=== PATIENT | male | born 1960 | race Caucasian/White ===

== ENCOUNTER 2017-11-24 15:41 | Emergency (ER) | payer OTHER ==
[~2017-11-24] VITALS: Ht 180.3 cm; Wt 87.5 kg
[~2017-11-24 15:41] MED LIST: AMT50 PO; CLBPO15 EXT; EMOL-63 TOP; FERR1TAB23 PO; FURO-85 PO; LEVO300T2 PO; NIAC1TAB52 PO; TRAZ100T29 PO; VITAMIN B12 PO; [UNRECOGNIZED DRUG - CODE] PO
[2017-11-24 15:47] VITALS: TEMP 36.8; Ht 180.3 cm; Wt 87.5 kg
--- NOTE | 2017-11-24 16:26 | EMERGENCY ROOM VISIT NOTE ---
History Report prepared by Maninder: Elvin Christian Under the Supervision of: Dr. Danielito Cabrear D.O. First contact with patient: 15:56 Chief Complaint: REFERRED BY DOCTOR Stated Complaint: CONSTIPATION, DR. ALMODOVAR REFERRED Nursing Triage Summary: Patient ambulatory to triage with an upright and steady gait, states "I am all backed up. I saw my PCP on Tuesday. He prescribed me Miralax and Dulcolax. It didn't work a whole lot. Yesterday, I tried another suppository again. Nothing happened. It hurts to eat. I feel like I am running a fever. Dr. Almodovar's office sent me here." History of Present Illness The patient is a 57 year old male who presents to the Emergency Room with complaints of constant constipation for the past 3 days. Patient states he was referred to the ER by his PCP. He states he saw his PCP 3 days ago who prescribed him Miralax and Dulcolax. He states these have not relieved his symptoms. Patient adds he tried another "suppository" yesterday which did not help. Patient states he feels bloated with abdominal pain. He states he feels like he has to go to the bathroom but "cannot produce anything". Past surgical history includes an abdominal hernial surgery. Patient states he has a history of colonoscopies which were normal. Source of History: patient Onset: 3 days ago Position: abdomen Timing: constant Modifying Factors (Relieving): other (None) Associated Symptoms: + abdominal pain Review of Systems See HPI for pertinent positives & negatives. A total of 10 systems reviewed and were otherwise negative. Past Medical & Surgical Medical Problems: (1) Kidney stone (2) Lymphoma (3) PNA (pneumonia) Surgical Problems: (1) H/O shoulder surgery Family History Patient reports no known family medical history. Social History Smoking Status: Current Every Day Smoker Marital Status: single Occupation Status: employed Current/Historical Medications Scheduled Amitriptyline Hcl (Elavil), 25 MG PO HS Atorvastatin (Lipitor), 20 MG PO QAM Bexarotene (Targretin), 225 MG PO QAM Ferrous Sulfate (Iron), 325 MG PO TID Levothyroxine Sodium (Synthroid), 300 MCG PO QAM Niacin (Antihyperlipidemic) (Niacin Er), 1,000 MG PO TID Polyethylene Glycol 3350 (Miralax), 17 GM PO DAILY Trazodone Hcl (Trazodone), 200-300 MG PO HS [Vitamin B12], 2,500 MCG PO HS Scheduled PRN Clobetasol Propionate (Clobetasol Propionate), 1 APPLN EXT DAILY PRN for AFFECTED AREAS Emollient (Eucerin), 1 APPLN TOP DAILY PRN Ibuprofen Tab (Motrin), 600 MG PO DIRECTED PRN for Pain Allergies Coded Allergies: Erythromycin (Verified Allergy, Unknown, "INTERACTS WITH TARGRETIN", ) Physical Exam Vital Signs Date Time Temp Pulse Resp B/P (MAP) Pulse Ox O2 Delivery O2 Flow Rate FiO2 11/24/17 18:45 76 18 165/100 97 11/24/17 17:31 88 20 165/95 95 Room Air 11/24/17 16:32 85 20 165/91 95 Room Air 11/24/17 15:47 36.8 103 20 162/82 94 Room Air Physical Exam GENERAL: Patient is awake, alert, and in no acute distress. Patient is resting comfortably and showing no signs of anxiety EYES: The conjunctivae are clear. The pupils are round and reactive. EARS, NOSE, MOUTH AND THROAT: The nose is without any evidence of any deformity. Mucous membranes are moist. Tongue is midline NECK: The neck is nontender and supple. RESPIRATORY: Normal respiratory effort is noted. There is no evidence of wheezing rhonchi or rales to auscultation. CARDIOVASCULAR: Regular rate and rhythm noted. There no murmurs rubs or gallops normal S1 normal S2 GASTROINTESTINAL: Mildly distended but soft. Bowel sounds are present in all quadrants. Abdomen is nontender. No guarding or rigidity. MUSCULOSKELETAL/EXTREMITIES: There is no evidence of gross deformity. Full range of motion is noted in the hips and shoulders. SKIN: There is no obvious evidence of any rash. There are no petechiae, pallor or cyanosis noted. NEUROLOGIC: Patient is awake alert and oriented x3. Medical Decision & Procedures ER Provider Diagnostic Interpretation: Radiology results as stated below per my review and radiologist interpretation: PA CHEST WITH ABDOMINAL SERIES CLINICAL HISTORY: Constipation. Abdominal bloating. FINDINGS: A PA chest radiograph is compared to study dated 11/26/2014. Correlation is made with chest CT dated 04/09/2014. The cardiomediastinal silhouette is unremarkable. Emphysema and chronic interstitial thickening are similar to previous. No airspace consolidation or pleural effusion is identified. No pneumothorax is seen. The bony thorax is grossly intact. Supine and erect abdominal radiographs are compared to study dated 04/09/2014. There is a nonobstructed abdominal bowel gas pattern. There is moderate colonic fecal retention. No evidence of intraperitoneal free air is seen. A large calcified gallstone is seen in the right upper quadrant. The lumbosacral spine and bony pelvis appear intact. IMPRESSION: 1. Emphysema with no acute cardiopulmonary abnormality. 2. Nonobstructed abdominal bowel gas pattern noting moderate colonic fecal retention. 3. Cholelithiasis. Electronically signed by: Zaki Gibson M.D. 11/24/2017 4:54 PM Medications Administered Medications (Trade) Dose Ordered Sig/Holly Route Start Time Stop Time Status Last Admin Dose Admin Miscellaneous (Soap Suds Enema) 1 ea ONE STAT PA 11/24/17 17:01 11/24/17 17:02 DC 11/24/17 17:01 1 EA ED Course 1359: The patient was evaluated in room B2. A complete history and physical examination were performed. 1701: Soap Suds Enema 1 ea PA 1732: Upon reevaluation, the patient is resting comfortably. I discussed the results and treatment plan with him. He verbalized agreement of the treatment plan. He was discharged home. Medical Decision Triage Nursing notes reviewed. The patient's history was concerning for constipation. Differential diagnosis: Etiologies such as functional constipation, impaction, obstruction, volvulus, metabolic abnormality, infection, neurologic, as well as others were entertained. The patient is a 57-year-old male who presented to the emergency department for an evaluation of constipation. The patient's history and physical exam are consistent with constipation. He did not have a physical exam consistent with an acute surgical abdomen. He was treated with soapsuds enema. He was encouraged to continue all medications as prescribed and follow-up with his primary care physician as soon as possible for further evaluation. He was also encouraged to return to the emergency department immediately if symptoms change worsen or the need arises. I also encouraged him to discuss the possibility that he may require a colonoscopy in the near future with gastroenterology referral. Medication Reconcilliation Current Medication List: was personally reviewed by me Blood Pressure Screening Patient's blood pressure: Elevated blood pressure Blood pressure disposition: Elevated BP felt to be situational Impression Primary Impression: Constipation Scribe Attestation The scribe's documentation has been prepared under my direction and personally reviewed by me in its entirety. I confirm that the note above accurately reflects all work, treatment, procedures, and medical decision making performed by me. Departure Information Dispostion Home / Self-Care Prescriptions Polyethylene Glycol 3350 (MIRALAX) 1 Pow Pow 17 GM PO DAILY, #527 GM Prov: Danielito Cabrera, DO 11/24/17 Referrals Jett Almodovar M.D.([facility]RA) (PCP) Forms HOME CARE DOCUMENTATION FORM, IMPORTANT VISIT INFORMATION, WORK / SCHOOL INSTRUCTIONS Patient Instructions Constipation, My [facility] Additional Instructions Continue all medications as prescribed. Call your family doctor to schedule a follow-up appointment. Drink plenty clear liquids. Discussed the possibility with your family doctor that you may require a colonoscopy and a referral to a supervisor of guidance and testing if symptoms do not improve. Problem Qualifiers Primary Impression: Constipation Constipation type: unspecified constipation type Qualified Codes: K59.00 - Constipation, unspecified
[2017-11-24] MEDS ORDERED: IBUP-1427 PO (16:27)
[2017-11-24] MEDS ORDERED: ATOR-22 PO (16:27)
--- NOTE | 2017-11-24 16:55 | DIAGNOSTIC IMAGING REPORT ---
PA CHEST WITH ABDOMINAL SERIES CLINICAL HISTORY: Constipation. Abdominal bloating. FINDINGS: A PA chest radiograph is compared to study dated 11/26/2014. Correlation is made with chest CT dated 04/09/2014. The cardiomediastinal silhouette is unremarkable. Emphysema and chronic interstitial thickening are similar to previous. No airspace consolidation or pleural effusion is identified. No pneumothorax is seen. The bony thorax is grossly intact. Supine and erect abdominal radiographs are compared to study dated 04/09/2014. There is a nonobstructed abdominal bowel gas pattern. There is moderate colonic fecal retention. No evidence of intraperitoneal free air is seen. A large calcified gallstone is seen in the right upper quadrant. The lumbosacral spine and bony pelvis appear intact. IMPRESSION: 1. Emphysema with no acute cardiopulmonary abnormality. 2. Nonobstructed abdominal bowel gas pattern noting moderate colonic fecal retention. 3. Cholelithiasis. Electronically signed by: Zaki Gibson M.D. 11/24/2017 4:54 PM Dictated Date/Time: 11/24/2017 4:52 PM
[2017-11-24] MEDS ORDERED: SOAP SUDS ENEMA PR STA (17:01)
[2017-11-24] MEDS ORDERED: POLY335019 PO (18:34)
[2017-11-24 18:45] VITALS: BP 165/100; PULSE 76; O2SAT 97
== END 2017-11-24 18:48 | disposition home or self-care (01) ==
LOC: C.EDB 15:42
DX: K59.00 Constipation, unspecified (principal); F17.200 Nicotine dependence, unspecified, uncomplicated; Z85.72 Personal history of non-Hodgkin lymphomas; Z88.1 Allergy status to other antibiotic agents

== ENCOUNTER 2020-07-06 16:38 | Inpatient (IN) ==
[2020-07-06 17:31] LABS: Basophils # (auto) 0.02 K/uL (0-0.2); Basophils % (auto) 0.2 %; Eosinophils # (auto) 0.18 K/uL (0-0.5); Eosinophils % (auto) 1.9 %; Hematocrit (blood only) 39.4 % (42-52); Hemoglobin 13.1 g/dL (14.0-18.0); Immature Granulocytes # (auto) 0.01 K/uL (0.00-0.02); Immature Granulocytes % (auto) 0.1 %; Lymphocytes # (auto) 2.48 K/uL (1.2-3.4); Lymphocytes % (auto) 25.6 %; Mean Corpuscular Hemoglobin 31.2 pg (25-34); Mean Corpuscular Hgb Conc 33.2 g/dL (32-36); Mean Corpuscular Volume 93.8 fL (80-100); Mean Platelet Volume 9.7 fL (7.4-10.4); Monocytes # (auto) 0.51 K/uL (0.11-0.59); Monocytes % (auto) 5.3 %; Neutrophils # (auto) 6.49 K/uL (1.4-6.5); Neutrophils % (auto) 66.9 %; Platelet Count 242 K/uL (130-400); RDW Coefficient of Variation 13.5 % (11.5-14.5); RDW Standard Deviation 46.5 fL (36.4-46.3); White Blood Count 9.69 K/uL (4.8-10.8)
--- NOTE | 2020-07-06 17:38 | XRay Report ---
XR chest 1V portable CLINICAL HISTORY: weakness COMPARISON STUDY: 11/24/2017 FINDINGS: The cardiac and mediastinal contours are normal. There is no evidence of focal pulmonary co nsolidation. There is no evidence of failure. No pleural effusions are visualized.[ IMPRESSION: No active disease in the chest. ACT 112: Negative or not required by law. Electronically signed by: Gopal Luz M.D. 07/06/2020 5:37 PM
--- NOTE | 2020-07-06 17:40 | XRay Report ---
XR KUB/Abdomen 1 view CLINICAL HISTORY: Pt c/o opal kidney stones BILATERAL FLANK PAIN COMPARISON STUDY: No previous studies for comparison. FINDINGS: Surgical clips are visualized in the right upper quadrant consistent with a prior cholecyst ectomy. There is a surgical staple line within the right lower quadrant. There is no pathologic bowel dilatation. Punctate opacities project over the right renal shadow suspicious for calculi. There are a few nonspecific pelvic basin calcifications, likely resenting phleboliths. IMPRESSION: 1. Nonobstructive bowel gas pattern 2. Suspected right-sided nephrolithiasis ACT 112: Negative or not required by law. Electronically signed by: Gopal Luz M.D. 07/06/2020 5:38 PM
[2020-07-06 17:48] LABS: Alanine Aminotransferase 28 U/L (12-78); Albumin Level 3.3 gm/dl (3.4-5.0); Aspartate Aminotransferase 27 U/L (15-37); BUN Creatinine Ratio 26.2 (10-20); Blood Urea Nitrogen 23 mg/dl (7-18); Calcium 8.7 mg/dl (8.5-10.1); Carbon Dioxide 25 mmol/L (21-32); Chloride 105 mmol/L (98-107); Creatinine Clr Calc Pharmacy 102.7 ml/min; Est GFR (African American) 107.7; Est GFR (Non-African American) 92.9; Glucose 214 mg/dl (70-99); Lipase 120 U/L (73-393); Potassium 3.5 mmol/L (3.5-5.1); Sodium 138 mmol/L (136-145)
[2020-07-06 17:57] LABS: Appearance Urine Clear (Clear); Bacteria Urine Automated Negative (Negative); Bilirubin Urine Negative (Negative); Blood Urine 1+ (Negative); Cast Urine Automated 0 /lpf (0-5); Color Urine Yellow; Epithelial Cell Urine Auto 0-5 /lpf (0-5); Glucose Urine UA Trace (Negative); Ketones Urine Trace (Negative); Leukocyte Esterase Urine Negative (Negative); Nitrite Urine Negative (Negative); Protein Urine Negative (Negative); RBC Urine Automated 0-4 /hpf (0-4); Specific Gravity Urine 1.017 (1.000-1.030); Urobilinogen Urine Negative (Negative); pH Urine 5.5 (4.5-7.5)
[2020-07-06 17:59] LABS: Alkaline Phosphatase 107 U/L (45-117); Bilirubin,Total 0.3 mg/dl (0.2-1); Globulin 3.3 gm/dl (2.5-4.0); Thyroid Stimulating Hormone < 0.005 uIu/ml (0.300-4.500); Total Protein 6.6 gm/dl (6.4-8.2); Troponin I < 0.015 ng/ml (0-0.045)
[2020-07-06 18:12] LABS: T4 Free Thyroxine 0.89 ng/dl (0.8-1.6)
--- NOTE | 2020-07-06 18:39 | Ultrasound Report ---
EXAMINATION: RENAL ULTRASOUND CLINICAL HISTORY: Bilateral flank pain COMPARISON STUDY: CT scan dated 04/09/2014 FINDINGS: The right kidney measures 10.7 cm. The left kidney measures 11 cm. There is no evidence of hydronephrosis. There is a 14 mm mid pole left renal cyst No bladder abnormalities are visualized. Bilateral ureteral jets were visualized. The prostate was m ildly enlarged measuring 35 x 34 x 32 mm. IMPRESSION : 1. 14 mm mid pole left renal cyst 2. No evidence of hydronephrosis ACT 112: Negative or not required by law. Electronically signed by: Gopal Luz M.D. 07/06/2020 6:38 PM
[2020-07-06] MEDS ORDERED: SODIUM CHLORIDE 0.9% 1000ML 1,000 ML IV ONE ×2 (19:51→20:48)
[2020-07-06] MEDS ORDERED: ALBUTEROL HFA 8 GM INHALER INH ONE (19:51)
[2020-07-06] MEDS ORDERED: ACETAMINOPHEN 1,000 MG/100 ML VIAL IV STA (20:16)
[2020-07-06] MEDS ORDERED: ONDANSETRON INJ 2 MG/ML 2 ML VIAL IV STA (20:17)
[2020-07-06] MEDS ORDERED: HYDROmorphone INJ 0.5 MG/0.5 ML SYR IV PRN (20:17)
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
[2020-07-06 20:51] LABS: Creatine Kinase MB 3.8 ng/ml (0.5-3.6)
[2020-07-06] MEDS ORDERED: cefTRIAXone SODIUM 2,000 MG/70 ML BAG IV STA (22:12)
[2020-07-07] MEDS ORDERED: MoRPHine SULFATE 2 MG/ML CARP IV PRN (00:17)
[2020-07-07] MEDS ORDERED: ONDANSETRON INJ 2 MG/ML 2 ML VIAL IV PRN (00:17)
[2020-07-07] MEDS ORDERED: ACETAMINOPHEN 325 MG TAB PO PRN (00:17)
[2020-07-07] MEDS ORDERED: POLYETHYLENE (MIRALAX) 17 GM PACK PO PRN (00:17)
[2020-07-07] MEDS ORDERED: traZODone HCL 100 MG TAB PO PRN (00:17)
[2020-07-07] MEDS ORDERED: bisacodyL 5 MG TABEC PO PRN (00:40)
[2020-07-07] MEDS: SODIUM CHLORIDE 0.9% 1000ML 1,000 ML IV SCH ×2 (01:10→13:05)
--- NOTE | 2020-07-07 01:13 | History and Physical Report ---
DATE OF ADMISSION: 07/06/2020 CHIEF COMPLAINT: Dizziness and flank pain. HISTORY OF PRESENT ILLNESS: This 60-year-old male with past medical history significant for hypothyroidism, hypertriglyceridemia, hyperlipidemia, prediabetes, COPD, hypertension, constipation, history of mycosis fungoides presents with lightheadedness and bilateral flank pain. The patient describes feeling lightheaded. He could not stay at work and slept at home for 12 hours, that is the reason he came to the ER. In the ER, hemodynamically stable, BP l slightly at the lower side but with fluids, it improved. No leukocytosis, afebrile. His COVID was negative and his urinalysis looks okay, but his CAT scan of the abdomen and pelvis shows possible bilateral pyelonephritis, so we are called for admission, presently started with Rocephin. Currently resting comfortably and hemodynamically stable. He also has a wound in his right luis region since about 2 months with a fall and follows with the wound care clinic. He didnot want his wound dressing removed in the ER currently. Denies any chest pain or shortness of breath. No cough, no headache, no blurred vision, no earache, no runny nose, no sore throat, no nausea, no abdominal pain, no diarrhea or constipation. No burning micturition, no hematuria. ALLERGIES: TO ERYTHROMYCIN. PAST MEDICAL HISTORY: As mentioned above. PAST SURGICAL HISTORY: Colonoscopy, cystoscopy, lithotripsy, status post lymph node biopsy, status post bone marrow biopsy, history of leg vein cauterization, recurrent hernia repair, laparoscopic cholecystectomy, inguinal hernia repair, bilateral shoulder arthroscopy. MEDICATIONS: The patient is on amitriptyline 25 mg p.o. at bedtime, amlodipine 5 mg p.o. daily, atorvastatin 20 mg p.o. daily, Benefiber 1.5 p.o. t.i.d., betamethasone topical, bexarotene 300mg p.o. daily, bisacodyl 5 mg p.o. daily p.r.n., vitamin B12 500 mcg sublingual at bedtime, ferrous sulfate 325 mg p.o. t.i.d., hydrochlorothiazide 25 mg p.o. daily, ibuprofen p.r.n., levothyroxine 300 mcg p.o. every other day, losartan 100 mg p.o. daily, niacin 10 mg p.o. daily, omeprazole 20 mg p.o. b.i.d., MiraLAX 17 grams p.o. a.m., trazodone 200 mg p.o. at bedtime p.r.n. FAMILY HISTORY: Significant for father has heart disorder. Sister has diabetes, paternal grandmother had diabetes. SOCIAL HISTORY: Single, former smoker. Alcohol on weekends. Marijuana in the past as per records. REVIEW OF SYMPTOMS: As per HPI. Rest of the review of systems negative. PHYSICAL EXAMINATION: GENERAL: The patient is of moderate build, not in acute distress. VITAL SIGNS: Temperature 36.4, pulse 74, respiratory rate 18, blood pressure 146/77, oxygen 97% room air. HEENT: Pupils equal and reactive to light. NECK: No JVD. No neck masses. Oral mucosa moist. CARDIOVASCULAR: S1, S2, regular rate and rhythm, no murmur, no gallop. RESPIRATORY SYSTEM: Normal AP diameter. No accessory muscle use. No wheezing, no crackles. ABDOMEN: Soft, bowel sounds present. Mild bilateral CVA tenderness present, no guarding, no rigidity. No distention. CENTRAL NERVOUS SYSTEM: Cranial nerves II-XII grossly intact. Nonfocal. EXTREMITIES: Right lower extremity, luis is in dressing. No edema seen. LABORATORY DATA: WBC 9.6, hemoglobin 13.1, hematocrit 39.4, platelets 242. Sodium 133, potassium 3.5, chloride 105, bicarbonate 25, BUN 23, creatinine 0.8, serum glucose 214, calcium 8.7, total bilirubin 0.3, AST 27, ALT 28, alkaline phosphatase 107, total creatinine kinase 186. Troponin I less than 0.015. Lipase 120. TSH less than 0.005, free T4 0.89. Urinalysis, +1 bacteria, +1 blood. SARS-CoV-2 RNA negative. KUB x-ray, nonobstructive bowel gas pattern, suspected right-sided nephrolithiasis. Renal ultrasound, 40 mm mid pole left renal cyst, no evidence of hydronephrosis. Chest x-ray, no active disease in the chest. CT of the head, no acute intracranial hemorrhage, hydrocephalus, edema, mass effect or acute cortical infarct. Paranasal sinuses and mastoid air cells are clear. No fracture. CT of the abdomen and pelvis, no ureteral stone, obstructive uropathy, nonobstructing 4 mm stone in the right renal lower pole, nonspecific perinephric fat stranding bilaterally which can be incidental, but also can be seen in the setting of infection and medical renal disease. Unremarkable appearance of the bladder, cholecystectomy. Remainder of solid organs are grossly unremarkable. No acute abnormality along the GI tract. Normal appendix. EKG: Normal sinus rhythm, rate of 86 with incomplete right bundle branch block. ASSESSMENT AND PLAN: A 60-year-old male presents with lightheadedness and bilateral flank pain. 1. Lightheadedness with bilateral flank pain, questionable pyelonephritis on the CAT scan, though UA was okay and no leukocytosis and no fevers. Started on empirical Rocephin. We will continue to follow the final report of the CAT scan. We will also follow urine cultures and blood cultures and continue with fluids and monitor in the medical floor. 2. Prediabetes. Follow HbA1c. We will follow the blood sugars. 3. History of hypothyroidism. Continue Synthroid. 4. History of hypertension. Continue hydrochlorothiazide with holding parameters and amlodipine with holding parameters. 5. Hyperlipidemia, on statin. 6. Lower extremity wound, following with wound care clinic. The patient says it was because of the fall about 2 months ago. He says wound is not healing that great, but cultures were done from the wound clinic on Tuesday and were negative. We will consult wound care while patient is inpatient. The patient does not like his wound to be examined in the ER. wound cultures. 7. Deep venous thrombosis prophylaxis. We will place him on Lovenox. DISPOSITION: Admit to medical floor. Expect discharge home and follow with family doctor. Level 1 full code. MTDD
[2020-07-07] MEDS: LACTASE 3000 UNIT TAB PO SCH ×3 (05:40→14:27)
[2020-07-07 05:58] LABS: Basophils # (auto) 0.01 K/uL (0-0.2); Basophils % (auto) 0.2 %; Eosinophils # (auto) 0.23 K/uL (0-0.5); Eosinophils % (auto) 4.3 %; Hematocrit (blood only) 35.4 % (42-52); Hemoglobin 11.7 g/dL (14.0-18.0); Immature Granulocytes # (auto) 0.01 K/uL (0.00-0.02); Immature Granulocytes % (auto) 0.2 %; Lymphocytes # (auto) 2.47 K/uL (1.2-3.4); Lymphocytes % (auto) 46.4 %; Mean Corpuscular Hemoglobin 31.1 pg (25-34); Mean Corpuscular Hgb Conc 33.1 g/dL (32-36); Mean Corpuscular Volume 94.1 fL (80-100); Mean Platelet Volume 9.6 fL (7.4-10.4); Monocytes # (auto) 0.48 K/uL (0.11-0.59); Neutrophils # (auto) 2.12 K/uL (1.4-6.5); Neutrophils % (auto) 39.9 %; Platelet Count 213 K/uL (130-400); RDW Coefficient of Variation 13.6 % (11.5-14.5); Red Blood Count 3.76 M/uL (4.7-6.1); White Blood Count 5.32 K/uL (4.8-10.8)
[2020-07-07] MEDS ORDERED: LEVOTHYROXINE SODIUM 150 MCG TABLET PO SCH (06:30)
[2020-07-07 06:31] LABS: BUN Creatinine Ratio 30.9 (10-20); Calcium 7.9 mg/dl (8.5-10.1); Creatinine Clr Calc Pharmacy 130.2 ml/min; Est GFR (African American) 118.6; Est GFR (Non-African American) 102.4; Magnesium 1.1 mg/dl (1.8-2.4); Potassium 3.7 mmol/L (3.5-5.1)
[2020-07-07 07:25] LABS: Estimated Average Glucose 126 mg/dl
--- NOTE | 2020-07-07 08:03 | CT Scan Report ---
CT head/brain wo con CLINICAL HISTORY: Dizziness COMPARISON STUDY: 04/09/2014 TECHNIQUE: Axial CT of the brain is performed from the vertex to the skull base. IV contrast was not administered for this examination. A dose lowering technique was utilized adhering to the principles of ALARA. CT DOSE: FINDINGS: No intra or extra-axial mass lesions are visualized. There is no CT evidence of acute cortical infarc tion. There is no evidence of midline shift. There is no acute hemorrhage. No calvarial fractures ar e visualized. There is no evidence of pathologic ventricular dilatation. There is no evidence of acute sinusitis IMPRESSION: No acute intracranial findings ACT 112: Negative or not required by law. Electronically signed by: Gopal Luz M.D. 07/07/2020 8:02 AM
[2020-07-07] MEDS: NIACIN EXTENDED REL 500 MG TABCR PO SCH ×2 (08:31→08:46)
[2020-07-07] MEDS: PSYLLIUM 58.6% POWDER PACKET PO SCH ×2 (08:35→13:05)
[2020-07-07] MEDS: FERROUS SULFATE 325 MG TAB PO SCH ×2 (08:35→13:05)
--- NOTE | 2020-07-07 08:51 | CT Scan Report ---
ABDOMEN AND PELVIS CT WITHOUT CONTRAST CT DOSE: 1925.10 mGy.cm HISTORY: Pt c/o b/l back pain TECHNIQUE: Multiaxial CT images of the abdomen and pelvis were performed without contrast. A dose lo wering technique was utilized adhering to the principles of ALARA. COMPARISON STUDY: Abdomen and pelvis CT 04/09/2014. FINDINGS: Anterior wedging at the L1 vertebral body is likely chronic. No acute fractures identified within the abdomen or pelvis. Mild dependent changes seen at the lung bases. No pneumoperitoneum. No pneumatosis. Cholecystectomy. The unenhanced spleen, adrenal glands, and pancreas are unremarkable. T here is a 4 mm stone within the lower pole the right kidney. There is a punctate left renal stone. Th ere is mild bilateral perinephric edema. No hydronephrosis. No ureteral calculi. The bladder is unrem arkable. Stable 5 mm cyst within the left hepatic lobe. Increase in size in the 1.5 cm hypodense lesi on within the left kidney. This is incompletely characterized on this noncontrast study but statistic ally represents a cyst. No retroperitoneal lymphadenopathy. Prior right inguinal hernia repair. No pe lvic free fluid. Suboptimal evaluation for bowel pathology due to the lack of intravenous and oral co ntrast. However, there is no definite bowel wall thickening or obstruction. A few colonic diverticula . No evidence for diverticulitis. Tiny fat-containing umbilical hernia. Normal appendix. IMPRESSION: 1. Bilateral nephrolithiasis. No ureteral stones. No hydronephrosis. 2. Nonspecific bilateral perinephric fat stranding. This could be chronic or related to an underlying infection. Recommend correlation with urinalysis. 3. No bowel wall thickening or obstruction. 4. Normal appendix. 5. Additional findings as described above. ACT 112: Negative or not required by law. Electronically signed by: Ronnie Goodwin M.D. 07/07/2020 8:49 AM
[2020-07-07] MEDS ORDERED: amLODIPine BESYLATE 5 MG TAB PO SCH (09:00)
[2020-07-07] MEDS ORDERED: ENOXAPARIN INJ 40 MG/0.4 ML SYR SQ SCH (09:00)
[2020-07-07] MEDS ORDERED: POLYETHYLENE (MIRALAX) 17 GM PACK PO SCH (09:00)
[2020-07-07] MEDS ORDERED: COLLAGENASE OINT 30 GM TUBE TOP SCH (09:00)
[2020-07-07] MEDS ORDERED: hydroCHLOROthiazide 25 MG TAB PO SCH (09:00)
[2020-07-07] MEDS ORDERED: LOSARTAN POTASSIUM 50 MG TAB PO SCH (09:00)
[2020-07-07] MEDS ORDERED: ATORVASTATIN 20 MG TAB PO SCH (09:00)
[2020-07-07] MEDS ORDERED: PANTOprazole 40 MG TAB PO SCH (09:00)
--- NOTE | 2020-07-07 16:05 | Electrocardiogram Report ---
Test Reason : Blood Pressure : / mmHG Vent. Rate : 086 BPM Atrial Rate : 086 BPM P-R Int : 152 ms QRS Dur : 104 ms QT Int : 364 ms P-R-T Axes : 061 029 037 degrees QTc Int : 435 ms Normal sinus rhythm Incomplete right bundle branch block Borderline ECG When compared with ECG of 26-NOV-2014 13:50, Vent. rate has increased BY 29 BPM Confirmed by Chuck Lim ([id number]) on 07/07/2020 4:05:05 PM Referred By: REFERRED SELF Confirmed By:Raymond Lim
[2020-07-07] MEDS ORDERED: MAGNESIUM SULFATE / D5W 1 GM/100 ML BAG IV SCH (19:00)
--- NOTE | 2020-07-07 19:05 | Discharge Summary ---
Date of Service July 07, 2020 Admission HPI Per Admitting Provider DICTATED BY: Raz Templeton MD DATE OF ADMISSION: 07/06/2020 CHIEF COMPLAINT: Dizziness and flank pain. HISTORY OF PRESENT ILLNESS: This 60-year-old male with past medical history significant for hypothyroidism, hypertriglyceridemia, hyperlipidemia, prediabetes, COPD, hypertension, constipation, history of mycosis fungoides presents with lightheadedness and bilateral flank pain. The patient describes feeling lightheaded. He could not stay at work and slept at home for 12 hours, that is the reason he came to the ER. In the ER, hemodynamically stable, BP l slightly at the lower side but with fluids, it improved. No leukocytosis, afebrile. His COVID was negative and his urinalysis looks okay, but his CAT scan of the abdomen and pelvis shows possible bilateral pyelonephritis, so we are called for admission, presently started with Rocephin. Currently resting comfortably and hemodynamically stable. He also has a wound in his right luis region since about 2 months with a fall and follows with the wound care clinic. He didnot want his wound dressing removed in the ER currently. Denies any chest pain or shortness of breath. No cough, no headache, no blurred vision, no earache, no runny nose, no sore throat, no nausea, no abdominal pain, no diarrhea or constipation. No burning micturition, no hematuria. Principal Diagnosis Kidney stone UTI Pyelonephritis ( infection around kidneys ) Discharge Exam Physical exam: General: No acute distress, alert awake oriented x3 HEENT: PERRLA, EOMI, Heart: Regular S1-S2, no carotid bruit, no JVD, no lower extremity edema Lungs: Clear to auscultate, no wheeze or rales Abdomen: Soft nontender, no organomegaly Extremity: No cyanosis, no deformity, normal strength 5 out of 5 with upper and lower Neuro: No focal neurological deficit normal speech, normal visual field, Motor strength : normal both upper and lower extremity, sensation intact Psych: Alert awake oriented x3, normal affect Discharge Data Allergies Allergy/AdvReac Type Severity Reaction Status Date / Time erythromycin base Allergy Unknown "INTERACTS Verified 07/08/20 11:09 WITH TARGRETIN" Consultations 07/06/20 22:25 ED Decision to Admit Stat Ordered Studies 07/06/20 17:13 US renal/blad retro comp Stat 07/06/20 20:15 CT head/brain wo con Urgent 07/06/20 20:16 CT abd pelvis wo con Urgent Hospital Course (1) Pyelonephritis: admitted with flank pain CT abdomen shows bilateral renal fat stranding suggestive of pyelonephritis renal stone with no stone in ureter , no hydronephrosis pt treated empirically with IV Rocephin flank pain has improved markedly no fever or chills no nausea , tolerating diet no symptoms /medically stable feels fine to be discharged home today abx changed to PO Ciprofloxacin for 7 days tx Dizzy spell : possible due to dehydration /pyelonephritis given IV fluid all symptoms resolved , no complain of lightheadedness or dizzy spell vitals stable , normal renal function (2) Kidney stone: hx of prior renal stone -used to follow with [facility] Urology Dr Tamiko Santana ( no longer in practice ) CT abdomen /shows : bilateral nephrolithiasis with out ureteric stone or hydronephrosis bilateral renal fat stranding suggestive of either chronic vs acute infection Abx as above will need urology follow up , information given to [place] up [place] [facility] [place] Low mg : ordered for replacement pt denies of any episode of diarrhea or nausea /vomiting will be followed with family physician for post hospital visit Total Time Total Time Spent Total Time Spent (In Minutes): 35 mins Total Time Includes: Examination of the Patient, Discharge Planning and Medication Reconciliation Discharge Plan Discharge Items Patient Disposition: Home - Self-Care Reason For Visit: DIZZINESS, FLANK PAIN Discharge Diagnosis: Kidney stone UTI Pyelonephritis ( infection around kidneys ) Activity: Resume your previous activity Non-emergency contact: Primary Care Provider Call non-emergency contact if: you have any medication questions Follow-up/Referrals: Rah Stafford DO [Physician] - (follow up with Urology for Kidney stone in 3-4 weeks ) Jett Gonzalez MD [Primary Care Provider] - Diet: Regular Addtl Attending Provider Instructions: Please take all medications as instructed on discharge list below. It is recommended that you follow-up with your primary care physician within 1-2 weeks of hospital discharge to ensure you are still doing well. you hospital follow up will be scheduled and office will call you with appointment follow up with Urology on 3-4 weeks for kidney stone Please call if you have any questions or problems. You can reach a [facility] hospitalist on duty at [facility] 24 hours a day by calling [phone] [facility] [employer] Provider Instructions: take antibiotic Ciprofloxacin 500 mg 1 tablet twice daily for 7 days please take over the counter probiotics while taking antibiotic to prevent diarrhea /loose stool Pending Studies at Discharge: No Stand-Alone Forms: My [facility], Work/School Release (Inpt), Smoking Cessation Medications and DC Order Prescriptions: New ciprofloxacin HCl [Cipro] 500 mg tablet 500 mg PO BID 7 Days Qty: 14 RF: 0 Continued Santyl 250 unit/gram ointment 1 applic topical DAILY Qty: 90 RF: 0 atorvastatin 20 mg Tablet 20 mg PO DAILY RF: 0 cyanocobalamin (vitamin B-12) [Vitamin B-12] 2,500 mcg Tablet, Sublingual 5,000 mcg SUBLINGUAL HS RF: 0 polyethylene glycol 3350 17 gram Powder In Packet 17 g PO QAM RF: 0 amlodipine 5 mg Tablet 5 mg PO DAILY RF: 0 bexarotene 75 mg Capsule 300 mg PO DAILY RF: 0 amitriptyline 25 mg Tablet 25 mg PO HS RF: 0 trazodone 100 mg Tablet 200 - 300 mg PO HS PRN (Reason: Sleep) RF: 0 omeprazole 20 mg Capsule,Delayed Release(Dr/Ec) 20 mg PO BID RF: 0 hydrochlorothiazide 25 mg Tablet 25 mg PO DAILY RF: 0 losartan 100 mg Tablet 100 mg PO DAILY RF: 0 Benefiber Sugar Free (dextrin) 3 gram/4 gram Powder 1.5 g PO TID RF: 0 ibuprofen 600 mg Tablet 600 mg PO UD PRN (Reason: Pain) RF: 0 ferrous sulfate 325 mg (65 mg iron) Tablet 325 mg PO TID RF: 0 betamethasone dipropionate 0.05 % Ointment 1 applic TOPICAL WK RF: 0 niacin 1,000 mg Tablet Extended Release 3,000 mg PO DAILY RF: 0 Valchlor 0.016 % Gel 1 applic TOPICAL 3XWK RF: 0 levothyroxine 300 mcg Tablet 300 mcg PO Q2D RF: 0 bisacodyl 5 mg Tablet 5 mg PO UD PRN (Reason: Constipation) RF: 0 Fast Acting Dairy Digestive Dietary Supplement Lactase Enzyme 2 tab PO UD RF: 0 Discharge Orders: Discharge Order (Routine); Ordered 07/07/20 Ordered By: Jovanna Freire/Other Patient Handouts: Prediabetes, 5 Steps for Eating Healthier, A1C Admission Data Admit Date/Time: 07/06/20 23:09 Attending Provider: Jovanna Crooks Admit Provider: Raz Templeton Primary Care Provider: Jett Gonzalez Other Providers: Raz Templeton ; Tiarra Wade I. Other Interventions: Discharge Summary Assessment (RN) Last Done: 07/07/20 19:07
[2020-07-07] MEDS ORDERED: MAGNESIUM CHLORIDE 64MG DELAYED REL TAB PO ONE (19:30)
[2020-07-07] MEDS ORDERED: cefTRIAXone SODIUM 2,000 MG in DEXTROSE 5% 50 ML IV ONE (19:30)
[2020-07-07] MEDS ORDERED: cefTRIAXone SODIUM 2,000 MG in DEXTROSE 5% 50 ML IV SCH (20:00)
[2020-07-07] MEDS ORDERED: AMITRIPTYLINE HCL 25 MG TAB PO SCH (21:00)
[2020-07-07] MEDS ORDERED: CYANOCOBALAMIN (VITAMIN B-12) 2,500 MCG TAB.SUBL SL SCH (21:00)
[2020-07-13] MEDS ORDERED: BETAMETHASONE DIP AUG 0.05% OINT 15 GM TUBE EXT SCH (09:00)
== END 2020-07-07 20:22 | disposition home or self-care (01) | DRG 690 ==
LOC: ED 16:38 → SUATTDRO 23:09 → 3W 23:09

== ENCOUNTER 2024-03-07 12:55 | Inpatient (IN) ==
[2024-03-07 13:50] LABS: Basophils # (auto) 0.07 K/uL (0.00-0.20); Basophils % (auto) 0.5 %; Eosinophils # (auto) 0.14 K/uL (0.00-0.50); Eosinophils % (auto) 0.9 %; Hemoglobin 13.5 g/dl (14.0-18.0); Immature Granulocytes # (auto) 0.06 K/uL (0.01-0.20); Immature Granulocytes % (auto) 0.4 %; Lymphocytes # (auto) 1.54 K/uL (1.20-3.40); Lymphocytes % (auto) 10.2 %; Mean Corpuscular Hemoglobin 33.3 pg (25.0-34.0); Mean Corpuscular Hgb Conc 33.8 g/dL (32.0-36.0); Mean Corpuscular Volume 98.5 fL (80.0-100.0); Mean Platelet Volume 9.6 fL (9.4-12.4); Monocytes # (auto) 0.55 K/uL (0.11-0.59); Monocytes % (auto) 3.6 %; Neutrophils # (auto) 12.72 K/uL (1.40-6.50); Neutrophils % (auto) 84.4 %; Platelet Count 292 K/uL (130-400); RDW Coefficient of Variation 12.7 % (11.5-14.5); RDW Standard Deviation 45.9 fL (36.4-46.3); Red Blood Count 4.06 M/uL (4.70-6.10); White Blood Count 15.08 K/ul (4.8-10.8)
[2024-03-07 14:07] LABS: Albumin Globulin Ratio 1.1 (0.9-2); Albumin Level 4.1 gm/dl (3.4-5.0); Bilirubin,Total 0.3 mg/dl (0.2-1.0); Calcium 9.9 mg/dl (8.6-10.3); Creatinine Clr Calc Pharmacy 84.9 ml/min; Globulin 3.6 gm/dl (2.5-4.0); Potassium 3.7 mmol/L (3.5-5.1); Total Protein 7.7 gm/dl (6.0-8.3)
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
[2024-03-07] MEDS: PIPERACILLIN/TAZOBACTAM 4.5 GM/100 ML BAG IV ONE (15:03)
[2024-03-07] MEDS: SODIUM CHLORIDE 0.9% 1,000 ML IV ONE (15:03)
--- NOTE | 2024-03-07 15:08 | Surgery Consultation ---
Date of Consultation March 07, 2024 Assessment & Plan (1) Aliya-rectal abscess: Patient with c/o rectal pain that he noticed last when sitting down, felt a bulge in his rectal area, and noticed last Tuesday it started draining bloody fluids. On exam left side rectal area erythema, induration, draining purulent bloody fluid, was able to collect some drainage for culture. Recommend CT abd/pelvis Patient was started on Zosyn in the ER and is being admitted to medicine for further IV antibiotics , WBC 15. Will discuss case with on-call surgeon Dr. Li. Supervising Physician Co-Signing Physician Notes Patient seen and examined, labs and imaging reviewed, agree with above. Presented with several day history of painful lump near his anus, seen by PCP and started on antibiotics yesterday. Started having drainage today. Was supposed to be seen by [facility] general surgery, but was redirected towards the ER. Afebrile stable vitals, draining perianal abscess with no significant cellulitis. WBC 15. CT scan showed 2.7 x 0.8 cm perianal abscess with minimal surrounding cellulitis. At this point no indication for drainage as it is draining on its own. Would recommend antibiotics, sitz bath's, and local wound care. He was informed of the 1 out of 4 patients will develop a perianal fistula after an episode like this, in which case he would need to follow-up with a colorectal surgeon. Patient has been admitted to the medicine service. Surgery will follow, call with questions or concerns History of Present Illness Reason for Consultation: rectal abscess Requesting Physician: Dr. Robin History of Present Illness Patient is a pleasant 64 yo male with PMH of T -cell lymphoma , stage 4 Hodgkin, venous insufficiency, pre diabetic that presented to the [facility] with c/o rectal pain that he noticed last when sitting down. He reports it started draining on Tuesday. Patient saw his PCP yesterday and he had an appointment scheduled today with [facility] surgery however was called by the nurse and directed to come the ER. He denies fever, chills, N/V , has been having regular BMs last was yesterday. Has been up to date on his colonoscopy which he gets with [facility] GI, he denies hx of crohns disease or ulcerative colitis. Allergies Allergy/AdvReac Type Severity Reaction Status Date / Time erythromycin base AdvReac Unknown "interacts Verified 08/22/23 14:42 with Targretin [bexarotene]" cyanoacrylate adhesive AdvReac Severe Rash Uncoded 08/22/23 14:42 Home Medications Medication Instructions Recorded Confirmed Type amitriptyline 25 mg tablet 25 mg PO HS 10/02/19 08/22/23 History amlodipine 5 mg tablet 5 mg PO DAILY 10/02/19 08/22/23 History atorvastatin 20 mg tablet 20 mg PO HS 10/02/19 08/22/23 History betamethasone dipropionate 0.05 % 1 applic topical UD PRN Skin 10/02/19 08/22/23 History topical ointment Irritation bexarotene 75 mg capsule 300 mg PO DAILY 10/02/19 08/22/23 History cyanocobalamin (vitamin B-12) 5,000 mcg sublingual HS 10/02/19 08/22/23 History 2,500 mcg sublingual tablet (Vitamin B-12) ferrous sulfate 325 mg (65 mg 325 mg PO DAILY 10/02/19 08/22/23 History iron) tablet hydrochlorothiazide 25 mg tablet 25 mg PO DAILY 10/02/19 08/22/23 History ibuprofen 600 mg tablet 600 mg PO UD PRN Pain 10/02/19 08/22/23 History losartan 100 mg tablet 100 mg PO DAILY 10/02/19 08/22/23 History mechlorethamine 0.016 % topical 1 applic topical 3XWK 10/02/19 08/22/23 History gel (Valchlor) omeprazole 20 mg capsule,delayed 20 mg PO BID 10/02/19 08/22/23 History release polyethylene glycol 3350 17 gram 17 g PO QAM PRN Constipation 10/02/19 08/22/23 History oral powder packet trazodone 100 mg tablet 200 - 300 mg PO HS PRN Sleep 10/02/19 08/22/23 History wheat dextrin 3 gram/4 gram oral 1.5 g PO TID 10/02/19 08/22/23 History powder (Benefiber Sugar Free (dextrin)) tizanidine 4 mg tablet 4 mg PO Q8H PRN Pain 09/30/20 08/22/23 History azithromycin 250 mg tablet See Rx Instructions PO .COMPLEX 02/24/23 08/22/23 History pentoxifylline 400 mg 400 mg PO TID 05/12/23 08/22/23 History tablet,extended release hydrocodone 5 mg-acetaminophen 325 1 tab PO HS PRN Severe Pain (Scale 07/28/23 08/22/23 History mg tablet Score 7-10) docusate sodium 100 mg capsule 100 mg PO BID 03/07/24 03/07/24 History famotidine 20 mg tablet 20 mg PO HS 03/07/24 03/07/24 History gabapentin 600 mg tablet 600 mg PO QID 03/07/24 03/07/24 History hydroxyzine HCl 25 mg tablet 25 mg PO Q6H PRN Itching 03/07/24 03/07/24 History levothyroxine 175 mcg tablet 175 mcg PO DAILY 03/07/24 03/07/24 History metformin 750 mg tablet,extended 750 mg PO DAILY 03/07/24 03/07/24 History release 24 hr sulfamethoxazole 800 1 tab PO BID 03/07/24 03/07/24 History mg-trimethoprim 160 mg tablet valacyclovir 1 gram tablet 1 mg PO TID 03/07/24 03/07/24 History Patient History Medical History Hypothyroidism History of diverticulitis Cancer CTCL (current treatment) Kidney stone 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" History of skin cancer Hiatal hernia Acid reflux Pre-diabetes COPD (chronic obstructive pulmonary disease) "Mild" High cholesterol Possible, r/t medication side effects per pt HTN (hypertension) Surgical History H/O vascular surgery Right great saphenous vein ablation History of tooth extraction History of esophagogastroduodenoscopy (EGD) History of cholecystectomy History of anesthesia reaction "Did't give me enough and started to wake up" x2 procedures () History of mandibular surgery HX jaw fracture/wiring (no current ROM limitations per pt) History of hernia surgery History of bone marrow biopsy History of endoscopy History of cataract surgery R/L History of colonoscopy History of shoulder surgery Rx2, Lx1 History of lithotripsy Family History Mother Family history of diabetes mellitus Sister No problems noted. Sister Family history of diabetes mellitus Other No family history of adverse response to anesthesia Social History Smoking Status: Current every day smoker Tobacco Type: Cigarettes Cigarettes Per Day: 4/5; Second Hand Exposure: Yes; Do You Dip or Chew Tobacco: No; Hx Alcohol Use: Yes Alcohol type: beer and wine Alcohol Intake Frequency: 2-3 x/Week Hx Substance Use: No Preferred Language: Serbian Communication Ability: Effective Communication Ability Comment: OCCASSIONAL STUTTERING OF SPEECH/COMMUNICATION EFFECTIVE Taxation Economist Required: No Beliefs That Will Affect Care: None Current Living Situation: Alone Feels Safe at Home: Yes Diet: ideal protein Diet Comment: Educated to increase protein, vitamin c, d and zinc to assist with healing. Assistive Devices: Glasses Review of Systems Constitutional: no fever and no chills Respiratory: no dyspnea Cardiovascular: no chest pain Gastrointestinal: no abdominal pain, no nausea and no vomiting Genitourinary: no dysuria Physical Exam Constitutional: cooperative and comfortable; no acute distress Respiratory: normal respiratory effort; no respiratory distress Cardiovascular: Rate/Rhythm: + tachycardic (111) Gastrointestinal (Abdomen): Rectal Exam: no hemorrhoids erythema, induration, draining purulent bloody fluid Results & Data Vital Signs (Past 12 Hours) Vital Signs Temp Pulse Resp BP Pulse Ox O2 Del Method 03/07/24 13:02 97.9 F 111 H 18 124/91 96 Room Air Results CBC w Diff Results: RBC 4.06 M/uL (4.70-6.10) L 03/07/24 WBC 15.08 K/ul (4.8-10.8) H 03/07/24 Hgb 13.5 g/dl (14.0-18.0) L 03/07/24 Hct 40.0 % (42.0-52.0) L 03/07/24 MCV 98.5 fL (80.0-100.0) 03/07/24 MCH 33.3 pg (25.0-34.0) 03/07/24 MCHC 33.8 g/dL (32.0-36.0) 03/07/24 RDW Standard Deviation 45.9 fL (36.4-46.3) 03/07/24 RDW Coefficient of Variation 12.7 % (11.5-14.5) 03/07/24 Plt Count 292 K/uL (130-400) 03/07/24 MPV 9.6 fL (9.4-12.4) 03/07/24 Neutrophils (%) (Auto) 84.4 % 03/07/24 Lymphocytes (%) (Auto) 10.2 % 03/07/24 Monocytes # (Auto) 0.55 K/uL (0.11-0.59) 03/07/24 Eosinophils # (Auto) 0.14 K/uL (0.00-0.50) 03/07/24 Immature Granulocyte % (Auto) 0.4 % 03/07/24 Neutrophils # (Auto) 12.72 K/uL (1.40-6.50) H 03/07/24 Lymphocytes # (Auto) 1.54 K/uL (1.20-3.40) 03/07/24 Monocytes # (Auto) 0.55 K/uL (0.11-0.59) 03/07/24 Eosinophils # (Auto) 0.14 K/uL (0.00-0.50) 03/07/24 Basophils # (Auto) 0.07 K/uL (0.00-0.20) 03/07/24 Immature Granulocyte # (Auto) 0.06 K/uL (0.01-0.20) 4 PG Care Time/CCT Total # of Minutes Spent Total Time Spent with Patient: Total time spent is greater than 50% in coordination of care (as documented) at patient's floor/unit and/or counseling patient: Coding Level of Care Code 38430 INT INP/OBS CARE 1/40MIN Diagnoses Aliya-rectal abscess K61.1
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
[2024-03-07] MEDS: OPTIRAY 320 100ml IV ONE (15:49)
--- NOTE | 2024-03-07 16:28 | CT Scan Report ---
CT pelvis w/IV con only CLINICAL HISTORY: Perianal pain. Evaluate for abscess. COMPARISON STUDY: CT of the abdomen and pelvis August 22, 2020. TECHNIQUE: Axial images of the pelvis were obtained following intravenous injection of 94 cc Optiray 320 IV. Automated exposure control was utilized for the study. A dose lowering technique was utilize d adhering to the principles of ALARA. FINDINGS: There is a fluid and gas containing subcutaneous perianal fluid collection along the inferi or medial aspect of the left buttock. This measures 2.7 x 0.8 cm. Adjacent stranding represents cellu litis. No additional fluid collections are identified. Caliber and wall thickness of visualized small and large bowel are normal. There is no pelvic lymphadenopathy. Moderate aortoiliac atherosclerotic plaque is incidentally noted. IMPRESSION: 2.7 x 0.8 cm left perianal fluid collection along the inferior medial aspect of the left buttock consistent with a small perianal abscess. Mild adjacent cellulitis. ACT 112: Negative or not required by law. Electronically signed by: Durga Garza M.D. 03/07/2024 4:26 PM
[2024-03-07] MEDS ORDERED: MoRPHine SULFATE 4 MG/ML 1 ML CARP\\VIAL IV PRN (18:29)
[2024-03-07] MEDS ORDERED: GLUCOSE 10 TAB/TUBE PO PRN (18:29)
[2024-03-07] MEDS ORDERED: DEXTROSE 50% 50 ML SYRINGE IV PRN (18:29)
[2024-03-07] MEDS ORDERED: traZODone HCL 100 MG TAB PO PRN (18:29)
[2024-03-07] MEDS ORDERED: CARBOHYDRATES FOR HYPOGLYCEMIA PO PRN (18:29)
[2024-03-07] MEDS ORDERED: ONDANSETRON INJ 2 MG/ML 2 ML VIAL IV PRN (18:29)
[2024-03-07] MEDS ORDERED: ACETAMINOPHEN 325 MG TAB PO PRN (18:29)
[2024-03-07] MEDS ORDERED: GLUCOSE 40% GEL 15 GM TUBE PO PRN (18:29)
[2024-03-07] MEDS ORDERED: POLYETHYLENE (MIRALAX) 17 GM PACK PO PRN (18:29)
[2024-03-07] MEDS ORDERED: GLUCAGON FOR INJ 1 MG VIAL SQ PRN (18:29)
[2024-03-07 20:45] LABS: Magnesium 1.7 mg/dl (1.7-2.4)
[2024-03-07] MEDS: POTASSIUM CHLORIDE CRTAB 20 MEQ TABCR PO STA (20:59)
[2024-03-07] MEDS: valACYclovir HCL 500 MG TABLET PO SCH (20:59)
[2024-03-07] MEDS: FAMOTIDINE 20 MG TAB PO SCH (20:59)
[2024-03-07] MEDS: PENTOXIFYLLINE 400MG EXT REL TAB PO SCH (20:59)
[2024-03-07] MEDS: GABAPENTIN 600 MG TAB PO SCH (21:00)
[2024-03-07] MEDS: PIPERACILLIN/TAZOBACTAM 4.5 GM/100 ML BAG IV SCH (21:01)
[2024-03-07 21:02] LABS: Thyroid Stimulating Hormone 0.046 uIu/ml (0.300-4.500)
[2024-03-07] MEDS: CYANOCOBALAMIN (B-12) 500 MCG TABLET PO SCH (21:09)
[2024-03-07] MEDS: ATORVASTATIN 20 MG TAB PO SCH (21:10)
[2024-03-07] MEDS: PANTOprazole 40 MG TAB PO SCH (21:11)
[2024-03-07] MEDS: DOCUSATE SODIUM 100 MG CAP PO SCH (21:13)
[2024-03-07 21:38] LABS: T4 Free Thyroxine 0.9 ng/dl (0.61-1.60)
[2024-03-07] MEDS: INSULIN ASPART PER UNIT CHARGE SC SCH (21:59)
[2024-03-08] MEDS: AMITRIPTYLINE HCL 25 MG TAB PO SCH (00:49)
[2024-03-08] MEDS: oxyCODONE HCL IR 5 MG TAB (IMMEDIATE RELEASE) PO PRN (03:39)
[2024-03-08] MEDS: LEVOTHYROXINE SODIUM 175 MCG TABLET PO SCH (04:58)
[2024-03-08 07:04] LABS: Basophils # (auto) 0.06 K/uL (0.00-0.20); Basophils % (auto) 0.7 %; Eosinophils # (auto) 0.26 K/uL (0.00-0.50); Eosinophils % (auto) 3.2 %; Hematocrit (blood only) 35.6 % (42.0-52.0); Hemoglobin 11.9 g/dl (14.0-18.0); Immature Granulocytes # (auto) 0.03 K/uL (0.01-0.20); Immature Granulocytes % (auto) 0.4 %; Lymphocytes % (auto) 28.5 %; Mean Corpuscular Hemoglobin 32.7 pg (25.0-34.0); Mean Corpuscular Hgb Conc 33.4 g/dL (32.0-36.0); Mean Corpuscular Volume 97.8 fL (80.0-100.0); Mean Platelet Volume 9.8 fL (9.4-12.4); Monocytes % (auto) 9.9 %; Neutrophils # (auto) 4.63 K/uL (1.40-6.50); Neutrophils % (auto) 57.3 %; Platelet Count 270 K/uL (130-400); RDW Coefficient of Variation 12.7 % (11.5-14.5); RDW Standard Deviation 45.1 fL (36.4-46.3); Red Blood Count 3.64 M/uL (4.70-6.10); White Blood Count 8.08 K/ul (4.8-10.8)
[2024-03-08 07:15] LABS: Estimated Average Glucose 126 mg/dl
[2024-03-08 07:20] LABS: Creatinine Clr Calc Pharmacy 90.9 ml/min; Potassium 4.3 mmol/L (3.5-5.1)
[2024-03-08] MEDS: FERROUS SULFATE 325 MG TAB PO SCH (08:42)
[2024-03-08] MEDS ORDERED: LOSARTAN POTASSIUM 50 MG TAB PO SCH (09:00)
[2024-03-08] MEDS ORDERED: hydroCHLOROthiazide 25 MG TAB PO SCH (09:00)
[2024-03-08] MEDS ORDERED: amLODIPine BESYLATE 5 MG TAB PO SCH (09:00)
[2024-03-08 11:38] VITALS: RESP 18; TEMP 98.1; O2SAT 93
[2024-03-08] MEDS: LIDOCAINE 1%/EPINEPHRINE 1:100,000 50 ML VIAL INFIL STA (11:59)
--- NOTE | 2024-03-08 12:08 | Surgery Progress Note ---
Date of Service March 08, 2024 Assessment & Plan (1) Abscess, perianal: Plan: still having rectal tenderness, open area from yesterday no longer draining consent obtained left side rectum cleansed with sterile betadine , 1% lidocaine with epi injected in to subcutaneous tissue , 11 blade scalpel used to cut tissue, bloody purulent drainage expressed, area packed with plain gauze packing and ABD dressing was applied. pt to leave packing in place until tomorrow (if falls out prior may leave out) pt to do warm sitz baths TID wbc wnl from yesterday (15) pt stable for d/c from our standpoint with course of oral antibiotics f/u in our office next week Admission and Anticipated Discharge Date Admission Date: March 07, 2024 Supervising Physician Co-Signing Physician Notes Patient seen and examined, lab reviewed, agree with above. Admitted yesterday with draining perianal abscess and leukocytosis. He is feeling better today, though still little sore and has not noticed any drainage. He is currently afebrile with stable vitals. There is no expressible drainage from his perianal abscess but there is still swelling and redness in the area. I&D performed at the bedside, see procedure note for details. Can remove packing tomorrow, recommend warm water soaks or showers on a regular basis. Outpatient antibiotics. Follow-up in 2 weeks. Okay to DC from our standpoint. Subjective pt reports still having rectal tenderness Review of Systems Constitutional: no fever and no chills Respiratory: no dyspnea Cardiovascular: no chest pain Gastrointestinal: no abdominal pain, no nausea and no vomiting Genitourinary: no dysuria Physical Exam Constitutional: cooperative and comfortable; no acute distress Respiratory: normal respiratory effort; no respiratory distress Gastrointestinal (Abdomen): Rectal Exam: no hemorrhoids Results & Data Vital Signs (Past 12 Hours) Vital Signs Temp Pulse Pulse Resp BP Pulse Ox O2 Del Method 03/08/24 11:38 98.1 F 84 18 146/79 H 93 Room Air 03/08/24 08:00 98.2 F 88 20 135/77 94 Room Air 03/08/24 07:14 77 03/08/24 04:09 97.9 F 90 20 126/71 94 Room Air Results CBC w Diff Results: RBC 3.64 M/uL (4.70-6.10) L 03/08/24 WBC 8.08 K/ul (4.8-10.8) 03/08/24 Hgb 11.9 g/dl (14.0-18.0) L 03/08/24 Hct 35.6 % (42.0-52.0) L 03/08/24 MCV 97.8 fL (80.0-100.0) 03/08/24 MCH 32.7 pg (25.0-34.0) 03/08/24 MCHC 33.4 g/dL (32.0-36.0) 03/08/24 RDW Standard Deviation 45.1 fL (36.4-46.3) 03/08/24 RDW Coefficient of Variation 12.7 % (11.5-14.5) 03/08/24 Plt Count 270 K/uL (130-400) 03/08/24 MPV 9.8 fL (9.4-12.4) 03/08/24 Neutrophils (%) (Auto) 57.3 % 03/08/24 Lymphocytes (%) (Auto) 28.5 % 03/08/24 Monocytes # (Auto) 0.80 K/uL (0.11-0.59) H 03/08/24 Eosinophils # (Auto) 0.26 K/uL (0.00-0.50) 03/08/24 Immature Granulocyte % (Auto) 0.4 % 03/08/24 Neutrophils # (Auto) 4.63 K/uL (1.40-6.50) 03/08/24 Lymphocytes # (Auto) 2.30 K/uL (1.20-3.40) 03/08/24 Monocytes # (Auto) 0.80 K/uL (0.11-0.59) H 03/08/24 Eosinophils # (Auto) 0.26 K/uL (0.00-0.50) 03/08/24 Basophils # (Auto) 0.06 K/uL (0.00-0.20) 03/08/24 Immature Granulocyte # (Auto) 0.03 K/uL (0.01-0.20) 4 PG Care Time/CCT Total # of Minutes Spent Total Time Spent with Patient: Total time spent is greater than 50% in coordination of care (as documented) at patient's floor/unit and/or counseling patient: Coding Level of Care Code 96528 SUB INP/OBS CARE 05/12MIN Diagnoses Abscess, perianal K61.0
--- NOTE | 2024-03-08 12:14 | Procedure Note ---
Procedure Note Date of Service March 08, 2024 Verbal consent was obtained. The patient's left buttock and anus was prepped and draped in the standard sterile fashion. Local anesthetic was injected. A 1 cm incision was made using an 11 blade. The cavity was entered with a hemostat with return of purulent fluid. The wound was irrigated and packed with packing strip. Gauze was placed. Patient tolerated the procedure well. Coding Additional Codes Date of Service ([facility].SURGERY)
--- NOTE | 2024-03-08 12:48 | Discharge Summary ---
Discharge Summary Date of Service March 08, 2024 Principal Dx & Hospital Course #1 = Principal Diagnosis (1) Aliya-rectal abscess: (2) HTN (hypertension): (3) Dyslipidemia: (4) Hypothyroidism: (5) Pre-diabetes: (6) Ulcer of lower extremity: (7) History of cutaneous T-cell lymphoma: Plan Patient presented to the emergency room with complaints of draining pus and blood from a perirectal area. Imaging in the ED was consistent with a perirectal abscess. Patient was admitted to the hospital. Initially no immediate surgical intervention was required at the time of admission. Continued on IV antibiotics. The following morning patient had significant improvement. Bedside I&D was performed by surgery. His WBC is completely normalized. His other laboratory studies were stable. His pain was significantly improved. He can be transition to oral antibiotics, discharged home to do sitz bath's and follow-up with surgery as an outpatient. Notes For Next Care Provider Consider repeating thyroid studies to determine if still an appropriate dose of Synthroid Medication Changes From Visit Augmentin for perirectal abscess Admission HPI Per Admitting Provider Patient is 64-year-old male with PMH HTN, HLD, hypothyroidism,COPD, prediabetes, T-cell lymphoma, stasis ulcer lower extremities, and others listed below presented to ER with c/o perirectal lump x 1 week. Reports area is tender and has been draining pus and blood. He denies any known fever/chills. Reports was seen by PCP office yesterday 03/06/24 for perianal abscess that has been painful and having discharge and bleeding and was started on Bactrim and was to get in to general surgery however today was directed to ER. He denies other abdominal pain. States has herpes labialis currently on valacyclovir that is to finish in two days. Patient reports requested outpatient PSA testing and had completed and anxious to know the results. He reports is moving his bowels. He reports chronic ulcers to BLE and follows with wound clinic and has compression dressings on. Denies N/V, WILSON, dizziness, syncope, neck pain, CP, SOB, palpitations, cough, rhinorrhea, weakness, increased extremity edema, rashes, urinary symptoms. Admission Exam Per Admitting Provider See H&P Discharge Exam Constitutional: Alert, nontoxic, sitting up eating lunch HEENT: Mucous membranes moist. Lungs: Clear to auscultation, decreased, no wheezes rales or rhonchi CV: S1-S2, regular Abdomen: Soft, nontender, nondistended Extremities: No significant edema Neuro: No focal deficits Psych: Cooperative, normal mood Updated Medication List Medication Instructions Recorded Confirmed Type amitriptyline 25 mg tablet 25 mg PO HS 10/02/19 03/07/24 History amlodipine 5 mg tablet 5 mg PO DAILY 10/02/19 03/07/24 History atorvastatin 20 mg tablet 20 mg PO HS 10/02/19 03/07/24 History betamethasone dipropionate 0.05 % 1 applic topical UD PRN Skin 10/02/19 03/07/24 History topical ointment Irritation bexarotene 75 mg capsule 300 mg PO DAILY 10/02/19 03/07/24 History cyanocobalamin (vitamin B-12) 5,000 mcg sublingual HS 10/02/19 03/07/24 History 2,500 mcg sublingual tablet (Vitamin B-12) ferrous sulfate 325 mg (65 mg 325 mg PO DAILY 10/02/19 03/07/24 History iron) tablet hydrochlorothiazide 25 mg tablet 25 mg PO DAILY 10/02/19 03/07/24 History ibuprofen 600 mg tablet 600 mg PO UD PRN Pain 10/02/19 03/07/24 History losartan 100 mg tablet 100 mg PO DAILY 10/02/19 03/07/24 History mechlorethamine 0.016 % topical 1 applic topical 3XWK 10/02/19 03/07/24 History gel (Valchlor) omeprazole 20 mg capsule,delayed 20 mg PO BID 10/02/19 03/07/24 History release polyethylene glycol 3350 17 gram 17 g PO QAM PRN Constipation 10/02/19 03/07/24 History oral powder packet trazodone 100 mg tablet 100 - 300 mg PO HS PRN Sleep 10/02/19 03/07/24 History wheat dextrin 3 gram/4 gram oral 1.5 g PO TID 10/02/19 03/07/24 History powder (Benefiber Sugar Free (dextrin)) tizanidine 4 mg tablet 4 mg PO Q8H PRN Muscle Spasm 09/30/20 03/07/24 History azithromycin 250 mg tablet See Rx Instructions PO .COMPLEX 02/24/23 03/07/24 History pentoxifylline 400 mg 400 mg PO TID 05/12/23 03/07/24 History tablet,extended release hydrocodone 5 mg-acetaminophen 325 1 tab PO HS PRN Severe Pain (Scale 07/28/23 03/07/24 History mg tablet Score 7-10) docusate sodium 100 mg capsule 100 mg PO BID 03/07/24 03/07/24 History famotidine 20 mg tablet 20 mg PO HS 03/07/24 03/07/24 History gabapentin 600 mg tablet 600 mg PO QID 03/07/24 03/07/24 History hydroxyzine HCl 25 mg tablet 25 mg PO Q6H PRN Itching 03/07/24 03/07/24 History levothyroxine 175 mcg tablet 175 mcg PO DAILY 03/07/24 03/07/24 History metformin 750 mg tablet,extended 750 mg PO DAILY 03/07/24 03/07/24 History release 24 hr sulfamethoxazole 800 1 tab PO BID 03/07/24 03/07/24 History mg-trimethoprim 160 mg tablet valacyclovir 1 gram tablet 1 mg PO TID 03/07/24 03/07/24 History amoxicillin 875 mg-potassium 1 tab PO BID #14 tabs 03/08/24 Rx clavulanate 125 mg tablet Hospital Stay Data Consultations 03/07/24 14:50 Consult General Surgery Stat ED Decision to Admit Stat 03/07/24 18:29 Consult General Surgery Routine Diagnostic Imagining Performed 03/07/24 14:51 CT pelvis w/IV con only Stat Reviewed imaging, laboratory and diagnostic studies. Pertinent findings as below. Blood cultures pending WBCs 8.0, improved Hemoglobin 11.9 Electrolytes stable Creatinine 0.94 TSH 0.046, T4 0.90 Pending Results Patient Have Any Pending Studies at Discharge: Yes Discharge Instructions Given to Patient (Per Discharging Provider) You have a packing that you may remove tomorrow if it has not fallen out already you may take warm tub soaks/sitz baths 3-4x/daily for comfort and cleansing of the area avoid constipation, drink plenty of water and keep well hydrated, eat fiber you may purchase a stool softener over the counter if needed such as colace or miralax You may purchase Tylenol and/or Ibuprofen over the counter if needed for additional pain control over the next few days. Take per manufacturers instructions You may keep a gauze dressing or pad in your underwear to soak up any drainage that will occur after surgery Total Time Total Time Spent Total Time Spent (In Minutes): 26
[2024-03-08 14:19] VITALS: BP 148/88; PULSE 80
--- OUTSIDE RECORDS SUMMARY | 2024-03-08 14:30 | External Medical Summary | Summary of Care ---
Author Name Unknown Organization [facility] Address [address] [place] [address] Phone [phone] Care Team Providers Care Cyber Forensic Specialist Name Role Phone LionAnupbelle Mcclendonsyed Primary Care Provider Reason for Visit * Reason Comments Outpatient Testing Encounter Details Date Type Department Care Team (Late st Contact Info) Description 03/06/2024 12:10 PM EST Laboratory Laboratory, [facility] [address] [facility] [id number] [facility] [address] [place] [address] BPH with obstruction/lower urinary tract symptoms Allergies Active Allergy Reactions Criticality Noted Date Comments Erythromycin 07/21/2012 Contraindicated with Targretin (cancer med) documented as of this encounter (statuses as of 03/06/2024) Medications MEDICAL COMPRESSION STOCKINGS MISCIndications:Ve nous stasis ulcer of leg without varicose veins (HCC) knee high compression socks 15-20 mmhg 3 Package 3 09/05/19 13 Active VITAMIN B 12 250 MCG PO LOZG Take 2 Tablets by mouth daily. Active Wheat Dextrin-Calcium (BENEFIBER PLUS CALCIUM) POWD Take 1 Scoop by mouth once. Active Polyethylene Glycol 3350 17 GM/SCOOP Oral Powder (MiraLax)Indicatio ns:Chronic idiopathic constipation Take 17 g by mouth as needed for Constipation. Dissolve one heaping tablespoon in 8 ounces of water or juice. 850 g 3 06/10/19 23 Active Omeprazole 20 MG Oral Capsule Delayed Release (PriLOSEC) Take 1 Capsule by mouth in the morning and 1 Capsule in the evening. 180 Capsule 4 01/09/2024 4:17 PM EDT 01/26/20 23 Active traZODone HCl 100 MG Oral Tablet (Desyrel)Indicatio ns:Insomnia, unspecified type TAKE 1 TO 3 TABLETS BY MOUTH AT BEDTIME. 270 Tablet 2 02/08/2024 3:48 PM EDT 02/09/20 23 025 Active Amitriptyline HCl 25 MG Oral Tablet (Elavil)Indication s:Insomnia, unspecified type Take 1 Tablet by mouth at bedtime. 90 Tablet 3 12/08/2023 2:49 PM EDT 03/07/20 23 Active Pentoxifylline ER 400 MG Oral Tablet Extended Release (TRENtal)Juhitio ns:Stasis ulcer of lower extremity, left (HCC),Venous ulcer (HCC) Take 1 Tablet by mouth in the morning and 1 Tablet at noon and 1 Tablet before bedtime. 270 Tablet 3 02/28/2024 4:00 PM EST 04/21/19 24 Active Bexarotene 75 MG Oral Capsule TAKE 4 CAPSULES (300MG) BY MOUTH ONCE DAILY 120 Capsule 5 09/14/2023 4:59 PM EDT 04/26/19 24 Active Valchlor 0.016 % External Gel (Mechlorethamine HCl) APPLY A THIN FILM TO THE AFFECTED AREAS OF THE SKIN 3 TIMES PER WEEK 60 g 3 04/26/19 24 Active hydroCHLOROthiazid e 25 MG Oral Tablet (Hydrodiuril)Indic ations:HTN, goal below 140/90 TAKE ONE TABLET BY MOUTH DAILY 90 Tablet 3 11/21/2023 5:37 PM EDT 05/24/19 24 025 Active Docusate Sodium 100 MG Oral Capsule (Colace)Indication s:Chronic idiopathic constipation Take 1 Capsule by mouth in the morning and 1 Capsule before bedtime. 60 Capsule 11 09/02/2023 3:45 PM EDT 07/05/19 24 Active Levothyroxine Sodium 175 MCG Oral Tablet (Levoxyl)Indicatio ns:Acquired hypothyroidism TAKE ONE TABLET BY MOUTH DAILY ON AN EMPTY STOMACH 90 Tablet 3 01/09/2024 4:17 PM EDT 07/05/19 24 025 Active Silver sulfADIAZINE 1 % External Cream (Silvadene)Indicat ions:Skin erosion APPLY TO WOUNDS ON LEGS NIGHTLY NEEDED 50 g 1 08/05/2023 3:43 PM EDT 08/05/19 24 025 Active Azithromycin 1 GM Oral Packet Take 1 Packet by mouth in the morning. Emergency dose . Active Bexarotene 75 MG Oral Capsule TAKE 4 CAPSULES (300MG) BY MOUTH ONCE DAILY 120 Capsule 5 02/08/2024 3:48 PM EDT 09/27/19 24 Active Additional Information Patient not taking.Reported on 03/06/2024 Atorvastatin Calcium 40 MG Oral Tablet (Lipitor) TAKE ONETABLET BY MOUTH AT BEDTIME 90 Tablet 3 01/24/2024 4:14 PM EDT 11/02/19 24 025 Active Gabapentin 600 MG Oral Tablet (Neurontin)Indicat ions:Chronic right-sided low back pain with right-sided sciatica Take 1 Tablet by mouth in the morning and 1 Tablet at noon and 1 Tablet in the evening and 1 Tablet before bedtime. 360 Tablet 3 02/17/2024 5:24 PM EDT 11/22/19 24 Active amLODIPine Besylate 5 MG Oral Tablet (Norvasc)Indicatio ns:HTN, goal below 140/90 TAKE ONE TABLET BY MOUTH DAILY 90 Tablet 1 11/29/2023 5:55 PM EDT 11/29/19 24 025 Active Betamethasone Dipropionate 0.05 % External OintmentIndication s:Dermatitis APPLY TOPICALLY TO AFFECTED AREA 4 DAYS PER WEEK ON OPPOSITE DAYS OF THE GEL 30 g 5 02/14/2024 3:39 PM EDT 12/20/19 24 025 Active Losartan Potassium 100 MG Oral Tablet (Cozaar)Indication s:HTN, goal below 140/90 TAKE ONE TABLET BY MOUTH DAILY 90 Tablet 3 12/21/2023 4:28 PM EDT 12/21/19 24 Active Ferrous Sulfate 324 MG Oral Tablet Delayed Release Take by mouth. Active Ibuprofen 600 MG Oral Tablet (Motrin) TAKE ONE TABLET BY MOUTH EVERY 6 HOURS NEEDED FOR PAIN 90 Tablet 3 03/01/2024 3:39 PM EST 01/01/20 24 025 Active hydrOXYzine HCl 25 MG Oral TabletIndications: Venous stasis ulcer of right ankle with fat layer exposed with varicose veins (HCC) Take 1 Tablet by mouth every 6 hours as needed for Itching. 60 Tablet 2 01/27/2024 4:49 PM EDT 01/27/20 24 Active Famotidine 20 MG Oral Tablet (Pepcid) Take 1 Tablet by mouth at bedtime. 90 Tablet 1 01/31/2024 5:50 PM EDT 01/31/20 24 Active Triamcinolone Acetonide 0.1 % External Ointment (Aristocort)Indica tions:Venous stasis ulcer of right ankle with fat layer exposed with varicose veins (HCC),Dermatitis Apply to legs daily 454 g 2 02/02/2024 4:09 PM EDT 02/01/20 24 Active metFORMIN HCl ER 750 MG Oral Tablet Extended Release 24 Hour (Glucophage XR)Indications:Pre diabetes TAKE ONE TABLET BY MOUTH IN THE MORNING 90 Tablet 1 02/17/2024 5:24 PM EDT 02/16/20 24 025 Active tiZANidine HCl 4 MG Oral Tablet (Zanaflex)Indicati ons:Chronic right-sided low back pain with right-sided sciatica TAKE ONE TABLET BY MOUTH EVERY 8 HOURS NEEDED FOR MUSCLE SPASMS. 30 Tablet 02/20/2024 4:21 PM EST 02/20/20 24 Active HYDROcodone-Acetam inophen 5-325 MG Oral TabletIndications: Stasis ulcer of lower extremity, left (HCC) Take 1 Tablet by mouth at bedtime as needed for Severe Pain. 21 Tablet 02/20/2024 4:21 PM EST 02/20/20 24 Active Mupirocin 2 % External Ointment (Bactroban)Indicat ions:Sore in nose Apply topically to affected area 3 times a day for 14 days 22 g 1 03/02/2024 5:43 PM EST 03/02/20 24 024 Active valACYclovir HCl 1 GM Oral Tablet (Valtrex)Indicatio ns:Sore in nose Take 1 Tablet by mouth in the morning and 1 Tablet at noon and 1 Tablet before bedtime for 7 days for shingles 21 Tablet 03/02/2024 5:43 PM EST 03/02/20 24 024 Active Sulfamethoxazole-T rimethoprim 800-160 MG Oral Tablet (Bactrim DS)Indications:Per ineal abscess Take 1 Tablet by mouth in the morning and 1 Tablet before bedtime for 10 days, Until gone.. 20 Tablet 03/06/2024 12:06 PM EST 03/06/20 024 Active documented as of this encounter (statuses as of 03/06/2024) Active Problems Problem Noted Date Diagnosed Date Bleeding from varicose vein 01/10/2024 Calculus of kidney 01/10/2024 Cervical strain, acute 01/10/2024 Chronic lumbar pain 01/10/2024 Constipation 01/10/2024 Diarrhea 01/10/2024 Dysuria 01/10/2024 Facial cellulitis 01/10/2024 Headache 01/10/2024 Acid reflux 01/10/2024 History of cholecystectomy 01/10/2024 Hodgkin's disease 01/10/2024 Malignant neoplasm 01/10/2024 SOB (shortness of breath) 01/10/2024 Venous ulcer 01/10/2024 Varicose veins of lower extr emities with ulcer and inflammation 12/28/2023 Cigar smoker 12/28/2023 Venous insufficiency 09/05/2023 Subconjunctival hemorrhage of left eye Tobacco use 10/26/2022 Medical home patient encounter 06/03/2022 Stasis ulcer of lower extremity, left 04/22/2022 Drug-induced polyneuropathy 02/22/2022 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[place] ronary artery without angina pectoris 03/02/2021 COPD, group A, by GOLD 2017 classification 07/28 Overview: Per COPD GOLD Classification HTN, goal below 140/90 04/30/2019 Hx of melanoma of skin 11/08/2018 Overview (11/08/2018): R posterior thigh, 0.5mm, 10/2018 Chronic idiopathic constipation 11/21/2017 Prediabetes 05/31/2017 Overview: Per Prediabetes protocol #1 Pulmonary nodule 03/25/2016 Hx of nonmelanoma skin cancer 02/24/2015 Overview (01/22/2021): BCC R chest 09/2020, BCC R ala 03/2020, BCC R chest 02/2019, SCC L upper back 10/2018, 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 Encounter for long-term (current) use of medicat ions 05/07/2014 Fever 02/20/2013 Cholelithiases 08/04/2012 Overview (08/04/2012): Found on 07/2012 CT scan 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 Hypertriglyceridemia 07/21/2012 Overview (08/23/2012): Due to targretin Per 08/15/2012 specialist note, triglyceride/lipid meds are to be handled by derm. Hyperlipidemia 07/21/2012 Overview (08/23/2012): Due to targretin Per 08/15/2012 specialist note, triglyceride/lipid meds are to be handled by derm. documented as of this encounter (statuses as of 03/06/2024) Resolved Problems Problem Noted Date Diagnosed Date Resolved Date Abdominal discomfort 11/21/2017 018 COPD, severity to be determined 07/23/2016 07/31/2020 Overview: Per COPD GOLD Classification Periapical abscess 05/15/2014 8 Venous stasis ulcer of leg w ithout varicose veins 07/21/2012 07/14/2017 Anemia 07/21/2012 10/07/2017 documented as of this encounter (statuses as of 03/06/2024) Immunizations Name Administration Dates Next Due Hepatitis B, 20+ yrs 02/11/2015,08/09/2014,07/01 Pneumococcal Conjugate Vacc, 13 Valent (Prevnar) 03/20/2019 Pneumococcal Polysaccharide PPV23 (Pneumovax) 03/08/2017,04/18/2001 Seasonal Influenza Vac., MDV , IM, 0.5 mL (Fluzone) 01/07/2014,01/23/2013 Seasonal Influenza Virus Vac cine, Unspecified Formulation 03/25/2020,03/20/2019,03/08/2017,10/2015,02/11/2015,01/07/2014,01/24/20 13 Seasonal Influenza, PF, 6 M & above, IM , (FluLaval or Fluzone) 04/22/2022,03/02/2021,03/25/2020,06/2018,03/08/2017 Seasonal Influenza, Quadriva lent, No Preserve, IM 02/23/2016,02/11/2015 TDAP (age 10 and older)(Boostrix) 10/04/2012 Zoster Vaccine Recombinant (Shingrix) ,07/05/2019(Deferred: Contraindication),05/09/2019 07/09/2019 documented as of this encounter Social History Tobacco Use Types Packs/Day Years Used Date Smoking Tobacco: Every Day Cigarettes 1.5 25 Started: 06/19/1987; Last attempted to quit: 06/18/2012 Cigars Smokeless Tobacco: Former Comments:6 cigars has a 1.5 ppd for 25 years cigarette smoking history and currently smokes cigars. Declined pamphlet 12/28/23 Alcohol Use Standard Drinks/Week Comments Yes 0 (1 standard drink = 0.6 oz pure alcohol) weekends, 6 pack lasts a month or more PHQ-2 Answer Date Recorded PHQ Adult Total Score 0 01/11/2024 Hunger Vital Sign Answer Date Recorded Within the past 12 months, y ou worried that your food would run out before you got the money to buy more. Never true 01/11/20 24 Within the past 12 months, t he food you bought just didn't last and you didn't have money to get more. Never true 01/11/2024 Childcare Answer Date Recorded Do you feel overwhelmed with taking care of a child, family member or friend? No 01/11/2024 Does your family need help f inding childcare? (Household - for ages 0-17 years) Not on file 01/11/2024 Clothing Answer Date Recorded Have you been unable to get clothing when it was really needed? No 01/11/2024 Is your family able to get c lothes or diapers when needed? (Household - for ages 0-17 years) Not on file 01/11/2024 Personal Safety Answer Date Recorded Do you feel unsafe or have concerns for your saf ety? No 01/11/2024 Do you have concerns for you r family's safety? (Household - for ages 0-17 years) Not on file 01/11/2024 Utilities Answer Date Recorded Do you have trouble paying y our heating, water, or electric bill? No 01/11/2024 Is your family able to pay t he heat, water, or electric bill? (Household - for ages 0-17 years) Not on file 01/11/2024 Does your family have access to good internet? (Household - for ages 0-17 years) Not on file 01/11/2024 Employment Status Answer Date Recorded Are you unemployed or without regular income? No 01/11/2024 Does the household have a [facility] source [facility] income? (Household - for ages 0-17 years) Not on file 01/11/2024 Social Connections Answer Date Recorded How often do you feel lonely or isolated from th ose around you? Never 01/11/2024 Financial Resource Strain Answer Date R ecorded Do you have any trouble payi ng for your medications, or do you think you might in the future? No 01/11/2024 Does your family have troubl e paying for medicine? (Household - for ages 0-17 years) Not on file 01/11/2024 Transportation Needs Answer Date Record ed READ ONLY Do you have troubl e getting a ride to medical visits or work? Never True 01/11/2024 Does your family have a hard time getting a ride to doctors visits? (Household - for ages 0-17 years) Not on file 01/11/2024 Has lack of transportation k ept you from medical appointments, meetings, work, or from getting things needed for daily living? Check all that apply. No 01/11/2024 Do you (or your family) have trouble finding or paying for a ride (transportation)? (Household - for ages 0-17 years) Not on file 01/11/2024 Housing Stability Answer Date Recorded Do you currently live in a s helter or have no steady place to sleep at night? No 01/11/2024 READ ONLY Do you think you a re at risk of becoming homeless? No 01/11/2024 Does your family worry about paying for your home or becoming homeless? (Household - for ages 0-17 years) Not on file 0 01/11/2024 Are you homeless or worried that you might be in the future? No 01/11/2024 Are you (or your family) rebeca eless or worried that you might be in the future? (Household - for ages 0-17 years) Not on file Food Insecurity Answer Date Recorded Do you need food for this week? No 01/11/2024 Are you able to get enough f ood for your family? (Household - for ages 0-17 years) Not on file 01/11/2024 Does your family need food t his week? (Household - for ages 0-17 years) Not on file 01/11/2024 Do you always have enough fo od for your family? (Household - for ages 0-17 years) Not on file 01/11/2024 Sex and Gender Information Value Date Recorded Sex Assigned at Male 05/09/2019 10:43 AM EST Legal Sex Male 4:29 PM EST Gender Identity Male 05/09/2019 10:43 AM EST Sexual Orientation Straight 05/09/2019 10 :43 AM EST documented as of this encounter Plan of Treatment Upcoming Encounters Date Type Department Care Team (Latest Contact Info) Description 03/07/2024 9:00 AM EST Office Visit General Surgery, [facility] [address] [address] Rah Nunes MD [address] [address] 03/08/2024 7:15 AM EST Hospital Encounter [facility], OPERATING ROOM [facility], [place] [facility] [address] [phone] Flex Valentin MD [address] [place] [address] 03/08/2024 7:15 AM EST - 03/08/2024 9:03 AM EST Surgery OR [facility], OPERATING ROOM [facility], [facility] [address] [place] [address] Flex Valentin MD [address] [place] [address] ENDOVENOUS RADIOFREQUENCY ABLATION THERAPY FIRST VEIN 03/12/2024 11:30 AM EST Imaging Radiology [address] [address] 03/12/2024 2:40 PM EST Telemedicine Vascular Surg [facility], [place] [address] [place] [address] Jorge Hernández CRNP [address] [place] [address] 03/13/2024 2:30 PM EST Nurse Only Wound Care, [place] [address] [place] [address] Care, Nurse Wound [address] [place] [address] 03/20/2024 2:30 PM EST Nurse Only Wound Care, [place] [address] [place] [address] Care, Nurse Wound [address] [place] [address] 03/27/2024 2:40 PM EST Office Visit Wound Care, [place] [address] [place] [address] Mario Sauceda MD [address] [place] [address] 05/16/2024 2:00 PM EST Office Visit Gastroenterology, [facility] [address] [place] [address] Marlene Balderas CRNP [address] [place] [address] 09/13/2024 5:20 PM EDT Office Visit [facility] [address] [place] [address] Raza Lion DO [address] [place] [address] Pending Results Name Type Priority Associated Diagnoses Date /Time PSA WITH FREE PSA IF INDICATED Lab Routine BPH with obstruction/lower urinary tract symptoms 03/06/2024 11:52 AM EST Scheduled Procedures Name Priority Associated Diagnoses Date/Ti me ENDOVENOUS RADIOFREQUENCY ABLATION THERAPY FIRST VEIN 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) Venous insufficiency Cigar smoker 03/08/2024 7:15 AM EST COLONOSCOPY FLEXIBLE PROXIMAL DIAGNOSTIC Recall History of colon polyps Health Maintenance Due Date Last Done Comments DISCUSS TOBACCO CESSATION (REFER TO SMARTSET #3297) 1960 COVID-19 Vaccine (#1) 1963 Cologuard 2003 Fecal Occult Blood Test 2003 Sigmoidoscopy 2003 DTap/Tdap Vaccines (2 - Td or Tdap) 10/04/2022 10/04/2012 Pneumococcal Vaccine: 65+ Years (4 of 4 - PPSV23 or PCV20) 2023 03/20/2019, 03/08/2017, 04/18/2001 Influenza Vaccine (FLU shot) (#1) 2023 04/22/2022, 03/02/2021, 03/25/2020, Additional history exists HbA1c 12/26/2023 12/25/2022, 08/17, 05/08/2021, Additional history exists Adult Wellness Visit 02/11/2024 GFR 01/01/2025 01/02/2024, 0 11/2023, 08/27/2023, Additional history exists TSH 01/01/2025 01/02/2024, 0 11/2023, 08/27/2023, Additional history exists Depression Screening 01/10/2025 01/11/2024 O2 ASSESSMENT COMPLETED IN PAST YEAR FOR COPD 03/06/2025 03/06/2024 Albumin/Creatinine Ratio 12/25/2025 12/25/2022, 04/19 Colonoscopy 08/18/2026 08/18/2021, 0506/2021, 12/07/2017, Additional history exists Colorectal Cancer Screening 08/18/2026 Hepatitis B Vaccine Completed 02/11/2015, 08/09/2014, 07/01/2014 AAA Screening Completed 07/05/2019, 01/17, 08/26/2015 Zoster Vaccines Completed 10/31/2019, 05/09/2019 RETIRED - COLONOSCOPY-EVERY 5 YRS AGES 18-100 Discontinued 08/18/2021, 08/18/2021, 12/07/2017, Additional history exists Alpha-1 Antitrypsin Completed 09/10/2021 HPV (Gardasil) Vaccine Aged Out No lo nger eligible based on patient's age to complete this topic MENINGOCOCCAL (MENACTRA/MENVEO) Aged Out No longer eligible based on patient's age to complete this topic documented as of this encounter Medical Devices Not on filedocumented as of this encounter Visit Diagnoses Diagnosis BPH with obstruction/lower urinary tract symptoms Hypertrophy of prostate with urinary obstruction and other lower urinary tract symptoms (LUTS) 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) Varicose veins of lower extremities with ulcer and inflammation Venous insufficiency Unspecified venous (peripheral) insufficiency Cigar smoker Tobacco use disorder documented in this encounter Care Teams Cyber Forensic Specialist Relationship Specialty Start Date End Date Raza Lion DO [address] [address] PCP - General Family Medicine 09/04/20 documented as of this encounter
--- OUTSIDE RECORDS SUMMARY | 2024-03-08 14:30 | External Medical Summary ---
Author Name Unknown Address Unknown Organization K01:[facility] - [address] [place] [address] Laboratory Report Ordering Provider Test Date Status PAUL SHEPARD 03/06/2024 11:52:55 Final Observation Date Value Abnormality Reference (Units ) Status PSA 03/06/2024 11:52:55 15.51 Above high normal <4 .10 (ng/mL) Final Performing Location [facility] [address] [facility] [address]
--- OUTSIDE RECORDS SUMMARY | 2024-03-08 14:30 | External Medical Summary | Summary of Care ---
Author Name Unknown Organization [facility] Address [address] [place] [address] Phone [phone] Care Team Providers Care Manager Resort Name Role Phone Raza Lion DO Primary Care Provider Reason for Referral * Evaluate & Treat - Unlimited Visits (Within 24 hrs (call dept; emergent)) - Authorized Specialty Diagnoses / Procedures Referred By Jacoby huizar Referred To Contact General Surgery Diagnoses Perineal abscess Raza Lion DO [address] [address] Phone: tel: fax: Referral ID Status Reason Start Date Expiration Date Visits Requested Visits Authorized [id number] Authorized Specialty Services Required 4 [phone] Question Answer Referral Priority Within 24 hrs (call dept; emergent) Where should this appointment be scheduled? [facility] What condition is the patient being seen for? General Surgery Conditions What condition is the patient being seen for? All other conditions Comments Perineal abscess needs to be opened and drained - bleeding Encounter Details Date Type Department Care Team (Latest Contact Info) Description 03/06/2024 11:20 AM EST Office Visit [facility] [address] [address] Raza Lion DO [address] [address] Perineal abscess*; BPH with obstruction/lower urinary tract symptoms; Stasis ulcer of lower extremity, left (HCC); COPD, group A, by GOLD 2017 classification (HCC) Allergies Active Allergy Reactions Criticality Noted Date [...] ER 400 MG Oral Tablet Extended Release (TRENtal)Indicatio ns:Stasis ulcer of lower extremity, left (HCC),Venous [...] g 1 03/02/2024 5:43 PM EST 03/02/20 Active valACYclovir HCl 1 GM Oral Tablet [...] 20 Tablet 03/06/2024 12:06 PM EST 03/06/20 24 Active documented as of this encounter (statuses [...] insufficiency 09/05/2023 Subconjunctival hemorrhage of left eye 3 Tobacco use 10/26/2022 Medical home patient encounter 06/03/2022 Stasis ulcer of lower extremity, left 04/22/2022 Drug-induced polyneuropathy 02/22/2022 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[place] co ronary artery without angina pectoris 03/02/2021 [...] Seasonal Influenza Virus Vac cine, Unspecified Formulation 03/25/2020,03/20/2019,03/08/2017,1110/2015,02/11/2015,01/07/2014,01/24/20 13 Seasonal Influenza, PF, 6 M & above, IM , (FluLaval or Fluzone) 04/22/2022,03/02/2021,03/25/2020,1206/2018,03/08/2017 Seasonal Influenza, Quadriva lent, No Preserve, IM 02/23/2016,02/11/2015 TDAP (age 10 and older)(Boostrix) 10/04/2012 Zoster Vaccine Recombinant (Shingrix) ,07/05/2019(Deferred: Contraindication),05/09/2019 07/09/2019 documented as of this encounter Social History Tobacco Use Types Packs/Day Years Used Date Smoking Tobacco: Every Day Cigarettes 1.5 25 Started: 06/19/1987; Last attempted to quit: 06/18/2012 Cigars Smokeless Tobacco: Former Tobacco Cessation:Ready to Q uit: Not Asked; Counseling Given: Not Answered Comments:6 cigars has a 1.5 ppd for [...] money to buy more. Never true 01/11/20 Within the past 12 months, t he [...] No 01/11/2024 Does the household have a re gular source of income? (Household - for ages [...] AM EST documented as of this encounter Last Filed Vital Signs Vital Sign Reading Time Taken Comments Blood Pressure 122/70 03/06/2024 11:21 AM EST Pulse 72 03/06/2024 11:21 AM EST Temperature 36.4 C (97.6 F) 03/06/2024 11:[address] Respiratory Rate 24 03/06/2024 11:21 AM EST Oxygen Saturation 98% 03/06/2024 11:21 AM EST Inhaled Oxygen Concentration - - Weight 92.6 kg (204 lb 1 oz) 03/06/2024 11:21 AM EST Height - - Body Mass Index 28.46 03/02/2024 4:01 PM EST documented in this encounter Progress Notes * Raza Lion, - 03/06/2024 12:27 PM EST Images from the original note were not included. Assessment and Plan Assessment & Plan Perianal Abscess Active bleeding and discomfort. No fever but reported feeling unwell last week. No recent changes in bowel movements. On examination, abscess with mixture of pus and blood noted. -Immediate surgical consult for incision and drainage. -Start Bactrim DS for infection. -Order PSA as requested by patient. COPD Stable currently Stasis ulcer of LE BL Ongoing monitoring with vascular Herpes Labialis Currently on Valacyclovir. -Continue Valacyclovir as prescribed. Follow-up After surgical intervention, monitor for signs of infection and healing. History of Present Illness Chang Parham is a 64 year old male that presents for No chief complaint on file. History of Present Illness The patient presents with rectal bleeding, which he noticed this morning. He reports using an ABD pad to manage the bleeding. The patient is unsure if the bleeding is from a previous site or from therectum, as he does not typically inspect his bowel movements. The bleeding is located behind the scrotum. He reports a fever last week, which was a degree higher than his usual temperature. The patient also mentions having ulcers, which make standing uncomfortable. He has been recently started on valacyclovir for shingles and cold sores. Physical Exam Vitals: 03/06/24 1121 Temp: 97.6 F (36.4 C) Pulse: 72 Resp: 24 SpO2: 98% BP: 122/70 Physical Exam Constitutional: Appearance: He is ill-appearing. Cardiovascular: Rate and Rhythm: Normal rate. Pulmonary: Effort: Pulmonary effort is normal. Breath sounds: Wheezing present. Abdominal: General: Abdomen is flat. Palpations: Abdomen is soft. Genitourinary: Comments: Large perineal abscess with open drainage/blood/pus Very tender to palpation, mild surrounding erythema, no dusky or hummel areas Neurological: General: No focal deficit present. Mental Status: He is alert and oriented to person, place, and time. Wrap-Up Time: Total time today was 32 minutes excluding any time spent in the performance of separately billed services. Text in this note was generated using an ambient documentation service. I discussed the use of a device to record and summarize our discussion today. All persons present during the encounter consented to its use. documented in this encounter Plan of Treatment Upcoming Encounters Date Type Department Care Team (Latest Contact Info) Description 03/07/2024 9:00 AM EST Office Visit General Surgery, [facility] [address] [address] Rah Nunes MD [address] [address] 03/08/2024 7:15 AM EST Hospital Encounter [place] [facility], OPERATING ROOM [facility] [address] [facility] [place] [phone] Flex Valentin MD [address] [facility] [place] [id number] 03/08/2024 7:15 AM EST - 03/08/2024 9:03 AM EST Surgery OR [facility], OPERATING ROOM [facility] [address] [place] [address] Flex Valentin MD [address] [place] [address] ENDOVENOUS RADIOFREQUENCY ABLATION THERAPY FIRST VEIN 03/12/2024 11:30 AM EST Imaging Radiology [facility] 132 [place] [address] 03/12/2024 2:40 PM EST Telemedicine Vascular Surg [facility] [place] [address] [place] [address] Jorge Hernández CRNP [address] [place] [address] 03/13/2024 2:30 PM EST Nurse Only Wound Care, [place] [address] [place] [address] Care, Nurse Wound [address] [place] [address] 03/20/2024 2:30 PM EST Nurse Only Wound Care, [place] [address] [place] [address] Care, Nurse Wound [address] [place] [address] 03/27/2024 2:40 PM EST Office Visit Wound Care, [place] [address] [place] [address] Mario Sauceda MD [address] [place] [address] 05/16/2024 2:00 PM EST Office Visit Gastroenterology, [facility] 132 [facility] [place] [address] Marlene Balderas CRNP 132 [facility] [place] [address] 09/13/2024 5:20 PM EDT Office Visit Family Practice [facility] [address] [place] [address] Raza Lion, [address] [address] Pending Results Name Type Priority Associated Diagnoses Date /Time PSA WITH FREE PSA IF INDICATED Lab Routine BPH with obstruction/lower urinary tract symptoms 03/06/2024 11:52 AM EST Scheduled Orders Name Type Priority Associated Diagnoses Orde r Schedule PSA WITH FREE PSA IF INDICATED Lab Routine BPH with obstruction/lower urinary tract symptoms Expected: 03/06/2024 (Approximate), Expires: 03/06/2025 Scheduled Procedures Name Priority Associated Diagnoses Date/Ti me ENDOVENOUS RADIOFREQUENCY ABLATION THERAPY FIRST VEIN 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) Venous insufficiency Cigar smoker 03/08/2024 7:15 AM EST COLONOSCOPY FLEXIBLE PROXIMAL DIAGNOSTIC Recall History of colon polyps Scheduled Referrals Name Type Priority Associated Diagnoses Orde r Schedule SURGERY REFERRAL OP Referral Within 24 hr s (call dept; emergent) Perineal abscess Ordered: 03/06/2024 Health Maintenance Due Date Last Done Comments DISCUSS TOBACCO CESSATION (REFER TO SMARTSET #3291) 1958 COVID-19 Vaccine (#1) 1963 Cologuard 2003 [...] Adult Wellness Visit 02/11/2024 GFR 01/01/2025 01/02/2024, 06/0 11/2023, 08/27/2023, Additional history exists TSH 01/01/2025 01/02/2024, 11/2023, 08/27/2023, Additional history exists Depression Screening 01/10/2025 01/11/2024 O2 ASSESSMENT COMPLETED IN PAST YEAR FOR COPD 03/02/2025 03/02/2024 Albumin/Creatinine Ratio 12/25/2025 12/25/2022, 04/19 Colonoscopy 08/18/2026 08/18/2021, 06/2021, 12/07/2017, Additional history exists Colorectal Cancer Screening [...] as of this encounter Visit Diagnoses Diagnosis Perineal abscess- Primary Cellulitis and abscess of trunk BPH with obstruction/lower urinary tract symptoms Hypertrophy of prostate with urinary obstruction and other lower urinary tract symptoms (LUTS) Stasis ulcer of lower extremity, left (HCC) COPD, group A, by GOLD 2017 classification (HCC) 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) Varicose veins of lower extremities with ulcer and inflammation Venous insufficiency Unspecified venous (peripheral) insufficiency Cigar smoker Tobacco use disorder documented in this encounter Care Teams Manager Resort Relationship Specialty Start Date End Date Raza Lion DO [address] [address] PCP - General Family Medicine 09/04/20 documented as of this encounter
--- OUTSIDE RECORDS SUMMARY | 2024-03-08 14:30 | External Medical Summary | Summary of Care ---
Author Name Unknown Organization [facility] Address [address] [facility] [place] [address] Phone [phone] Care Team Providers Care Medical Lab Technologist Name Role Phone LionAnupbelle Mcclendonsyed Primary Care Provider Reason for Visit * Reason Comments Outpatient Testing Encounter Details Date Type Department Care Team (Late st Contact Info) Description 03/06/2024 12:10 PM EST Laboratory Laboratory, 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 (Household - for ages [...] 9:00 AM EST Office Visit General Surgery, [facility] [address] [address] Rah Nunes MD [address] [address] 03/08/2024 7:15 AM EST Hospital Encounter [facility], OPERATING ROOM [facility] [place] [address] [phone] Flex Valentin MD [address] [place] [address] 03/08/2024 7:15 AM EST - 03/08/2024 9:03 AM EST Surgery OR [facility], OPERATING ROOM [facility], [facility] [address] [place] [address] Flex Valentin MD [address] [place] [address] ENDOVENOUS RADIOFREQUENCY ABLATION THERAPY FIRST VEIN 03/12/2024 11:30 AM EST Imaging Radiology [address] [address] 03/12/2024 2:40 PM EST Telemedicine Vascular Surg [facility], [place] [address] [place] [address] Jorge Hernández CRNP [address] [place] [address] 03/13/2024 2:30 PM EST Nurse Only Wound Care, [place] [address] [place] [address] Care, Nurse Wound [address] [place] [address] 03/20/2024 2:30 PM EST Nurse Only Wound Care, [place] [address] [place] [address] Care, Nurse Wound [address] [place] [address] 03/27/2024 2:40 PM EST Office Visit Wound Care, [place] [address] [place] [address] Mario Sauceda MD [address] [place] [address] 05/16/2024 2:00 PM EST Office Visit Gastroenterology, [facility] 132 [place] [address] Marlene Balderas CRNP [address] [place] [address] 09/13/2024 5:20 PM EDT Office Visit [facility] [address] [address] Raza Lion DO [address] [place] [place] [address] Pending Results Name Type Priority Associated Diagnoses [...] Comments DISCUSS TOBACCO CESSATION (REFER TO SMARTSET #329) 1960 COVID-19 Vaccine (#1) 1963 Cologuard 2003 [...] disorder documented in this encounter Care Teams Medical Lab Technologist Relationship Specialty Start Date End Date Raza Lion DO [address] [address] PCP - General Family Medicine 09/04/20 documented as of this encounter
--- OUTSIDE RECORDS SUMMARY | 2024-03-08 14:30 | External Medical Summary ---
Author Name Unknown Address Unknown Organization K01:[facility] [place] [address] [place] [address] Laboratory Report Ordering Provider Test Date Status DREAMILLER 03/06/2024 11:52:55 Final Observation Date Value Abnormality Reference (Units ) Status Free PSA 03/06/2024 11:52:55 3.02 (ng/mL) Final Free PSA % 03/06/2024 11:52:55 19 Below low normal >2 5 (%) Final Performing Location [facility] - [address] [place] [address]
--- OUTSIDE RECORDS SUMMARY | 2024-03-08 14:31 | External Medical Summary | Summary of Care ---
Author Name Unknown Organization [facility] Address [address] [place] [address] Phone [phone] Care Team Providers Care Production Consultant Name Role Phone Raza Lion Primary Care Provider Reason for Visit * Reason Onset Date Comments Follow Up 02/27/2024 Encounter Details Date Type Department Care Team (Late st Contact Info) Description 02/27/2024 Telephone Vascular Surg [facility] [address] [place] [address] Yenifer Vitale PA-C [address] [place] [address] Follow Up Allergies Active Allergy Reactions Criticality Noted Date Comments Erythromycin 07/21/2012 Contraindicated with Targretin (cancer med) documented as of this encounter (statuses as of 02/27/2024) Medications MEDICAL COMPRESSION STOCKINGS MISCIndications:Ve nous stasis [...] 1 Tablet before bedtime. 270 Tablet 3 10/03/2023 5:02 PM EDT 04/21/19 24 Active Bexarotene 75 MG Oral [...] 02/08/2024 3:48 PM EDT 09/27/19 24 Active Atorvastatin Calcium 40 MG Oral Tablet (Lipitor) [...] 5:55 PM EDT 11/29/19 24 025 Active tiZANidine HCl 4 MG Oral Tablet (Zanaflex)Indicati ons:Chronic right-sided low back pain with right-sided sciatica Take 1 Tablet by mouth every 8 hours as needed for Muscle spasms. 30 Tablet 5 11/29/19 24 Active Betamethasone Dipropionate 0.05 % External OintmentIndication [...] HOURS NEEDED FOR PAIN 90 Tablet 3 01/31/2024 5:50 PM EDT 01/01/20 24 025 Active hydrOXYzine HCl 25 [...] 02/20/2024 4:21 PM EST 02/20/20 24 Active documented as of this encounter (statuses as of 02/27/2024) Active Problems Problem Noted Date Diagnosed Date [...] T-cell lymphoma 09/01/2021 Atherosclerosis of [place] co ronary artery without angina pectoris 03/02/2021 [...] as of this encounter (statuses as of 02/27/2024) Resolved Problems Problem Noted Date Diagnosed Date Resolved Date Abdominal discomfort 11/21/2017 018 COPD, severity to be determined 07/23/2016 07/31/2020 Overview: Per COPD GOLD Classification Periapical abscess 05/15/2014 8 Venous stasis ulcer of leg w ithout varicose veins 07/21/2012 07/14/2017 Anemia 07/21/2012 10/07/2017 documented as of this encounter (statuses as of 02/27/2024) Immunizations Name Administration Dates Next Due Hepatitis [...] AM EST documented as of this encounter Miscellaneous Notes * Telephone Encounter - Yenifer Vitale PA-C - 02/27/2024 11:45 AM EST He can do GW and phone call. Thanks * Telephone Encounter - Joanne Colin OSA - 02/27/2024 11:22 AM EST Patient is from [place]. Can he have venous duplex at [facility] and a phone call? Or does he have to come to [facility]? * Telephone Encounter - Yenifer Vitale PA-C - 02/27/2024 10:34 AM EST Please schedule 3 day post-op with Irvan or Jorge and venous duplex documented in this encounter Plan of Treatment Upcoming Encounters Date Type Department Care Team (Latest Contact Info) Description 03/06/2024 2:30 PM EST Nurse Only Wound Care, [place] [address] [place] [address] Care, Nurse Wound [address] [place] [address] 03/08/2024 7:15 AM EST Hospital Encounter OR [facility] OPER[place]OM [facility] [address] [facility] [place] [phone] Flex Valentin MD [address] [facility] [place] [address] 03/08/2024 7:15 AM EST - 03/08/2024 9:23 AM EST Surgery OR [facility], [place]OM [facility] [place] [address] [facility] [place] [phone] Flex Valentin MD [address] [facility] [place] [address] ENDOVENOUS RADIOFREQUENCY ABLATION THERAPY FIRST VEIN 03/13/2024 2:30 PM EST Nurse Only Wound Care, [place] [address] [place] [address] Care, Nurse Wound [address] [facility] [place] [address] 03/20/2024 2:30 PM EST Nurse Only Wound Care, [place] [address] [facility] [place] [address] Care, Nurse Wound [address] [facility] [place] [address] 03/27/2024 2:40 PM EST Office Visit Wound Care, [place] [address] [facility] [place] [address] Mario Sauceda MD [address] [facility] [place] [address] 05/16/2024 2:00 PM EST Office Visit Gastroenterology, [facility] [address] [address] Marlene Balderas CRNP [address] [address] 09/13/2024 5:20 PM EDT Office Visit Family [facility] [address] [place] [address] Raza Lion DO [address] [place] [address] Scheduled Procedures Name Priority Associated Diagnoses Date/Ti me ENDOVENOUS RADIOFREQUENCY ABLATION THERAPY FIRST VEIN 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) Venous insufficiency Cigar smoker 03/08/2024 7:15 AM EST COLONOSCOPY FLEXIBLE PROXIMAL DIAGNOSTIC Recall History of colon polyps Health Maintenance Due Date Last Done Comments DISCUSS TOBACCO CESSATION (REFER TO SMARTSET #7705) 1960 COVID-19 Vaccine (#1) 1963 Cologuard 2003 [...] Adult Wellness Visit 02/11/2024 GFR 01/01/2025 01/02/2024, 060 11/2023, 08/27/2023, Additional history exists TSH 01/01/2025 01/02/2024, 060 11/2023, 08/27/2023, Additional history exists O2 ASSESSMENT COMPLETED IN PAST YEAR FOR COPD 01/09/2025 01/10/2024 Depression Screening 01/10/2025 01/11/2024 Albumin/Creatinine Ratio 12/25/2025 12/25/2022, 04/19 Colonoscopy 08/18/2026 [...] Not on filedocumented as of this encounter Care Teams Production Consultant Relationship Specialty Start Date End Date Raza Lion DO [address] [address] PCP - General Family Medicine 09/04/20 documented as of this encounter
--- OUTSIDE RECORDS SUMMARY | 2024-03-08 14:31 | External Medical Summary | Summary of Care ---
Author Name Unknown Organization [facility] Address [address] [facility] [place] [place] [address] Phone [phone] Care Team Providers Care Surgical Lead Name Role Phone Raza Lion Primary Care Provider Reason for Visit * Reason Comments Other Sore inside the righ t side of nostril Encounter Details Date Type Department Care Team (Late st Contact Info) Description 03/02/2024 3:30 PM EST Convenient Care Visit [facility] [address] [place] [address] Zulema Myers PA-C [address] [facility] [place] [address] Sore in nose* Allergies Active Allergy Reactions Criticality Noted Date Comments Erythromycin 07/21/2012 Contraindicated with Targretin (cancer med) documented as of this encounter (statuses as of 03/02/2024) Medications MEDICAL COMPRESSION STOCKINGS MISCIndications:V enous stasis ulcer of leg without varicose veins (HCC) knee high compression socks 15-20 mmhg 3 Package 3 013 Active VITAMIN B 12 250 MCG PO LOZG Take 2 Tablets by mouth daily. Active Wheat Dextrin-Calcium (BENEFIBER PLUS CALCIUM) POWD Take 1 Scoop by mouth once. Active Polyethylene Glycol 3350 17 GM/SCOOP Oral Powder (MiraLax)Indicati ons:Chronic idiopathic constipation Take 17 g by mouth as needed for Constipation. Dissolve one heaping tablespoon in 8 ounces of water or juice. 850 g 3 023 Active Omeprazole 20 MG Oral Capsule Delayed Release (PriLOSEC) Take 1 Capsule by mouth in the morning and 1 Capsule in the evening. 180 Capsule 4 4 4:17 PM EDT 023 Active traZODone HCl 100 MG Oral Tablet (Desyrel)Indicati ons:Insomnia, unspecified type TAKE 1 TO 3 TABLETS BY MOUTH AT BEDTIME. 270 Tablet 2 4 3:48 PM EDT 023 2024 Active Amitriptyline HCl 25 MG Oral Tablet (Elavil)Indicatio ns:Insomnia, unspecified type Take 1 Tablet by mouth at bedtime. 90 Tablet 3 4 2:49 PM EDT 023 Active Pentoxifylline ER 400 MG Oral Tablet Extended Release (TRENtal)Indicati ons:Stasis ulcer of lower extremity, left (HCC),Venous ulcer (HCC) Take 1 Tablet by mouth in the morning and 1 Tablet at noon and 1 Tablet before bedtime. 270 Tablet 3 4 4:00 PM EST 024 Active Bexarotene 75 MG Oral Capsule TAKE 4 CAPSULES (300MG) BY MOUTH ONCE DAILY 120 Capsule 5 4 4:59 PM EDT 024 Active Valchlor 0.016 % External Gel (Mechlorethamine HCl) APPLY A THIN FILM TO THE AFFECTED AREAS OF THE SKIN 3 TIMES PER WEEK 60 g 3 024 Active hydroCHLOROthiazi de 25 MG Oral Tablet (Hydrodiuril)Roxanna cations:HTN, goal below 140/90 TAKE ONE TABLET BY MOUTH DAILY 90 Tablet 3 4 5:37 PM EDT 024 2024 Active Docusate Sodium 100 MG Oral Capsule (Colace)Indicatio ns:Chronic idiopathic constipation Take 1 Capsule by mouth in the morning and 1 Capsule before bedtime. 60 Capsule 11 4 3:45 PM EDT 024 Active Levothyroxine Sodium 175 MCG Oral Tablet (Levoxyl)Indicati ons:Acquired hypothyroidism TAKE ONE TABLET BY MOUTH DAILY ON AN EMPTY STOMACH 90 Tablet 3 4 4:17 PM EDT 024 2024 Active Silver sulfADIAZINE 1 % External Cream (Silvadene)Indica tions:Skin erosion APPLY TO WOUNDS ON LEGS NIGHTLY NEEDED 50 g 1 4 3:43 PM EDT 024 2024 Active Azithromycin 1 GM Oral Packet Take 1 Packet by mouth in the morning. Emergency dose . Active Bexarotene 75 MG Oral Capsule TAKE 4 CAPSULES (300MG) BY MOUTH ONCE DAILY 120 Capsule 5 4 3:48 PM EDT Active Additional Information Patient not taking.Reported on 03/02/2024 Atorvastatin Calcium 40 MG Oral Tablet (Lipitor) TAKE ONETABLET BY MOUTH AT BEDTIME 90 Tablet 3 4 4:14 PM EDT 024 2024 Active Gabapentin 600 MG Oral Tablet (Neurontin)Indica tions:Chronic right-sided low back pain with right-sided sciatica Take 1 Tablet by mouth in the morning and 1 Tablet at noon and 1 Tablet in the evening and 1 Tablet before bedtime. 360 Tablet 3 4 5:24 PM EDT Active amLODIPine Besylate 5 MG Oral Tablet (Norvasc)Indicati ons:HTN, goal below 140/90 TAKE ONE TABLET BY MOUTH DAILY 90 Tablet 1 4 5:55 PM EDT 024 2024 Active Betamethasone Dipropionate 0.05 % External OintmentIndicatio ns:Dermatitis APPLY TOPICALLY TO AFFECTED AREA 4 DAYS PER WEEK ON OPPOSITE DAYS OF THE GEL 30 g 5 4 3:39 PM EDT 024 2024 Active Losartan Potassium 100 MG Oral Tablet (Cozaar)Indicatio ns:HTN, goal below 140/90 TAKE ONE TABLET BY MOUTH DAILY 90 Tablet 3 4 4:28 PM EDT Active Ferrous Sulfate 324 MG Oral Tablet Delayed Release Take by mouth. Activ e Ibuprofen 600 MG Oral Tablet (Motrin) TAKE ONE TABLET BY MOUTH EVERY 6 HOURS NEEDED FOR PAIN 90 Tablet 3 4 3:39 PM EST 024 2024 Active hydrOXYzine HCl 25 MG Oral TabletIndications :Venous stasis ulcer of right ankle with fat layer exposed with varicose veins (HCC) Take 1 Tablet by mouth every 6 hours as needed for Itching. 60 Tablet 2 4 4:49 PM EDT Active Famotidine 20 MG Oral Tablet (Pepcid) Take 1 Tablet by mouth at bedtime. 90 Tablet 1 4 5:50 PM EDT 024 Active Triamcinolone Acetonide 0.1 % External Ointment (Aristocort)Indic ations:Venous stasis ulcer of right ankle with fat layer exposed with varicose veins (HCC),Dermatitis Apply to legs daily 454 g 2 4 4:09 PM EDT Active metFORMIN HCl ER 750 MG Oral Tablet Extended Release 24 Hour (Glucophage XR)Indications:Pr ediabetes TAKE ONE TABLET BY MOUTH IN THE MORNING 90 Tablet 1 4 5:24 PM EDT 024 2024 Active tiZANidine HCl 4 MG Oral Tablet (Zanaflex)Indicat ions:Chronic right-sided low back pain with right-sided sciatica TAKE ONE TABLET BY MOUTH EVERY 8 HOURS NEEDED FOR MUSCLE SPASMS. 30 Tablet 4 4:21 PM EST Active HYDROcodone-Aceta minophen 5-325 MG Oral TabletIndications :Stasis ulcer of lower extremity, left (HCC) Take 1 Tablet by mouth at bedtime as needed for Severe Pain. 21 Tablet 4 4:21 PM EST Active Mupirocin 2 % External Ointment (Bactroban)Indica tions:Sore in nose Apply topically to affected area 3 times a day for 14 days 22 g 1 4 5:43 PM EST 024 2023 Active valACYclovir HCl 1 GM Oral Tablet (Valtrex)Indicati ons:Sore in nose Take 1 Tablet by mouth in the morning and 1 Tablet at noon and 1 Tablet before bedtime for 7 days for shingles 21 Tablet 4 5:43 PM EST 024 2023 Active tiZANidine HCl 4 MG Oral Tablet (Zanaflex)Indicat ions:Chronic right-sided low back pain with right-sided sciatica Take 1 Tablet by mouth every 8 hours as needed for Muscle spasms. 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[place] co ronary artery without angina pectoris 03/02/2021 [...] as of this encounter (statuses as of 03/02/2024) Resolved Problems Problem Noted Date Diagnosed Date Resolved Date Abdominal discomfort 11/21/2017 018 COPD, severity to be determined 07/23/2016 07/31/2020 Overview: Per COPD GOLD Classification Periapical abscess 05/15/2014 8 Venous stasis ulcer of leg w ithout varicose veins 07/21/2012 07/14/2017 Anemia 07/21/2012 10/07/2017 documented as of this encounter (statuses as of 03/02/2024) Immunizations Name Administration Dates Next Due Hepatitis [...] Sign Reading Time Taken Comments Blood Pressure 126/80 03/02/2024 4:01 PM EST Pulse 71 03/02/2024 4:01 PM EST Temperature 35.9 C (96.6 F) 03/02/2024 4:01 PM ES T Respiratory Rate 20 03/02/2024 4:01 PM EST Oxygen Saturation 100% 03/02/2024 4:01 PM EST Inhaled Oxygen Concentration - - Weight 92.3 kg (203 lb 6.4 oz) 03/02/2024 4:01 P M EST Height 180.3 cm (5' 11") 03/02/2024 4:01 PM EST Body Mass Index 28.37 03/02/2024 4:01 PM EST documented in this encounter Patient Instructions * Patient Instructions* Zulema Myers PA-C - 03/02/2024 5:03 PM EST Gently roll the q-tip over the lesion, oral meds documented in this encounter Progress Notes * Zulema Myers PA-C - 03/02/2024 4:32 PM EST Subjective: Nursing Notes: Rosa Davis, MED ASSIST 03/02/24 1609 Signed Chang Parham is a 64 year old male who presents to walk-in clinic today complaining of Chief Complaint Patient presents with Other Sore inside the right side of nostril Brief history:pt is here with a sore in the right side of his nostril - states that its very irritating. Onset/duration 2 weeks. Tried N/A Effectiveness N/A Patient is accompanied by no one for today's visit. Sx are sore inside right nostril no sick contacts at home. Sig med hx/risk factors: multiple chronic illnesses, prediabetes Review of Systems Constitutional: Negative for activity change, appetite change, fatigue and fever. HENT: Negative for congestion, ear pain, nosebleeds, postnasal drip, rhinorrhea, sinus pressure, sinus pain, sore throat and voice change. Sore in right nostril. Points to lateral aspect Eyes: Negative for discharge and redness. Respiratory: Negative for cough, chest tightness, shortness of breath and wheezing. Cardiovascular: Negative for chest pain. Gastrointestinal: Negative for abdominal pain, diarrhea, nausea and vomiting. Musculoskeletal: Negative for arthralgias, neck pain and neck stiffness. Allergic/Immunologic: Negative for environmental allergies. Neurological: Negative for dizziness. Hematological: Negative for adenopathy. 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) Drug-induced polyneuropathy (HCC) Stasis ulcer of lower extremity, left (HCC) Medical home patient encounter Subconjunctival hemorrhage of left eye Tobacco use Venous insufficiency 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 Wheat Dextrin-Calcium (BENEFIBER PLUS CALCIUM) POWD Take 1 Scoop by mouth once. Polyethylene Glycol 3350 17 GM/SCOOP Oral Powder (MiraLax) Take 17 g by mouth as needed for Constipation. Dissolve one heaping tablespoon in 8 ounces of water or juice. 850 g 3 Omeprazole 20 MG Oral Capsule Delayed Release (PriLOSEC) Take 1 Capsule by mouth in the morning and1 Capsule in the evening. 180 Capsule 4 traZODone HCl 100 MG Oral Tablet (Desyrel) TAKE 1 TO 3 TABLETS BY MOUTH AT BEDTIME. 270 Tablet 2 Amitriptyline HCl 25 MG Oral Tablet (Elavil) Take 1 Tablet by mouth at bedtime. 90 Tablet 3 Pentoxifylline ER 400 MG Oral Tablet Extended Release (TRENtal) Take 1 Tablet by mouth in the morning and 1 Tablet at noon and 1 Tablet before bedtime. 270 Tablet 3 Bexarotene 75 MG Oral Capsule TAKE 4 CAPSULES (300MG) BY MOUTH ONCE DAILY 120 Capsule 5 Valchlor 0.016 % External Gel (Mechlorethamine HCl) APPLY A THIN FILM TO THE AFFECTED AREAS OF THE SKIN 3 TIMES PER WEEK 60 g 3 hydroCHLOROthiazide 25 MG Oral Tablet (Hydrodiuril) TAKE ONE TABLET BY MOUTH DAILY 90 Tablet 3 Docusate Sodium 100 MG Oral Capsule (Colace) Take 1 Capsule by mouth in the morning and 1 Capsule before bedtime. 60 Capsule 11 Levothyroxine Sodium 175 MCG Oral Tablet (Levoxyl) TAKE ONE TABLET BY MOUTH DAILY ON AN EMPTY STOMACH 90 Tablet 3 Silver sulfADIAZINE 1 % External Cream (Silvadene) APPLY TO WOUNDS ON LEGS NIGHTLY NEEDED 50 g 1 Azithromycin 1 GM Oral Packet Take 1 Packet by mouth in the morning. Emergency dose . Atorvastatin Calcium 40 MG Oral Tablet (Lipitor) TAKE ONETABLET BY MOUTH AT BEDTIME 90 Tablet 3 Gabapentin 600 MG Oral Tablet (Neurontin) Take 1 Tablet by mouth in the morning and 1 Tablet at noon and 1 Tablet in the evening and 1 Tablet before bedtime. 360 Tablet 3 amLODIPine Besylate 5 MG Oral Tablet (Norvasc) TAKE ONE TABLET BY MOUTH DAILY 90 Tablet 1 Betamethasone Dipropionate 0.05 % External Ointment APPLY TOPICALLY TO AFFECTED AREA 4 DAYS PER WEEK ON OPPOSITE DAYS OF THE GEL 30 g 5 Losartan Potassium 100 MG Oral Tablet (Cozaar) TAKE ONE TABLET BY MOUTH DAILY 90 Tablet 3 Ferrous Sulfate 324 MG Oral Tablet Delayed Release Take by mouth. Ibuprofen 600 MG Oral Tablet (Motrin) TAKE ONE TABLET BY MOUTH EVERY 6 HOURS NEEDED FOR PAIN 90 Tablet 3 hydrOXYzine HCl 25 MG Oral Tablet Take 1 Tablet by mouth every 6 hours as needed for Itching. 60 Tablet 2 Famotidine 20 MG Oral Tablet (Pepcid) Take 1 Tablet by mouth at bedtime. 90 Tablet 1 Triamcinolone Acetonide 0.1 % External Ointment (Aristocort) Apply to legs daily 454 g 2 metFORMIN HCl ER 750 MG Oral Tablet Extended Release 24 Hour (Glucophage XR) TAKE ONE TABLET BY MOUTH IN THE MORNING 90 Tablet 1 tiZANidine HCl 4 MG Oral Tablet (Zanaflex) TAKE ONE TABLET BY MOUTH EVERY 8 HOURS NEEDED FOR MUSCLE SPASMS. 30 Tablet 0 HYDROcodone-Acetaminophen 5-325 MG Oral Tablet Take 1 Tablet by mouth at bedtime as needed for Severe Pain. 21 Tablet 0 Mupirocin 2 % External Ointment (Bactroban) Apply topically to affected area 3 times a day for 14 days 22 g 1 valACYclovir HCl 1 GM Oral Tablet (Valtrex) Take 1 Tablet by mouth in the morning and 1 Tablet at noon and 1 Tablet before bedtime for 7 days for shingles 21 Tablet 0 Bexarotene 75 MG Oral Capsule TAKE 4 CAPSULES (300MG) BY MOUTH ONCE DAILY (Patient not taking: Reported on 03/02/2024) 120 Capsule 5 No current facility-administered medications for this visit. 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 Past Surgical History: Procedure Laterality Date COLONOSCOPY, DIAGNOSTIC (RECTUM) 01/29/2013 normal bx, repeat 10 yrs/COLONOSCOPY FLEXIBLE PROXIMAL DIAGNOSTIC performed by Edy Fry MD at ENDOSCOPY [facility] COLONOSCOPY, DIAGNOSTIC (RECTUM) N/A 12/07/2017 benign adenomatous polyp, diverticulosis, fair prep/COLONOSCOPY FLEXIBLE PROXIMAL DIAGNOSTIC performed by Edy Fry MD at ENDOSCOPY [facility] COLONOSCOPY, DIAGNOSTIC (RECTUM) 08/18/2021 benign adenomatous polyp, diverticulosis, repeat 5 yrs / COLONOSCOPY FLEXIBLE PROXIMAL DIAGNOSTIC performed by Edy Fry MD at ENDOSCOPY [facility] CYSTOSCOPY 07/25/2012 stent placed CYSTOSCOPY 08/29/2012 stent removed EGD, FLEXIBLE, DIAGNOSTIC 09/12/2019 reflux esophagitis, hiatal hernia / ESOPHAGOGASTRODUODENOSCOPY (EGD), FLEXIBLE, TRANSORAL, DIAGNOSTIC performed by Edy Fry MD at ENDOSCOPY [facility] FRAGMENT KIDNEY STONE BY SHOCK WAVE 11/03/2012 ESWL (Extracorporeal Shock Wave Lithotripsy) FRAGMENT KIDNEY STONE BY SHOCK WAVE 01/02/2016 INFORMATION h/o leg vein cauterization INFORMATION s/p lymph node biopsy INFORMATION s/p bone marrow bx LAP;REPAIR RECURRENT HERNIA Right 10/10/2019 w/mesh LAPAROSCOPY; CHOLECYSTECTOMY 10/10/2019 REPAIR INITIAL INGUINAL HERNIA REDUCIBLE AGE 5 OR MORE Inguinal Hernia Repair,5+Y/O,Reducibl SHOULDER ARTHROSCOPY SURGERY Right 02/25/2015 SHOULDER ARTHROSCOPY/REMOVE OBJECT Left 12/12/2014 Shoulder Surgery, Arthroscopic Review of patient's allergies indicates: Allergen Reactions Erythromycin Contraindicated with Targretin (cancer med) Objective: BP 126/80 | Pulse 71 | Temp 35.9 C (96.6 F) (Tympanic) | Resp 20 | Ht 1.803 m (5' 11") | Wt 92.3 kg (203 lb 6.4 oz) | SpO2 100% | BMI 28.37 kg/m | BSA 2.15 m Physical Exam Constitutional: Appearance: Normal appearance. He is normal weight. HENT: Head: Normocephalic. Right Ear: Tympanic membrane, ear canal and external ear normal. Left Ear: Tympanic membrane, ear canal and external ear normal. Nose: No congestion or rhinorrhea. Comments: Papular lesion, fluid filled lateral right nares Mouth/Throat: Pharynx: No oropharyngeal exudate or posterior oropharyngeal erythema. Eyes: Extraocular Movements: Extraocular movements intact. Conjunctiva/sclera: Conjunctivae normal. Cardiovascular: Rate and Rhythm: Normal rate and regular rhythm. Heart sounds: Normal heart sounds. Pulmonary: Effort: Pulmonary effort is normal. Breath sounds: Normal breath sounds. No wheezing or rhonchi. Musculoskeletal: Cervical back: Normal range of motion. No rigidity. No muscular tenderness. Lymphadenopathy: Cervical: Cervical adenopathy present. Skin: Findings: No rash. Neurological: Mental Status: He is alert and oriented to person, place, and time. Psychiatric: Mood and Affect: Mood normal. Thought Content: Thought content normal. Judgment: Judgment normal. ASSESSMENT/PLAN: Sore in nose (Primary) - Mupirocin 2 % External Ointment (Bactroban); Apply topically to affected area 3 times a day for 14 days - valACYclovir HCl 1 GM Oral Tablet (Valtrex); Take 1 Tablet by mouth in the morning and 1 Tablet at noon and 1 Tablet before bedtime for 7 days for shingles Patient Instructions Gently roll the q-tip over the lesion, oral meds Discussed how to apply ointment Discussed not clear if viral or bacterial Return instruction reviewed with pt in detail. Reasons to report to the ED were also reviewed. Voiced understanding Advised to follow up if no improvement in 3-5days. Zulema Myers PA-C documented in this encounter Nursing Notes * Rosa Davis, MED ASSIST - 03/02/2024 4:08 PM EST Chang Parham is a 64 year old male who presents to walk-in clinic today complaining of Chief Complaint Patient presents with Other Sore inside the right side of nostril Brief history:pt is here with a sore in the right side of his nostril - states that its very irritating. Onset/duration 2 weeks. Tried N/A Effectiveness N/A Patient is accompanied by no one for today's visit. documented in this encounter Plan of Treatment Upcoming Encounters Date Type Department Care Team (Latest Contact Info) Description 03/06/2024 2:30 PM EST Nurse Only Wound Care, [place] [address], [place] [id number] Care, Nurse Wound [address] [place] [address] 03/08/2024 7:15 AM EST Hospital Encounter OR [facility], OPERATING ROOM [facility], [facility] [address] [place] [address] Flex Valentin MD [address], [place] [id number] 03/08/2024 7:15 AM EST - 03/08/2024 9:23 AM EST Surgery OR [facility], OPERATING ROOM [facility], [facility] [address] [place] [address] Flex Valentin MD [address] [place] [address] ENDOVENOUS RADIOFREQUENCY ABLATION THERAPY FIRST VEIN 03/12/2024 11:30 AM EST Imaging Radiology [address] [address] 03/12/2024 2:40 PM EST Telemedicine [facility], [place] [address], [place] [id number] Jorge Hernández CRNP [address] [place], [place] [phone] 03/13/2024 2:30 PM EST Nurse Only Wound Care, [place] [address], [place] [phone] Care, Nurse Wound [address] [place] [address] 03/20/2024 2:30 PM EST Nurse Only Wound Care, Christine [address] [place] [address] Care, Nurse Wound [address] [place] [address] 03/27/2024 2:40 PM EST Office Visit Wound Care, [place] [address] [place] [address] Mario Sauceda MD [address] [place] [address] 05/16/2024 2:00 PM EST Office Visit Gastroenterology, [facility] [address] [facility] [place] [address] Marlene Balderas CRNP [address] [place] [address] 09/13/2024 5:20 PM EDT Office Visit Family Practice [facility] [address] [facility] [place] [address] Raza Lion DO [address] [place] [address] Scheduled Procedures Name Priority Associated Diagnoses Date/Ti me ENDOVENOUS RADIOFREQUENCY ABLATION THERAPY FIRST VEIN 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) Venous insufficiency Cigar smoker 03/08/2024 7:15 AM EST COLONOSCOPY FLEXIBLE PROXIMAL DIAGNOSTIC Recall History of colon polyps Health Maintenance Due Date Last Done Comments DISCUSS TOBACCO CESSATION (REFER TO SMARTSET #9819) 1960 COVID-19 Vaccine (#1) 1963 Cologuard 2003 [...] 08/27/2023, Additional history exists TSH 01/01/2025 01/02/2024, 06/0 11/2023, 08/27/2023, Additional history exists Depression Screening 01/10/2025 01/11/2024 O2 ASSESSMENT COMPLETED IN PAST YEAR FOR COPD 03/02/2025 03/02/2024 Albumin/Creatinine Ratio 12/25/2025 12/25/2022, 04/19 Colonoscopy 08/18/2026 08/18/2021, 050 06/2021, 12/07/2017, Additional history exists Colorectal Cancer [...] as of this encounter Visit Diagnoses Diagnosis Sore in nose- Primary Other diseases of nasal cavity and sinuses 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
--- OUTSIDE RECORDS SUMMARY | 2024-03-08 14:31 | External Medical Summary | Summary of Care ---
Author Name Unknown Organization [facility] Address [address] [facility] [place] [address] Phone [phone] Care Team Providers Care Project Control Officer Name Role Phone LionAnupr Jake Primary Care Provider Encounter Details Date Type Department Care Team (Late st Contact Info) Description 02/23/2024 Population Health External Data Unspecified Department Allergies Active Allergy Reactions Criticality Noted Date Comments Erythromycin 07/21/2012 Contraindicated with Targretin (cancer med) documented as of this encounter (statuses as of 03/01/2024) Medications MEDICAL COMPRESSION STOCKINGS MISCIndications:Ve nous stasis [...] as of this encounter (statuses as of 03/01/2024) Active Problems Problem Noted Date Diagnosed Date [...] 02/22/2022 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[place] co ronary artery without angina pectoris 03/02/2021 [...] as of this encounter (statuses as of 03/01/2024) Resolved Problems Problem Noted Date Diagnosed Date Resolved Date Abdominal discomfort 11/21/2017 018 COPD, severity to be determined 07/23/2016 07/31/2020 Overview: Per COPD GOLD Classification Periapical abscess 05/15/2014 8 Venous stasis ulcer of leg w ithout varicose veins 07/21/2012 07/14/2017 Anemia 07/21/2012 10/07/2017 documented as of this encounter (statuses as of 03/01/2024) Immunizations Name Administration Dates Next Due Hepatitis [...] 2:30 PM EST Nurse Only Wound Care, [place] [address], [place] [id number] Care, Nurse Wound [address] [place] [address] 03/08/2024 7:15 AM EST Hospital Encounter OR [facility], OPERATING ROOM [facility], [facility] [address] [place] [phone] Flex Valentin MD [address] [place] [address] 03/08/2024 7:15 AM EST - 03/08/2024 9:23 AM EST Surgery OR [facility], OPERATING ROOM [facility], [facility] [address] [place] [phone] Flex Valentin MD [address] [place] [address] ENDOVENOUS RADIOFREQUENCY ABLATION THERAPY FIRST VEIN 03/12/2024 11:30 AM EST Imaging Radiology [facility] [address] [facility] [address] 03/12/2024 2:40 PM EST [facility]med[facility] [address], [place] [phone] Jorge Hernández CRNP [address] [place], [place] [phone] 03/13/2024 2:30 PM EST [facility] [address] [place] [address] Care, Nurse Wound [address] [place] [address] 03/20/2024 2:30 PM EST Nurse Only Wound Care, [place] [address] [place] [address] Care, Nurse Wound [address] [place] [address] 03/27/2024 2:40 PM EST Office Visit Wound Care, [place] [address] [place] [address] Mario Sauceda MD [address] [place] [address] 05/16/2024 2:00 PM EST Office Visit Gastroenterology, [facility] [address] [facility] [place] [address] Marlene Balderas CRNP [address] [place] [address] 09/13/2024 5:20 PM EDT Office Visit Family Practice [facility] [address] [place] [address] Raza Lion DO [address] [place] [address] Scheduled Procedures Name Priority Associated Diagnoses Date/Ti me ENDOVENOUS RADIOFREQUENCY ABLATION THERAPY FIRST VEIN 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) Venous insufficiency Cigar smoker 03/08/2024 7:15 AM EST COLONOSCOPY FLEXIBLE PROXIMAL DIAGNOSTIC Recall History of colon polyps Health Maintenance Due Date Last Done Comments DISCUSS TOBACCO CESSATION (REFER TO SMARTSET #1904) 1958 COVID-19 Vaccine (#1) 1963 Cologuard 2003 [...] 01/02/2024, 06/0 11/2023, 08/27/2023, Additional history exists O2 ASSESSMENT COMPLETED IN PAST YEAR FOR COPD 01/09/2025 01/10/2024 Depression Screening 01/10/2025 01/11/2024 Albumin/Creatinine Ratio 12/25/2025 12/25/2022, 04/19 Colonoscopy 08/18/2026 08/18/2021, 05/0 06/2021, 12/07/2017, Additional history exists Colorectal Cancer [...] filedocumented as of this encounter Care Teams Project Control Officer Relationship Specialty Start Date End Date Raza Lion DO [address] [address] PCP - General Family Medicine 09/04/20 documented as of this encounter
--- OUTSIDE RECORDS SUMMARY | 2024-03-08 14:31 | External Medical Summary | Summary of Care ---
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 * Telephone Encounter - Yenifer Vitale PA-C - 02/27/2024 11:45 AM EST He can do GW and phone call. Thanks * Telephone Encounter - Joanne Colin OSA - 02/27/2024 11:22 AM EST Patient is from [place]. Can he have venous duplex at [facility] and a phone call? Or does he have to come [place] [facility]? * Telephone Encounter - Yenifer Vitale PA-C - 02/27/2024 10:34 AM EST Please schedule 3 day post-op with Irvan or Jorge and venous duplex documented in this encounter Plan of Treatment Upcoming Encounters Date Type Department Care Team (Latest Contact Info) Description 03/06/2024 2:30 PM EST Nurse Only Wound Care, [place] [address] [place] [address] Care, Nurse Wound [address] [place] [address] 03/08/2024 7:15 AM EST Hospital Encounter [place] [facility] [facility], [facility] [address] [place] [phone] Flex Valentin MD [address] [place] [address] 03/08/2024 7:15 AM EST - 03/08/2024 9:23 AM EST Surgery [place] [facility] [facility], [facility] [address] [place] [phone] Flex Valentin MD [address] [place] [address] ENDOVENOUS RADIOFREQUENCY ABLATION THERAPY FIRST VEIN 03/12/2024 11:30 AM EST Imaging Radiology [address] [address] 03/12/2024 2:40 PM EST Telemedicine Vascular Surg [facility], [place] [address] [place] [address] Jorge Hernández CRNP [address] [place] [address] 03/13/2024 2:30 PM EST Nurse Only Wound Care, [place] [address] [place], [place] [phone] Care, Nurse Wound [address] [place] [address] 03/20/2024 2:30 PM EST Nurse Only Wound Care, [place] [address] [place], [place] [phone] Care, Nurse Wound [address] [place] [address] 03/27/2024 2:40 PM EST Office Visit Wound Care, [place] [address] [place] [address] Mario Sauceda MD [address] [place] [address] 05/16/2024 2:00 PM EST Office Visit Gastroenterology, [facility] [address] [place] [address] Marlene Balderas CRNP [address] [place] [address] 09/13/2024 5:20 PM EDT Office Visit Family Practice [facility] [address] [place] [address] Raza Lion DO [address] [place] [address] Scheduled Procedures Name Priority Associated Diagnoses Date/Ti me ENDOVENOUS RADIOFREQUENCY ABLATION THERAPY FIRST VEIN 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) Venous insufficiency Cigar smoker 03/08/2024 7:15 AM EST COLONOSCOPY FLEXIBLE PROXIMAL DIAGNOSTIC Recall History of colon polyps Health Maintenance Due Date Last Done Comments DISCUSS TOBACCO CESSATION (REFER TO SMARTSET #2245) 1958 COVID-19 Vaccine (#1) 1963 Cologuard 2003 [...] filedocumented as of this encounter Care Teams Copra Processor Relationship Specialty Start Date End Date Raza Lion DO [address] [address] PCP - General Family Medicine 09/04/20 documented as of this encounter
--- OUTSIDE RECORDS SUMMARY | 2024-03-08 14:31 | External Medical Summary | Summary of Care ---
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 Can he have venous duplex at [facility] and a phone call? Or does he have to come to [facility]? * Telephone Encounter - Yenifer Vitale PA-C - 02/27/2024 10:34 AM EST Please schedule 3 day post-op with Irvan or Jorge and venous duplex documented in this encounter Plan of Treatment Upcoming Encounters Date Type Department Care Team (Latest Contact Info) Description 03/06/2024 2:30 PM EST Nurse Only Wound Care, [place] [address] [place] [address] Care, Nurse Wound [address] [place] [address] 03/08/2024 7:15 AM EST Hospital Encounter OR [facility], OPERATING ROOM [facility], [facility] [place] [address] [place] [facility] [phone] Flex Valentin MD [address] [place] [facility] [place] [address] 03/08/2024 7:15 AM EST - 03/08/2024 9:23 AM EST Surgery OR [facility], OPERATING ROOM [facility], [place] [address] [place] [facility] [place] [phone] Flex Valentin MD [address] [place] [facility] [place] [address] ENDOVENOUS RADIOFREQUENCY ABLATION THERAPY FIRST VEIN 03/13/2024 2:30 PM EST Nurse Only Wound Care, [place] [address] [place] [address] Care, Nurse Wound [address] [place] [facility] [place] [address] 03/20/2024 2:30 PM EST Nurse Only Wound Care, [place] [address] [place] [facility] [place] [address] Care, Nurse Wound [address] [place] [facility] [place] [address] 03/27/2024 2:40 PM EST Office Visit Wound Care, [place] [address] [place] [facility] [address] Mario Sauceda MD [address] [place] [facility] [place] [address] 05/16/2024 2:00 PM EST Office Visit Gastroenterology, [facility] [address] [address] Marlene Balderas CRNP [address] [address] 09/13/2024 5:20 PM EDT Office Visit Family [facility] [address] [place] [address] Raza Lion DO [address] [place] [address] Scheduled Procedures Name Priority Associated Diagnoses Date/Ti me ENDOVENOUS RADIOFREQUENCY ABLATION THERAPY FIRST VEIN 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) Venous insufficiency Cigar smoker 03/08/2024 7:15 AM EST COLONOSCOPY FLEXIBLE PROXIMAL DIAGNOSTIC Recall History of colon polyps Health Maintenance Due Date Last Done Comments DISCUSS TOBACCO CESSATION (REFER TO SMARTSET #0667) 1958 COVID-19 Vaccine (#1) 1963 Cologuard 2003 [...] filedocumented as of this encounter Care Teams Horticultural Worker Relationship Specialty Start Date End Date Raza Lion DO [address] [address] PCP - General Family Medicine 09/04/20 documented as of this encounter
--- OUTSIDE RECORDS SUMMARY | 2024-03-08 14:32 | External Medical Summary | Summary of Care ---
Author Name Unknown Organization [facility] Address [address] [place] [address] Phone [phone] Care Team Providers Care Vfx Artist Name Role Phone Raza Lion Primary Care Provider Reason for Visit * Reason Onset Date Comments Appointment 02/22/2024 Encounter Details Date Type Department Care Team (Late st Contact Info) Description 02/22/2024 Telephone Wound Care, [place] [address] [place] [address] Mario Sauceda MD [address] [place], [place] [phone] Appointment Allergies Active Allergy Reactions Criticality Noted Date Comments Erythromycin 07/21/2012 Contraindicated with Targretin (cancer med) documented as of this encounter (statuses as of 02/22/2024) Medications Medication Sig Dispensed Refills Start Date End Date Status MEDICAL COMPRESSION STOCKINGS MISCIndications:Veno us stasis ulcer of leg without varicose veins (HCC) knee high compression socks 15-20 mmhg 3 Package 3 09/04/2012 Active VITAMIN B 12 250 MCG PO LOZG Take 2 Tablets by mouth daily. Active Wheat Dextrin-Calcium (BENEFIBER PLUS CALCIUM) POWD Take 1 Scoop by mouth once. Active Polyethylene Glycol 3350 17 GM/SCOOP Oral Powder (MiraLax)Indications :Chronic idiopathic constipation Take 17 g by mouth as needed for Constipation. Dissolve one heaping tablespoon in 8 ounces of water or juice. 850 g 3 06/10/2022 Active Omeprazole 20 MG Oral Capsule Delayed Release (PriLOSEC) Take 1 Capsule by mouth in the morning and 1 Capsule in the evening. 180 Capsule 4 01/25/2023 Active traZODone HCl 100 MG Oral Tablet (Desyrel)Indications :Insomnia, unspecified type TAKE 1 TO 3 TABLETS BY MOUTH AT BEDTIME. 270 Tablet 2 02/08/2023 5 Active Amitriptyline HCl 25 MG Oral Tablet (Elavil)Indications: Insomnia, unspecified type Take 1 Tablet by mouth at bedtime. 90 Tablet 3 03/07/2023 Active Pentoxifylline ER 400 MG Oral Tablet Extended Release (TRENtal)Indications :Stasis ulcer of lower extremity, left (HCC),Venous ulcer (HCC) Take 1 Tablet by mouth in the morning and 1 Tablet at noon and 1 Tablet before bedtime. 270 Tablet 3 04/21/2023 Active Bexarotene 75 MG Oral Capsule TAKE 4 CAPSULES (300MG) BY MOUTH ONCE DAILY 120 Capsule 5 04/26/2023 Active Valchlor 0.016 % External Gel (Mechlorethamine HCl) APPLY A THIN FILM TO THE AFFECTED AREAS OF THE SKIN 3 TIMES PER WEEK 60 g 3 04/26/2023 Active hydroCHLOROthiazide 25 MG Oral Tablet (Hydrodiuril)Indicat ions:HTN, goal below 140/90 TAKE ONE TABLET BY MOUTH DAILY 90 Tablet 3 05/24/2023 5 Active Docusate Sodium 100 MG Oral Capsule (Colace)Indications: Chronic idiopathic constipation Take 1 Capsule by mouth in the morning and 1 Capsule before bedtime. 60 Capsule 11 07/05/2023 Active Levothyroxine Sodium 175 MCG Oral Tablet (Levoxyl)Indications :Acquired hypothyroidism TAKE ONE TABLET BY MOUTH DAILY ON AN EMPTY STOMACH 90 Tablet 3 07/05/2023 5 Active Silver sulfADIAZINE 1 % External Cream (Silvadene)Indicatio ns:Skin erosion APPLY TO WOUNDS ON LEGS NIGHTLY NEEDED 50 g 1 08/05/2023 Active Azithromycin 1 GM Oral Packet Take 1 Packet by mouth in the morning. Emergency dose . Active Bexarotene 75 MG Oral Capsule TAKE 4 CAPSULES (300MG) BY MOUTH ONCE DAILY 120 Capsule 5 09/27/2023 Active Atorvastatin Calcium 40 MG Oral Tablet (Lipitor) TAKE ONETABLET BY MOUTH AT BEDTIME 90 Tablet 3 11/02/2023 5 Active Gabapentin 600 MG Oral Tablet (Neurontin)Indicatio ns:Chronic right-sided low back pain with right-sided sciatica Take 1 Tablet by mouth in the morning and 1 Tablet at noon and 1 Tablet in the evening and 1 Tablet before bedtime. 360 Tablet 3 11/22/2023 Active amLODIPine Besylate 5 MG Oral Tablet (Norvasc)Indications :HTN, goal below 140/90 TAKE ONE TABLET BY MOUTH DAILY 90 Tablet 1 11/29/2023 5 Active tiZANidine HCl 4 MG Oral Tablet (Zanaflex)Indication s:Chronic right-sided low back pain with right-sided sciatica Take 1 Tablet by mouth every 8 hours as needed for Muscle spasms. 30 Tablet 5 11/29/2023 Active Betamethasone Dipropionate 0.05 % External OintmentIndications: Dermatitis APPLY TOPICALLY TO AFFECTED AREA 4 DAYS PER WEEK ON OPPOSITE DAYS OF THE GEL 30 g 5 12/20/2023 5 Active Losartan Potassium 100 MG Oral Tablet (Cozaar)Indications: HTN, goal below 140/90 TAKE ONE TABLET BY MOUTH DAILY 90 Tablet 3 12/21/2023 Active Ferrous Sulfate 324 MG Oral Tablet Delayed Release Take by mouth. Activ e Ibuprofen 600 MG Oral Tablet (Motrin) TAKE ONE TABLET BY MOUTH EVERY 6 HOURS NEEDED FOR PAIN 90 Tablet 3 01/01/2024 5 Active hydrOXYzine HCl 25 MG Oral TabletIndications:Ve nous stasis ulcer of right ankle with fat layer exposed with varicose veins (HCC) Take 1 Tablet by mouth every 6 hours as needed for Itching. 60 Tablet 2 01/27/2024 Active Famotidine 20 MG Oral Tablet (Pepcid) Take 1 Tablet by mouth at bedtime. 90 Tablet 1 01/31/2024 Active Triamcinolone Acetonide 0.1 % External Ointment (Aristocort)Indicati ons:Venous stasis ulcer of right ankle with fat layer exposed with varicose veins (HCC),Dermatitis Apply to legs daily 454 g 2 02/01/2024 Active metFORMIN HCl ER 750 MG Oral Tablet Extended Release 24 Hour (Glucophage XR)Indications:Predi abetes TAKE ONE TABLET BY MOUTH IN THE MORNING 90 Tablet 1 02/16/2024 Active tiZANidine HCl 4 MG Oral Tablet (Zanaflex)Indication s:Chronic right-sided low back pain with right-sided sciatica TAKE ONE TABLET BY MOUTH EVERY 8 HOURS NEEDED FOR MUSCLE SPASMS. 30 Tablet 02/20/2024 Active HYDROcodone-Acetamin ophen 5-325 MG Oral TabletIndications:St asis ulcer of lower extremity, left (HCC) Take 1 Tablet by mouth at bedtime as needed for Severe Pain. 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[place] co ronary artery without angina pectoris 03/02/2021 COPD, group A, by GOLD 2017 classification 07/28 Overview: Per COPD GOLD Classification HTN, goal below 140/90 04/30/2019 Hx of melanoma of skin 11/08/2018 Overview: R posterior thigh, 0.5mm, 10/2018 Chronic idiopathic constipation 11/21/2017 Prediabetes 05/31/2017 Overview: Per Prediabetes protocol #1 Pulmonary nodule 03/25/2016 Hx of nonmelanoma skin cancer 02/24/2015 Overview: BCC R chest 09/2020, BCC R ala 03/2020, BCC R chest 02/2019, SCC L upper back 10/2018, 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 Encounter for long-term (current) use of medicat ions 05/07/2014 Fever 02/20/2013 Cholelithiases 08/04/2012 Overview: Found on 07/2012 CT scan 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 Hypertriglyceridemia 07/21/2012 Overview: Due to targretin Per 08/15/2012 specialist note, triglyceride/lipid meds are to be handled by derm. Hyperlipidemia 07/21/2012 Overview: Due to targretin Per 08/15/2012 specialist note, triglyceride/lipid meds are to be handled by derm. documented as of this encounter (statuses as of 02/22/2024) Resolved Problems Problem Noted Date Diagnosed Date Resolved Date Abdominal discomfort 11/21/2017 018 COPD, severity to be determined 07/23/2016 07/31/2020 Overview: Per COPD GOLD Classification Periapical abscess 05/15/2014 8 Venous stasis ulcer of leg w ithout varicose veins 07/21/2012 07/14/2017 Anemia 07/21/2012 10/07/2017 documented as of this encounter (statuses as of 02/22/2024) Immunizations Name Administration Dates Next Due Hepatitis [...] No 01/11/2024 Does the household have a [facility] source of income? (Household - for ages [...] Assigned at Male 05/09/2019 10:43 AM EST Gender Identity Male 05/09/2019 10:43 AM EST Sexual Orientation Straight 05/09/2019 10 :43 AM EST Job Start Date Occupation Industry Not on file Not on file Not on file documented as of this encounter Miscellaneous Notes * Telephone Encounter - Maria Luisa Hatfield OSA - 02/22/2024 11:16 AM EST I called patient to reschedule appt with Dr. Sauceda that he missed on 02-21-24. I could not reach him but I left him a message that Dr. Sauceda can see him on 02-23-24 at 2:40 or 02-24-24 at 10:30. I left him our contact info and asked him to call us so one of our schedulers can get him rescheduled. documented in this encounter Plan of Treatment Upcoming Encounters Date Type Department Care Team (Latest Contact Info) Description 02/23/2024 2:40 PM EST Office Visit Wound Care, [place] [address] [place] [facility] [place] [address] Mario Sauceda MD [address] [place] [facility] [address] 02/28/2024 2:30 PM EST Nurse Only Wound Care, [place] [address] [place] [address] Care, Nurse Wound [address] [place] [facility] [place] [address] 03/06/2024 2:30 PM EST Nurse Only Wound Care, [place] [address] [place] [address] Care, Nurse Wound [address] [place] [facility] [place] [address] 03/08/2024 7:15 AM EST Hospital En[place] [facility] [facility] [address] [place] [facility] [phone] Flex Valentin MD [address] [place] [address] 03/08/2024 7:15 AM EST - 03/08/2024 9:23 AM EST Surgery [place] [facility] [facility]PER[place] [facility] [address] [place] [address] Flex Valentin MD [address] [place] [address] ENDOVENOUS RADIOFREQUENCY ABLATION THERAPY FIRST VEIN 03/13/2024 2:30 PM EST Nurse Only Wound Care, [place] [address] [place] [facility] [place] [address] Care, Nurse Wound [address] [place] [facility] [address] 03/20/2024 2:30 PM EST Nurse Only Wound Care, [place] [address] [place] [address] Care, Nurse Wound [address] [place] [address] 03/27/2024 2:40 PM EST Office Visit Wound Care, [place] [address] [place] [address] Mario Sauceda MD [address] [place] [address] 05/16/2024 2:00 PM EST Office Visit Gastroenterology, [facility] [address] [place] [address] Marlene Balderas CRNP [address] [place] [address] 09/13/2024 5:20 PM EDT Office Visit Family Practice [facility] [address] [place] [address] Raza Lion DO [address] [place] [address] Scheduled Procedures Name Priority Associated Diagnoses Date/Ti me ENDOVENOUS RADIOFREQUENCY ABLATION THERAPY FIRST VEIN 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) Venous insufficiency Cigar smoker 03/08/2024 7:15 AM EST COLONOSCOPY FLEXIBLE PROXIMAL DIAGNOSTIC Recall History of colon polyps Health Maintenance Due Date Last Done Comments DISCUSS TOBACCO CESSATION (REFER TO SMARTSET #9454) 1960 COVID-19 Vaccine (#1) 1963 Cologuard 2003 [...] filedocumented as of this encounter Care Teams Vfx Artist Relationship Specialty Start Date End Date Raza Lion DO [address] [address] PCP - General Family Medicine 09/04/20 documented as of this encounter
--- OUTSIDE RECORDS SUMMARY | 2024-03-08 14:32 | External Medical Summary | Summary of Care ---
Author Name Unknown Organization [facility] Address [address] [place] [address] Phone [phone] Care Team Providers Care Director Home Name Role Phone Raza Lion Primary Care Provider Reason for Visit * Reason Onset Date Comments Appointment 02/22/2024 Spoke to pt and rescheduled his wound nurse appointment from 02/21/24 to 02/23/24. Encounter Details Date Type Department Care Team (Late st Contact Info) Description 02/22/2024 Telephone Wound Care, [place] [address], [place] [phone] Mario Sauceda MD [address], [place] [phone] Appointment (Spoke to pt and rescheduled h... 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 (Household - for ages [...] encounter Miscellaneous Notes * Telephone Encounter - Roxanne Sandoval MED ASSIST - 02/22/2024 11:27 AM EST Spoke to pt and rescheduled his wound nurse appointment from 02/21/24 to 02/23/24. documented in this encounter Plan of Treatment Upcoming Encounters Date Type Department Care Team (Latest Contact Info) Description 02/23/2024 2:40 PM EST Office Visit Wound Care, [address] [place] [address] Mario Sauceda MD [address] [facility] [address] 02/28/2024 2:30 PM EST Nurse Only Wound Care, [place] [address] [place] [address] Care, Nurse Wound [address] [place] [address] 03/06/2024 2:30 PM EST Nurse Only Wound Care, [place] [address] [place] [address] Care, Nurse Wound [address] [facility] [place] [address] 03/08/2024 7:15 AM EST Hospital Encounter [place] [facility] [facility] [address] [place] [place] [phone] Flex Valentin MD [address] [place] [place] [address] 03/08/2024 7:15 AM EST - 03/08/2024 9:23 AM EST Surgery [place] [facility] [facility] [address] [facility] [place] [address] Flex Valentin MD [address] [place] [address] ENDOVENOUS RADIOFREQUENCY ABLATION THERAPY FIRST VEIN 03/13/2024 2:30 PM EST Nurse Only Wound Care, [place] [address] [facility] [address] Care, Nurse Wound [address] [facility] [place] [address] 03/20/2024 2:30 PM EST Nurse Only Wound Care, [place] [address] [facility] [place] [address] Care, Nurse Wound [address] [facility] [place] [address] 03/27/2024 2:40 PM EST Office Visit Wound Care, [place] [address] [place] [address] Mario Sauceda MD [address] [place] [address] 05/16/2024 2:00 PM EST Office Visit Gastroenterology, [facility] [address] [place] [address] Marlene Balderas CRNP [address] [place] [address] 09/13/2024 5:20 PM EDT Office Visit Family Practice [facility] [address] [place] [address] Raza Lion DO [address] [place] [address] Scheduled Procedures Name Priority Associated Diagnoses Date/Ti me ENDOVENOUS RADIOFREQUENCY ABLATION THERAPY FIRST VEIN 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) Venous insufficiency Cigar smoker 03/08/2024 7:15 AM EST COLONOSCOPY FLEXIBLE PROXIMAL DIAGNOSTIC Recall History of colon polyps Health Maintenance Due Date Last Done Comments DISCUSS TOBACCO CESSATION (REFER TO SMARTSET #7036) 1960 COVID-19 Vaccine (#1) 1963 Cologuard 2003 [...] Adult Wellness Visit 02/11/2024 GFR 01/01/2025 01/02/2024, /0 11/2023, 08/27/2023, Additional history exists TSH 01/01/2025 [...] filedocumented as of this encounter Care Teams Director Home Relationship Specialty Start Date End Date Raza Lion DO [address] [address] PCP - General Family Medicine 09/04/20 documented as of this encounter
--- OUTSIDE RECORDS SUMMARY | 2024-03-08 14:32 | External Medical Summary | Summary of Care ---
Author Name Unknown Organization [facility] Address [address] [place] [address] Phone [phone] Care Team Providers Care Multiple Resaw Operator Name Role Phone Raza Lion Primary Care Provider Reason for Visit * Reason Comments Wound Care Encounter Details Date Type Department Care Team (Latest Contact Info) Description 02/23/2024 2:40 PM EST Office Visit Wound Care, [place] [address] [place] [address] Mario Sauceda MD [address], [place] [id number] Venous stasis ulcer of right ankle with fat layer exposed with varicose veins (HCC)*; Venous stasis ulcer of left ankle with fat layer exposed with varicose veins (HCC); Venous insufficiency Allergies Active Allergy Reactions Criticality Noted Date Comments Erythromycin 07/21/2012 Contraindicated with Targretin (cancer med) documented as of this encounter (statuses as of 02/23/2024) Medications Medication Sig Dispensed Refills Start Date [...] IN THE MORNING 90 Tablet 1 02/16/2024 5 Active tiZANidine HCl 4 MG Oral [...] as of this encounter (statuses as of 02/23/2024) Active Problems Problem Noted Date Diagnosed Date [...] 02/22/2022 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[place] co ronary artery without angina pectoris 03/02/2021 [...] as of this encounter (statuses as of 02/23/2024) Resolved Problems Problem Noted Date Diagnosed Date Resolved Date Abdominal discomfort 11/21/2017 018 COPD, severity to be determined 07/23/2016 07/31/2020 Overview: Per COPD GOLD Classification Periapical abscess 05/15/2014 8 Venous stasis ulcer of leg w ithout varicose veins 07/21/2012 07/14/2017 Anemia 07/21/2012 10/07/2017 documented as of this encounter (statuses as of 02/23/2024) Immunizations Name Administration Dates Next Due Hepatitis [...] No 01/11/2024 Does the household have a [facility]byterian hospitall[facility] source of income? (Household - for [...] on file documented as of this encounter Progress Notes * Mario Sauceda MD - 02/23/2024 2:43 PM EST Images from the original note were not included. WOUND OUTPATIENT FOLLOW-UP NOTE HPI: Patient presents today for f/u of B ankle VLUs. The wound has been present since early 2021. Patient thinks wound started spontaneously. Patient has followed at [facility] wound clinic for 2 yearsand came here for second opinion. He is also seen for f/u of L upper luis wounds that began wit folliculitis. He reports anew ulcer to his L dorsal foot that began after he peeled off a piece of dry skin in late 01/2024. Vein ablation with Dr. Valentin on 01/27/24 was cancelled; re-scheduled for 03/08/24. Current dressing: See Wound Assessment Dressing change frequency: weekly RLE Compression: Medium tubular compression bandage LLE Compression: Medium tubular compression bandage RLE Wt Bearing Offloading: none LLE Wt Bearing Offloading: none RLE Non-Wt Bearing Offloading: none LLE Non-Wt Bearing Offloading: none Offloading Surface for Bed: none Offloading Surface for Chair / Wheelchair: none ROS: Pain: moderate Drainage: mild serous Swelling: no Erythema: no Fever/Chills: no Malaise: no ROS was negative other than stated above. VASCULAR LAB RESULTS DATE OF EXAM: 09/28/23 PRESENTING CONDITIONS: Evaluate for deep, superficial, and canteen manager reflux. IMPRESSION: There is no evidence of deep vein thrombosis in the bilateral lower extremities. There is no evidence of small saphenous vein reflux in the left lower extremity. Right deep venous reflux is identified in the common femoral vein. Left deep venous reflux is identified in the common femoral vein. Great saphenous vein reflux is identified in the bilateral lower extremities. Small saphenous vein reflux is identified in the right lower extremity. Anterior accessory saphenous vein reflux is identified in the right lower extremity. A perforating vein is seen 7.0 cm above the right lower extremity. ankle with a diameter of 3.1 mm and a reflux time of greater than 350 milliseconds. A perforating vein is seen 13 cm above the left lower extremity. ankle with a diameter of 4.7 mm and a reflux time of greater than 350 milliseconds Hemoglobin AIC Results: Lab Results Component Value Date/Time HEMOGLOBIN A1C - [facility] 5.9 (H) 12/25/2022 12:24 PM HEMOGLOBIN A1C - [facility] 5.6 09/10/2021 01:44 PM HEMOGLOBIN A1C - [facility] 6.2 (H) 05/08/2021 02:53 PM HEMOGLOBIN A1C - [facility] 6.0 (H) 03/28/2019 12:39 PM HEMOGLOBIN A1C - [facility] 5.9 03/23/2014 11:21 AM Lab Results Component Value Date/Time INR - [facility] 1.77 (H) 10/30/2012 03:29 PM INR - [facility] 1.77 (H) 08/16/2012 01:28 PM No results found for: "FINGER" EGFR-OUTSIDE LAB Date Value Ref Range Status 2015 104.8 ML/MIN Estimated Glomerular Filtration Rate Date Value Ref Range Status 09/24/2023 >90 >=60 mL/min Final Comment: eGFR is calculated based on the CKD-EPI 2020 equation 04/04/2020 >60.0 >60 Final Comment: If patient is , multiply estimated GFR by 1.159. 07/16/2013 >60.0 >60 mL/min Final Tobacco History: Social History Tobacco Use Smoking Status Every Day Current packs/day: 0.00 Average packs/day: 1.5 packs/day for 25.0 years (37.5 ttl pk-yrs) Types: Cigars, Cigarettes Start date: 06/19/1987 Last attempt to quit: 06/18/2012 Years since quittin.6 Smokeless Tobacco Former Tobacco Comments 6 cigars has a 1.5 ppd for 25 years cigarette smoking history and currently smokes cigars. Declined pamphlet12/28/23 WOUND ASSESSMENT: Alteration in Skin Integrity Right;Medial Ankle (Active) Clinical Image 02/23/24 1400 Primary Dressing Present (removed today) Adaptic 02/23/24 1400 Secondary Dressing Present (removed today) Aquacel Ag 02/23/24 1400 Tertiary Dressing Present (removed today) Kerlix 02/23/24 1400 Quaternary Dressing Present (removed today) None 02/23/24 1400 Wound Length (cm) 5 cm 02/23/24 1400 Wound Width (cm) 0.5 cm 02/23/24 1400 Wound Depth (cm) 0.1 cm 02/23/24 1400 Undermining (cm) 0 02/23/24 1400 Sinus Tract (cm) 0 02/23/24 1400 Tunneling (cm) 0 02/23/24 1400 Yellow Fibrinous Slough (%) 51-75% 02/23/24 1400 Granulation Tissue (%) 1-25% 02/23/24 1400 Granulation Tissue Color red 02/23/24 1400 Necrotic Tissue (%) none 02/23/24 1400 Necrotic Tissue Color Not Applicable 02/23/24 1400 Deep Supporting Structure Exposed None 02/23/24 1400 Drainage serous, mild 02/23/24 1400 Odor (after cleansing wound) No 02/23/24 1400 Aliya-Wound (Surrounding Skin) Intact;Nonerythematous;Nontender 02/23/24 1400 Evidence of Infection No 02/23/24 1400 Wound Surface Area (cm^2) 2.5 cm^2 02/23/24 1400 Wound Volume (cm^3) 0.25 cm^3 02/23/24 1400 Alteration in Skin Integrity Left;Medial Ankle (Active) Clinical Image 02/23/24 1400 Primary Dressing Present (removed today) Adaptic 02/23/24 1400 Secondary Dressing Present (removed today) Aquacel Ag 02/23/24 1400 Tertiary Dressing Present (removed today) Kerlix 02/23/24 1400 Quaternary Dressing Present (removed today) None 02/23/24 1400 Wound Length (cm) 4.2 cm 02/23/24 1400 Wound Width (cm) 1.1 cm 02/23/24 1400 Wound Depth (cm) 0.1 cm 02/23/24 1400 Undermining (cm) 0 02/23/24 1400 Sinus Tract (cm) 0 02/23/24 1400 Tunneling (cm) 0 02/23/24 1400 Yellow Fibrinous Slough (%) 51-75% 02/23/24 1400 Granulation Tissue (%) 1-25% 02/23/24 1400 Granulation Tissue Color red 02/23/24 1400 Necrotic Tissue (%) none 02/23/24 1400 Necrotic Tissue Color Not Applicable 02/23/24 1400 Deep Supporting Structure Exposed None 02/23/24 1400 Drainage serous, mild 02/23/24 1400 Odor (after cleansing wound) No 02/23/24 1400 Aliya-Wound (Surrounding Skin) Intact;Nonerythematous;Nontender 02/23/24 1400 Evidence of Infection No 02/23/24 1400 Wound Surface Area (cm^2) 4.62 cm^2 02/23/24 1400 Wound Volume (cm^3) 0.462 cm^3 02/23/24 1400 Alteration in Skin Integrity Anterior;Left Foot (Active) Clinical Image 02/23/24 1400 Primary Dressing Present (removed today) Adaptic 02/23/24 1400 Secondary Dressing Present (removed today) Aquacel Ag 02/23/24 1400 Tertiary Dressing Present (removed today) Kerlix 02/23/24 1400 Quaternary Dressing Present (removed today) None 02/23/24 1400 Wound Length (cm) 1.8 cm 02/23/24 1400 Wound Width (cm) 1.1 cm 02/23/24 1400 Wound Depth (cm) 0.1 cm 02/23/24 1400 Undermining (cm) 0 02/23/24 1400 Sinus Tract (cm) 0 02/23/24 1400 Tunneling (cm) 0 02/23/24 1400 Yellow Fibrinous Slough (%) none 02/23/24 1400 Granulation Tissue (%) 100% 02/23/24 1400 Granulation Tissue Color red 02/23/24 1400 Necrotic Tissue (%) none 02/23/24 1400 Necrotic Tissue Color Not Applicable 02/23/24 1400 Deep Supporting Structure Exposed None 02/23/24 1400 Drainage serous, mild 02/23/24 1400 Odor (after cleansing wound) No 02/23/24 1400 Aliya-Wound (Surrounding Skin) Intact;Nonerythematous;Nontender 02/23/24 1400 Evidence of Infection No 02/23/24 1400 Wound Surface Area (cm^2) 1.98 cm^2 02/23/24 1400 Wound Volume (cm^3) 0.198 cm^3 02/23/24 1400 Alteration in Skin Integrity Anterior;Left;Lower;Proximal Leg (Active) Clinical Image 02/23/24 1400 Primary Dressing Present (removed today) Adaptic 02/23/24 1400 Secondary Dressing Present (removed today) Aquacel Ag 02/23/24 1400 Tertiary Dressing Present (removed today) Kerlix 02/23/24 1400 Quaternary Dressing Present (removed today) None 02/23/24 1400 Wound Length (cm) 10.8 cm 02/23/24 1400 Wound Width (cm) 0.5 cm 02/23/24 1400 Wound Depth (cm) 0.1 cm 02/23/24 1400 Undermining (cm) 0 02/23/24 1400 Sinus Tract (cm) 0 02/23/24 1400 Tunneling (cm) 0 02/23/24 1400 Yellow Fibrinous Slough (%) 26-50% 02/23/24 1400 Granulation Tissue (%) none 02/23/24 1400 Granulation Tissue Color not applicable 02/23/24 1400 Necrotic Tissue (%) 26-50% 02/23/24 1400 Necrotic Tissue Color Sullivan/brown 02/23/24 1400 Deep Supporting Structure Exposed None 02/23/24 1400 Drainage serous, mild 02/23/24 1400 Odor (after cleansing wound) No 02/23/24 1400 Aliya-Wound (Surrounding Skin) Intact;Nonerythematous;Nontender 02/23/24 1400 Evidence of Infection No 02/23/24 1400 Wound Surface Area (cm^2) 5.4 cm^2 02/23/24 1400 Wound Volume (cm^3) 0.54 cm^3 02/23/24 1400 ASSESSMENT/PLAN: 1. B medial ankle VLUs - stable overall, dermatitis resolved. 2. Venous insufficiency (superficial and deep; vascular planning to try ablation). 3. Cutaneous T cell lymphoma/mycosis fungoides Hx. 4. COPD. 5. Smoking. 6. L luis and L dorsal foot ulcerations. He prefers daily dressings to weekly compression wraps. TMC to BLE daily. Adaptic/Aquacel Ag/ABDs to B ankles - changed daily. Adaptic/ABDs to L luis and L foot ulcers ankles - changed daily. Wash wounds at time of dressing changes with soap/potable water. Double medium Tubigrips and elevate LE for edema control. Continue pentoxifylline. I spent a total of 30-39 minutes (exact time 33 mins) on the date of service in preparation, delivery, and documentation of the care provided to Chang Parham excluding any time spent in the performance of separately billed services. Follow-up: 4 weeks Mario Sauceda MD 02/23/2024 3:08 PM documented in this encounter Nursing Notes * Robert Lopez MED ASSIST - 02/23/2024 3:19 PM EST Adaptic , Opticell and a DSD placed over wounds. Double Medium Tubigrip size D applied for edema control to BLE as per order. documented in this encounter Plan of Treatment Upcoming Encounters Date Type Department Care Team (Latest Contact Info) Description 02/28/2024 2:30 PM EST Nurse Only Wound Care, [place] [address] [place] [address] Care, Nurse Wound [address] [place] [address] 03/06/2024 2:30 PM EST Nurse Only Wound Care, [place] [address] [place] [address] Care, Nurse Wound [address] [place] [address] 03/08/2024 7:15 AM EST Hospital Encounter OR [facility] [facility] [facility] [address] [place] [phone] Flex Valentin MD [address] [place] [address] 03/08/2024 7:15 AM EST - 03/08/2024 9:23 AM EST Surgery OR [facility] [facility] ROOM [facility] [address] [place] [phone] Flex Valentin MD [address] [place] [address] ENDOVENOUS RADIOFREQUENCY ABLATION THERAPY FIRST VEIN 03/13/2024 2:30 PM EST Nurse Only Wound Care, [place] [address] [place] [address] Care, Nurse Wound [address] [place] [address] 03/20/2024 2:30 PM EST Nurse Only Wound Care, [place] [address] [place] [address] Care, Nurse Wound [address] [place] [address] 03/27/2024 2:40 PM EST Office Visit Wound Care, [place] [address] [place] [address] Mario Sauceda MD [address] [place] [address] 05/16/2024 2:00 PM EST Office Visit Gastroenterology, [facility] [address] [place] [address] Marlene Balderas CRNP [address] [place] [address] 09/13/2024 5:20 PM EDT Office Visit Family Practice [facility] [address] [place] [address] Raza Lion DO [address] [place] [address] Scheduled Procedures Name Priority Associated Diagnoses Date/Ti [...] as of this encounter Visit Diagnoses Diagnosis Venous stasis ulcer of right ankle with fat layer exposed with varicose veins (HCC)- Primary Venous stasis ulcer of left ankle with fat layer exposed with varicose veins (HCC) Venous insufficiency Unspecified venous (peripheral) insufficiency 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
--- OUTSIDE RECORDS SUMMARY | 2024-03-08 14:32 | External Medical Summary | Summary of Care ---
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 (Household - for [...] wound started spontaneously. Patient has followed at [facility] wound clinic for 2 yearsand came [...] PRESENTING CONDITIONS: Evaluate for deep, superficial, and travel nurse reflux. IMPRESSION: There is no evidence of [...] 2:30 PM EST Nurse Only Wound Care, [facility] [address] [place] [address] Care, Nurse Wound [address] [place] [address] 03/08/2024 7:15 AM EST Hospital Encounter OR [facility] [place], OPERATING ROOM [facility], [facility] [address] [facility] [place] [phone] Flex Valentin MD [address] [place] [facility] [address] 03/08/2024 7:15 AM EST - 03/08/2024 9:23 AM EST Surgery OR [facility], OPERATING ROOM [facility] [address] [place] [facility] [phone] Flex Valentin MD [address] [place] [facility] [address] ENDOVENOUS RADIOFREQUENCY ABLATION THERAPY FIRST VEIN 03/13/2024 2:30 PM EST Nurse Only Wound Care, [facility] [address] [place] [facility] [address] Care, Nurse Wound [address] [place] [facility] [address] 03/20/2024 2:30 PM EST Nurse Only Wound Care, [facility] [address] [place] [facility] [address] Care, Nurse Wound [address] [place] [facility] [address] 03/27/2024 2:40 PM EST Office Visit Wound Care, [facility] [address] [place] [facility] [address] Mario Sauceda MD [address] [place] [facility] [facility] [address] 05/16/2024 2:00 PM EST Office Visit Gastroenterology, [facility] [address] [address] Marlene Balderas CRNP [address] [place] [address] 09/13/2024 5:20 PM EDT Office Visit Family [facility] [address] [place] [address] Raza Lion DO [address] [place] [address] Scheduled Procedures Name Priority Associated Diagnoses Date/Ti me ENDOVENOUS RADIOFREQUENCY ABLATION THERAPY FIRST VEIN 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
--- OUTSIDE RECORDS SUMMARY | 2024-03-08 14:32 | External Medical Summary | Summary of Care ---
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 Can he have venous duplex at [facility] and a phone call? Or does he have to come to [facility]? * Telephone Encounter - Yenifer Vitale PA-C - 02/27/2024 10:34 AM EST Please schedule 3 day post-op with Homero or Jorge and venous duplex documented in this encounter Plan of Treatment Upcoming Encounters Date Type Department Care Team (Latest Contact Info) Description 03/06/2024 2:30 PM EST Nurse Only Wound Care, [place] [address] [address] Care, Nurse Wound [address] [address] 03/08/2024 7:15 AM EST Hospital Encounter OR [facility], OPERATING ROOM [facility], [facility] LOWERY [address] [phone] Flex Valentin MD [address] [place] [address] 03/08/2024 7:15 AM EST - 03/08/2024 9:23 AM EST Surgery OR [facility], OPERATING ROOM [facility], RAJUVE VALENCIA [address] [place] [phone] Flex Valentin MD [address] [place] [address] ENDOVENOUS RADIOFREQUENCY ABLATION THERAPY FIRST VEIN 03/13/2024 2:30 PM EST Nurse Only Wound Care, [place] [address] [place] [address] Care, Nurse Wound [address] [place] [address] 03/20/2024 2:30 PM EST Nurse Only Wound Care, [place] [address] [place] [address] Care, Nurse Wound [address] [place] [address] 03/27/2024 2:40 PM EST Office Visit Wound Care, [place] [address] [place] [address] Mario Sauceda MD [address] [place] [address] 05/16/2024 2:00 PM EST Office Visit Gastroenterology, [facility] [address] [place] [address] Marlene Balderas CRNP [address] [place] [address] 09/13/2024 5:20 PM EDT Office Visit Family Practice [facility] [address] [place] [address] Raza Lion, [address] [place] [address] Scheduled Procedures Name Priority Associated Diagnoses Date/Ti me ENDOVENOUS RADIOFREQUENCY ABLATION THERAPY FIRST VEIN 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
--- OUTSIDE RECORDS SUMMARY | 2024-03-08 14:32 | External Medical Summary | Summary of Care ---
Author Name Unknown Organization [facility] Address [address] [place] [address] Phone [phone] Care Team Providers Care Search Marketing Specialist Name Role Phone Elder Lionvobelle Mcclendonsyed Primary Care Provider Reason for Referral * Evaluate & Treat - Unlimited Visits (Within 30 days (routine)) - Authorized Specialty Diagnoses / Procedures Referred By Jacoby huizar Referred To Contact Dermatology Diagnoses BCC (basal cell carcinoma), face Dieudonne Braxton MD [address] [place] [address] Referral ID Status Reason Start Date Expiration Date Visits Requested Visits Authorized [id number] Authorized Specialty Services Required 02/20/2024 1 1 Question Answer Referral Priority Within 30 days (routine) Are you referring the patient for Mohs Surgery and have a current positive skin cancer biopsy result? Yes Where should this appointment be scheduled? [facility] Type of Procedure MOHS Surgery Comments Skin, Left lateral brow, shave: Basal cell carcinoma, nodular and infiltrative types Encounter Details Date Type Department Care Team (Late st Contact Info) Description 02/20/2024 Telephone Dermatology [place] [place] [address] [place] [address] Dieudonne Braxton MD [address] [place] [address] Allergies Active Allergy Reactions Criticality Noted Date Comments Erythromycin 07/21/2012 Contraindicated with Targretin (cancer med) documented as of this encounter (statuses as of 02/21/2024) Medications Medication Sig Dispensed Refills Start Date [...] MOUTH AT BEDTIME. 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 03/02/2021 [...] as of this encounter (statuses as of 02/21/2024) Resolved Problems Problem Noted Date Diagnosed Date Resolved Date Abdominal discomfort 11/21/2017 018 COPD, severity to be determined 07/23/2016 07/31/2020 Overview: Per COPD GOLD Classification Periapical abscess 05/15/2014 8 Venous stasis ulcer of leg w ithout varicose veins 07/21/2012 07/14/2017 Anemia 07/21/2012 10/07/2017 documented as of this encounter (statuses as of 02/21/2024) Immunizations Name Administration Dates Next Due Hepatitis [...] encounter Miscellaneous Notes * Telephone Encounter - Latoya Mata OSA - 02/21/2024 8:46 AM EST LMOM for patient to call back and schedule for MOHS documented in this encounter Plan of Treatment Upcoming Encounters Date Type Department Care Team (Latest Contact Info) Description 02/21/2024 2:40 PM EST Office Visit Wound Care, [place] [address] [facility] [address] Mario Sauceda MD [address] [place] [address] 02/28/2024 2:30 PM EST Nurse Only Wound Care, [place] [address] [place] [facility] [place] [address] Care, Nurse Wound [address] [place] [facility] [place] [address] 03/06/2024 2:30 PM EST Nurse Only Wound Care, [place] [address] [place] [facility] [place] [address] Care, Nurse Wound [address] [place] [facility] [place] [address] 03/08/2024 7:15 AM EST Hospital Encounter [place] [facility], OPER[facility] ROOM [facility], [facility] [address] [facility] [place] [phone] Flex Valentin MD [address] [facility], [place] [id number] 03/08/2024 7:15 AM EST - 03/08/2024 9:23 AM EST Surgery OR [facility], OPERATING ROOM [facility], [facility] [address] [facility] [place] [phone] Flex Valentin MD [address] [place], [place] [id number] ENDOVENOUS RADIOFREQUENCY ABLATION THERAPY FIRST VEIN 03/13/2024 2:30 PM EST Nurse Only Wound Care, [place] [address] [place] [address] Care, Nurse Wound [address] [place] [address] 03/20/2024 2:30 PM EST Nurse Only Wound Care, [place] [address] [place] [address] Care, Nurse Wound [address] [place] [address] 03/27/2024 2:40 PM EST Office Visit Wound Care, [place] [address] [place] [address] Mario Sauceda MD [address] [place] [address] 05/16/2024 2:00 PM EST Office Visit Gastroenterology, [facility] [address] [facility], [place] [address] Marlene Balderas CRNP [address] [place] [address] 09/13/2024 5:20 PM EDT Office Visit Family Practice [facility] [address] [facility], [place] [address] Raza Lion DO [address] [place] [address] Scheduled Procedures Name Priority Associated Diagnoses Date/Ti me ENDOVENOUS RADIOFREQUENCY ABLATION THERAPY FIRST VEIN 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) Venous insufficiency Cigar smoker 03/08/2024 7:15 AM EST COLONOSCOPY FLEXIBLE PROXIMAL DIAGNOSTIC Recall History of colon polyps Scheduled Referrals Name Type Priority Associated Diagnoses Orde r Schedule MOHS SURGERY REFERRAL OP Referral Within 30 days (routine) BCC (basal cell carcinoma), face Ordered: 02/20/2024 Health Maintenance Due Date Last Done Comments DISCUSS TOBACCO CESSATION (REFER TO SMARTSET #1367) 1960 COVID-19 Vaccine (#1) 1963 Cologuard 2003 [...] as of this encounter Visit Diagnoses Diagnosis BCC (basal cell carcinoma), face- Primary Basal cell carcinoma of skin of other and unspecified parts of face 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) Varicose veins of lower extremities with ulcer and inflammation Venous insufficiency Unspecified venous (peripheral) insufficiency Cigar smoker Tobacco use disorder documented in this encounter Care Teams Search Marketing Specialist Relationship Specialty Start Date End Date Raza Lion DO [address] [address] PCP - General Family Medicine 09/04/20 documented as of this encounter
--- OUTSIDE RECORDS SUMMARY | 2024-03-08 14:32 | External Medical Summary | Summary of Care ---
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 03/02/2021 [...] EST Please schedule 3 day post-op with Irdoyle or Jorge and venous duplex documented in this encounter Plan of Treatment Upcoming Encounters Date Type Department Care Team (Latest Contact Info) Description 03/06/2024 2:30 PM EST Nurse Only Wound Care, [place] [address], [place] [phone] Care, Nurse Wound [address] [place] [address] 03/08/2024 7:15 AM EST Hospital Encounter OR [facility], OPERATING ROOM [facility], [facility] [address] [place] [facility] [place] [address] Flex Valentin MD [address] [place] [address] 03/08/2024 7:15 AM EST - 03/08/2024 9:23 AM EST Surgery OR [facility], OPERATING ROOM [facility], [facility] [address] [place] [phone] Flex Valentin MD [address] [place] [address] ENDOVENOUS RADIOFREQUENCY ABLATION THERAPY FIRST VEIN 03/13/2024 2:30 PM EST Nurse Only Wound Care, [place] [address] [place] [address] Care, Nurse Wound [address] [place] [address] 03/20/2024 2:30 PM EST Nurse Only Wound Care, [place] [address] [place] [address] Care, Nurse Wound [address] [place] [address] 03/27/2024 2:40 PM EST Office Visit Wound Care, [place] [address] [place] [address] Mario Sauceda MD [address] [place] [address] 05/16/2024 2:00 PM EST Office Visit Gastroenterology, [facility] [address] [facility] [place] [address] Marlene Balderas CRNP [address] [place] [address] 09/13/2024 5:20 PM EDT Office Visit Family Practice [facility] [address] [facility] [place] [address] Raza Lion DO [address] [facility] [address] Scheduled Procedures Name Priority Associated Diagnoses Date/Ti [...] filedocumented as of this encounter Care Teams Limousine And Hearse Upholsterer Relationship Specialty Start Date End Date Raza Lion DO [address] [address] PCP - General Family Medicine 09/04/20 documented as of this encounter
--- OUTSIDE RECORDS SUMMARY | 2024-03-08 14:32 | External Medical Summary | Summary of Care ---
Author Name Unknown Organization [facility] Address [address] [place] [address] Phone [phone] Care Team Providers Care Veneer Marker Name Role Phone Ayad Raza Shersyed Primary Care Provider Reason for Referral * Evaluate & Treat - Unlimited Visits (Within 30 days (routine)) - Authorized Specialty Diagnoses / Procedures Referred By Jacoby huizar Referred To Contact Dermatology Diagnoses BCC (basal cell carcinoma), face Dieudonne Braxton MD [address] [facility] [place] [address] Referral ID Status Reason Start Date Expiration Date Visits Requested Visits Authorized [id number] Authorized Specialty Services Required 02/20/2024 1 1 Question Answer Referral Priority Within 30 days (routine) Are you referring the patient for Mohs Surgery and have a current positive skin cancer biopsy result? Yes Where should this appointment be scheduled? 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[place] co ronary artery without angina pectoris 03/02/2021 [...] Telephone Encounter - Latoya Mata OSA - 02/23/2024 10:50 AM EST LMOM for Ellie, emergency contact, as the number on file did not go through for me to leave a message today * Telephone Encounter - Latoya Mata OSA - 02/21/2024 8:46 AM EST LMOM for patient to call back and schedule for MOHS documented in this encounter Plan of Treatment Upcoming Encounters Date Type Department Care Team (Latest Contact Info) Description 02/23/2024 2:40 PM EST Office Visit Wound Care, [place] [address] [place] [address] Mario Sauceda MD [address] [place] [address] 02/28/2024 2:30 PM EST Nurse Only Wound Care, [place] [address] [place] [address] Care, Nurse Wound [address] [place] [address] 03/06/2024 2:30 PM EST Nurse Only Wound Care, [place] [address] [place] [address] Care, Nurse Wound [address] [place] [address] 03/08/2024 7:15 AM EST Hospital Encounter OR [facility], OPERATING ROOM [facility], [facility] [place] [address] [place] [phone] Flex Valentin MD [address] [place] [address] 03/08/2024 7:15 AM EST - 03/08/2024 9:23 AM EST Surgery OR [facility], OPERATING ROOM [facility], RA [facility]ILION [address] [facility] [place] [phone] Flex Valentin MD [address] [place] [address] ENDOVENOUS RADIOFREQUENCY ABLATION THERAPY FIRST VEIN 03/13/2024 2:30 PM EST Nurse Only Wound Care, [place] [address] [place] [address] Care, Nurse Wound [address] [place] [address] 03/20/2024 2:30 PM EST Nurse Only Wound Care, [place] [address] [place] [address] Care, Nurse Wound [address] [place] [address] 03/27/2024 2:40 PM EST Office Visit Wound Care, [place] [address] [place] [address] Mario Sauceda MD [address] [place] [address] 05/16/2024 2:00 PM EST Office Visit Gastroenterology, [facility] [address] [place] [address] Marlene Balderas CRNP [address] [place] [address] 09/13/2024 5:20 PM EDT Office Visit Family Practice [facility] [address] [place] [address] Raza Lion DO [address] [place] [address] Scheduled Procedures Name Priority Associated Diagnoses Date/Ti [...] Comments DISCUSS TOBACCO CESSATION (REFER TO SMARTSET #3299) 1960 COVID-19 Vaccine (#1) 1963 Cologuard 2003 [...] disorder documented in this encounter Care Teams Veneer Marker Relationship Specialty Start Date End Date Raza Lion DO [address] [place] [address] PCP - General Family Medicine 09/04/20 documented as of this encounter
--- OUTSIDE RECORDS SUMMARY | 2024-03-08 14:33 | External Medical Summary | Summary of Care ---
Author Name Unknown Organization [facility] Address [address] [place] [address] Phone [phone] Care Team Providers Care Director Emergency Services Name Role Phone Raza Lion Primary Care Provider Reason for Visit * Reason Onset Date Comments Medication Refill 02/20/2024 Encounter Details Date Type Department Care Team (Late st Contact Info) Description 02/20/2024 Refill Family Practice [facility] [address] [place] [address] Yanique Chiang, RN [address] [place] [address] Stasis ulcer of lower extremity, left (HCC) Allergies Active Allergy Reactions Criticality Noted Date Comments Erythromycin 07/21/2012 Contraindicated with Targretin (cancer med) documented as of this encounter (statuses as of 02/20/2024) Medications Medication Sig Dispensed Refills Start Date End Date Status MEDICAL COMPRESSION STOCKINGS MISCIndications:Benito ous stasis ulcer of leg without varicose veins (HCC) knee high compression socks 15-20 mmhg 3 Package 3 09/04/2012 Active VITAMIN B 12 250 MCG PO LOZG Take 2 Tablets by mouth daily. Active Wheat Dextrin-Calcium (BENEFIBER PLUS CALCIUM) POWD Take 1 Scoop by mouth once. Active Polyethylene Glycol 3350 17 GM/SCOOP Oral Powder (MiraLax)Indication s:Chronic idiopathic constipation Take 17 g by mouth as needed for Constipation. Dissolve one heaping tablespoon in 8 ounces of water or juice. 850 g 3 06/10/2022 Active Omeprazole 20 MG Oral Capsule Delayed Release (PriLOSEC) Take 1 Capsule by mouth in the morning and 1 Capsule in the evening. 180 Capsule 4 01/25/2023 Active traZODone HCl 100 MG Oral Tablet (Desyrel)Indication s:Insomnia, unspecified type TAKE 1 TO 3 TABLETS BY MOUTH AT BEDTIME. 270 Tablet 2 02/08/2023 05/08/19 25 Active Amitriptyline HCl 25 MG Oral Tablet (Elavil)Indications :Insomnia, unspecified type Take 1 Tablet by mouth at bedtime. 90 Tablet 3 03/07/2023 Active Pentoxifylline ER 400 MG Oral Tablet Extended Release (TRENtal)Indication s:Stasis ulcer of lower extremity, left (HCC),Venous ulcer [...] 04/26/2023 Active hydroCHLOROthiazide 25 MG Oral Tablet (Hydrodiuril)Indica tions:HTN, goal below 140/90 TAKE ONE TABLET BY MOUTH DAILY 90 Tablet 3 05/24/2023 05/23/19 25 Active Docusate Sodium 100 MG Oral Capsule (Colace)Indications :Chronic idiopathic constipation Take 1 Capsule by mouth in the morning and 1 Capsule before bedtime. 60 Capsule 11 07/05/2023 Active Levothyroxine Sodium 175 MCG Oral Tablet (Levoxyl)Indication s:Acquired hypothyroidism TAKE ONE TABLET BY MOUTH DAILY ON AN EMPTY STOMACH 90 Tablet 3 07/05/2023 07/05/19 25 Active Silver sulfADIAZINE 1 % External Cream (Silvadene)Indicati ons:Skin erosion APPLY TO WOUNDS ON LEGS NIGHTLY NEEDED 50 g 1 08/05/2023 08/05/19 25 Active Azithromycin 1 GM Oral Packet Take 1 Packet by mouth in the morning. Emergency dose . Active Bexarotene 75 MG Oral Capsule TAKE 4 CAPSULES (300MG) BY MOUTH ONCE DAILY 120 Capsule 5 09/27/2023 Active Atorvastatin Calcium 40 MG Oral Tablet (Lipitor) TAKE ONETABLET BY MOUTH AT BEDTIME 90 Tablet 3 11/02/2023 11/02/19 25 Active Gabapentin 600 MG Oral Tablet (Neurontin)Indicati ons:Chronic right-sided low back pain with right-sided sciatica Take 1 Tablet by mouth in the morning and 1 Tablet at noon and 1 Tablet in the evening and 1 Tablet before bedtime. 360 Tablet 3 11/22/2023 Active amLODIPine Besylate 5 MG Oral Tablet (Norvasc)Indication s:HTN, goal below 140/90 TAKE ONE TABLET BY MOUTH DAILY 90 Tablet 1 11/29/2023 11/29/19 25 Active tiZANidine HCl 4 MG Oral Tablet (Zanaflex)Indicatio ns:Chronic right-sided low back pain with right-sided sciatica Take 1 Tablet by mouth every 8 hours as needed for Muscle spasms. 30 Tablet 5 11/29/2023 Active Betamethasone Dipropionate 0.05 % External OintmentIndications :Dermatitis APPLY TOPICALLY TO AFFECTED AREA 4 DAYS PER WEEK ON OPPOSITE DAYS OF THE GEL 30 g 5 12/20/2023 12/20/19 25 Active Losartan Potassium 100 MG Oral Tablet (Cozaar)Indications :HTN, goal below 140/90 TAKE ONE TABLET BY MOUTH DAILY 90 Tablet 3 12/21/2023 Active Ferrous Sulfate 324 MG Oral Tablet Delayed Release Take by mouth. Activ e Ibuprofen 600 MG Oral Tablet (Motrin) TAKE ONE TABLET BY MOUTH EVERY 6 HOURS NEEDED FOR PAIN 90 Tablet 3 01/01/2024 01/01/20 25 Active hydrOXYzine HCl 25 MG Oral TabletIndications:V enous stasis ulcer of right ankle with fat layer exposed with varicose veins (HCC) Take 1 Tablet by mouth every 6 hours as needed for Itching. 60 Tablet 2 01/27/2024 Active Famotidine 20 MG Oral Tablet (Pepcid) Take 1 Tablet by mouth at bedtime. 90 Tablet 1 01/31/2024 Active Triamcinolone Acetonide 0.1 % External Ointment (Aristocort)Indicat ions:Venous stasis ulcer of right ankle with fat layer exposed with varicose veins (HCC),Dermatitis Apply to legs daily 454 g 2 02/01/2024 Active metFORMIN HCl ER 750 MG Oral Tablet Extended Release 24 Hour (Glucophage XR)Indications:Pred iabetes TAKE ONE TABLET BY MOUTH IN THE MORNING 90 Tablet 1 02/16/2024 02/16/20 25 Active HYDROcodone-Acetami nophen 5-325 MG Oral TabletIndications:S tasis ulcer of lower extremity, left (HCC) Take 1 Tablet by mouth at bedtime as needed for Severe Pain. 21 Tablet 02/20/2024 Active HYDROcodone-Acetami nophen 5-325 MG Oral TabletIndications:S tasis ulcer of lower extremity, left (HCC) Take 1 Tablet by mouth at bedtime as needed for Severe Pain. 21 Tablet 01/05/2024 02/20/20 24 Discontinu ed(Refill) tiZANidine HCl 4 MG Oral Tablet (Zanaflex)Indicatio ns:Chronic right-sided low back pain with right-sided sciatica TAKE ONE TABLET BY MOUTH EVERY 8 HOURS NEEDED FOR MUSCLE SPASMS. 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[place] co ronary artery without angina pectoris 03/02/2021 [...] as of this encounter (statuses as of 02/20/2024) Resolved Problems Problem Noted Date Diagnosed Date Resolved Date Abdominal discomfort 11/21/2017 09/10/ 018 COPD, severity to be determined 07/23/2016 07/31/2020 Overview: Per COPD GOLD Classification Periapical abscess 05/15/2014 8 Venous stasis ulcer of leg w ithout varicose veins 07/21/2012 07/14/2017 Anemia 07/21/2012 10/07/2017 documented as of this encounter (statuses as of 02/20/2024) Immunizations Name Administration Dates Next Due Hepatitis [...] encounter Miscellaneous Notes * Telephone Encounter - Yanique Chiang RN - 02/20/2024 9:23 AM EST Pt is requesting pain his pain [facility]. Has pain with daily wound dressing changes. documented in this encounter Plan of Treatment Upcoming Encounters Date Type Department Care Team (Latest Contact Info) Description 02/21/2024 2:40 PM EST Office Visit Wound Care, [place] [address] [facility] [place] [address] Mario Sauceda MD [address] [place] [address] 02/28/2024 2:30 PM EST Nurse Only Wound Care, [place] [address] [facility] [place] [id number] Care, Nurse Wound [address] [place] [address] 03/06/2024 2:30 PM EST Nurse Only Wound Care, [place] [address] [facility], [place] [id number] Care, Nurse Wound [address] [facility] [place] [id number] 03/08/2024 7:15 AM EST Hospital Encounter [place] [facility] OPER[facility] [address] [place] [phone] Flex Valentin MD [address] [facility], [place] [id number] 03/08/2024 7:15 AM EST - 03/08/2024 9:23 AM EST Surgery OR [facility], OPER[facility] ROOM [facility] [address] [place] [phone] Flex Valentin MD [address] [facility], [place] [id number] ENDOVENOUS RADIOFREQUENCY ABLATION THERAPY FIRST VEIN 03/13/2024 2:30 PM EST Nurse Only Wound Care, [place] [address] [facility] [facility] [place] [id number] Care, Nurse Wound [address] [place] [address] 03/20/2024 2:30 PM EST Nurse Only Wound Care, [place] [address] [place] [address] Care, Nurse Wound [address] [place] [address] 03/27/2024 2:40 PM EST Office Visit Wound Care, [place] [address] [place] [address] Mario Sauceda MD [address] [place] [address] 05/16/2024 2:00 PM EST Office Visit Gastroenterology, [facility] [address] [place] [facility] [place] [address] Marlene Balderas CRNP [address] [facility] [place] [address] 09/13/2024 5:20 PM EDT Office Visit Family Practice [facility] [place] [address] Raza Lion DO [address] [place] [address] Scheduled Procedures Name Priority Associated Diagnoses Date/Ti me ENDOVENOUS RADIOFREQUENCY ABLATION THERAPY FIRST VEIN 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) Venous insufficiency Cigar smoker 03/08/2024 7:15 AM EST COLONOSCOPY FLEXIBLE PROXIMAL DIAGNOSTIC Recall History of colon polyps Health Maintenance Due Date Last Done Comments DISCUSS TOBACCO CESSATION (REFER TO SMARTSET #0599) 1958 COVID-19 Vaccine (#1) 1963 Cologuard 2003 [...] as of this encounter Visit Diagnoses Diagnosis Stasis ulcer of lower extremity, left (HCC) 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) Varicose veins of lower extremities with ulcer and inflammation Venous insufficiency Unspecified venous (peripheral) insufficiency Cigar smoker Tobacco use disorder documented in this encounter Care Teams Director Emergency Services Relationship Specialty Start Date End Date Raza Lion DO [address] [place] [address] PCP - General Family Medicine 09/04/20 documented as of this encounter
--- OUTSIDE RECORDS SUMMARY | 2024-03-08 14:33 | External Medical Summary | Summary of Care ---
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 * Telephone Encounter - Yanique Chiang RN - 02/20/2024 9:23 AM EST Pt is requesting pain his pain medication be sent to [facility]. Has pain with daily wound dressing changes. documented in this encounter Plan of Treatment Upcoming Encounters Date Type Department Care Team (Latest Contact Info) Description 02/21/2024 2:40 PM EST Office Visit Wound Care, [place] [address] [place] [address] Mario Sauceda MD [address] [place] [address] 02/28/2024 2:30 PM EST Nurse Only Wound Care, [place] [address] [place] [address] Care, Nurse Wound [address] [place] [address] 03/06/2024 2:30 PM EST Nurse Only Wound Care, [place] [address] [place] [address] Care, Nurse Wound [facility]note 3[facility] [place] [address] 03/08/2024 7:15 AM EST Hospital Encounter OR [facility], OPERATING ROOM [facility] [address] [place] [facility] [place] [phone] Flex Valentin MD [address] [place] [address] 03/08/2024 7:15 AM EST - 03/08/2024 9:23 AM EST Surgery OR [facility], OPERATING RO[facility] [address] [place] [phone] Flex Valentin MD [address] [place] [address] ENDOVENOUS RADIOFREQUENCY ABLATION THERAPY FIRST VEIN 03/13/2024 2:30 PM EST Nurse Only Wound Care, [place] [address] [place] [address] Care, Nurse Wound [address] [place] [address] 03/20/2024 2:30 PM EST Nurse Only Wound Care, [place] [address] [place] [address] Care, Nurse Wound [address] [place] [address] 03/27/2024 2:40 PM EST Office Visit Wound Care, [place] [address] [place] [address] Mario Sauceda MD [address] [place] [address] 05/16/2024 2:00 PM EST Office Visit Gastroenterology, [facility] [address] [address] Marlene Balderas CRNP [address] [address] 09/13/2024 5:20 PM EDT Office Visit Family Practice [facility] [address] [place] [address] Drea Lion, [address] [place] [address] Scheduled Procedures Name Priority Associated Diagnoses Date/Ti me ENDOVENOUS RADIOFREQUENCY ABLATION THERAPY FIRST VEIN 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) Venous insufficiency Cigar smoker 03/08/2024 7:15 AM EST COLONOSCOPY FLEXIBLE PROXIMAL DIAGNOSTIC Recall History of colon polyps Health Maintenance Due Date Last Done Comments DISCUSS TOBACCO CESSATION (REFER TO SMARTSET #3292) 1960 COVID-19 Vaccine (#1) 1963 Cologuard 2003 [...] disorder documented in this encounter Care Teams Barrel Header Relationship Specialty Start Date End Date Drea Lion DO [address] [place] [address] PCP - General Family Medicine 09/04/20 documented as of this encounter
--- OUTSIDE RECORDS SUMMARY | 2024-03-08 14:33 | External Medical Summary | Summary of Care ---
Author Name Unknown Organization [facility] Address [address] [place] [address] Phone [phone] Care Team Providers Care Orthopedic Physician Assistant Name Role Phone Raza Lion Primary Care Provider Reason for Visit * Reason Onset Date Comments Surgery 01/26/2024 Encounter Details Date Type Department Care Team (Late st Contact Info) Description 01/26/2024 Telephone Vascular Surg [facility] [address], [place] [phone] Flex Valentin MD [address], [place] [phone] Surgery Allergies Active Allergy Reactions Criticality Noted Date Comments Erythromycin 07/21/2012 Contraindicated with Targretin (cancer med) documented as of this encounter (statuses as of 02/16/2024) Medications Medication Sig Dispensed Refills Start Date End Date Status MEDICAL COMPRESSION STOCKINGS MISCIndications:Benito ous stasis ulcer of leg without varicose veins (HCC) knee high compression socks 15-20 mmhg 3 Package 3 3 Active VITAMIN B 12 250 MCG PO LOZG Take 2 Tablets by mouth daily. Active Wheat Dextrin-Calcium (BENEFIBER PLUS CALCIUM) POWD Take 1 Scoop by mouth once. Active Polyethylene Glycol 3350 17 GM/SCOOP Oral Powder (MiraLax)Indication s:Chronic idiopathic constipation Take 17 g by mouth as needed for Constipation. Dissolve one heaping tablespoon in 8 ounces of water or juice. 850 g 3 3 Active Omeprazole 20 MG Oral Capsule Delayed Release (PriLOSEC) Take 1 Capsule by mouth in the morning and 1 Capsule in the evening. 180 Capsule 4 3 Active traZODone HCl 100 MG Oral Tablet (Desyrel)Indication s:Insomnia, unspecified type TAKE 1 TO 3 TABLETS BY MOUTH AT BEDTIME. 270 Tablet 2 3 05/08/19 25 Active Amitriptyline HCl 25 MG Oral Tablet (Elavil)Indications :Insomnia, unspecified type Take 1 Tablet by mouth at bedtime. 90 Tablet 3 3 Active Pentoxifylline ER 400 MG Oral Tablet Extended Release (TRENtal)Indication s:Stasis ulcer of lower extremity, left (HCC),Venous ulcer (HCC) Take 1 Tablet by mouth in the morning and 1 Tablet at noon and 1 Tablet before bedtime. 270 Tablet 3 4 Active Bexarotene 75 MG Oral Capsule TAKE 4 CAPSULES (300MG) BY MOUTH ONCE DAILY 120 Capsule 5 4 Active Valchlor 0.016 % External Gel (Mechlorethamine HCl) APPLY A THIN FILM TO THE AFFECTED AREAS OF THE SKIN 3 TIMES PER WEEK 60 g 3 4 Active hydroCHLOROthiazide 25 MG Oral Tablet (Hydrodiuril)Indica tions:HTN, goal below 140/90 TAKE ONE TABLET BY MOUTH DAILY 90 Tablet 3 4 05/23/19 25 Active Docusate Sodium 100 MG Oral Capsule (Colace)Indications :Chronic idiopathic constipation Take 1 Capsule by mouth in the morning and 1 Capsule before bedtime. 60 Capsule 11 4 Active Levothyroxine Sodium 175 MCG Oral Tablet (Levoxyl)Indication s:Acquired hypothyroidism TAKE ONE TABLET BY MOUTH DAILY ON AN EMPTY STOMACH 90 Tablet 3 4 07/05/19 25 Active Silver sulfADIAZINE 1 % External Cream (Silvadene)Indicati ons:Skin erosion APPLY TO WOUNDS ON LEGS NIGHTLY NEEDED 50 g 1 4 08/05/19 25 Active Azithromycin 1 GM Oral Packet Take 1 Packet by mouth in the morning. Emergency dose . Active Bexarotene 75 MG Oral Capsule TAKE 4 CAPSULES (300MG) BY MOUTH ONCE DAILY 120 Capsule 5 4 Active Atorvastatin Calcium 40 MG Oral Tablet (Lipitor) TAKE ONETABLET BY MOUTH AT BEDTIME 90 Tablet 3 4 11/02/19 25 Active Gabapentin 600 MG Oral Tablet (Neurontin)Indicati ons:Chronic right-sided low back pain with right-sided sciatica Take 1 Tablet by mouth in the morning and 1 Tablet at noon and 1 Tablet in the evening and 1 Tablet before bedtime. 360 Tablet 3 4 Active amLODIPine Besylate 5 MG Oral Tablet (Norvasc)Indication s:HTN, goal below 140/90 TAKE ONE TABLET BY MOUTH DAILY 90 Tablet 1 4 11/29/19 25 Active tiZANidine HCl 4 MG Oral Tablet (Zanaflex)Indicatio ns:Chronic right-sided low back pain with right-sided sciatica Take 1 Tablet by mouth every 8 hours as needed for Muscle spasms. 30 Tablet 5 4 Active Betamethasone Dipropionate 0.05 % External OintmentIndications :Dermatitis APPLY TOPICALLY TO AFFECTED AREA 4 DAYS PER WEEK ON OPPOSITE DAYS OF THE GEL 30 g 5 4 12/20/19 25 Active Losartan Potassium 100 MG Oral Tablet (Cozaar)Indications :HTN, goal below 140/90 TAKE ONE TABLET BY MOUTH DAILY 90 Tablet 3 4 Active Ferrous Sulfate 324 MG Oral Tablet Delayed Release Take by mouth. Activ e Ibuprofen 600 MG Oral Tablet (Motrin) TAKE ONE TABLET BY MOUTH EVERY 6 HOURS NEEDED FOR PAIN 90 Tablet 3 4 01/01/20 25 Active HYDROcodone-Acetami nophen 5-325 MG Oral TabletIndications:S tasis ulcer of lower extremity, left (HCC) Take 1 Tablet by mouth at bedtime as needed for Severe Pain. 21 Tablet 4 Active tiZANidine HCl 4 MG Oral Tablet (Zanaflex)Indicatio ns:Chronic right-sided low back pain with right-sided sciatica TAKE ONE TABLET BY MOUTH EVERY 8 HOURS NEEDED FOR MUSCLE SPASMS. 30 Tablet 4 Active Famotidine 20 MG Oral Tablet (Pepcid) Take 1 Tablet by mouth at bedtime. 90 Tablet 1 4 01/29/20 24 Discontinue d(Refill) metFORMIN HCl ER 750 MG Oral Tablet Extended Release 24 Hour (Glucophage XR)Indications:Pred iabetes TAKE ONE TABLET BY MOUTH IN THE MORNING 90 Tablet 1 4 02/15/20 24 Discontinue d(Refill) hydrOXYzine HCl 25 MG Oral TabletIndications:V enous stasis ulcer of right ankle with fat layer exposed with varicose veins (HCC) Take 1 Tablet by mouth every 6 hours as needed for Itching. 60 Tablet 4 01/27/20 24 Discontinue d(Refill) Cephalexin 500 MG Oral CapsuleIndications: Venous stasis ulcer of right ankle with fat layer exposed with varicose veins (HCC),Venous stasis ulcer of left ankle with fat layer exposed with varicose veins (HCC),Venous insufficiency,Cutan eous T-cell lymphoma, unspecified body region (HCC) Take 1 Capsule by mouth in the morning and 1 Capsule at noon and 1 Capsule before bedtime. Do all this for 10 days. 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[place] co ronary artery without angina pectoris 03/02/2021 [...] as of this encounter (statuses as of 02/16/2024) Resolved Problems Problem Noted Date Diagnosed Date Resolved Date Abdominal discomfort 11/21/2017 018 COPD, severity to be determined 07/23/2016 07/31/2020 Overview: Per COPD GOLD Classification Periapical abscess 05/15/2014 8 [facility] st[facility] varicose veins 07/21/2012 07/14/2017 Anemia 07/21/2012 10/07/2017 documented as of this encounter (statuses as of 02/16/2024) Immunizations Name Administration Dates Next Due Hepatitis [...] encounter Miscellaneous Notes * Telephone Encounter - Arely Fairbanks CRNP - 02/16/2024 4:31 PM EDT Post-op ultrasounds and clinic appt should be 1-3 days post procedure. Unfortunately, [place] will beon vacation so looks like Friday 03/09 on [place] schedule or 03/12 on [place] schedule. thanks * Telephone Encounter - Clyde Hdz OSA - 02/16/2024 4:22 PM EDT Patient's vein surgery with Dr. Valentin rescheduled for 03/08 Please advice when post op appointment/studies should be * Telephone Encounter - Trish Wheeler OSA - 01/26/2024 1:49 PM EDT Pt returned call - he is aware that surgery has been canceled and it will be rescheduled when device is available. He states that Tuesday's work better for procedure since he has to see wound care. Best time reach him is after 11:00 AM. * Telephone Encounter - Clyde Hdz OSA - 01/26/2024 9:19 AM EDT Called and left a message for Nino regarding surgery for tomorrow (01/26) to let him know we will need to cancel his surgery because Dr. Valentin informed me that the lazer device needed for patient's vein surgery is not going to be inin time as it Is on backorder. We will reschedule surgery once we have the device needed. documented in this encounter Plan of Treatment Upcoming Encounters Date Type Department Care Team (Late st Contact Info) Description 02/21/2024 2:40 PM EST Office Visit Wound Care, [place] [address] [place] [address] Mario Sauceda MD [address] [place] [address] 02/28/2024 2:30 PM EST Nurse Only Wound Care, [place] [address] [facility] [place] [address] Care, Nurse Wound [address] [place] [facility] [place] [address] 03/06/2024 2:30 PM EST Nurse Only Wound Care, [place] [address] [place] [facility] [place] [address] Care, Nurse Wound [address] [facility] [place] [address] 03/08/2024 Hospital Encounter OR C, OPERATING ROOM [facility] [address] [facility] [place] [phone] Flex Valentin MD [address] [place] [address] 03/13/2024 2:30 PM EST Nurse Only Wound Care, [place] [address] [facility] [place] [address] Care, Nurse Wound [address] [place] [facility] [place] [address] 03/20/2024 2:30 PM EST Nurse Only Wound Care, [place] [address] [facility] [place] [address] Care, Nurse Wound [address] [facility] [place] [address] 03/27/2024 2:40 PM EST Office Visit Wound Care, [place] [address] [facility] [place] [address] Mario Sauceda MD [address] [place] [address] 05/16/2024 2:00 PM EST Office Visit Gastroenterology, [facility] [address] [place] [address] Marlene Balderas CRNP [address] [place] [place] [address] 09/13/2024 5:20 PM EDT Office Visit Family Practice [facility] [address] [place] [address] aRza Lion, [address] [place] [address] Scheduled Procedures Name Priority Associated Diagnoses Date/Ti me ENDOVENOUS RADIOFREQUENCY AB LATION THERAPY FIRST VEIN 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) Venous insufficiency Cigar smoker COLONOSCOPY FLEXIBLE PROXIMA L DIAGNOSTIC Recall History of colon polyps Health Maintenance Due Date Last Done Comments DISCUSS TOBACCO CESSATION (REFER TO SMARTSET #3658) 1960 COVID-19 Vaccine (#1) 1963 Cologuard 2003 [...] filedocumented as of this encounter Care Teams Orthopedic Physician Assistant Relationship Specialty Start Date End Date Raza Lion DO [address] [address] PCP - General Family Medicine 09/04/20 documented as of this encounter
--- OUTSIDE RECORDS SUMMARY | 2024-03-08 14:33 | External Medical Summary | Summary of Care ---
Author Name Unknown Organization [facility] Address [address] [place] [address] Phone [phone] Care Team Providers Care High School Music Director Name Role Phone Raza Lion Primary Care Provider Reason for Visit * Reason Onset Date Comments Surgery 01/26/2024 Encounter Details Date Type Department Care Team (Late st Contact Info) Description 01/26/2024 Telephone [facility] [address], [place] [id number] Flex Valentin MD [address], [place] [id number] Surgery Allergies Active Allergy Reactions Criticality Noted [...] 02/22/2022 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[place] co ronary artery without angina pectoris 03/02/2021 [...] 8 Venous stasis ulcer of leg w [facility] varicose veins 07/21/2012 07/14/2017 Anemia 07/21/2012 [...] encounter Miscellaneous Notes * Telephone Encounter - Clyde Hdz OSA [...] 2:40 PM EST Office Visit Wound Care, [place] [address] [place] [address] Mario Sauceda MD [address] [place] [address] 02/28/2024 2:30 PM EST Nurse Only Wound Care, [place] [address] [place] [address] Care, Nurse Wound [address] [place] [address] 03/06/2024 2:30 PM EST Nurse Only Wound Care, [place] [address] [place] [address] Care, Nurse Wound [address] [place] [address] 03/08/2024 Hospital Encounter OR [facility], OPERATING [facility]OM [facility] [address] [place] [phone] Flex Valentin MD [address] [place] [address] 03/13/2024 2:30 PM EST Nurse Only Wound Care, [place] [address] [place] [address] Care, Nurse Wound [address] [place] [address] 03/20/2024 2:30 PM EST Nurse Only Wound Care, [place] [address] [place] [address] Care, Nurse Wound [address] [place] [address] 03/27/2024 2:40 PM EST Office Visit Wound Care, [place] [address] [place] [address] Mario Sauceda MD [address] [place] [address] 05/16/2024 2:00 PM EST Office Visit Gastroenterology, [facility] [address] [facility] [place] [address] Marlene Balderas CRNP [facility] [place] [address] 09/13/2024 5:20 PM EDT Office Visit Family Practice [facility] [place] [address] Raza Lion DO [facility] [place] [address] Scheduled Procedures Name Priority Associated Diagnoses Date/Ti me ENDOVENOUS RADIOFREQUENCY AB LATION THERAPY FIRST VEIN 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) Venous insufficiency Cigar smoker COLONOSCOPY FLEXIBLE PROXIMA L DIAGNOSTIC Recall History of colon polyps Health Maintenance Due Date Last Done Comments DISCUSS TOBACCO CESSATION (REFER TO SMARTSET #8984) 1958 COVID-19 Vaccine (#1) 1963 Cologuard 2003 [...] filedocumented as of this encounter Care Teams High School Music Director Relationship Specialty Start Date End Date Raza Lion DO [address] [address] PCP - General Family Medicine 09/04/20 documented as of this encounter
--- OUTSIDE RECORDS SUMMARY | 2024-03-08 14:33 | External Medical Summary | Summary of Care ---
Author Name Unknown Organization [facility] Address [address] [facility] [address] Phone [phone] Care Team Providers Care Roll Dough Divider Name Role Phone Drea Lion DO Primary Care Provider Reason for Visit * Reason Comments Medication Refill Encounter Details Date Type Department Care Team (Late st Contact Info) Description 02/15/2024 Refill Family Practice [facility] [address] [place] [address] Drea Lion DO [address] [place] [address] Encounter for long-term (current) use of medications*; Prediabetes Allergies Active Allergy Reactions Criticality Noted Date [...] 90 Tablet 3 01/01/2024 01/01/20 25 Active HYDROcodone-Acetami nophen 5-325 MG Oral TabletIndications:S tasis ulcer of lower extremity, left (HCC) Take 1 Tablet by mouth at bedtime as needed for Severe Pain. 21 Tablet 01/05/2024 Active tiZANidine HCl 4 MG Oral Tablet (Zanaflex)Indicatio ns:Chronic right-sided low back pain with right-sided sciatica TAKE ONE TABLET BY MOUTH EVERY 8 HOURS NEEDED FOR MUSCLE SPASMS. 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[place] co ronary artery without angina pectoris 03/02/2021 [...] encounter Miscellaneous Notes * Telephone Encounter - Kelsi Castellanos [facility] - 02/16/2024 5:38 AM EDTSigned Prescriptions: Disp Refills metFORMIN HCl ER 750 MG Oral Tablet Extend*90 Tab*1 Sig: TAKE ONE TABLET BY MOUTH IN THE MORNINGAuthorizing Provider: DREA LION User: KELSI CASTELLANOS documented in this encounter Plan of Treatment Upcoming Encounters Date Type Department Care Team (Late st Contact Info) Description 02/21/2024 2:40 PM EST Office Visit Wound Care, [place] [address] [place] [facility] [place] [address] Mario Sauceda MD [address] [place] [facility] [place] [address] 02/28/2024 2:30 PM EST Nurse Only Wound Care, [place] [address] [place] [facility] [address] Care, Nurse Wound [address] [place] [facility] [place] [address] 03/06/2024 2:30 PM EST Nurse Only Wound Care, [place] [address] [place] [facility] [address] Care, Nurse Wound [address] [place] [facility] [place] [address] 03/13/2024 2:30 PM EST Nurse Only Wound Care, [place] [address] [place] [facility] [address] Care, Nurse Wound [address] [place] [facility] [address] 03/20/2024 2:30 PM EST Nurse Only Wound Care, [place] [address] [place] [facility] [place] [address] Care, Nurse Wound [address] [place] [facility] [place] [address] 03/27/2024 2:40 PM EST Office Visit Wound Care, [place] [address] [place] [facility] [address] Mario Sauceda MD [address] [place] [address] 05/16/2024 2:00 PM EST Office Visit Gastroenterology, [facility] [address] [facility] [place] [address] Marlene Balderas CRNP [address] [place] [address] 09/13/2024 5:20 PM EDT Office Visit Family Practice [facility] [address] [place] [address] Drea Lion DO 132 [facility] [place] [address] Scheduled Orders Name Type Priority Associated Diagnoses Orde r Schedule VITAMIN B12 Lab Routine Encounter for long-term (current) use of medications Expected: 04/21/2024 (Approximate), Expires: 02/15/2025 HEMOGLOBIN A1C Lab Routine Prediabetes Expected: 04/21/2024 (Approximate), Expires: 02/15/2025 Scheduled Procedures Name Priority Associated Diagnoses Date/Ti me COLONOSCOPY FLEXIBLE PROXIMAL DIAGNOSTIC Recall History of colon polyps Health Maintenance Due Date Last Done Comments DISCUSS TOBACCO CESSATION (REFER TO SMARTSET #0015) 1960 COVID-19 Vaccine (#1) 1963 Cologuard 2003 Fecal Occult Blood Test 2003 Sigmoidoscopy 2003 DTap/Tdap Vaccines (2 - Td or Tdap) 10/04/2022 10/04/2012 Pneumococcal Vaccine: 65+ Years (4 of 4 - PPSV23 or PCV20) 2023 03/20/2019, 03/08/2017, 04/18/2001 Influenza Vaccine (FLU shot) (#1) 2023 04/22/2022, 03/02/2021, 03/25/2020, Additional history exists HbA1c 12/26/2023 12/25/2022, 0509/2021, 05/08/2021, Additional history exists Adult Wellness Visit 02/11/2024 GFR 01/01/2025 01/02/2024, 0 11/2023, 08/27/2023, Additional history exists TSH 01/01/2025 01/02/2024, 0 11/2023, 08/27/2023, Additional history exists O2 ASSESSMENT [...] as of this encounter Visit Diagnoses Diagnosis Encounter for long-term (current) use of medications- Primary Encounter for long-term (current) use of other medications Prediabetes Other abnormal glucose documented in this encounter Care Teams Roll Dough Divider Relationship Specialty Start Date End Date Drea Lion DO [address] [address] PCP - General Family Medicine 09/04/20 documented as of this encounter
--- OUTSIDE RECORDS SUMMARY | 2024-03-08 14:33 | External Medical Summary | Summary of Care ---
Author Name Unknown Organization [facility] Address [address] [place] [address] Phone [phone] Care Team Providers Care Medical Education Coordinator Name Role Phone Elder Lionvobelle Mcclendonsyed Primary Care Provider Reason for Referral * Evaluate & Treat - Unlimited Visits (Within 30 days (routine)) - Authorized Specialty Diagnoses / Procedures Referred By Jacoby huizar Referred To Contact Dermatology Diagnoses BCC (basal cell carcinoma), face Dieudonne Braxton MD [address] [place] [address] Referral ID Status Reason Start Date Expiration Date Visits Requested Visits Authorized [id number] Authorized Specialty Services Required 02/20/2024 1 1 [...] State Abhi Spencer [address] [place] [address] Dieudonne Braxton MD [address] [place] [address] Allergies Active Allergy Reactions Criticality Noted Date [...] 02/22/2022 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 03/02/2021 [...] on file documented as of this encounter Plan of Treatment Upcoming Encounters Date Type Department Care Team (Latest Contact Info) Description 02/21/2024 2:40 PM EST Office Visit Wound Care, [place] [address] [place] [facility] [place] [address] Mario Sauceda MD [address] [place] [facility] [address] 02/28/2024 2:30 PM EST Nurse Only Wound Care, [place] [address] [place] [facility] [address] Care, Nurse Wound [address] [place] [facility] [place] [address] 03/06/2024 2:30 PM EST Nurse Only Wound Care, [place] [address] [place] [address] Care, Nurse Wound [address] [place] [facility] [place] [address] 03/08/2024 7:15 AM EST Hospital Encounter OR [facility], OPERATING ROOM [facility] [address] [place] [facility] [phone] Flex Valentin MD [address] [place] [address] 03/08/2024 7:15 AM EST - 03/08/2024 9:23 AM EST Surgery OR [facility], OPERATING ROOM [facility], [facility] [address] [place] [facility] [phone] Flex Valentin MD [address] [place] [address] ENDOVENOUS RADIOFREQUENCY ABLATION THERAPY FIRST VEIN 03/13/2024 2:30 PM EST Nurse Only Wound Care, [place] [address] [place] [facility] [place] [address] Care, Nurse Wound [address] [place] [facility] [place] [address] 03/20/2024 2:30 PM EST Nurse Only Wound Care, [place] [address] [place] [address] Care, Nurse Wound [address] [place] [address] 03/27/2024 2:40 PM EST Office Visit Wound Care, [place] [address] [place] [address] Mario Sauceda MD [address] [place] [address] 05/16/2024 2:00 PM EST Office Visit Gastroenterology, [facility] [address] [facility] [address] Marlene Balderas CRNP [address] [place] [address] 09/13/2024 5:20 PM EDT Office Visit Family Practice [facility] [address] [facility] [place] [address] Raza Lion DO [address] [place] [place] [address] Scheduled Procedures Name Priority Associated Diagnoses Date/Ti [...] Comments DISCUSS TOBACCO CESSATION (REFER TO SMARTSET #9080) 1958 COVID-19 Vaccine (#1) 1963 Cologuard 2003 [...] documented in this encounter Care Teams Medical Education Coordinator Relationship Specialty Start Date End Date Raaz Lion DO [address] [place] [address] PCP - General Family Medicine 09/04/20 documented as of this encounter
--- OUTSIDE RECORDS SUMMARY | 2024-03-08 14:33 | External Medical Summary | Summary of Care ---
Author Name Unknown Organization [facility] Address [address] [facility] [address] Phone [phone] Care Team Providers Care Acid Remover Name Role Phone Drea Lion DO Primary Care Provider Reason for Visit * Reason Comments Medication Refill Encounter Details Date Type Department Care Team (Late st Contact Info) Description 02/20/2024 Refill Family [facility] [address] [place] [address] Drea Lion DO [address] [place] [address] Chronic right-sided low back pain with right-sided sciatica Allergies Active Allergy Reactions Criticality Noted Date [...] 90 Tablet 1 02/16/2024 02/16/20 25 Active tiZANidine HCl 4 MG Oral Tablet (Zanaflex)Indicatio ns:Chronic right-sided low back pain with right-sided sciatica TAKE ONE TABLET BY MOUTH EVERY 8 HOURS NEEDED FOR MUSCLE SPASMS. 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 (Household - for ages [...] encounter Miscellaneous Notes * Telephone Encounter - Drea Lion DO - 02/20/2024 2:56 PM EST Signed Prescriptions: Disp Refills tiZANidine HCl 4 MG Oral Tablet (Zanaflex) 30 Tab*0 Sig: TAKE ONE TABLET BY MOUTH EVERY 8 HOURS NEEDED FOR MUSCLE SPASMS. Authorizing Provider: DREA LION * Telephone Encounter - Monica Aquino LPN - 02/20/2024 2:08 PM ESTPending Prescriptions: Disp Refills tiZANidine HCl 4 MG Oral Tablet (Zanaflex) 30 Tab*0 Sig: TAKE ONE TABLET BY MOUTH EVERY 8 HOURS NEEDED FOR MUSCLE SPASMS. * Telephone Encounter - Monica Aquino LPN - 02/20/2024 2:07 PM EST Did you pend patient's preferred pharmacy and medication before forwarding?yes Pharmacy: [facility] Pending Prescriptions: Disp Refills tiZANidine HCl 4 MG Oral Tablet (Zanaflex)30 Tab*0 Sig: TAKE ONE TABLET BY MOUTH EVERY 8 HOURS NEEDED FOR MUSCLE SPASMS. Last Visit: 12/10/2023 (in office), 07/16/2019 (telemedicine) Next Visit: 09/13/2024 If no future appointments scheduled, and last appointment is greater than a year ago, please schedule patient for a follow-up appointment Last date the medication was ordered: 01/23/2024 Is this request for a controlled substance?No Urine Drug Screen: Results for orders placed or performed in visit on 01/02/24 PAIN MANAGEMENT DRUG PANEL, URINE W/ INTERPRETATION Result Value Compliance Interpretation Based on the medication information provided: The negative hydrocodone screening result is consistent with hydrocodone last taken on 12/08/2023. Confirmatory testing is available upon request. Amphetamines Screen, U Negative Benzodiazepines Screen, U Negative Cannabinoids Screen, U Negative Cocaine Metabolite Screen, U Negative Fentanyl Screen, U Negative Hydrocodone Screen, U Negative Methadone Metabolite Screen, U Negative Morphine/Codeine Screen, U Negative Oxycodone Screen, U Negative Valid Interpretation Normal Creatinine, U 78 Narrative Cutoff Concentrations: Drug Level Amphetamines 500 ng/mL Benzodiazepines 100 ng/mL Cannabinoids 50 ng/mL Cocaine Metabolite 150 ng/mL Fentanyl 1 ng/mL Hydrocodone / Hydromorphone 300 ng/mL Methadone Metabolite 100 ng/mL Morphine / Codeine 300 ng/mL Oxycodone / Oxymorphone 100 ng/mL Screening results are presumptive and can only be used for medical purposes. Confirmatory testing is available upon request. *Note: Due to a large number of results and/or encounters for the requested time period, some results have not been displayed. A complete set of results can be found in Results Review. Patient Phone Numbers Labs: Lab Results Component Value Date/Time CREAT 0.7 01/02/2024 04:46 PM CREAT 0.8 04/04/2020 12:29 PM POTASSIUM 4.7 01/02/2024 04:46 PM POTASSIUM 4.8 04/04/2020 12:29 PM TSH 0.08 (L) 01/02/2024 04:46 PM TSH 0.03 (L) 04/04/2020 12:29 PM LDL 140 (H) 01/02/2024 04:46 PM LDL 128 04/04/2020 12:29 PM ALT 17 01/02/2024 04:46 PM ALT 15 04/04/2020 12:29 PM HGBA1C 5.9 (H) 12/25/2022 12:24 PM HGBA1C 6.0 (H) 03/28/2019 12:39 PM * Telephone Encounter - Renay Cunningham - 02/20/2024 4:57 AM ESTPending Prescriptions: Disp Refills tiZANidine HCl 4 MG Oral Tablet (Zanaflex) 30 Tab*0 Sig: TAKE ONE TABLET BY MOUTH EVERY 8 HOURS NEEDED FOR MUSCLE SPASMS. documented in this encounter Plan of Treatment Upcoming Encounters Date Type Department Care Team (Latest Contact Info) Description 02/21/2024 2:40 PM EST Office Visit Wound Care, [place] [address] [place] [facility] [address] Mario Sauceda MD [address] [place] [facility] [place] [address] 02/28/2024 2:30 PM EST Nurse Only Wound Care, [place] [address] [place] [facility] [address] Care, Nurse Wound [address] [place] [facility] [place] [address] 03/06/2024 2:30 PM EST Nurse Only Wound Care, [place] [address] [place] [facility] [address] Care, Nurse Wound [address] [facility] [place] [address] 03/08/2024 7:15 AM EST Hospital Encounter OR [facility], OPERATING ROOM [facility] [address] [place] [facility] [phone] Flex Valentin MD [address] [place] [facility] [address] 03/08/2024 7:15 AM EST - 03/08/2024 9:23 AM EST Surgery OR [facility], OPERATING ROOM [facility] [address] [place] [facility] [phone] Flex Valentin MD [address] [facility], [place] [phone] ENDOVENOUS RADIOFREQUENCY ABLATION THERAPY FIRST VEIN 03/13/2024 2:30 PM EST Nurse Only Wound Care, [place] [address] [place] [facility] [address] Care, Nurse Wound [address] [facility] [place] [address] 03/20/2024 2:30 PM EST Nurse Only Wound Care, [place] [address] [place] [address] Care, Nurse Wound [address] [place] [address] 03/27/2024 2:40 PM EST Office Visit Wound Care, [place] [address] [place] [address] Mario Sauceda MD [address] [place] [address] 05/16/2024 2:00 PM EST Office Visit Gastroenterology, [facility] [address] [place] [facility] [address] Marlene Balderas CRNP [address] [place] [address] 09/13/2024 5:20 PM EDT Office Visit Family Practice [facility] [address] [place] [address] Drea Lion DO [address] [place] [address] Scheduled Procedures Name Priority Associated Diagnoses Date/Ti me ENDOVENOUS RADIOFREQUENCY ABLATION THERAPY FIRST VEIN 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) Venous insufficiency Cigar smoker 03/08/2024 7:15 AM EST COLONOSCOPY FLEXIBLE PROXIMAL DIAGNOSTIC Recall History of colon polyps Health Maintenance Due Date Last Done Comments DISCUSS TOBACCO CESSATION (REFER TO SMARTSET #8630) 1960 COVID-19 Vaccine (#1) 1963 Cologuard 2003 [...] as of this encounter Visit Diagnoses Diagnosis Chronic right-sided low back pain with right-sided sciatica 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) Varicose veins of lower extremities with ulcer and inflammation Venous insufficiency Unspecified venous (peripheral) insufficiency Cigar smoker Tobacco use disorder documented in this encounter Care Teams Acid Remover Relationship Specialty Start Date End Date Drea Lion DO [address] [place] [address] PCP - General Family Medicine 09/04/20 documented as of this encounter
--- OUTSIDE RECORDS SUMMARY | 2024-03-08 14:34 | External Medical Summary | Summary of Care ---
Author Name Unknown Organization [facility] Address [address] [place] [address] Phone [phone] Care Team Providers Care Speeder Operator Name Role Phone Raza Lion Primary Care Provider Reason for Visit * Reason Comments Wound Care Encounter Details Date Type Department Care Team (Late st Contact Info) Description 01/31/2024 2:30 PM EDT Nurse Only Wound Care, [place] [address] [place] [address] Mario Sauceda MD [address], [place] [id number] Wound Care Allergies Active Allergy Reactions Criticality Noted Date Comments Erythromycin 07/21/2012 Contraindicated with Targretin (cancer med) documented as of this encounter (statuses as of 02/07/2024) Medications Medication Sig Dispensed Refills Start Date [...] MOUTH AT BEDTIME. 270 Tablet 2 3 05/06/19 25 Active Amitriptyline HCl 25 MG Oral [...] 50 g 1 4 08/05/19 25 Active metFORMIN HCl ER 750 MG Oral Tablet Extended Release 24 Hour (Glucophage XR)Indications:Pred iabetes TAKE ONE TABLET BY MOUTH IN THE MORNING 90 Tablet 1 4 08/20/19 25 Active Azithromycin 1 GM Oral Packet [...] FOR MUSCLE SPASMS. 30 Tablet 4 Active hydrOXYzine HCl 25 MG Oral TabletIndications:V enous stasis ulcer of right ankle with fat layer exposed with varicose veins (HCC) Take 1 Tablet by mouth every 6 hours as needed for Itching. 60 Tablet 2 4 Active Famotidine 20 MG Oral Tablet (Pepcid) Take 1 Tablet by mouth at bedtime. 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[place] ronary artery without angina pectoris 03/02/2021 [...] as of this encounter (statuses as of 02/07/2024) Resolved Problems Problem Noted Date Diagnosed Date Resolved Date Abdominal discomfort 11/21/2017 018 COPD, severity to be determined 07/23/2016 07/31/2020 Overview: Per COPD GOLD Classification Periapical abscess 05/15/2014 8 Venous stasis ulcer of leg w ithout varicose veins 07/21/2012 07/14/2017 Anemia 07/21/2012 10/07/2017 documented as of this encounter (statuses as of 02/07/2024) Immunizations Name Administration Dates Next Due Hepatitis [...] Progress Notes * Mario Sauceda MD - 01/31/2024 3:07 PM EDT Images from the original note were not included. WOUND OUTPATIENT FOLLOW-UP NOTE HPI: Pt seen off the nurse schedule today for complaint of persist pruritus and erythema to BLE beneath the compression wraps. He would like a break from them today. Patient presents today for f/u of B ankle VLUs. The wound has been present since early 2021. Patient thinks wound started spontaneously. Patient has followed at [facility] wound clinic for 2 yearsand came here for second opinion. He is also seen for f/u of L upper luis wounds that began wit folliculitis. Vein ablation with Dr. Valentin on 01/27/24 was cancelled. Current dressing: See Wound Assessment Dressing change frequency: weekly RLE Compression: Coban 2 LLE Compression: Coban 2 RLE Wt Bearing Offloading: none LLE Wt Bearing Offloading: none RLE Non-Wt Bearing Offloading: none LLE Non-Wt Bearing Offloading: none Offloading Surface for Bed: none Offloading Surface for Chair / Wheelchair: none ROS: Pain: no Drainage: mild serous Swelling: mild Erythema: mild aliya-wound Fever/Chills: no Malaise: no ROS was negative other than stated above. VASCULAR LAB RESULTS DATE OF EXAM: 09/28/23 PRESENTING CONDITIONS: Evaluate for deep, superficial, and revenue manager reflux. IMPRESSION: There is no evidence [...] 1.77 (H) 10/30/2012 03:29 PM INR - DOREENER 1.77 (H) 08/16/2012 01:28 PM No results [...] Skin Integrity Right;Medial Ankle (Active) Clinical Image 01/31/24 1400 Primary Dressing Present (removed today) Allevyn Ag 01/31/24 1400 Secondary Dressing Present (removed today) FOAM 01/31/24 1400 Tertiary Dressing Present (removed today) None 01/31/24 1400 Quaternary Dressing Present (removed today) None 01/31/24 1400 Wound Length (cm) 4 cm 01/31/24 1400 Wound Width (cm) 0.5 cm 01/31/24 1400 Wound Depth (cm) 0.1 cm 01/31/24 1400 Undermining (cm) 0 01/31/24 1400 Sinus Tract (cm) 0 01/31/24 1400 Tunneling (cm) 0 01/31/24 1400 Ulcer Thickness Full 01/31/24 1400 Yellow Fibrinous Slough (%) 26-50% 01/31/24 1400 Granulation Tissue (%) 26-50% 01/31/24 1400 Granulation Tissue Color red 01/31/24 1400 Necrotic Tissue (%) none 01/31/24 1400 Necrotic Tissue Color Not Applicable 01/31/24 1400 Deep Supporting Structure Exposed None 01/31/24 1400 Drainage serous, moderate 01/31/24 1400 Odor (after cleansing wound) No 01/31/24 1400 Aliya-Wound (Surrounding Skin) Intact;Nonerythematous;Nontender;Dermatitic 01/31/24 1400 Evidence of Infection No 01/31/24 1400 Wound Surface Area (cm^2) 2 cm^2 01/31/24 1400 Wound Volume (cm^3) 0.2 cm^3 01/31/24 1400 Alteration in Skin Integrity Left;Medial Ankle (Active) Clinical Image 01/31/24 1400 Primary Dressing Present (removed today) Allevyn Ag 01/31/24 1400 Secondary Dressing Present (removed today) FOAM 01/31/24 1400 Tertiary Dressing Present (removed today) None 01/31/24 1400 Quaternary Dressing Present (removed today) None 01/31/24 1400 Wound Length (cm) 4 cm 01/31/24 1400 Wound Width (cm) 1 cm 01/31/24 1400 Wound Depth (cm) 0.1 cm 01/31/24 1400 Undermining (cm) 0 01/31/24 1400 Sinus Tract (cm) 0 01/31/24 1400 Tunneling (cm) 0 01/31/24 1400 Ulcer Thickness Full 01/31/24 1400 Yellow Fibrinous Slough (%) 26-50% 01/31/24 1400 Granulation Tissue (%) 26-50% 01/31/24 1400 Granulation Tissue Color red 01/31/24 1400 Necrotic Tissue (%) none 01/31/24 1400 Necrotic Tissue Color Not Applicable 01/31/24 1400 Deep Supporting Structure Exposed None 01/31/24 1400 Drainage serous, moderate 01/31/24 1400 Odor (after cleansing wound) No 01/31/24 1400 Aliya-Wound (Surrounding Skin) Dermatitic;Nontender;Erythematous 01/31/24 1400 Evidence of Infection No 01/31/24 1400 Wound Surface Area (cm^2) 4 cm^2 01/31/24 1400 Wound Volume (cm^3) 0.4 cm^3 01/31/24 1400 Alteration in Skin Integrity Anterior;Left Foot (Active) Clinical Image 01/31/24 1400 Primary Dressing Present (removed today) None 01/31/24 1400 Secondary Dressing Present (removed today) None 01/31/24 1400 Tertiary Dressing Present (removed today) None 01/31/24 1400 Quaternary Dressing Present (removed today) None 01/31/24 1400 Wound Length (cm) 0 cm 01/31/24 1400 Wound Width (cm) 0 cm 01/31/24 1400 Wound Depth (cm) 0 cm 01/31/24 1400 Drainage none 01/31/24 1400 Odor (after cleansing wound) No 01/31/24 1400 Aliya-Wound (Surrounding Skin) Intact;Nonerythematous;Nontender 01/31/24 1400 Evidence of Infection No 01/31/24 1400 Wound Surface Area (cm^2) 0 cm^2 01/31/24 1400 Wound Volume (cm^3) 0 cm^3 01/31/24 1400 Alteration in Skin Integrity Anterior;Left;Lower;Proximal Leg (Active) Clinical Image 01/31/24 1400 Primary Dressing Present (removed today) Allevyn Ag 01/31/24 1400 Secondary Dressing Present (removed today) FOAM 01/31/24 1400 Tertiary Dressing Present (removed today) None 01/31/24 1400 Quaternary Dressing Present (removed today) None 01/31/24 1400 Wound Length (cm) 7.5 cm 01/31/24 1400 Wound Width (cm) 1.5 cm 01/31/24 1400 Wound Depth (cm) 0.1 cm 01/31/24 1400 Undermining (cm) 0 01/31/24 1400 Sinus Tract (cm) 0 01/31/24 1400 Tunneling (cm) 0 01/31/24 1400 Ulcer Thickness Full 01/31/24 1400 Yellow Fibrinous Slough (%) none 01/31/24 1400 Granulation Tissue (%) 100% 01/31/24 1400 Granulation Tissue Color red 01/31/24 1400 Necrotic Tissue (%) none 01/31/24 1400 Necrotic Tissue Color Not Applicable 01/31/24 1400 Deep Supporting Structure Exposed None 01/31/24 1400 Drainage serous, moderate 01/31/24 1400 Odor (after cleansing wound) No 01/31/24 1400 Aliya-Wound (Surrounding Skin) Keratotic;Dermatitic;Nontender 01/31/24 1400 Evidence of Infection No 01/31/24 1400 Wound Surface Area (cm^2) 11.25 cm^2 01/31/24 1400 Wound Volume (cm^3) 1.125 cm^3 01/31/24 1400 ASSESSMENT/PLAN: 1. B medial ankle VLUs - stable overall, but now complicated by extensive BLE dermatitis. 2. Venous insufficiency (superficial and deep; vascular planning to try ablation). 3. Cutaneous T cell lymphoma/mycosis fungoides Hx. 4. COPD. 5. Smoking. No sharp debridement required. Daily dressings to help promote autolytic debridement. TMC to BLE daily (Rx today). Adaptic (or Vaseline)/ABDs to B ankles - changed daily. Wash wound at time of dressing changes with soap/potable water. Double medium Tubigrips and elevate LE for edema control. Continue pentoxifylline. I spent a total of 40-54 minutes (exact time 42 mins) on the date of service in preparation, delivery, and documentation of the care provided to Chang Parham excluding any time spent in the performance of separately billed services. Follow-up: 3 weeks Mario Sauceda MD 01/31/2024 3:12 PM documented in this encounter Nursing Notes * China Boland LPN - 01/31/2024 3:31 PM EDT Patient requested to be assessed by Dr. Sauceda due to concerns of worsening leg ulcers and irritation from compression wraps. Adaptic and DSD placed over wounds on bilateral ankles. TMC ointment applied to BLE. Double Medium compression Tubigrip applied for edema control to BLE, size D, as per order. documented in this encounter Plan of Treatment Upcoming Encounters Date Type Department Care Team (Late st Contact Info) Description 02/21/2024 2:40 PM EST Office Visit Wound Care, [place] [address] [place] [address] Mario Sauceda MD [address] [place] [address] 02/28/2024 2:30 PM EST Nurse Only Wound Care, [place] [address] [place] [address] Care, Nurse Wound [address] [place] [address] 03/06/2024 2:30 PM EST Nurse Only Wound Care, [place] [address] [place] [address] Care, Nurse Wound [address] [place] [address] 03/13/2024 2:30 PM EST Nurse Only Wound Care, [place] [address] [place] [address] Care, Nurse Wound [address] [place] [address] 03/20/2024 2:30 PM EST Nurse Only Wound Care, [place] [address] [place] [address] Care, Nurse Wound [address] [place] [address] 03/27/2024 2:40 PM EST Office Visit Wound Care, [place] [address] [place] [address] Mario Sauceda MD [address] [place] [address] 05/16/2024 2:00 PM EST Office Visit Gastroenterology, [facility] [address] [facility] [place] [address] Marlene Balderas CR[facility] [place] [address] 09/13/2024 5:20 PM EDT Office Visit [facility] Practice [facility] [place] [address] Raza Lion DO [facility] [place] [address] Scheduled Procedures Name Priority Associated Diagnoses Date/Ti me COLONOSCOPY FLEXIBLE PROXIMAL DIAGNOSTIC Recall History of colon polyps Health Maintenance Due Date Last Done Comments DISCUSS TOBACCO CESSATION (REFER TO SMARTSET #8900) 1958 COVID-19 Vaccine (#1) 1963 Cologuard 2003 Fecal Occult Blood Test 2003 Sigmoidoscopy 2003 DTap/Tdap Vaccines (2 - Td or Tdap) 10/04/2022 10/04/2012 Pneumococcal Vaccine: 65+ Years (4 of 4 - PPSV23 or PCV20) 2023 03/20/2019, 03/08/2017, 04/18/2001 Influenza Vaccine (FLU shot) (#1) 2023 04/22/2022, 03/02/2021, 03/25/2020, Additional history exists HbA1c 12/26/2023 12/25/2022, 08/17, 05/08/2021, Additional history exists GFR 01/01/2025 01/02/2024, 06/0 11/2023, 08/27/2023, Additional [...] fat layer exposed with varicose veins (HCC) Dermatitis Contact dermatitis and other eczema, due to unspecified cause Venous insufficiency Unspecified venous (peripheral) insufficiency Cutaneous T-cell lymphoma, unspecified body region (HCC) documented in this encounter Care Teams Speeder Operator Relationship Specialty Start Date End Date Raza Lion DO [address] [place] [address] PCP - General Family Medicine 09/04/20 documented as of this encounter
--- OUTSIDE RECORDS SUMMARY | 2024-03-08 14:34 | External Medical Summary | Summary of Care ---
Author Name Unknown Organization [facility] Address [address] [place] [facility] [place] [address] Phone [phone] Care Team Providers Care Avionics Systems Integration Specialist Name Role Phone Anup Lionr Jake Primary Care Provider Reason for Visit * Reason Comments Medication Refill Encounter Details Date Type Department Care Team (Late st Contact Info) Description 01/29/2024 Refill Gastroenterology, [facility] [address] [place] [address] Marlene Meneses CRNP [address] [facility] [place] [address] Allergies Active Allergy Reactions Criticality Noted Date Comments Erythromycin 07/21/2012 Contraindicated with Targretin (cancer med) documented as of this encounter (statuses as of 01/31/2024) Medications Medication Sig Dispensed Refills Start Date [...] MOUTH AT BEDTIME. 270 Tablet 2 02/08/2023 02/08/20 24 Active Amitriptyline HCl 25 MG Oral Tablet [...] 50 g 1 08/05/2023 08/05/19 25 Active metFORMIN HCl ER 750 MG Oral Tablet Extended Release 24 Hour (Glucophage XR)Indications:Pred iabetes TAKE ONE TABLET BY MOUTH IN THE MORNING 90 Tablet 1 08/20/2023 08/20/19 25 Active Azithromycin 1 GM Oral [...] at bedtime. 90 Tablet 1 01/31/2024 Active Famotidine 20 MG Oral Tablet (Pepcid) Take 1 Tablet by mouth at bedtime. 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 03/02/2021 [...] as of this encounter (statuses as of 01/31/2024) Resolved Problems Problem Noted Date Diagnosed Date Resolved Date Abdominal discomfort 11/21/2017 018 COPD, severity to be determined 07/23/2016 07/31/2020 Overview: Per COPD GOLD Classification Periapical abscess 05/15/2014 8 Venous stasis ulcer of leg w ithout varicose veins 07/21/2012 07/14/2017 Anemia 07/21/2012 10/07/2017 documented as of this encounter (statuses as of 01/31/2024) Immunizations Name Administration Dates Next Due Hepatitis [...] No 01/11/2024 Does the household have a [facility] source of income? (Household - for ages [...] encounter Miscellaneous Notes * Telephone Encounter - Marlene Meneses CRNP - 01/31/2024 1:28 PM EDT Signed Prescriptions: Disp Refills Famotidine 20 MG Oral Tablet (Pepcid) 90 Tab*1 Sig: Take 1 Tablet by mouth at bedtime. Authorizing Provider: MARLENE MENESES * Telephone Encounter - Coy Muhammad RP - 01/31/2024 1:26 PM EDTPending Prescriptions: Disp Refills Famotidine 20 MG Oral Tablet (Pepcid) 90 Tab*1 Sig: Take 1 Tablet by mouth at bedtime. * Telephone Encounter - Coy Muhammad RPh - 01/31/2024 1:24 PM EDT The last provider to see this patient no longer works for [employer]. Forwarded to [place] for authorization until patient can establish with new provider. documented in this encounter Plan of Treatment Upcoming Encounters Date Type Department Care Team (Late st Contact Info) Description 01/31/2024 2:30 PM EDT Nurse Only Wound Care, [address] [address] Care, Nurse Wound [address] [place] [id number] 02/06/2024 3:00 PM EDT Office Visit Dermatology [facility] Haritha [place] [address] [facility] [place] [address] Dieudonne Braxton MD [address] [facility] [place] [place] [address] 02/07/2024 2:30 PM EDT Nurse Only Wound Care, [place] [address] [place] [address] Care, Nurse Wound [address] [place] [address] 02/14/2024 2:30 PM EDT Nurse Only Wound Care, [place] [address] [facility] [place] [address] Care, Nurse Wound [address] [facility] [place] [address] 02/21/2024 2:40 PM EST Office Visit Wound Care, [place] [address] [facility] [place] [address] Mario Sauceda MD [address] [facility] [place] [address] 02/28/2024 2:30 PM EST Nurse Only Wound Care, [place] [address] [facility] [address] Care, Nurse Wound [address] [facility] [address] 03/06/2024 2:30 PM EST Nurse Only Wound Care, [place] [address] [facility] [address] Care, Nurse Wound [address] [facility] [place] [address] 03/13/2024 2:30 PM EST Nurse Only Wound Care, [place] [address] [facility] [address] Care, Nurse Wound [address] [facility] [place] [address] 03/20/2024 2:30 PM EST Nurse Only Wound Care, [place] [address] [facility] [address] Care, Nurse Wound [address] [facility] [place] [address] 03/27/2024 2:40 PM EST Office Visit Wound Care, [place] [address] [facility] [address] Mario Sauceda MD [address] [facility] [place] [address] 05/16/2024 2:00 PM EST Office Visit Gastroenterology, [facility] [address] [place] [address] Marlene Meneses CRNP [address] [place] [address] 09/13/2024 5:20 PM EDT Office Visit Family Practice [facility] [address] [place] [address] Raza Lion DO [address] [place] [address] Scheduled Procedures Name Priority Associated Diagnoses Date/Ti me COLONOSCOPY FLEXIBLE PROXIMAL DIAGNOSTIC Recall History of colon polyps Health Maintenance Due Date Last Done Comments DISCUSS TOBACCO CESSATION (REFER TO SMARTSET #8781) 1960 COVID-19 Vaccine (#1) 1963 Cologuard 2003 Fecal Occult Blood Test 2003 Sigmoidoscopy 2003 DTap/Tdap Vaccines (2 - Td or Tdap) 10/04/2022 10/04/2012 Pneumococcal Vaccine: 65+ Years (4 of 4 - PPSV23 or PCV20) 2023 03/20/2019, 03/08/2017, 04/18/2001 Influenza Vaccine (FLU shot) (#1) 2023 04/22/2022, 03/02/2021, 03/25/2020, Additional history exists HbA1c 12/26/2023 12/25/2022, 08/17, 05/08/2021, Additional history exists GFR 01/01/2025 01/02/2024, 0 11/2023, 08/27/2023, Additional [...] filedocumented as of this encounter Care Teams Avionics Systems Integration Specialist Relationship Specialty Start Date End Date Raza Lion DO [address] [place] [address] PCP - General Family Medicine 09/04/20 documented as of this encounter
--- OUTSIDE RECORDS SUMMARY | 2024-03-08 14:34 | External Medical Summary | Summary of Care ---
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[place] co ronary artery without angina pectoris 03/02/2021 [...] Notes * Telephone Encounter - Kelsi Castellanos [facility] - 02/16/2024 5:38 AM EDTSigned Prescriptions: Disp Refills metFORMIN HCl ER 750 MG Oral Tablet Extend*90 Tab*1 Sig: TAKE ONE TABLET BY MOUTH IN THE MORNINGAuthorizing Provider: DREA LION User: KELSI CASTELLANOS documented in this encounter Plan of Treatment Upcoming Encounters Date Type Department Care Team (Late st Contact Info) Description 02/21/2024 2:40 PM EST Office Visit Wound Care, [place] [address] [place] [facility] [address] Mario Sauceda MD [address] [place] [facility] [address] 02/28/2024 2:30 PM EST Nurse Only Wound Care, [place] [address] [place] [facility] [address] Care, Nurse Wound [address] [place] [facility] [address] 03/06/2024 2:30 PM EST Nurse Only Wound Care, [place] [address] [place] [facility] [address] Care, Nurse Wound [address] [place] [facility] [address] 03/13/2024 2:30 PM EST Nurse Only Wound Care, [place] [address] [place] [facility] [address] Care, Nurse Wound [address] [place] [facility] [address] 03/20/2024 2:30 PM EST Nurse Only Wound Care, [place] [address] [place] [facility] [address] Care, Nurse Wound [address] [place] [facility] [address] 03/27/2024 2:40 PM EST Office Visit Wound Care, [place] [address] [place] [facility] [address] Mario Sauceda MD [address] [place] [address] 05/16/2024 2:00 PM EST Office Visit Gastroenterology, [facility] [address] [facility] [place] [address] Marlene Balderas CRNP [address] [place] [address] 09/13/2024 5:20 PM EDT Office Visit Family Practice [facility] [address] [place] [address] Drea Lion DO [address] [facility] [place] [address] Scheduled Orders Name Type Priority Associated Diagnoses [...] Comments DISCUSS TOBACCO CESSATION (REFER TO SMARTSET #4698) 1958 COVID-19 Vaccine (#1) 1963 Cologuard 2003 [...] glucose documented in this encounter Care Teams Sheet Metal Engineer Relationship Specialty Start Date End Date Drea Lion DO [address] [place] [address] PCP - General Family Medicine 09/04/20 documented as of this encounter
--- OUTSIDE RECORDS SUMMARY | 2024-03-08 14:34 | External Medical Summary | Summary of Care ---
Author Name Unknown Organization [facility] Address [address] [place] [address] Phone [phone] Care Team Providers Care Mechanic Field Service Name Role Phone Raza Lion Primary Care Provider Reason for Visit * Reason Comments Wound Care Encounter Details Date Type Department Care Team (Late st Contact Info) Description 01/31/2024 2:30 PM EDT Nurse Only Wound Care, [place] [address] [place] [address] Mario Sauceda MD [address], [place] [id number] Wound Care Allergies Active Allergy Reactions Criticality [...] MOUTH AT BEDTIME. 270 Tablet 2 02/08/2023 4 Active Amitriptyline HCl 25 MG Oral Tablet [...] NEEDED 50 g 1 08/05/2023 5 Active metFORMIN HCl ER 750 MG Oral Tablet Extended Release 24 Hour (Glucophage XR)Indications:Predi abetes TAKE ONE TABLET BY MOUTH IN THE MORNING 90 Tablet 1 08/20/2023 5 Active Azithromycin 1 GM Oral Packet [...] PAIN 90 Tablet 3 01/01/2024 5 Active HYDROcodone-Acetamin ophen 5-325 MG Oral TabletIndications:St [...] 01/23/2024 Active hydrOXYzine HCl 25 MG Oral TabletIndications:Ve nous stasis ulcer of right ankle with fat layer exposed with varicose veins (HCC) Take 1 Tablet by mouth every 6 hours as needed for Itching. 60 Tablet 2 01/27/2024 Active Famotidine 20 MG Oral Tablet (Pepcid) Take 1 Tablet by mouth at bedtime. 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 Patient has followed at [facility] wound clinic for 2 yearsand came here [...] PRESENTING CONDITIONS: Evaluate for deep, superficial, and automotive parts manager reflux. IMPRESSION: There is no evidence [...] 01/31/24 1400 Tunneling (cm) 0 01/31/24 1400 Yellow Fibrinous Slough (%) 26-50% 01/31/24 1400 Granulation Tissue (%) 26-50% 01/31/24 1400 Granulation Tissue Color red 01/31/24 1400 Necrotic Tissue (%) none 01/31/24 1400 Necrotic Tissue Color Not Applicable 01/31/24 1400 Deep Supporting Structure Exposed None 01/31/24 1400 Drainage serous, mild 01/31/24 1400 Odor (after cleansing wound) No [...] 01/31/24 1400 Tunneling (cm) 0 01/31/24 1400 Yellow Fibrinous Slough (%) 26-50% 01/31/24 1400 Granulation Tissue (%) 26-50% 01/31/24 1400 Granulation Tissue Color red 01/31/24 1400 Necrotic Tissue (%) none 01/31/24 1400 Necrotic Tissue Color Not Applicable 01/31/24 1400 Deep Supporting Structure Exposed None 01/31/24 1400 Drainage serous, mild 01/31/24 1400 Odor (after cleansing wound) No [...] 01/31/24 1400 Tunneling (cm) 0 01/31/24 1400 Yellow Fibrinous Slough (%) none 01/31/24 1400 Granulation Tissue (%) 100% 01/31/24 1400 Granulation Tissue Color red 01/31/24 1400 Necrotic Tissue (%) none 01/31/24 1400 Necrotic Tissue Color Not Applicable 01/31/24 1400 Deep Supporting Structure Exposed None 01/31/24 1400 Drainage serous, mild 01/31/24 1400 Odor (after cleansing wound) No [...] lymphoma/mycosis fungoides Hx. 4. COPD. 5. Smoking. [facility] to BLE daily (Rx today). Adaptic [...] Care Team (Late st Contact Info) Description 02/06/2024 3:00 PM EDT Office Visit Dermatology [facility] [address] [facility] [place] [address] Dieudonne Braxton MD [address] [facility] [place] [address] 02/21/2024 2:40 PM EST Office Visit Wound Care, [address] [address] Mario Sauceda MD [facility] [place] [address] 02/28/2024 2:30 PM EST Nurse Only Wound Care, [address] [address] Care, Nurse Wound [address] [facility] [place] [address] 03/06/2024 2:30 PM EST Nurse Only Wound Care, [place] [address] [place] [address] Care, Nurse Wound [address] [place] [address] 03/13/2024 2:30 PM EST Nurse Only Wound Care, [place] [address] [place] [address] Care, Nurse Wound [address] [facility] [place] [address] 03/20/2024 2:30 PM EST Nurse Only Wound Care, [place] [address] [place] [address] Care, Nurse Wound [address] [place] [address] 03/27/2024 2:40 PM EST Office Visit Wound Care, [place] [address] [place] [address] Mario Sauceda MD [address] [place] [address] 05/16/2024 2:00 PM EST Office Visit Gastroenterology, [facility] [address] [facility] [place] [address] Marlene Balderas CRNP [address] [facility] [address] 09/13/2024 5:20 PM EDT Office Visit Family Practice [facility] [place] [address] Raza Lion DO [address] [facility] [place] [address] Scheduled Procedures Name Priority Associated Diagnoses Date/Ti me COLONOSCOPY FLEXIBLE PROXIMAL DIAGNOSTIC Recall History of colon polyps Health Maintenance Due Date Last Done Comments DISCUSS TOBACCO CESSATION (REFER TO SMARTSET #1504) 1960 COVID-19 Vaccine (#1) 1963 Cologuard 2003 [...] (HCC) documented in this encounter Care Teams Mechanic Field Service Relationship Specialty Start Date End Date Raza Lion DO [address] [facility] [place] [address] PCP - General Family Medicine 09/04/20 documented as of this encounter
--- OUTSIDE RECORDS SUMMARY | 2024-03-08 14:34 | External Medical Summary | Summary of Care ---
Author Name Unknown Organization [facility] Address [address] [place] [facility] [place] [address] Phone [phone] Care Team Providers Care Cotton Ginner Name Role Phone LionAnupbelle Mcclendonsyed Primary Care Provider Encounter Details Date Type Department Care Team (Late st Contact Info) Description 01/31/2024 Population Health External Data Unspecified Department Allergies Active Allergy Reactions Criticality Noted Date Comments Erythromycin 07/21/2012 Contraindicated with Targretin (cancer med) documented as of this encounter (statuses as of 02/01/2024) Medications Medication Sig Dispensed Refills Start Date [...] legs daily 454 g 2 02/01/2024 Active documented as of this encounter (statuses as of 02/01/2024) Active Problems Problem Noted Date Diagnosed Date [...] 02/22/2022 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[place] co ronary artery without angina pectoris 03/02/2021 [...] as of this encounter (statuses as of 02/01/2024) Resolved Problems Problem Noted Date Diagnosed Date Resolved Date Abdominal discomfort 11/21/2017 018 COPD, severity to be determined 07/23/2016 07/31/2020 Overview: Per COPD GOLD Classification Periapical abscess 05/15/2014 8 Venous stasis ulcer of leg w ithout varicose veins 07/21/2012 07/14/2017 Anemia 07/21/2012 10/07/2017 documented as of this encounter (statuses as of 02/01/2024) Immunizations Name Administration Dates Next Due Hepatitis [...] 02/06/2024 3:00 PM EDT Office Visit Dermatology [facility] [address] [place] [address] Deiudonne Braxton MD [address] [place] [address] 02/21/2024 2:40 PM EST Office Visit Wound Care, [place] [address] [place] [address] Mario Sauceda MD [address] [place] [address] 02/28/2024 2:30 PM EST Nurse Only Wound Care, [place] [address] [place] [address] Care, Nurse Wound [facility] [place] [address] 03/06/2024 2:30 PM EST Nurse Only Wound Care, [place] [address] [place] [address] Care, Nurse Wound [address] [place] [address] 03/13/2024 2:30 PM EST Nurse Only Wound Care, [place] [address] [place] [address] Care, Nurse Wound [address] [place] [address] 03/20/2024 2:30 PM EST Nurse Only Wound Care, [place] [address] [place] [address] Care, Nurse Wound [address] [place] [address] 03/27/2024 2:40 PM EST Office Visit Wound Care, [place] [address] [place] [address] Mario Sauceda MD [address] [place] [address] 05/16/2024 2:00 PM EST Office Visit Gastroenterology, [facility] [place] [address] Marlene Balderas CRNP [facility] [place] [address] 09/13/2024 5:20 PM EDT Office Visit Family Practice [facility] [address] [facility] [place] [address] Raza Lion DO [address] [facility] [place] [address] Scheduled Procedures Name Priority Associated Diagnoses Date/Ti [...] filedocumented as of this encounter Care Teams Cotton Ginner Relationship Specialty Start Date End Date Raza Lion DO [address] [place] [address] PCP - General Family Medicine 09/04/20 documented as of this encounter
--- OUTSIDE RECORDS SUMMARY | 2024-03-08 14:34 | External Medical Summary | Summary of Care ---
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 (Household - [...] encounter Miscellaneous Notes * Telephone Encounter - Susie García OSA - 02/07/2024 12:36 PM EDT [facility] calling stating the order received is conflicting. In order for insurance to cover notes need to states drainage moderate to heavy. Debrided and how? Stage 3 or higher? And full thickness? documented in this encounter Plan of Treatment Upcoming Encounters Date Type Department Care Team (Late st Contact Info) Description 02/21/2024 2:40 PM EST Office Visit Wound Care, [address] [address] Mario Sauceda MD [address] [place] [address] 02/28/2024 2:30 PM EST Nurse Only Wound Care, [place] [address] [place] [address] Care, Nurse Wound [address] [place] [facility] [address] 03/06/2024 2:30 PM EST Nurse Only Wound Care, [place] [address] [place] [address] Care, Nurse Wound [address] [place] [facility] [address] 03/13/2024 2:30 PM EST Nurse Only Wound Care, [place] [address] [place] [address] Care, Nurse Wound [address] [place] [address] 03/20/2024 2:30 PM EST Nurse Only Wound Care, [place] [address] [place] [address] Care, Nurse Wound [address] [place] [address] 03/27/2024 2:40 PM EST Office Visit Wound Care, [place] [address] [place] [address] Mario Sauceda MD [address] [place] [address] 05/16/2024 2:00 PM EST Office Visit Gastroenterology, [facility] [address] [place] [address] Marlene Balderas CRNP [address] [place] [address] 09/13/2024 5:20 PM EDT Office Visit Family Practice [facility] [address] [place] [address] Raza Lion DO [address] [place] [address] Scheduled Procedures Name Priority Associated Diagnoses Date/Ti me COLONOSCOPY FLEXIBLE PROXIMAL DIAGNOSTIC Recall History of colon polyps Health Maintenance Due Date Last Done Comments DISCUSS TOBACCO CESSATION (REFER TO SMARTSET #2624) 1960 COVID-19 Vaccine (#1) 1963 Cologuard 2003 Fecal Occult Blood Test 2003 Sigmoidoscopy 2003 DTap/Tdap Vaccines (2 - Td or Tdap) 10/04/2022 10/04/2012 Pneumococcal Vaccine: 65+ Years (4 of 4 - PPSV23 or PCV20) 2023 03/20/2019, 03/08/2017, 04/18/2001 Influenza Vaccine (FLU shot) (#1) 2023 04/22/2022, 03/02/2021, 03/25/2020, Additional history exists HbA1c 12/26/2023 12/25/2022, 08/17, 05/08/2021, Additional history exists GFR 01/01/2025 01/02/2024, 060 11/2023, 08/27/2023, Additional [...] filedocumented as of this encounter Care Teams Software Analyst Relationship Specialty Start Date End Date Raza Lion DO [address] [place] [address] PCP - General Family Medicine 09/04/20 documented as of this encounter
--- OUTSIDE RECORDS SUMMARY | 2024-03-08 14:34 | External Medical Summary | Summary of Care ---
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 (Household - for ages [...] encounter Miscellaneous Notes * Telephone Encounter - Mario Sauceda MD - 02/07/2024 3:10 PM EDT I addended my note from 01/31/24. Please print/fax as needed. Mario Sauceda MD 02/07/2024 3:10 PM 3:10 PM * Telephone Encounter - Susie García OSA - 02/07/2024 12:36 PM EDT [facility] calling stating the order received is conflicting. In order for insurance to cover notes need to states drainage moderate to heavy. Debrided and how? Stage 3 or higher? And full thickness? documented in this encounter Plan of Treatment Upcoming Encounters Date Type Department Care Team (Late st Contact Info) Description 02/21/2024 2:40 PM EST Office Visit Wound Care, [place] [address] [place] [facility] [place] [address] Mario Sauceda MD [address] [place] [address] 02/28/2024 2:30 PM EST Nurse Only Wound Care, [place] [address] [place] [facility] [place] [address] Care, Nurse Wound [address] [place] [facility] [place] [place] [address] 03/06/2024 2:30 PM EST Nurse Only Wound Care, [place] [address] [place] [address] Care, Nurse Wound [address] [place] [facility] [address] 03/13/2024 2:30 PM EST Nurse Only Wound Care, [place] [address] [place] [address] Care, Nurse Wound [address] [place] [facility] [address] 03/20/2024 2:30 PM EST Nurse Only Wound Care, [place] [address] [place] [facility] [place] [address] Care, Nurse Wound [address] [place] [facility] [place] [address] 03/27/2024 2:40 PM EST Office Visit Wound Care, [place] [address] [place] [facility] [address] Mario Sauceda MD [address] [place] [address] 05/16/2024 2:00 PM EST Office Visit Gastroenterology, [facility] [address] [place] [address] Marleen Balderas CRNP [address] [place] [address] 09/13/2024 5:20 PM EDT Office Visit Family Practice [facility] [address] [place] [address] Raza Lion DO [address] [place] [address] Scheduled Procedures Name Priority Associated Diagnoses Date/Ti me COLONOSCOPY FLEXIBLE PROXIMAL DIAGNOSTIC Recall History of colon polyps Health Maintenance Due Date Last Done Comments DISCUSS TOBACCO CESSATION (REFER TO SMARTSET #5417) 1960 COVID-19 Vaccine (#1) 1963 Cologuard 2003 [...] filedocumented as of this encounter Care Teams Credit Investigator Relationship Specialty Start Date End Date Raza Lion DO [address] [place] [address] PCP - General Family Medicine 09/04/20 documented as of this encounter
--- OUTSIDE RECORDS SUMMARY | 2024-03-08 14:34 | External Medical Summary | Summary of Care ---
Author Name Unknown Organization [facility] Address [address] [place] [place] [place] [address] Phone [phone] Care Team Providers Care Criminal Attorney Name Role Phone Raza Lion Primary Care Provider Reason for Visit * Reason Comments Follow Up Skin check- hx of me lanoma, no acute concerns at this time Encounter Details Date Type Department Care Team (Late st Contact Info) Description 02/06/2024 3:00 PM EDT Office Visit Dermatology [facility] [address] [place] [address] Dieudonne Braxton MD [address] [place] [address] Hx of malignant melanoma*; Skin neoplasm; Actinic skin damage; Hx of basal cell carcinoma; Hx of squamous cell carcinoma; Scar; Mycosis fungoides, unspecified body region (HCC) Allergies Active Allergy Reactions Criticality Noted [...] IN THE MORNING 90 Tablet 1 08/20/2023 Active Azithromycin 1 GM Oral Packet Take [...] OPPOSITE DAYS OF THE GEL 30 g 12/20/2023 5 Active Losartan Potassium 100 MG [...] 02/22/2022 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 He is seen today to be monitored for recurrence at previously treated sites and to be evaluated for the development of new lesions. No spots of concern today Continues to follow with [facility] for CTCL (Dr. Harrison). No recent notes from him. Patient tells me sawDr. Harrison recently. Will be having radiation to abdomen and left arm. Having this done through [facility]. I do not see any recent notes from them. Continues to follow with [facility] wound care for wounds on lower legs (previously followed with [facility]). Doing well, no longer wrapped Melanoma History: Location: R posterior thigh Year: 2018 Depth: 0.5mm Hx NMSC - BCC R chest 09/2020, BCC R ala 03/2020, BCC R chest 02/2019, SCC L upper back 10/2018, 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, Hx [place] BCC: L mid back and R ant thigh 2022: curetted and treated with efudex for 3 weeks. 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 Physical Examination: Constitutional: Patient is in no acute distress. Skin: Exam of the scalp, face, conjunctivae, oral mucosa, neck, chest, back, abdomen, and upper extremities is performed. All areas are normal except for the following findings. Lower legs are wrapped -There are well-healed primary sites with no evidence of disease recurrence. Multiple pink plaques and nodules on trunk and extremities A. Left upper back - 1cm pink scaly patch - BCC vs MF B. Left lateral brow - 4mm translucent pink papule - favor bcc C. Left anterior shoulder - 1cm pink dermal nodule - favor MF ASSESSMENT and PLAN: 1. History of Melanoma. History of NMSC - History was obtained regarding new or changing moles. - Patient counseled on self-examination for new or changing moles. - Advised age appropriate cancer screening The signs and symptoms of skin cancer were reviewed and the patient was advised to practice sun protection and sun avoidance, use daily sunscreen, and perform regular self-skin and lymph node exams on a monthly basis. I reviewed changes to watch for including changes in the A-B-C-D's, asymmetry of a lesion, changes in border, color or diameter as well as non healing lesions. I instructed the patie nt to call if any new lesions appear or current lesions change. MF, follows with [facility] hemeonc - Continue bexarotene with labs, valchlor alternating with betamethasone ointment topically as previously prescribed per [facility] - Scheduled for radiation to abdomen and left upper arm. Recommend he have left posterior shoulder treated as well. Overall stable from prior photos Skin neoplasm(s) - Shave biopsy of the following lesion(s). Lesions A, B curetted for cure A. Left upper back - 1cm pink scaly patch - BCC vs MF B. Left lateral brow - 4mm translucent pink papule - favor bcc C. Left anterior shoulder - 1cm pink dermal nodule - favor MF Procedure - Shave/Curette HOLD FOR PATH Shave of the lesion(s) noted above to remove and confirm diagnosis. The procedure, risks, benefits,alternatives and expected outcomes were discussed with the patient and consent was obtained. Time out called. Patient identified, procedure verified, site(s) identified and verified. Patient and staff present in agreement. Area prepped with alcohol and anesthetized using 0.5% lidocaine with epinephrine at 1:200,000 concentration. Shave of lesion(s) performed. 20% AlCl and bandaging applied. Specimen(s) sent to pathology. Patient instructed in routine post-op care. The lesion(s) was/were curetted for cure. Size of lesion A: 1cm Size of wound after currettage: 1.8cm Size of lesion B: 4mm Size of wound after currettage: 12mm Follow up high priority melanoma clinic 3 months. However, the patient should seek an early evaluation by a medical provider if any suspicious lesions develop. Dieudonne Braxton MD CC: Ref: SELF[[id number]] NO STREET ADDRESS AVAILABLE None (office) None (fax) documented in this encounter Nursing Notes * Maci Cho LPN - 02/06/2024 2:58 PM EDT Patient identified by name and date of . Do you have any concerns about pain management for today's visit? No Living Will or Advance Directive for Health Care as noted on problem list. [facility] is a way you can talk to your provider online through e-mail. Would you like to sign up? I can activate it for you? ALREADY ACTIVE Chief Complaint Patient presents with Follow Up Skin check- hx of melanoma, no acute concerns at this time documented in this encounter Plan of Treatment Upcoming Encounters Date Type Department Care Team (Late st Contact Info) Description 02/21/2024 2:40 PM EST Office Visit Wound Care, [place] [address] [place] [address] Mario Sauceda MD [address] [place] [address] 02/28/2024 2:30 PM EST Nurse Only Wound Care, [place] [address] [place] [address] Care, Nurse Wound [address] [place] [address] 03/06/2024 2:30 PM EST Nurse Only Wound Care, [place] [address] [place] [address] Care, Nurse Wound [address] [place] [address] 03/13/2024 2:30 PM EST Nurse Only Wound Care, [place] [address] [place] [address] Care, Nurse Wound [address] [place] [address] 03/20/2024 2:30 PM EST Nurse Only Wound Care, [place] [address] [place] [address] Care, Nurse Wound [address] [place] [address] 03/27/2024 2:40 PM EST Office Visit Wound Care, [place] [address] [place] [address] Mario Sauceda MD [address] [place] [address] 05/16/2024 2:00 PM EST Office Visit Gastroenterology, [facility] [address] [facility] [place] [address] Marlene Balderas CRNP [address] [place] [address] 09/13/2024 5:20 PM EDT Office Visit Family Practice [facility] [address] [facility] [place] [address] Raza Lion DO [address] [place] [address] Pending Results Name Type Priority Associated Diagnoses Date /Time SURGICAL PATHOLOGY Pathology Routine Skin neoplasm 02/06/2024 3:25 PM EDT Scheduled Procedures Name Priority Associated Diagnoses Date/Ti me COLONOSCOPY FLEXIBLE PROXIMAL DIAGNOSTIC Recall History of colon polyps Health Maintenance Due Date Last Done Comments DISCUSS TOBACCO CESSATION (REFER TO SMARTSET #1063) 1958 COVID-19 Vaccine (#1) 1963 Cologuard 2003 Fecal Occult Blood Test 2003 Sigmoidoscopy 2003 DTap/Tdap Vaccines (2 - Td or Tdap) 10/04/2022 10/04/2012 Pneumococcal Vaccine: 65+ Years (4 of 4 - PPSV23 or PCV20) 2023 03/20/2019, 03/08/2017, 04/18/2001 Influenza Vaccine (FLU shot) (#1) 2023 04/22/2022, 03/02/2021, 03/25/2020, Additional history exists HbA1c 12/26/2023 12/25/2022, 05/2 09/2021, 05/08/2021, Additional history exists GFR 01/01/2025 01/02/2024, 11/2023, 08/27/2023, Additional history exists TSH 01/01/2025 [...] as of this encounter Visit Diagnoses Diagnosis Hx of malignant melanoma- Primary Personal history of malignant melanoma of skin Skin neoplasm Neoplasm of unspecified nature of bone, soft tissue, and skin Actinic skin damage Other dermatitis due to solar radiation Hx of basal cell carcinoma Personal history of other malignant neoplasm of skin Hx of squamous cell carcinoma Personal history of malignant neoplasm of other site Scar Scar condition and fibrosis of skin Mycosis fungoides, unspecified body region (HCC) documented in this encounter Care Teams Criminal Attorney Relationship Specialty Start Date End Date Raza Lion DO [address] [place] [address] PCP - General Family Medicine 09/04/20 documented as of this encounter
--- OUTSIDE RECORDS SUMMARY | 2024-03-08 14:35 | External Medical Summary | Summary of Care ---
Author Name Unknown Organization [facility] Address [address] [place] [address] Phone [phone] Care Team Providers Care Contracting Manager Name Role Phone Raza Lion Primary Care Provider Reason for Visit * Reason Comments Wound Care Encounter Details Date Type Department Care Team (Late st Contact Info) Description 01/23/2024 2:30 PM EDT Nurse Only Wound Care, [place] [address] [place] [address] Care, Nurse Wound [address] [place] [address] Wound Care Allergies Active Allergy Reactions Criticality Noted Date Comments Erythromycin 07/21/2012 Contraindicated with Targretin (cancer med) documented as of this encounter (statuses as of 01/23/2024) Medications Medication Sig Dispensed Refills Start Date [...] STOMACH 90 Tablet 3 07/05/2023 5 Active Famotidine 20 MG Oral Tablet (Pepcid) Take 1 Tablet by mouth at bedtime. 90 Tablet 1 07/27/2023 Active Silver sulfADIAZINE 1 % External Cream [...] for Severe Pain. 21 Tablet 01/05/2024 Active hydrOXYzine HCl 25 MG Oral TabletIndications:Ve nous stasis ulcer of right ankle with fat layer exposed with varicose veins (HCC) Take 1 Tablet by mouth every 6 hours as needed for Itching. 60 Tablet 01/11/2024 Active Cephalexin 500 MG Oral CapsuleIndications:V enous stasis ulcer of right ankle with fat layer exposed with varicose veins (HCC),Venous stasis ulcer of left ankle with fat layer exposed with varicose veins (HCC),Venous insufficiency,Cutane ous T-cell lymphoma, unspecified body region (HCC) Take 1 Capsule by mouth in the morning and 1 Capsule at noon and 1 Capsule before bedtime. Do all this for 10 days. 30 Capsule 01/16/2024 Active tiZANidine HCl 4 MG Oral Tablet (Zanaflex)Indication s:Chronic right-sided low back pain with right-sided sciatica TAKE ONE TABLET BY MOUTH EVERY 8 HOURS NEEDED FOR MUSCLE SPASMS. 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[place] co ronary artery without angina pectoris 03/02/2021 [...] as of this encounter (statuses as of 01/23/2024) Resolved Problems Problem Noted Date Diagnosed Date Resolved Date Abdominal discomfort 11/21/2017 018 COPD, severity to be determined 07/23/2016 07/31/2020 Overview: Per COPD GOLD Classification Periapical abscess 05/15/2014 8 Venous stasis ulcer of leg w ithout varicose veins 07/21/2012 07/14/2017 Anemia 07/21/2012 10/07/2017 documented as of this encounter (statuses as of 01/23/2024) Immunizations Name Administration Dates Next Due Hepatitis [...] No 01/11/2024 Does the household have a [place] [facility]? (Household - for [...] on file documented as of this encounter Nursing Notes * Robert Lopez MED ASSIST - 01/23/2024 3:18 PM EDT Puracol Ag and Foam x2 placed over BLE wound. Coban 2 wrap with an extra cohesive layer applied forcompression to BLE as per order. documented in this encounter Plan of Treatment Upcoming Encounters Date Type Department Care Team (Latest Contact Info) Description 01/27/2024 10:53 AM EDT Hospital Encounter [place] [facility] [address] [facility] [address] Flex Valentin MD [address] [place] [address] 01/27/2024 10:53 AM EDT Anesthesia Event [place] [facility] [place] [address] [facility] [address] Quang Wade CRNP [address] [place] [address] 01/27/2024 10:53 AM EDT - 01/27/2024 12:34 PM EDT Surgery [place] [facility] [place] [place] [address] [place] [id number] Flex Valentin MD [address] [place] [address] ENDOVENOUS RADIOFREQUENCY ABLATION THERAPY FIRST VEIN 01/31/2024 1:00 PM EDT Office Visit Vascular Surg [facility], [place] [address] [place] [address] Flex Valentin MD [address] [place] [address] 01/31/2024 1:00 PM EDT Appointment Vascular Lab [facility] [address], [place] [id number] 01/31/2024 2:00 PM EDT Appointment Vascular Lab [facility], [place] [address] [place], [place] [id number] 01/31/2024 2:30 PM EDT Nurse Only Wound Care, [place] [address] [place] [address] Care, Nurse Wound [address] [place] [address] 02/06/2024 3:00 PM EDT Office Visit Dermatology [facility] [place] [address] [facility] [place] [address] Dieudonne Braxton MD [address] [facility] [place] [address] 02/07/2024 2:30 PM EDT Nurse Only Wound Care, [place] [address] [facility] [address] Care, Nurse Wound [address] [facility] [address] 02/14/2024 2:30 PM EDT Nurse Only Wound Care, [place] [address] [facility] [address] Care, Nurse Wound [address] [facility] [place] [address] 02/21/2024 2:40 PM EST Office Visit Wound Care, [place] [address] [place] [address] Mario Sauceda MD [address] [place] [address] 02/28/2024 2:30 PM EST Nurse Only Wound Care, [place] [address] [facility] [address] Care, Nurse Wound [address] [facility] [address] 03/06/2024 2:30 PM EST Nurse Only Wound Care, [place] [address] [place] [address] Care, Nurse Wound [address] [place] [address] 03/13/2024 2:30 PM EST Nurse Only Wound Care, [place] [address] [place] [facility] [place] [address] Care, Nurse Wound [address] [facility] [address] 03/20/2024 2:30 PM EST Nurse Only Wound Care, [place] [address] [place] [address] Care, Nurse Wound [address] [place] [address] 03/27/2024 2:40 PM EST Office Visit Wound Care, [place] [address] [place] [address] Mario Sauceda MD [address] [place] [address] 05/16/2024 2:00 PM EST Office Visit Gastroenterology, [facility] [address] [facility] [place] [address] Marlene Balderas CRNP [address] [place] [address] 09/13/2024 5:20 PM EDT Office Visit Family Practice [facility] [address] [facility] [place] [address] Raza Lion DO [address] [facility] [place] [address] Scheduled Procedures Name Priority Associated Diagnoses Date/Ti me ENDOVENOUS RADIOFREQUENCY ABLATION THERAPY FIRST VEIN 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) Venous insufficiency Cigar smoker 01/27/2024 10:53 AM EDT COLONOSCOPY FLEXIBLE PROXIMAL DIAGNOSTIC Recall History of colon polyps Health Maintenance Due Date Last Done Comments DISCUSS TOBACCO CESSATION (REFER TO SMARTSET #2870) 1958 COVID-19 Vaccine (#1) 1963 Cologuard 2003 [...] as of this encounter Visit Diagnoses Diagnosis 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)- Primary Varicose veins of lower extremities with ulcer and inflammation 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) Varicose veins of lower extremities with ulcer and inflammation Venous insufficiency Unspecified venous (peripheral) insufficiency Cigar smoker Tobacco use disorder Venous insufficiency- Primary Unspecified venous (peripheral) insufficiency 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) Varicose veins of lower extremities with ulcer and inflammation Venous insufficiency Unspecified venous (peripheral) insufficiency Cigar smoker Tobacco use disorder documented in this encounter Care Teams Contracting Manager Relationship Specialty Start Date End Date Raza Lion DO [address] [place] [address] PCP - General Family Medicine 09/04/20 documented as of this encounter
--- OUTSIDE RECORDS SUMMARY | 2024-03-08 14:35 | External Medical Summary | Summary of Care ---
Author Name Unknown Organization [facility] Address [address] [place] [address] Phone [phone] Care Team Providers Care Nurse Care Manager Name Role Phone Raza Lion Primary Care Provider Reason for Visit * Reason Comments Wound Care Encounter Details Date Type Department Care Team (Late st Contact Info) Description 01/16/2024 2:40 PM EDT Office Visit Wound Care, [facility] [address] [place] [address] Mario Sauceda MD [address] [place] [address], [place] [id number] Venous stasis ulcer of right ankle with fat layer exposed with varicose veins (HCC)*; Venous stasis ulcer of left ankle with fat layer exposed with varicose veins (HCC); Venous insufficiency; Cutaneous T-cell lymphoma, unspecified body region (HCC) Allergies Active Allergy Reactions Criticality Noted Date Comments Erythromycin 07/21/2012 Contraindicated with Targretin (cancer med) documented as of this encounter (statuses as of 01/16/2024) Medications Medication Sig Dispensed Refills Start Date End Date Status MEDICAL COMPRESSION STOCKINGS MISCIndications:Veno us stasis ulcer of leg without varicose veins (HCC) knee high compression socks 15-20 mmhg 3 Package 3 09/04/2012 Active Additional Information Patient not taking.Reported on 12/26/2023 VITAMIN B 12 250 MCG PO LOZG [...] NEEDED 50 g 1 08/05/2023 5 Active Additional Information Patient not taking.Reported on 12/26/2023 metFORMIN HCl ER 750 MG Oral Tablet [...] before bedtime. 360 Tablet 3 11/22/2023 Active tiZANidine HCl 4 MG Oral Tablet (Zanaflex)Indication s:Chronic right-sided low back pain with right-sided sciatica TAKE ONE TABLET BY MOUTH EVERY 8 HOURS NEEDED FOR MUSCLE SPASMS. 30 Tablet 11/28/2023 Active amLODIPine Besylate 5 MG Oral Tablet [...] for 10 days. 30 Capsule 01/16/2024 Active documented as of this encounter (statuses as of 01/16/2024) Active Problems Problem Noted Date Diagnosed Date [...] 02/22/2022 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[place] ronary artery without angina pectoris 03/02/2021 [...] as of this encounter (statuses as of 01/16/2024) Resolved Problems Problem Noted Date Diagnosed Date Resolved Date Abdominal discomfort 11/21/2017 09/10/2 018 COPD, severity to be determined 07/23/2016 07/31/2020 Overview: Per COPD GOLD Classification Periapical abscess 05/15/2014 8 Venous stasis ulcer of leg w ithout varicose veins 07/21/2012 07/14/2017 Anemia 07/21/2012 10/07/2017 documented as of this encounter (statuses as of 01/16/2024) Immunizations Name Administration Dates Next Due Hepatitis B, 20+ yrs 02/11/2015,08/09/2014,07/01 Pneumococcal Conjugate Vacc, 13 Valent (Prevnar) 03/20/2019 Pneumococcal Polysaccharide PPV23 (Pneumovax) 03/08/2017,04/18/2001 Seasonal Influenza Virus Vac cine, Unspecified Formulation 03/25/2020,03/20/2019,03/08/2017,10/2015,02/11/2015,01/07/2014,01/24/20 13 Seasonal Influenza, PF, 6 M & above, IM , (FluLaval or Fluzone) 04/22/2022,03/02/2021,03/25/2020,1206/2018,03/08/2017 Seasonal Influenza, Quadriva lent, No Preserve, IM 02/23/2016,02/11/2015 Seasonal Influenza, Trivalen t, (IIV3), with Preserv, (Fluzone) 01/07/2014,01/23/2013 TDAP (age 10 and older)(Boostrix) 10/04/2012 Zoster [...] Progress Notes * Mario Sauceda MD - 01/16/2024 2:46 PM EDT Images from the original note were not included. WOUND OUTPATIENT FOLLOW-UP NOTE HPI: Patient presents today for f/u of B ankle VLUs. The wound has been present since early 2021. Patient thinks wound started spontaneously. Patient has followed at [facility] wound clinic for 2 yearsand came here for second opinion. There is new ulceration over the L upper luis that began wit folliculitis (as seen in photos sent by pt recently). He is now off prednisone. Pt planning for left leg perforating vein ablation with Dr. Valentin on 01/27/24. Current dressing: See Wound Assessment Dressing change frequency: weekly RLE Compression: Coban 2 (extra cohesive layer) LLE Compression: Coban 2 (extra cohesive layer) RLE Wt Bearing Offloading: none LLE Wt Bearing Offloading: none RLE Non-Wt Bearing Offloading: none LLE Non-Wt Bearing Offloading: none Offloading Surface for Bed: none Offloading Surface for Chair / Wheelchair: none ROS: Pain: moderate Drainage: mild serosanguinous Swelling: mild Erythema: mild evan-wound Fever/Chills: no Malaise: no ROS was negative other than stated above. VASCULAR LAB RESULTS DATE OF EXAM: 09/28/23 PRESENTING CONDITIONS: Evaluate for deep, superficial, and supervisor nuclear medicine reflux. IMPRESSION: There is no evidence of [...] Last attempt to quit: 06/18/2012 Years since quittin.5 Smokeless Tobacco Former Tobacco Comments 6 cigars has a 1.5 ppd for 25 years cigarette smoking history and currently smokes cigars. Declined pamphlet12/28/23 WOUND ASSESSMENT: Alteration in Skin Integrity Right;Medial Ankle (Active) Clinical Image 01/16/24 1400 Primary Dressing Present (removed today) Puracol Plus 01/16/24 1400 Secondary Dressing Present (removed today) Allevyn Ag 01/16/24 1400 Tertiary Dressing Present (removed today) FOAM 01/16/24 1400 Quaternary Dressing Present (removed today) None 01/16/24 1400 Wound Length (cm) 4 cm 01/16/24 1400 Wound Width (cm) 0.5 cm 01/16/24 1400 Wound Depth (cm) 0.1 cm 01/16/24 1400 Undermining (cm) 0 01/16/24 1400 Sinus Tract (cm) 0 01/16/24 1400 Tunneling (cm) 0 01/16/24 1400 Yellow Fibrinous Slough (%) 26-50% 01/16/24 1400 Granulation Tissue (%) 26-50% 01/16/24 1400 Granulation Tissue Color red 01/16/24 1400 Necrotic Tissue (%) none 01/16/24 1400 Necrotic Tissue Color Not Applicable 01/16/24 1400 Deep Supporting Structure Exposed None 01/16/24 1400 Drainage serosanguinous, mild 01/16/24 1400 Odor (after cleansing wound) No 01/16/24 1400 Evan-Wound (Surrounding Skin) Intact;Nonerythematous;Nontender 01/16/24 1400 Evidence of Infection No 01/16/24 1400 Wound Surface Area (cm^2) 2 cm^2 01/16/24 1400 Wound Volume (cm^3) 0.2 cm^3 01/16/24 1400 Alteration in Skin Integrity Left;Medial Ankle (Active) Clinical Image 01/16/24 1400 Primary Dressing Present (removed today) Puracol Ag 01/16/24 1400 Secondary Dressing Present (removed today) Allevyn Ag 01/16/24 1400 Tertiary Dressing Present (removed today) FOAM 01/16/24 1400 Quaternary Dressing Present (removed today) None 01/16/24 1400 Wound Length (cm) 4 cm 01/16/24 1400 Wound Width (cm) 0.9 cm 01/16/24 1400 Wound Depth (cm) 0.1 cm 01/16/24 1400 Undermining (cm) 0 01/16/24 1400 Sinus Tract (cm) 0 01/16/24 1400 Tunneling (cm) 0 01/16/24 1400 Yellow Fibrinous Slough (%) 100% 01/16/24 1400 Granulation Tissue (%) none 01/16/24 1400 Granulation Tissue Color not applicable 01/16/24 1400 Necrotic Tissue (%) none 01/16/24 1400 Necrotic Tissue Color Not Applicable 01/16/24 1400 Deep Supporting Structure Exposed None 01/16/24 1400 Drainage serosanguinous, mild 01/16/24 1400 Odor (after cleansing wound) No 01/16/24 1400 Evan-Wound (Surrounding Skin) Intact;Nontender;Erythematous 01/16/24 1400 Evidence of Infection No 01/16/24 1400 Wound Surface Area (cm^2) 3.6 cm^2 01/16/24 1400 Wound Volume (cm^3) 0.36 cm^3 01/16/24 1400 Alteration in Skin Integrity Anterior;Left Foot (Active) Clinical Image 01/16/24 1400 Primary Dressing Present (removed today) Puracol Plus 01/16/24 1400 Secondary Dressing Present (removed today) Allevyn Ag 01/16/24 1400 Tertiary Dressing Present (removed today) None 01/16/24 1400 Quaternary Dressing Present (removed today) None 01/16/24 1400 Wound Length (cm) 0.3 cm 01/16/24 1400 Wound Width (cm) 0.2 cm 01/16/24 1400 Wound Depth (cm) 0.1 cm 01/16/24 1400 Undermining (cm) 0 01/16/24 1400 Sinus Tract (cm) 0 01/16/24 1400 Tunneling (cm) 0 01/16/24 1400 Yellow Fibrinous Slough (%) 100% 01/16/24 1400 Granulation Tissue (%) none 01/16/24 1400 Granulation Tissue Color not applicable 01/16/24 1400 Necrotic Tissue (%) none 01/16/24 1400 Necrotic Tissue Color Not Applicable 01/16/24 1400 Deep Supporting Structure Exposed None 01/16/24 1400 Drainage serosanguinous, mild 01/16/24 1400 Odor (after cleansing wound) No 01/16/24 1400 Evan-Wound (Surrounding Skin) Intact;Nonerythematous;Nontender 01/16/24 1400 Evidence of Infection No 01/16/24 1400 Wound Surface Area (cm^2) 0.06 cm^2 01/16/24 1400 Wound Volume (cm^3) 0.006 cm^3 01/16/24 1400 Alteration in Skin Integrity Anterior;Left;Lower;Proximal Leg (Active) Clinical Image 01/16/24 1400 Primary Dressing Present (removed today) Allevyn Ag 01/16/24 1400 Secondary Dressing Present (removed today) None 01/16/24 1400 Tertiary Dressing Present (removed today) None 01/16/24 1400 Quaternary Dressing Present (removed today) None 01/16/24 1400 Wound Length (cm) 9 cm 01/16/24 1400 Wound Width (cm) 5 cm 01/16/24 1400 Wound Depth (cm) 0.1 cm 01/16/24 1400 Undermining (cm) 0 01/16/24 1400 Sinus Tract (cm) 0 01/16/24 1400 Tunneling (cm) 0 01/16/24 1400 Yellow Fibrinous Slough (%) 1-25% 01/16/24 1400 Granulation Tissue (%) 51-75% 01/16/24 1400 Granulation Tissue Color red 01/16/24 1400 Necrotic Tissue (%) none 01/16/24 1400 Necrotic Tissue Color Not Applicable 01/16/24 1400 Deep Supporting Structure Exposed None 01/16/24 1400 Drainage serosanguinous, mild 01/16/24 1400 Odor (after cleansing wound) No 01/16/24 1400 Evan-Wound (Surrounding Skin) Erythematous;Nontender 01/16/24 1400 Evidence of Infection Yes 01/16/24 1400 Wound Surface Area (cm^2) 45 cm^2 01/16/24 1400 Wound Volume (cm^3) 4.5 cm^3 01/16/24 1400 ASSESSMENT/PLAN: 1. B medial ankle VLUs - stable overall. 2. Venous insufficiency (superficial and deep; vascular planning to try ablation). 3. Cutaneous T cell lymphoma/mycosis fungoides Hx. 4. COPD. 5. Smoking Puracol/Ag foam/foam/Coban 3 to BLE, changed weekly. Keep wrap dry and in place. Elevate LE for edema control. Continue pentoxifylline. Rx keflex for folliculitis/L luis cellulitis. I spent a total of 30-39 minutes (exact time 37 mins) on the date of service in preparation, delivery, and documentation of the care provided to Chang Parham excluding any time spent in the performance of separately billed services. Follow-up: 1,2,3,4 wk nurse, 5 wk provider Mario Sauceda MD 01/16/2024 3:15 PM documented in this encounter Nursing Notes * Robert Lopez MED ASSIST - 01/16/2024 3:25 PM EDT Puracol and Ag foam placed over BLE wound.Coban 2 wrap with an extra cohesive layer applied for compression to BLE as per order. documented in this encounter Plan of Treatment Upcoming Encounters Date Type Department Care Team (Latest Contact Info) Description 01/23/2024 2:30 PM EDT Nurse Only Wound Care, [facility] [address] [facility] [place] [address] Care, Nurse Wound [address] [facility] [place] [address] 01/27/2024 10:53 AM EDT Hospital Encounter OR [facility], OPERATING ROOM [facility] [address] [facility] [place] [address] Flex Valentin MD [address] [facility] [place] [address] 01/27/2024 10:53 AM EDT Anesthesia Event OR [facility], OPERATING ROOM [facility] [address] [facility] [place] [address] Quang Wade CRNP [address] [place] [address] 01/27/2024 10:53 AM EDT - 01/27/2024 12:34 PM EDT Surgery OR [facility], OPERATING ROOM [facility] [address] [facility] [place] [address] Flex Valentin MD [address] [place] [address] ENDOVENOUS RADIOFREQUENCY ABLATION THERAPY FIRST VEIN 01/31/2024 1:00 PM EDT Office Visit Vascular Surg [facility], [facility] [address] [facility], [place] [phone] Flex Valentin MD [address] [facility], [place] [id number] 01/31/2024 2:30 PM EDT Nurse Only Wound Care, [facility] [address] [facility] [place] [address] Care, Nurse Wound [address] [facility] [place] [address] 02/06/2024 3:00 PM EDT Office Visit Dermatology [facility] [place] [address] [facility] [place] [address] Dieudonne Braxton MD [address] [facility] [place] [address] 02/07/2024 2:30 PM EDT Nurse Only Wound Care, [facility] [address] [facility] [place] [address] Care, Nurse Wound [address] [facility] [place] [address] 02/14/2024 2:30 PM EDT Nurse Only Wound Care, [facility] [address] [facility] [place] [address] Care, Nurse Wound [address] [facility] [place] [address] 02/21/2024 2:40 PM EST Office Visit Wound Care, [facility] [address] [facility] [place] [address] Mario Sauceda MD [address] [facility] [place] [address] 02/28/2024 2:30 PM EST Nurse Only Wound Care, [facility] [address] [facility] [place] [address] Care, Nurse Wound [address] [facility] [place] [address] 03/06/2024 2:30 PM EST Nurse Only Wound Care, [facility] [address] [facility] [place] [address] Care, Nurse Wound [address] [facility] [place] [address] 03/13/2024 2:30 PM EST Nurse Only Wound Care, [facility] [address] [facility] [place] [address] Care, Nurse Wound [address] [facility] [place] [address] 03/20/2024 2:30 PM EST Nurse Only Wound Care, [facility] [address] [place] [address] Care, Nurse Wound [address] [place] [address] 03/27/2024 2:40 PM EST Office Visit Wound Care, [facility] [address] [place] [address] Mario Sauceda MD [address] [place] [address] 05/16/2024 2:00 PM EST Office Visit Gastroenterology, [facility] [address] [facility] [place] [address] Marlene Balderas CRNP [address] [place] [address] 09/13/2024 5:20 PM EDT Office Visit Family Practice [facility] [address] [facility] [place] [address] Raza Lion DO [address] [facility] [place] [address] Scheduled Procedures Name Priority Associated Diagnoses Date/Ti me ENDOVENOUS RADIOFREQUENCY ABLATION THERAPY FIRST VEIN 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) Venous insufficiency Cigar smoker 01/27/2024 10:53 AM EDT COLONOSCOPY FLEXIBLE PROXIMAL DIAGNOSTIC Recall History of colon polyps Health Maintenance Due Date Last Done Comments DISCUSS TOBACCO CESSATION (REFER TO SMARTSET #0632) 1960 COVID-19 Vaccine (#1) 1963 Cologuard 2003 [...] insufficiency Cigar smoker Tobacco use disorder Venous stasis ulcer of right ankle with fat layer exposed with varicose veins (HCC)- Primary Venous stasis ulcer of left ankle with fat layer exposed with varicose veins (HCC) Venous insufficiency Unspecified venous (peripheral) insufficiency Cutaneous T-cell lymphoma, unspecified body region (HCC) 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) Varicose veins of lower extremities with ulcer and inflammation Venous insufficiency Unspecified venous (peripheral) insufficiency Cigar smoker Tobacco use disorder documented in this encounter Care Teams Nurse Care Manager Relationship Specialty Start Date End Date Raza Lion DO [address] [facility] [place] [address] PCP - General Family Medicine 09/04/20 documented as of this encounter
--- OUTSIDE RECORDS SUMMARY | 2024-03-08 14:35 | External Medical Summary | Summary of Care ---
Author Name Unknown Organization [facility] [address] [facility] [address] Phone [phone] Care Team Providers Care Feller Machine Operator Name Role Phone Drea Lion DO Primary Care Provider Reason for Visit * Reason Comments Medication Refill Encounter Details Date Type Department Care Team (Late st Contact Info) Description 01/22/2024 Refill Family Practice [facility] [address] [place] [address] Drea Lion DO [address] [place] [address] Chronic right-sided low back pain with right-sided [...] 90 Tablet 3 07/05/2023 07/05/19 25 Active Famotidine 20 MG Oral Tablet (Pepcid) Take 1 Tablet by mouth at bedtime. 90 Tablet 1 07/27/2023 Active Silver sulfADIAZINE 1 % External Cream (Silvadene)Indicati ons:Skin erosion APPLY TO WOUNDS ON LEGS NIGHTLY NEEDED 50 g 1 08/05/2023 08/05/19 25 Active Additional Information Patient not taking.Reported on 12/26/2023 metFORMIN HCl ER 750 MG Oral Tablet Extended Release 24 Hour (Glucophage XR)Indications:Pred iabetes TAKE ONE TABLET BY MOUTH IN THE MORNING 90 Tablet 1 08/20/2023 08/20/19 Active Azithromycin 1 GM Oral Packet Take [...] DAYS OF THE GEL 30 g 12/20/2023 12/20/19 25 Active Losartan Potassium 100 [...] 01/05/2024 Active hydrOXYzine HCl 25 MG Oral TabletIndications:V enous stasis ulcer of right ankle with fat layer exposed with varicose veins (HCC) Take 1 Tablet by mouth every 6 hours as needed for Itching. 60 Tablet 01/11/2024 Active Cephalexin 500 MG Oral CapsuleIndications: Venous stasis [...] this for 10 days. 30 Capsule 01/16/2024 01/26/20 24 Active tiZANidine HCl 4 MG Oral Tablet (Zanaflex)Indicatio ns:Chronic right-sided low back pain with right-sided sciatica TAKE ONE TABLET BY MOUTH EVERY 8 HOURS NEEDED FOR MUSCLE SPASMS. 30 Tablet 01/23/2024 Active tiZANidine HCl 4 MG Oral Tablet (Zanaflex)Indicatio ns:Chronic right-sided low back pain with right-sided sciatica TAKE ONE TABLET BY MOUTH EVERY 8 HOURS NEEDED FOR MUSCLE SPASMS. 30 Tablet 11/28/2023 01/22/20 24 Discontinu ed(Refill) documented as of this [...] 02/22/2022 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[employer] [place] ronary artery without angina pectoris 03/02/2021 [...] Telephone Encounter - Drea Lion DO - 01/23/2024 9:37 AM EDT Signed Prescriptions: Disp Refills tiZANidine HCl 4 MG Oral Tablet (Zanaflex) 30 Tab*0 Sig: TAKE ONE TABLET BY MOUTH EVERY 8 HOURS NEEDED FOR MUSCLE SPASMS. Authorizing Provider: DRAE LION * Telephone Encounter - Yanique Zapata LPN - 01/23/2024 8:19 AM EDTPending Prescriptions: Disp Refills tiZANidine HCl 4 MG Oral Tablet (Zanaflex) 30 Tab*0 Sig: TAKE ONE TABLET BY MOUTH EVERY 8 HOURS NEEDED FOR MUSCLE SPASMS. * Telephone Encounter - Renay Cunningham - 01/23/2024 7:32 AM EDTPending Prescriptions: Disp Refills tiZANidine HCl 4 MG Oral Tablet (Zanaflex) 30 Tab*0 Sig: TAKE ONE TABLET BY MOUTH EVERY 8 HOURS NEEDED FOR MUSCLE SPASMS. documented in this encounter Plan of Treatment Upcoming Encounters Date Type Department Care Team (Latest Contact Info) Description 01/23/2024 2:30 PM EDT Nurse Only Wound Care, [facility] [address] [place], [place] [phone] Care, Nurse Wound [address] [place] [address] 01/27/2024 10:53 AM EDT Hospital Encounter OR [facility], OPERATING ROOM [facility] [address] [place] [phone] Flex Valentin MD [address] [place], [place] [phone] 01/27/2024 10:53 AM EDT Anesthesia Event OR [facility], OPERATING ROOM [facility] [address] [place] [phone] Quang Wade CRNP [address] [place], [place] [phone] 01/27/2024 10:53 AM EDT - 01/27/2024 12:34 PM EDT Surgery OR [facility], OPERATING ROOM [facility] [address] [place] [phone] Flex Valentin MD [address] [place], [place] [id number] ENDOVENOUS RADIOFREQUENCY ABLATION THERAPY FIRST VEIN 01/31/2024 1:00 PM EDT Office Visit Vascular Surg [facility] [address] [place] [address] Flex Valentin MD [address] [place], [place] [id number] 01/31/2024 1:00 PM EDT Appointment Vascular Lab [facility] [address] [place], [place] [phone] 01/31/2024 2:00 PM EDT Appointment Vascular Lab [facility], [place] [address] [place] [address] 01/31/2024 2:30 PM EDT Nurse Only Wound Care, [facility] [address] [facility] [place] [address] Care, Nurse Wound [address] [facility] [place] [address] 02/06/2024 3:00 PM EDT Office Visit Dermatology [facility] [address] [facility] [place] [address] Dieudonne Braxton MD [address] [place] [address] 02/07/2024 2:30 PM EDT Nurse Only Wound Care, [place] [address] [place] [address] Care, Nurse Wound [address] [place] [address] 02/14/2024 2:30 PM EDT Nurse Only Wound Care, [place] [address] [facility] [place] [address] Care, Nurse Wound [address] [facility] [place] [address] 02/21/2024 2:40 PM EST Office Visit Wound Care, [facility] [address] [facility] [place] [address] Mario Sauceda MD [address] [place] [address] 02/28/2024 2:30 PM EST Nurse Only Wound Care, [place] [address] [facility] [place] [address] Care, Nurse Wound [address] [facility] [place] [address] 03/06/2024 2:30 PM EST Nurse Only Wound Care, [place] [address] [place] [address] Care, Nurse Wound [address] [place] [address] 03/13/2024 2:30 PM EST Nurse Only Wound Care, [place] [address] [place] [address] Care, Nurse Wound [address] [place] [address] 03/20/2024 2:30 PM EST Nurse Only Wound Care, [place] [address] [place] [address] Care, Nurse Wound [address] [place] [address] 03/27/2024 2:40 PM EST Office Visit Wound Care, [place] [address] [place] [address] Mario Sauceda MD [address] [place] [address] 05/16/2024 2:00 PM EST Office Visit Gastroenterology, [facility] [address] [facility] [place] [address] Marlene Balderas CRNP [address] [place] [address] 09/13/2024 5:20 PM EDT Office Visit Family Practice [facility] [address] [facility] [place] [address] Drea Lion DO [address] [place] [address] Scheduled Procedures Name Priority Associated Diagnoses Date/Ti [...] (peripheral) insufficiency Cigar smoker Tobacco use disorder Chronic right-sided low back pain with right-sided sciatica 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) Varicose veins of lower extremities with ulcer and inflammation Venous insufficiency Unspecified venous (peripheral) insufficiency Cigar smoker Tobacco use disorder documented in this encounter Care Teams Feller Machine Operator Relationship Specialty Start Date End Date Drea Lion DO [address] [facility] [place] [address] PCP - General Family Medicine 09/04/20 documented as of this encounter
--- OUTSIDE RECORDS SUMMARY | 2024-03-08 14:35 | External Medical Summary | Summary of Care ---
Author Name Unknown Organization [facility] Address [address] [place] [address] Phone [phone] Care Team Providers Care Investigative Agent Name Role Phone Raza Lion Primary Care Provider Reason for Visit * Reason Comments Wound Care Encounter Details Date Type Department Care Team (Late st Contact Info) Description 01/27/2024 2:30 PM EDT Nurse Only Wound Care, [place] [address] [place] [address] Care, Nurse Wound [address] [place] [address] Wound Care Allergies Active Allergy Reactions Criticality Noted Date Comments Erythromycin 07/21/2012 Contraindicated with Targretin (cancer med) documented as of this encounter (statuses as of 01/27/2024) Medications Medication Sig Dispensed Refills Start Date [...] for Itching. 60 Tablet 2 01/27/2024 Active hydrOXYzine HCl 25 MG Oral TabletIndications:V enous stasis ulcer of right ankle with fat layer exposed with varicose veins (HCC) Take 1 Tablet by mouth every 6 hours as needed for Itching. 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 source of income? (Household - for ages [...] as of this encounter Nursing Notes * China Boland LPN - 01/27/2024 2:42 PM EDT Puracol Ag and Foam x2 placed over BLE wound. Coban 2 wrap applied for compression to BLE as per order. documented in this encounter Plan of Treatment Upcoming Encounters Date Type Department Care Team (Late st Contact Info) Description 01/31/2024 1:00 PM EDT Office Visit Vascular Surg [facility] [address] [place] [address] Flex Valentin MD [address] [place] [address] 01/31/2024 1:00 PM EDT Appointment Vascular Lab [facility], [address] [address] 01/31/2024 2:00 PM EDT Appointment Vascular [facility], [address] [address] 01/31/2024 2:30 PM EDT Nurse Only Wound Care, [place] [address] [place] [address] Care, Nurse Wound [facility] [place] [address] 02/06/2024 3:00 PM EDT Office Visit Dermatology [facility] [address] [place] [address] Dieudonne Braxton MD [address] [place] [address] 02/07/2024 2:30 PM EDT Nurse Only Wound Care, [address] [address] Care, Nurse Wound [facility] [place] [address] 02/14/2024 2:30 PM EDT Nurse Only Wound Care, [address] [address] Care, Nurse Wound [address] [place] [address] 02/21/2024 2:40 PM EST Office Visit Wound Care, [address] [address] Mario Sauceda MD [facility] [place] [address] 02/28/2024 2:30 PM EST Nurse Only Wound Care, [address] [address] Care, Nurse Wound [address] [place] [facility] [place] [address] 03/06/2024 2:30 PM EST Nurse Only Wound Care, [place] [address] [place] [address] Care, Nurse Wound [address] [place] [facility] [place] [address] 03/13/2024 2:30 PM EST Nurse Only Wound Care, [place] [address] [place] [address] Care, Nurse Wound [address] [facility] [place] [address] 03/20/2024 2:30 PM EST Nurse Only Wound Care, [place] [address] [place] [address] Care, Nurse Wound [address] [place] [address] 03/27/2024 2:40 PM EST Office Visit Wound Care, [place] [address] [place] [address] Mario Sauceda MD [address] [place] [address] 05/16/2024 2:00 PM EST Office Visit Gastroenterology, [facility] [address] [facility] [place] [address] Marlene Balderas CRNP [address] [place] [address] 09/13/2024 5:20 PM EDT Office Visit Family Practice [facility] [address] [place] [address] Raza Lion DO [address] [place] [address] Scheduled Procedures Name Priority Associated Diagnoses Date/Ti me COLONOSCOPY FLEXIBLE PROXIMAL DIAGNOSTIC Recall History of colon polyps Health Maintenance Due Date Last Done Comments DISCUSS TOBACCO CESSATION (REFER TO SMARTSET #6644) 1960 COVID-19 Vaccine (#1) 1963 Cologuard 2003 [...] of this encounter Visit Diagnoses Diagnosis Venous insufficiency- Primary Unspecified venous (peripheral) insufficiency Venous stasis ulcer of right ankle with fat layer exposed with varicose veins (HCC) documented in this encounter Care Teams Investigative Agent Relationship Specialty Start Date End Date Raza Lion DO [address] [facility] [place] [address] PCP - General Family Medicine 09/04/20 documented as of this encounter
--- OUTSIDE RECORDS SUMMARY | 2024-03-08 14:35 | External Medical Summary | Summary of Care ---
Author Name Unknown Organization [facility] Address [address] [place] [address] Phone [phone] Care Team Providers Care Channel Man Name Role Phone Raza Lion Primary Care Provider Reason for Visit * Reason Onset Date Comments Surgery 01/26/2024 Encounter Details Date Type Department Care Team (Late st Contact Info) Description 01/26/2024 Telephone Vascular Surg [facility] [place] [facility] [address] [place], [place] [phone] Flex Valentin MD [address] [place], [place] [id number] Surgery Allergies Active Allergy Reactions Criticality Noted Date Comments Erythromycin 07/21/2012 Contraindicated with Targretin (cancer med) documented as of this encounter (statuses as of 01/26/2024) Medications Medication Sig Dispensed Refills Start Date [...] as of this encounter (statuses as of 01/26/2024) Active Problems Problem Noted Date Diagnosed Date [...] 02/22/2022 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 03/02/2021 [...] as of this encounter (statuses as of 01/26/2024) Resolved Problems Problem Noted Date Diagnosed Date Resolved Date Abdominal discomfort 11/21/2017 018 COPD, severity to be determined 07/23/2016 07/31/2020 Overview: Per COPD GOLD Classification Periapical abscess 05/15/2014 8 Venous stasis ulcer of leg w ithout varicose veins 07/21/2012 07/14/2017 Anemia 07/21/2012 10/07/2017 documented as of this encounter (statuses as of 01/26/2024) Immunizations Name Administration Dates Next Due Hepatitis [...] encounter Miscellaneous Notes * Telephone Encounter - Trish Wheeler OSA [...] 1:00 PM EDT Office Visit Vascular Surg [address] [address] Flex Valentin MD [address] [place] [address] 01/31/2024 1:00 PM EDT Appointment Vascular Lab [address] [address] 01/31/2024 2:00 PM EDT Appointment Vascular [address] [address] 01/31/2024 2:30 PM EDT Nurse Only Wound Care, [address] [address] Care, Nurse Wound [address] [place] [address] 02/06/2024 3:00 PM EDT Office Visit Dermatology [facility] [address] [facility] [employer] [place] [address] Dieudonne Braxton MD 200 [facility] [place] [address] 02/07/2024 2:30 PM EDT Nurse Only Wound Care, [address] [address] Care, Nurse Wound [address] [place] [address] 02/14/2024 2:30 PM EDT Nurse Only Wound Care, [place] [address] [place] [address] Care, Nurse Wound [address] [place] [address] 02/21/2024 2:40 PM EST Office Visit Wound Care, [place] [address] [place] [address] Mario Sauceda MD [address] [place] [address] 02/28/2024 2:30 PM EST Nurse Only Wound Care, [place] [address] [place] [address] Care, Nurse Wound [address] [place] [address] 03/06/2024 2:30 PM EST Nurse Only Wound Care, [place] [address] [place] [address] Care, Nurse Wound [address] [place] [address] 03/13/2024 2:30 PM EST Nurse Only Wound Care, [place] [address] [place] [address] Care, Nurse Wound [address] [place] [address] 03/20/2024 2:30 PM EST Nurse Only Wound Care, [place] [address] [place] [address] Care, Nurse Wound [address] [place] [address] 03/27/2024 2:40 PM EST Office Visit Wound Care, [place] [address] [place] [address] Mario Sauceda MD [address] [place] [facility] [address] 05/16/2024 2:00 PM EST Office Visit Gastroenterology, [facility] [address] [place] [address] Marlene Balderas CRNP [address] [place] [address] 09/13/2024 5:20 PM EDT Office Visit Family Practice [facility] [address] [place] [address] Raza Lion DO [address] [place] [address] Scheduled Procedures Name Priority Associated Diagnoses Date/Ti me COLONOSCOPY FLEXIBLE PROXIMAL DIAGNOSTIC Recall History of colon polyps Health Maintenance Due Date Last Done Comments DISCUSS TOBACCO CESSATION (REFER TO SMARTSET #0818) 1960 COVID-19 Vaccine (#1) 1963 Cologuard 2003 [...] filedocumented as of this encounter Care Teams Channel Man Relationship Specialty Start Date End Date Raza Lion DO [address] [place] [address] PCP - General Family Medicine 09/04/20 documented as of this encounter
--- OUTSIDE RECORDS SUMMARY | 2024-03-08 14:35 | External Medical Summary | Summary of Care ---
Author Name Unknown Organization [facility] Address [address] [place] [address] Phone [phone] Care Team Providers Care Upsetter Name Role Phone Raza Lion DO Primary Care Provider Reason for Visit * Reason Onset Date Comments Fax 01/24/2024 Encounter Details Date Type Department Care Team (Late st Contact Info) Description 01/24/2024 Telephone Family Practice [facility] [address] [place] [address] Raza Lion DO [address] [place] [address] Fax Allergies Active Allergy Reactions Criticality Noted Date Comments Erythromycin 07/21/2012 Contraindicated with Targretin (cancer med) documented as of this encounter (statuses as of 01/25/2024) Medications Medication Sig Dispensed Refills Start Date [...] OF THE GEL 30 g 5 12/20/2023 Active Losartan Potassium 100 MG Oral Tablet [...] as of this encounter (statuses as of 01/25/2024) Active Problems Problem Noted Date Diagnosed Date [...] 02/22/2022 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[place] co ronary artery without angina pectoris 03/02/2021 COPD, group A, by GOLD 2017 classification 04/12 /2021 Overview: Per COPD GOLD Classification HTN, goal [...] as of this encounter (statuses as of 01/25/2024) Resolved Problems Problem Noted Date Diagnosed Date Resolved Date Abdominal discomfort 11/21/2017 018 COPD, severity to be determined 07/23/2016 07/31/2020 Overview: Per COPD GOLD Classification Periapical abscess 05/15/2014 8 Venous stasis ulcer of leg w ithout varicose veins 07/21/2012 07/14/2017 Anemia 07/21/2012 10/07/2017 documented as of this encounter (statuses as of 01/25/2024) Immunizations Name Administration Dates Next Due Hepatitis [...] encounter Miscellaneous Notes * Telephone Encounter - Monica Aquino LPN - 01/25/2024 11:59 AM EDT Faxed last OV note to the number below. * Telephone Encounter - Lillian Love OSA - 01/25/2024 11:52 AM EDT For me he would need to sign the medical release not sure if you guys can send what they need for him?? * Telephone Encounter - Tyesha Graves OSA - 01/25/2024 9:[address] [facility] calling back for update on their request for pt's med records. Specifically seeking pt's history and physical for past medical information and current med list. Pt is scheduled tomorrow, please fax information SUKH[facility]ER to [phone]. * Telephone Encounter - Veronique Yu OSA - 01/24/2024 2:14 PM EDT Pt needs medical records faxed to Dr. Morrissey (onc) at [facility] For 01/25 appointment. Ask for Trish Pt needs H&P sent documented in this encounter Plan of Treatment Upcoming Encounters Date Type Department Care Team (Latest Contact Info) Description 01/27/2024 10:33 AM EDT Hospital Encounter OR C, OPERATING ROOM [facility] [address] [place] [phone] Flex Valentin MD [address] [place] [address] 01/27/2024 10:33 AM EDT Anesthesia Event OR [facility], OPERATING ROOM [facility] [address] [place] [phone] Quang Wade CRNP [address] [place] [address] 01/27/2024 10:33 AM EDT - 01/27/2024 12:14 PM EDT Surgery OR [facility], OPERATING ROOM [facility], [facility] [address] [place] [address] Flex Valentin MD [address] [place] [address] ENDOVENOUS RADIOFREQUENCY ABLATION THERAPY FIRST VEIN 01/31/2024 1:00 PM EDT Office Visit Vascular Surg [facility], [place] [address] [place] [address] Flex Valentin MD [facility] [place] [place] [address] 01/31/2024 1:00 PM EDT Appointment Vascular Lab [address] [address] 01/31/2024 2:00 PM EDT Appointment Vascular [address] [address] 01/31/2024 2:30 PM EDT Nurse Only Wound Care, [address] [address] Care, Nurse Wound [facility] [place] [place] [address] 02/06/2024 3:00 PM EDT Office Visit Dermatology [facility] 200 [place] [address] Dieudonne Braxton MD [address] [facility] [address] 02/07/2024 2:30 PM EDT Nurse Only Wound Care, [address] [address] Care, Nurse Wound [address] [place] [address] 02/14/2024 2:30 PM EDT Nurse Only Wound Care, [address] [place] [address] Care, Nurse Wound [address] [place] [facility] [place] [address] 02/21/2024 2:40 PM EST Office Visit Wound Care, [place] [address] [place] [facility] [place] [address] Mario Sauceda MD [address] [place] [facility] [place] [address] 02/28/2024 2:30 PM EST Nurse Only Wound Care, [place] [address] [place] [facility] [place] [address] Care, Nurse Wound [address] [place] [facility] [place] [address] 03/06/2024 2:30 PM EST Nurse Only Wound Care, [place] [address] [place] [facility] [place] [address] Care, Nurse Wound [address] [place] [facility] [place] [address] 03/13/2024 2:30 PM EST Nurse Only Wound Care, [place] [address] [place] [facility] [place] [address] Care, Nurse Wound [address] [place] [facility] [place] [address] 03/20/2024 2:30 PM EST Nurse Only Wound Care, [place] [address] [place] [address] Care, Nurse Wound [address] [place] [facility] [place] [address] 03/27/2024 2:40 PM EST Office Visit Wound Care, [place] [address] [place] [facility] [place] [address] Mario Sauceda MD [address] [place] [address] 05/16/2024 2:00 PM EST Office Visit Gastroenterology, [address] [place] [address] Marlene Balderas CRNP [address] [place] [address] 09/13/2024 5:20 PM EDT Office Visit Family Practice [facility] [address] [place] [address] Raza Lion, [address] [place] [address] Scheduled Procedures Name Priority Associated Diagnoses Date/Ti me ENDOVENOUS RADIOFREQUENCY ABLATION THERAPY FIRST VEIN 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) Venous insufficiency Cigar smoker 01/27/2024 10:33 AM EDT COLONOSCOPY FLEXIBLE PROXIMAL DIAGNOSTIC Recall History of colon polyps Health Maintenance Due Date Last Done Comments DISCUSS TOBACCO CESSATION (REFER TO SMARTSET #3298) 1960 COVID-19 Vaccine (#1) 1963 Cologuard 2003 [...] filedocumented as of this encounter Care Teams Upsetter Relationship Specialty Start Date End Date Raza Lion DO [address] [place] [address] PCP - General Family Medicine 09/04/20 documented as of this encounter
--- OUTSIDE RECORDS SUMMARY | 2024-03-08 14:35 | External Medical Summary | Summary of Care ---
Author Name Unknown Organization [facility] Address [address] [place] [address] Phone [phone] Care Team Providers Care Assistant Technician Name Role Phone Raza Lion Primary Care Provider Reason for Visit * Reason Comments Wound Care Encounter Details Date Type Department Care Team (Late st Contact Info) Description 01/18/2024 2:30 PM EDT Nurse Only Wound Care, [place] [address] [place] [address] Care, Nurse Wound [address] [place] [address] Wound Care Allergies Active Allergy Reactions Criticality Noted Date Comments Erythromycin 07/21/2012 Contraindicated with Targretin (cancer med) documented as of this encounter (statuses as of 01/18/2024) Medications Medication Sig Dispensed Refills Start Date [...] as of this encounter (statuses as of 01/18/2024) Active Problems Problem Noted Date Diagnosed Date [...] 02/22/2022 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[place] co ronary artery without angina pectoris 03/02/2021 [...] as of this encounter (statuses as of 01/18/2024) Resolved Problems Problem Noted Date Diagnosed Date Resolved Date Abdominal discomfort 11/21/2017 018 COPD, severity to be determined 07/23/2016 07/31/2020 Overview: Per COPD GOLD Classification Periapical abscess 05/15/2014 8 Venous stasis ulcer of leg w ithout varicose veins 07/21/2012 07/14/2017 Anemia 07/21/2012 10/07/2017 documented as of this encounter (statuses as of 01/18/2024) Immunizations Name Administration Dates Next Due Hepatitis [...] as of this encounter Nursing Notes * Catarina Gonzalez LPN - 01/18/2024 2:48 PM EDT Puracol and Ag foam placed over LLE wound.Coban 2 wrap with an extra cohesive layer applied for compression to LLE as per order. documented in this encounter Plan of Treatment Upcoming Encounters Date Type Department Care Team (Latest Contact Info) Description 01/23/2024 2:30 PM EDT Nurse Only Wound Care, [place] [address] [place], [place] [phone] Care, Nurse Wound [address] [place] [address] 01/27/2024 10:53 AM EDT Hospital Encounter [place] [facility], OPERATING ROOM [facility] [address] [place] [phone] Flex Valentin MD [address] [place], [place] [address] 01/27/2024 10:53 AM EDT Anesthesia Event OR [facility], OPERATING ROOM [facility] [address] [place] [address] Quang Wade CRNP [address] [place] [address] 01/27/2024 10:53 AM EDT - 01/27/2024 12:34 PM EDT Surgery [place] [facility], OPERATING ROOM [facility] [address] [place] [address] Flex Valentin MD [address] [place], [place] [phone] ENDOVENOUS RADIOFREQUENCY ABLATION THERAPY FIRST VEIN 01/31/2024 1:00 PM EDT Office Visit Vascular Surg [facility] [address] [place], [place] [phone] Flex Valentin MD [address] [place], [place] [address] 01/31/2024 1:00 PM EDT Appointment Vascular Lab [facility] [address] [place], [place] [phone] 01/31/2024 2:00 PM EDT Appointment Vascular Lab [facility], [place] [address] [place] [address] 01/31/2024 2:30 PM EDT Nurse Only Wound Care, [place] [address] [place] [address] Care, Nurse Wound [address] [place] [address] 02/06/2024 3:00 PM EDT Office Visit Dermatology [facility] 200 [facility] [place], [place] [phone] Dieudonne Braxton MD [address] [place] [address] 02/07/2024 2:30 PM EDT Nurse Only Wound Care, [place] [address] [place] [address] Care, Nurse Wound [address] [place] [address] 02/14/2024 2:30 PM EDT Nurse Only Wound Care, [place] [address] [place] [address] Care, Nurse Wound [address] [place] [address] 02/21/2024 2:40 PM EST Office Visit Wound Care, [place] [address] [place] [address] Mario Sauceda MD [address] [place] [address] 02/28/2024 2:30 PM EST Nurse Only Wound Care, [place] [address] [place] [address] Care, Nurse Wound [address] [place] [address] 03/06/2024 2:30 PM EST Nurse Only Wound Care, [place] [address] [place] [address] Care, Nurse Wound [address] [place] [address] 03/13/2024 2:30 PM EST Nurse Only Wound Care, [place] [address] [place] [address] Care, Nurse Wound [address] [place] [address] 03/20/2024 2:30 PM EST Nurse Only Wound Care, [place] [address] [place] [address] Care, Nurse Wound [address] [place] [address] 03/27/2024 2:40 PM EST Office Visit Wound Care, [place] [address] [place] [address] Mario Sauceda MD [address] [place] [address] 05/16/2024 2:00 PM EST Office Visit Gastroenterology, [facility] [address] [facility] [address] Marlene Balderas CRNP [address] [facility] [place] [address] 09/13/2024 5:20 PM EDT Office Visit Family Practice [facility] [address] [facility] [address] Raza Lion DO [address] [facility] [address] Scheduled Procedures Name Priority Associated Diagnoses Date/Ti me ENDOVENOUS RADIOFREQUENCY ABLATION THERAPY FIRST VEIN 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) Venous insufficiency Cigar smoker 01/27/2024 10:53 AM EDT COLONOSCOPY FLEXIBLE PROXIMAL DIAGNOSTIC Recall History of colon polyps Health Maintenance Due Date Last Done Comments DISCUSS TOBACCO CESSATION (REFER TO SMARTSET #0825) 1960 COVID-19 Vaccine (#1) 1963 Cologuard 2003 [...] disorder documented in this encounter Care Teams Assistant Technician Relationship Specialty Start Date End Date Raza Lion DO [address] [facility] [place] [address] PCP - General Family Medicine 09/04/20 documented as of this encounter
--- OUTSIDE RECORDS SUMMARY | 2024-03-08 14:36 | External Medical Summary | Summary of Care ---
Author Name Unknown Organization [facility] Address [address] [facility] [place] [address] Phone [phone] Care Team Providers Care Membership Advisor Name Role Phone Raza Lion DO Primary Care Provider Reason for Visit * Reason Comments Medication Refill Encounter Details Date Type Department Care Team (Late st Contact Info) Description 01/03/2024 Refill Family [facility] [address] [place] [address] Raza Lion DO [address] [place] [id number] Stasis ulcer of lower extremity, left (HCC)* Allergies Active Allergy Reactions Criticality Noted Date Comments Erythromycin 07/21/2012 Contraindicated with Targretin (cancer med) documented as of this encounter (statuses as of 01/05/2024) Medications Medication Sig Dispensed Refills Start Date [...] for Severe Pain. 21 Tablet 01/05/2024 Active HYDROcodone-Acetami nophen 5-325 MG Oral Tablet Take 1 Tablet by mouth at bedtime as needed for Severe Pain. 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 03/02/2021 [...] upper back 10/2018, 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 Cholelithiases 08/04/2012 Overview: Found on 07/2012 CT [...] as of this encounter (statuses as of 01/05/2024) Resolved Problems Problem Noted Date Diagnosed Date Resolved Date Abdominal discomfort 11/21/2017 018 COPD, severity to be determined 07/23/2016 07/31/2020 Overview: Per COPD GOLD Classification Periapical abscess 05/15/2014 8 Venous stasis ulcer of leg w [facility] varicose veins 07/21/2012 07/14/2017 Anemia 07/21/2012 10/07/2017 documented as of this encounter (statuses as of 01/05/2024) Immunizations Name Administration Dates Next Due Hepatitis [...] 0 (1 standard drink = 0.6 oz pur e alcohol) weekends PHQ-2 Answer Date Recorded PHQ Adult Total Score 0 12/26/2023 Hunger Vital Sign Answer Date Recorded Within the past 12 months, y ou worried that your food would run out before you got the money to buy more. Never true 12/26/19 24 Within the past 12 months, t he food you bought just didn't last and you didn't have money to get more. Never true 12/26/2023 Childcare Answer Date Recorded Do you feel overwhelmed with taking care of a child, family member or friend? No 12/26/2023 Does your family need help f inding childcare? (Household - for ages 0-17 years) Not on file 12/26/2023 Clothing Answer Date Recorded Have you been unable to get clothing when it was really needed? No 12/26/2023 Is your family able to get c lothes or diapers when needed? (Household - for ages 0-17 years) Not on file 12/26/2023 Personal Safety Answer Date Recorded Do you feel unsafe or have concerns for your saf ety? No 12/26/2023 Do you have concerns for you r family's safety? (Household - for ages 0-17 years) Not on file 12/26/2023 Utilities Answer Date Recorded Do you have trouble paying y our heating, water, or electric bill? No 12/26/2023 Is your family able to pay t he heat, water, or electric bill? (Household - for ages 0-17 years) Not on file 12/26/2023 Does your family have access to good internet? (Household - for ages 0-17 years) Not on file 12/26/2023 Employment Status Answer Date Recorded Are you unemployed or without regular income? No 12/26/2023 Does the household have a re gular source of income? (Household - for ages 0-17 years) Not on file 12/26/2023 Social Connections Answer Date Recorded How often do you feel lonely or isolated from those around you? Sometimes 12/26/2023 Financial Resource Strain Answer Date R ecorded Do you have any trouble payi ng for your medications, or do you think you might in the future? No 12/26/2023 Does your family have troubl e paying for medicine? (Household - for ages 0-17 years) Not on file 12/26/2023 Transportation Needs Answer Date Record ed READ ONLY Do you have troubl e getting a ride to medical visits or work? Never True 12/26/2023 Does your family have a hard time getting a ride to doctors visits? (Household - for ages 0-17 years) Not on file 12/26/2023 Has lack of transportation k ept you from medical appointments, meetings, work, or from getting things needed for daily living? Check all that apply. No 12/26/2023 Do you (or your family) have trouble finding or paying for a ride (transportation)? (Household - for ages 0-17 years) Not on file 12/26/2023 Housing Stability Answer Date Recorded Do you currently live in a s helter or have no steady place to sleep at night? No 12/26/2023 READ ONLY Do you think you a re at risk of becoming homeless? No 12/26/2023 Does your family worry about paying for your home or becoming homeless? (Household - for ages 0-17 years) Not on file 0 12/26/2023 Are you homeless or worried that you might be in the future? No 12/26/2023 Are you (or your family) rebeca eless or worried that you might be in the future? (Household - for ages 0-17 years) Not on file Food Insecurity Answer Date Recorded Do you need food for this week? No 12/26/2023 Are you able to get enough f ood for your family? (Household - for ages 0-17 years) Not on file 12/26/2023 Does your family need food t his week? (Household - for ages 0-17 years) Not on file 12/26/2023 Do you always have enough fo od for your family? (Household - for ages 0-17 years) Not on file 12/26/2023 Sex and Gender Information Value Date Recorded Sex Assigned at Male 05/09/2019 10:43 AM EST Gender Identity Male 05/09/2019 10:43 AM EST Sexual Orientation Straight 05/09/2019 10 :43 AM EST Job Start Date Occupation Industry Not on file Not on file Not on file documented as of this encounter Miscellaneous Notes * Telephone Encounter - Marcial Patricia CRNP - 01/05/2024 11:42 AM EDTSigned Prescriptions: Disp Refills HYDROcodone-Acetaminophen 5-325 MG Oral Ta*21 Tab*0 Sig: Take 1 Tablet by mouth at bedtime as needed for Severe Pain. Authorizing Provider: MARCIAL PATRICIA * Telephone Encounter - Marcial Patricia CRNP - 01/05/2024 11:42 AM EDTSigned Prescriptions: Disp Refills HYDROcodone-Acetaminophen 5-325 MG Oral Ta*21 Tab*0 Sig: Take 1 Tablet by mouth at bedtime as needed for Severe Pain. Authorizing Provider: MARCIAL PATRICIA * Telephone Encounter - Marcial Patricia CRNP - 01/05/2024 11:[address] Lion today. I have reviewed the patients controlled substance dispensing history in the Prescription Drug Monitoring Program in compliance with the [place] regulations before prescribing a controlled substance. Last Tox Screen Results: Results for orders placed or performed in [...] results can be found in Results Review. * Telephone Encounter - Monica Aquino LPN - 01/04/2024 2:16 PM EDT See other TE as well. Did you pend patient's preferred pharmacy and medication before forwarding?yes Pharmacy: [facility] Pending Prescriptions: Disp Refills HYDROcodone-Acetaminophen 5-325 MG Oral T*21 Tab*0 Sig: Take 1 Tablet by mouth at bedtime as needed for Severe Pain. Last Visit: 12/10/2023 (in office), 07/16/2019 (telemedicine) Next Visit: 09/13/2024 If no future appointments scheduled, and last appointment is greater than a year ago, please schedule patient for a follow-up appointment Last date the medication was ordered: 11/21/2023 Is this request for a controlled substance?Yes, What was the last refill date 11/21/2023 w/ quantity 21 and dosage 5-325mg and Urine Drug Screen was completed Urine Drug Screen: Results for orders placed [...] 03/28/2019 12:39 PM * Telephone Encounter - Tyesha Moeller MED ASSIST - 01/04/2024 9:18 AM EDT Pending Prescriptions: Disp Refills HYDROcodone-Acetaminophen 5-325 MG Oral Ta*21 Tab*0 Sig: Take 1Tablet by mouth at bedtime as needed for Severe Pain. documented in this encounter Plan of Treatment Upcoming Encounters Date Type Department Care Team (Latest Contact Info) Description 01/10/2024 1:30 PM EDT Pre-Admission Testing Pre Surgery Center, [place] [address] [place] [address] [facility] [address] [place] [address] 01/10/2024 2:30 PM EDT Nurse Only Wound Care, [address] [address] Care, Nurse Wound [address] [place] [address] 01/16/2024 2:40 PM EDT Office Visit Wound Care, [place] [address] [place] [address] Mario Sauceda MD [address] [place] [address] 01/23/2024 2:30 PM EDT Nurse Only Wound Care, [place] [address] [place] [address] Care, Nurse Wound [address] [place] [address] 01/27/2024 10:53 AM EDT Hospital Encounter [facility], OPERATING ROOM [facility] [address] [place] [facility] [phone] Flex Valentin MD [address] [place] [address] 01/27/2024 10:53 AM EDT Anesthesia Event OR [facility], OPERATING ROOM [facility] [address] [place] [facility] [address] Quang Wade CRNP [address] [facility] [address] 01/27/2024 10:53 AM EDT - 01/27/2024 12:34 PM EDT Surgery OR [facility], OPERATING ROOM [facility] [place] [address] [place] [phone] Flex Valentin MD [address] [place] [address] ENDOVENOUS RADIOFREQUENCY ABLATION THERAPY FIRST VEIN 01/31/2024 1:00 PM EDT Office Visit Vascular Surg [facility], [place] [address] [place] [address] Flex Valentin MD [address] [place] [address] 01/31/2024 2:30 PM EDT Nurse Only Wound Care, [place] [address] [place] [address] Care, Nurse Wound [address] [place] [facility] [place] [address] 02/06/2024 3:00 PM EDT Office Visit Dermatology [facility] [place] [address] [facility] [place] [id number] Dieudonne Braxton MD [address] [facility] [place] [address] 02/07/2024 2:30 PM EDT Nurse Only Wound Care, [place] [address] [place] [address] Care, Nurse Wound [address] [place] [facility] [place] [address] 02/14/2024 2:30 PM EDT Nurse Only Wound Care, [place] [address] [place] [address] Care, Nurse Wound [address] [place] [address] 02/21/2024 2:40 PM EST Office Visit Wound Care, [place] [address] [place] [address] Mario Sauceda MD [address] [place] [address] 02/28/2024 2:30 PM EST Nurse Only Wound Care, [place] [address] [place] [address] Care, Nurse Wound [address] [place] [address] 03/06/2024 2:30 PM EST Nurse Only Wound Care, [place] [address] [place] [address] Care, Nurse Wound [address] [place] [address] 03/13/2024 2:30 PM EST Nurse Only Wound Care, [place] [address] [place] [address] Care, Nurse Wound [address] [place] [address] 03/20/2024 2:30 PM EST Nurse Only Wound Care, [place] [address] [place] [address] Care, Nurse Wound [address] [place] [facility] [address] 03/27/2024 2:40 PM EST Office Visit Wound Care, [place] [address] [place] [address] Mario Sauceda MD [address] [place] [address] 05/16/2024 2:00 PM EST Office Visit Gastroenterology, [facility] [address] [place] [address] Marlene Balderas CRNP [address] [place] [address] 09/13/2024 5:20 PM EDT Office Visit Family Practice [facility] [address] [place] [address] Raza Lion DO [address] [place] [address] Scheduled Procedures Name Priority Associated Diagnoses Date/Ti me ENDOVENOUS RADIOFREQUENCY ABLATION THERAPY FIRST VEIN 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) Venous insufficiency Cigar smoker 01/27/2024 10:53 AM EDT COLONOSCOPY FLEXIBLE PROXIMAL DIAGNOSTIC Recall History of colon polyps Health Maintenance Due Date Last Done Comments DISCUSS TOBACCO CESSATION (REFER TO SMARTSET #8412) 1960 COVID-19 Vaccine (#1) 1963 Cologuard 2003 Fecal Occult Blood Test 2003 Sigmoidoscopy 2003 DTap/Tdap Vaccines (2 - Td or Tdap) 10/04/2022 10/04/2012 Pneumococcal Vaccine: 65+ Years (4 of 4 - PPSV23 or PCV20) 2023 03/20/2019, 03/08/2017, 04/18/2001 Influenza Vaccine (FLU shot) (#1) 2023 04/22/2022, 03/02/2021, 03/25/2020, Additional history exists HbA1c 12/26/2023 12/25/2022, 08/17, 05/08/2021, Additional history exists O2 ASSESSMENT COMPLETED IN PAST YEAR FOR COPD 12/09/2024 12/10/2023 Depression Screening 12/25/2024 12/26/2023 GFR 01/01/2025 01/02/2024, 0 11/2023, 08/27/2023, Additional history exists TSH 01/01/2025 01/02/2024, 0 11/2023, 08/27/2023, Additional history exists Albumin/Creatinine Ratio 12/25/2025 12/25/2022, 04/19 Colonoscopy 08/18/2026 [...] (peripheral) insufficiency Cigar smoker Tobacco use disorder Stasis ulcer of lower extremity, left (HCC)- Primary 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) Varicose veins of lower extremities with ulcer and inflammation Venous insufficiency Unspecified venous (peripheral) insufficiency Cigar smoker Tobacco use disorder documented in this encounter Care Teams Membership Advisor Relationship Specialty Start Date End Date Raza Lion DO [address] [place] [address] PCP - General Family Medicine 09/04/20 documented as of this encounter
--- OUTSIDE RECORDS SUMMARY | 2024-03-08 14:36 | External Medical Summary | Summary of Care ---
Author Name Unknown Organization [facility] Address [address] [place] [facility] [place] [place] [address] Phone [phone] Care Team Providers Care Ice Plant Operator Name Role Phone LionAnupbelle Mcclendonsyed Primary Care Provider Encounter Details Date Type Department Care Team (Late st Contact Info) Description 01/05/2024 Population Health External Data Unspecified Department Allergies Active Allergy Reactions Criticality Noted Date Comments Erythromycin 07/21/2012 Contraindicated with Targretin (cancer med) documented as of this encounter (statuses as of 01/09/2024) Medications Medication Sig Dispensed Refills Start Date [...] for Severe Pain. 21 Tablet 01/05/2024 Active documented as of this encounter (statuses as of 01/09/2024) Active Problems Problem Noted Date Diagnosed Date [...] as of this encounter (statuses as of 01/09/2024) Resolved Problems Problem Noted Date Diagnosed Date Resolved Date Abdominal discomfort 11/21/2017 018 COPD, severity to be determined 07/23/2016 07/31/2020 Overview: Per COPD GOLD Classification Periapical abscess 05/15/2014 8 Venous stasis ulcer of leg w ithout varicose veins 07/21/2012 07/14/2017 Anemia 07/21/2012 10/07/2017 documented as of this encounter (statuses as of 01/09/2024) Immunizations Name Administration Dates Next Due Hepatitis [...] PM EDT Pre-Admission Testing Pre Surgery Center, [place] [address] [place] [address] [facility] [address] [place] [address] 01/10/2024 2:30 PM EDT Nurse Only Wound Care, [place] [address] [place] [address] Care, Nurse Wound [address] [place] [address] 01/16/2024 2:40 PM EDT Office Visit Wound Care, [place] [address] [place] [address] Mario Sauceda MD [address] [place] [address] 01/23/2024 2:30 PM EDT Nurse Only Wound Care, [place] [address] [place] [address] Care, Nurse Wound [address] [place] [address] 01/27/2024 10:53 AM EDT Hospital Encounter [place] [facility] [place] [facility] [place] [address] [place] [phone] Flex Valentin MD [address] [place], [place] [id number] 01/27/2024 10:53 AM EDT Anesthesia Event [place] [facility] [place] OPERATING ROOM [facility] [place] [address] [place] [phone] Quang Wade CRNP [address] [place] [address] 01/27/2024 10:53 AM EDT - 01/27/2024 12:34 PM EDT Surgery OR C, OPERATING ROOM [facility] [place] [address] [facility] [place] [address] Flex Valentin MD [address] [facility] [place] [address] ENDOVENOUS RADIOFREQUENCY ABLATION THERAPY FIRST VEIN 01/31/2024 1:00 PM EDT Office Visit Vascular Surg [facility], [place] [address] [place] [address] Flex Valentin MD [address] [place] [address] 01/31/2024 2:30 PM EDT Nurse Only Wound Care, [place] [address] [place] [address] Care, Nurse Wound [address] [place] [address] 02/06/2024 3:00 PM EDT Office Visit Dermatology [facility] [address] [place] [address] Dieudonne Braxton MD [address] [place] [address] 02/07/2024 2:30 PM EDT Nurse Only Wound Care, [place] [address] [place] [address] Care, Nurse Wound [address] [place] [address] 02/14/2024 2:30 PM EDT Nurse Only Wound Care, [place] [address] [place] [address] Care, Nurse Wound [address] [place] [address] 02/21/2024 2:40 PM EST Office Visit Wound Care, [place] [address] [place] [address] Mario Sauceda MD [address] [facility] [place] [address] 02/28/2024 2:30 PM EST Nurse Only Wound Care, [place] [address] [facility] [place] [address] Care, Nurse Wound [address] [facility] [place] [address] 03/06/2024 2:30 PM EST Nurse Only Wound Care, [place] [address] [facility] [place] [address] Care, Nurse Wound [address] [facility] [place] [address] 03/13/2024 2:30 PM EST Nurse Only Wound Care, [place] [address] [place] [address] Care, Nurse Wound [address] [facility] [place] [address] 03/20/2024 2:30 PM EST Nurse Only Wound Care, [place] [address] [facility] [place] [address] Care, Nurse Wound [address] [facility] [place] [address] 03/27/2024 2:40 PM EST Office Visit Wound Care, [place] [address] [facility] [place] [address] Mario Saucead MD [address] [place] [address] 05/16/2024 2:00 PM EST Office Visit Gastroenterology, [facility] [address] [facility] [place] [address] Marlene Balderas CRNP [address] [facility] [place] [address] 09/13/2024 5:20 PM EDT Office Visit Family Practice [facility] [address] [place] [address] Raza Lion, [address] [place] [address] Scheduled Procedures Name Priority Associated Diagnoses Date/Ti me ENDOVENOUS RADIOFREQUENCY ABLATION THERAPY FIRST VEIN 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) Venous insufficiency Cigar smoker 01/27/2024 10:53 AM EDT COLONOSCOPY FLEXIBLE PROXIMAL DIAGNOSTIC Recall History of colon polyps Health Maintenance Due Date Last Done Comments DISCUSS TOBACCO CESSATION (REFER TO SMARTSET #4834) 1960 COVID-19 Vaccine (#1) 1963 Cologuard 2003 [...] Depression Screening 12/25/2024 12/26/2023 GFR 01/01/2025 01/02/2024, 06/0 11/2023, 08/27/2023, Additional history exists TSH 01/01/2025 01/02/2024, 06/0 11/2023, 08/27/2023, Additional history exists Albumin/Creatinine Ratio [...] filedocumented as of this encounter Care Teams Ice Plant Operator Relationship Specialty Start Date End Date Raza Lion DO [address] [place] [address] PCP - General Family Medicine 09/04/20 documented as of this encounter
--- OUTSIDE RECORDS SUMMARY | 2024-03-08 14:36 | External Medical Summary | Summary of Care ---
Author Name Unknown Organization [facility] Address [address] [place] [address] Phone [phone] Care Team Providers Care Frame Assembler Name Role Phone Raza Lion Primary Care Provider Reason for Visit * Reason Onset Date Comments Pre-Op Testing 01/10/2024 Encounter Details Date Type Department Care Team (Latest Contact Info) Description 01/10/2024 1:30 PM EDT Pre-Admission Testing Pre Surgery [facility] [address] [place] [address] [facility] [address], [place] [id number] Pre-operative examination* Allergies Active Allergy Reactions Criticality Noted Date Comments Erythromycin 07/21/2012 Contraindicated with Targretin (cancer med) documented as of this encounter (statuses as of 01/10/2024) Medications Medication Sig Dispensed Refills Start Date [...] as of this encounter (statuses as of 01/10/2024) Active Problems Problem Noted Date Diagnosed Date [...] 02/22/2022 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algaaciq co ronary artery without angina pectoris 03/02/2021 [...] as of this encounter (statuses as of 01/10/2024) Resolved Problems Problem Noted Date Diagnosed Date Resolved Date Abdominal discomfort 11/21/2017 018 COPD, severity to be determined 07/23/2016 07/31/2020 Overview: Per COPD GOLD Classification Periapical abscess 05/15/2014 8 Venous stasis ulcer of leg w ithout varicose veins 07/21/2012 07/14/2017 Anemia 07/21/2012 10/07/2017 documented as of this encounter (statuses as of 01/10/2024) Immunizations Name Administration Dates Next Due Hepatitis B, 20+ yrs 02/11/2015,08/09/2014,07/01 Pneumococcal Conjugate Vacc, 13 Valent (Prevnar) 03/20/2019 Pneumococcal Polysaccharide PPV23 (Pneumovax) 03/08/2017,04/18/2001 Seasonal Influenza Virus Vac cine, Unspecified Formulation 03/25/2020,03/20/2019,03/08/2017,11/0 10/2015,02/11/2015,01/07/2014,01/24/20 13 Seasonal Influenza, PF, 6 M & above, IM , (FluLaval or Fluzone) 04/22/2022,03/02/2021,03/25/2020,1206/2018,03/08/2017 Seasonal Influenza, Quadriva lent, No Preserve, IM 02/23/2016,02/11/2015 Seasonal Influenza, Trivalen t, (IIV3), with Preserv, (Fluzone) 01/07/2014,01/23/2013 TDAP (age 10 and older)(Boostrix) 10/04/2012 Zoster Vaccine Recombinant (Shingrix) ,07/05/2019(Deferred: Contraindication),05/09/2019 07/09/2019 documented as of this encounter Anesthesia Record Procedure Summary Procedure Name Responsible Anesthesiologist Anesthesia Start Time Anesthesia Stop Time ENDOVENOUS RADIOFREQUENCY ABLATION THERAPY FIRST VEIN (Left) Events No events on file. Meds * Agents No agents on file. * Blood No blood administrations on file. Lines, Drains, and Airways Type Details Placement Removal Alteration in Skin Integrity Placement Date: 09/01/23; Time: 1334; Orientation/Laterality: Right, Medial; Location: Ankle 09/01/23 1334 by Robert Lopez MED ASSIST Alteration in Skin Integrity Placement Date: 09/01/23; Time: 1335; Orientation/Laterality: Left, Medial; Location: Ankle 09/01/23 1335 by Robert Lopez MED ASSIST Alteration in Skin Integrity Placement Date: 12/13/23; Time: 1520; Orientation/Laterality: Anterior, Left; Location: Foot 12/13/23 1520 by Sharon Barone LPN documented in this encounter Social History Tobacco Use Types [...] 12/26/2023 Does the household have a re lar [...] on file documented as of this encounter Last Filed Vital Signs Vital Sign Reading Time Taken Comments Blood Pressure 149/90 01/10/2024 1:49 PM EDT Pulse 83 01/10/2024 1:49 PM EDT Temperature - - Respiratory Rate - - Oxygen Saturation 97% 01/10/2024 1:49 PM EDT Inhaled Oxygen Concentration - - Weight - - Height - - Body Mass Index - - documented in this encounter Patient Instructions * Patient Instructions* Savannah Rodriguez, JASMIN/AURA - 01/10/2024 2:35 PM EDT [facility]: Contact # [phone] Please follow the pre-operative instructions provided by your vascular surgeon. If you have any questions regarding these instructions please contact your surgeon's office at [phone]. Directions to Surgical Suite in from the Ra Entrance The Surgical Waiting Room can be found in the Lobby of [facility]. Enter through Main Lobby Entrance and the Waiting Room is directly in front of you. Proceed to check in and give them your name. Directions to Surgical Suite from the East Entrance Enter the East entrance and follow the hallway to the J elevator. Take the J elevator up to Level 1. Continue down the long hallway to the main [facility] Lobby. The Surgical Waiting Room will be on your Right. Proceed to check in and give them your Name. Directions to Surgical Suite from the Parking Garage Enter the [facility] lobby and proceed down the rm to the left. At the end of the rm, turn right. Continue down the long hallway to the main [facility] Lobby. The Surgical Waiting Room will be on your Right. Proceed to check in and give them your Name. THANK YOU FOR CHOOSING [facility] PRE-OP PATIENT INFORMATION AND EDUCATION: MEDICATION INSTRUCTIONS: The day of surgery/procedure, you may TAKE the following medications with a sip of water up to 2 hours prior to your arrival time: Amlodipine Atorvastatin Famotidine Gabapentin Hydrocodone Levothyroxine Omeprazole Tizanidine AVOID / DO NOT TAKE the following medications the morning of surgery/procedure: Docusate Sodium Hydrochlorothiazide Trazodone AVOID / DO NOT TAKE the following medications the evening prior to and morning of surgery/procedure: -Metformin Betamethasone Dipropionate Losartan Valchlor 0.016 % External Gel STOP taking the following medications the noted number of days prior to surgery/procedure unless otherwise specified by your surgeon: Baxarotene please check with prescriber re: stopping or continuing medication prior to surgery Pentoxifylline Ask prescriber for instructions. Please follow surgeon's instructions regarding use of Aspirin, Coumadin, Plavix, Eliquis, and any other blood thinner including NSAIDs (non-steroidal anti- inflammatory drugs, eg, Advil, Ibuprofen, Motrin, Aleve, Naproxen); if you have any questions regarding your anticoagulation therapy please contact your surgeon's clinic. Please verify any proposed stoppage of your anticoagulation therapy with the agent's prescribing provider. 10 days prior to surgery/procedure Stop all Herbal supplements, Green Tea, Turmeric, Melatonin, CBD, THC, etc. Stop all Vitamins (including Vitamin B12, Benefiber, Ferrous Sulfate) 24 hours prior to surgery/procedure DO NOT consume any alcohol. DO NOT use medical marijuana. DO NOT smoke or use tobacco products of any kind after midnight prior to surgery. *Using any of these products may increase your risks of procedural complications. IF IT IS LESS THAN RECOMMENDED STOPPAGE TIME PLEASE STOP AT TIME OF NOTIFICATION. FASTING RECOMMENDATIONS: To reduce risk, it is important for all elective surgery patients to follow the specific fasting guidelines listed below. If you have received more stringent guidelines, please follow the MOST RESTRICTIVE guidelines that you have been provided. DO NOT EAT after midnight on the night prior to your surgery date. You are allowed to drink clear liquids up to two hours prior to arrival time to the hospital or surgery center. Examples of clear liquids include water, clear fruit juice without pulp, clear carbonated beverages, clear tea, and black coffee. Any drinks given by your surgical service take as directed. THE DAY BEFORE YOUR SURGERY: -Drink plenty of fluid the day before your surgery. Contact your surgeon's office if you develop any of the following within 2 weeks of surgery: A cold Infection Fever Shingles Chicken pox or exposure to chicken pox Open areas such as scrapes, cuts, schulte or other skin conditions Rashes GENERAL INSTRUCTIONS FOR PREPARING FOR SURGERY: BATHING INSTRUCTIONS: Bathe the evening prior to and the morning of surgery/procedure. Cleanse your body using ONLY anti-bacterial soap (eg, Dial, Safeguard) or any specific soap/cleansers and instructions provided by your surgeon (eg, Chlorhexidine). -You should brush your teeth the morning of surgery. Do NOT apply any lotions, powders, sprays, creams, oils, make-up, or deodorants after bathing. No hairspray, or nail icelandic on fingers or toes. If you wear contacts wear your eyeglasses if available otherwise bring your contact supplies with you to remove them prior to your surgery/procedure. If you wear glasses or dentures, please bring cases in which you can store them during your surgery. Please remove all piercings and jewelry and leave them at home. Wear comfortable and loose clothing. -Please leave all valuables at home. -An escort tour bus driver is required if you are being discharged the same day of the surgery. You should have a responsible adult over the age of 18 [address] you home. This person should be present with youin the hospital at the time of discharge and for the first 24 hours after the surgery to support your needs. If you are taking a taxi home, you must have your responsible green party accompany you in the taxi ride home at the time of discharge. OR times subject to change. Please check voicemail messages the day/evening before your surgery forany updates. PRE-OP: You will be taken to the pre-op area where your vital signs (blood pressure, pulse and temperature)will be taken. Any preparations that need to be done will be done there. When it is time for your surgery, you will be taken to the operating room. OUTPATIENT SURGERY PATIENTS: After your surgery you will be taken to the Same Day Surgery Unit when you are awake and will go home from there. You will get instructions about your home care before you leave. Arrange to have someone drive you home from the hospital. You may not drive for 24 hours after anesthesia. You must havean adult stay with you at home for 24 hours after your operation. This is very important. If you are not able to comply with these guidelines, your Short Stay surgery cannot be done. ADMISSION PATIENTS: After your stay in the recovery area, you will be taken to your room. Your family may visit you in your room based on current visitation policy. If a next day discharge is expected, it is important to make arrangements for a tour bus driver to take you home. Please be aware our visitation policies are subject to change Professionals, attendants, caregivers or family members are allowable visitors for patients with intellectual, developmental or cognitive disabilities, communication barriers or behavioral concerns. Because patients' and families' needs vary, they will be taken into account when applying visitation restrictions. ANESTHESIA INFORMATION This information has been prepared to help you and your family better understand the process of anesthesia, so that you may help make well-informed decisions about your care. This information is alsoprovided to guide your completion of the [facility] anesthesia consent form which addresses real, but infrequent, problems associated with anesthesia. IMPORTANT INFORMATION TO PREVENT YOUR SURGERY FROM BEING CANCELLED/ RESCHEDULED: --You are required to have a tour bus driver to take you home whether you are admitted to the hospital following your surgery or not --You are required to have a responsible adult with you for the first 24 hours after surgery to support your needs Types of Anesthesia: Local Anesthesia Local anesthetic drugs (numbing drugs) are usually injected into the tissues to numb just the specific location of your body requiring minor surgery, such as an area of your hand or foot. Regional Anesthesia -Regional anesthesia involves the use of local anesthetics (numbing drugs) to numb larger areas of your body by blocking nerves to those areas. This is commonly referred to as a nerve block. Another way of performing regional anesthesia is by blocking nerves of the spinal cord by injecting numbing m edicines with great exactness around those nerves. This is called spinal or epidural anesthesia depending on exactly where the medication is injected. The type of regional anesthesia selected dependson the type of surgery and whether regional anesthesia is being done to help with pain after surgery or as a part of the anesthesia for surgery. You may remain awake, be sedated, or be given a general anesthetic depending on the type of surgery and the type of regional anesthesia performed Monitored Anesthesia Care (MAC) -Describes a range of sedation that can be given to a patient undergoing a procedure. The level of sedation usually depends on what is needed for the procedure being performed. A patient could be awake and aware of the procedure being performed but be relaxed and able to follow instructions as needed or may be unaware of what is happening and only rouse to significant stimulation. A patient may be able to speak, hear things around them, and answer questions and follow commands but is not in pain or anxious. A patient may experience varying depths of sedation during the procedure. The use of general anesthesia could result if this type of anesthesia is ineffective. General Anesthesia - Occurs by using a combination of medications to put a patient into a deep, sleep-like, unresponsive state for surgery. This is required for many surgical procedures. Under general anesthesia, a patient does not feel pain and is unaware of what is happening during the procedure. Systems in the body may not function normally while a patient is under general anesthesia. They are monitored by the anesthesia provider and may need to be assisted while a patient is under general anesthesia. For example, a breathing device may need to be placed in the airway to assist breathing and medications may need to be given to ensure that your blood pressure and heart rate remain normal. Risks of Anesthesia: Regional/Local/Nerve Blocks -Include but are not limited to, , cardiac or respiratory arrest, permanent complete paralysis, permanent nerve injury, seizure, spinal headache, backache, pain in buttocks and legs, infection, bleeding, leakage of spinal fluid, inadequate pain relief, bowel or bladder dysfunction, prolonged numbness or pain, temporary drop in blood pressure, or allergic reaction to the medications. Monitored Anesthesia Care (MAC) -Common risks include temporary dizziness, light-headedness, nausea and/or vomiting, and leakage ofintravenous fluid into the tissues with swelling or discoloration of the area or residual pain. Less common risks include, but are not limited to, , heart attack, permanent brain damage, stroke,pneumonia, blood clots, awareness, nerve stretch injury of your arm, neck or leg, permanent liver damage and allergic reaction to the medications. General Anesthesia -More common risks include temporary sore throat, pain in the neck or other muscles, dizziness, light-headedness, nausea and/or vomiting, and leakage of intravenous fluid into the tissues with swelling or discoloration of the area or residual pain. Less common risks include, but are not limited to,, heart attack, permanent brain damage, stroke, pneumonia, blood clots, irritation of the cornea of your eye, vision loss, loosened or broken teeth, or other oral injuries, awareness, nerve stretch injury of the arm, neck or leg, hoarseness, laryngospasm, permanent liver damage and allergic reaction to the medications. History of anesthesia complications: If you or a family member have had a complication related to anesthesia such as difficulty with placement of a breathing tube or a serious reaction to a medication administered for anesthesia, pleasetell your anesthesia provider. Having this information will help keep you safe while under anesthesia Nausea: A common side effect of anesthesia is nausea, but some patients do experience both nausea and vomiting. If you have experienced nausea or vomiting after anesthesia in the past, be sure to tell your anesthesia provider so medication can be given to help prevent it from happening again. Patient safety/consenting process: All surgical procedures and anesthetics have some small risks. They are dependent upon many factorsincluding the type of surgery and your medical condition. That is why it is important to know aboutany underlying medical problems, how they are treated and how they can be managed to reduce the risks of anesthesia and surgery. Thus, it is important for your anesthesia provider to ask detailed questions about your medical history, and to know what prescription medications you are taking, including dosages and schedules, as well as any over the counter or herbal medicines and supplements. You must notify the doctor of any of the following: -if you are or possibly -if you have any sensitivity to medications -present mental and physical condition -if recently consumed alcohol or non-clear liquids -if you are presently on psychiatric mood-altering drugs or other medications If you are a female of child-bearing age and you use any form of hormone-based contraception, please continue to use it and, in addition, use an alternative form of contraception, such as condoms andspermicide for a month after discharge from the hospital. This is because during the hospitalization you might receive one or more medications that may render hormone-based contraceptives ineffective for several days or weeks. The affected contraceptives include, but are not limited to, the usual contraceptive pills, most types of intrauterine devices, Depo-Provera shots, hormonal patches, and hormonal vaginal rings. If you are not sure, contact your primary care physician, your survey worker, or your surgeon to check if this warning applies to you. You may need to have invasive monitoring, which includes the insertion of catheters into your veinsand arteries. This is done to measure pressures, to take blood samples, and may be used in emergentsituations for intravenous access. This monitoring has risks including, but not limited to, injury to your arteries, lung collapse, bleeding, nerve injury as well as the risks related to anesthesia. An esophageal probe may be used to monitor your heart, this monitor has risks which include sore throat, hoarseness, difficulty with swallowing, loosened or broken teeth and esophageal injury. Major complications are rare but could include , respiratory distress, an abnormal heartbeat, infection, and bleeding. As part of the consent to administer anesthesia authorization you will discuss the following with the anesthesia doctor and his/her associates: -your present condition and diagnosis as it pertains to anesthesia or sedation administration -a description of the proposed anesthetic/sedation technique or procedure to be used -significant risks and benefits of the proposed anesthetic/sedation technique or procedure -any applicable alternatives, including their risks and benefits -if applicable, use of back-up method of contraception for 30 days after discharge -if applicable, the option of having no treatment and the potential results of this -if your procedure is in an outpatient surgery setting-the risk associated with having this procedure in this type of setting should be discussed as well as the potential need for transfer to the hospital if necessary Please be sure to have all questions that you have answered prior to signing the consent to administer anesthesia. You can make your care safer by being an active, informed patient. It is important that you are involved in your health care. Being a good patient does not mean being a silent one. If you have questions, problems, safety concerns or unmet needs, please let us know if you would like further clarification of the "Patient Rights and Responsibilities" as they pertain to you, or would like more information regarding our complaint and for grievance process, please call the site where you receive care and request to speak withthe patient advocate line. documented in this encounter Nursing Notes * Kenisha Graham CCMA - 01/10/2024 1:49 PM EDT Patient identified by: name/birthdate EKG obtained: done today - 01/10/2024 Patient was instructed to not get up on the exam table/exam chair until directed and assisted by their provider; patient is to remain seated in the chair/ wheelchair/ exam table/ exam chair for fall prevention and safety reasons. Patient is aware to have assistance to step down off exam table/exam chair with personnel. Patient voiced full comprehension of instructions. * Savannah Rodriguez CRNA/CRNP - 01/10/2024 8:22 AM EDT [facility]: Contact # [phone] Please follow the pre-operative instructions provided by your vascular surgeon. If you have any questions regarding these instructions please contact your surgeon's office at [phone]. Directions to Surgical Suite in from the Ra Entrance The Surgical Waiting Room can be found in the Lobby of [facility]. Enter through Main Lobby Entrance and the Waiting Room is directly in front of you. Proceed to check in and give them your name. Directions to Surgical Suite from the East Entrance Enter the East entrance and follow the hallway to the J elevator. Take the J elevator up to Level 1. Continue down the long hallway to the main [facility]. The Surgical Waiting Room will be on your Right. Proceed to check in and give them your Name. Directions to Surgical Suite from the Parking Garage Enter the [facility] lobby and proceed down the rm to the left. At the end of the rm, turn right. Continue down the long hallway to the main [facility]. The Surgical Waiting Room will be on your Right. Proceed to check in and give them your Name. THANK YOU FOR CHOOSING [facility]! PRE-OP PATIENT INFORMATION AND EDUCATION: MEDICATION INSTRUCTIONS: The day of surgery/procedure, you may TAKE the following medications with a sip of water up to 2 hours prior to your arrival time: Amlodipine Atorvastatin Famotidine Gabapentin Hydrocodone Levothyroxine Omeprazole Tizanidine AVOID / DO NOT TAKE the following medications the morning of surgery/procedure: Docusate Sodium Hydrochlorothiazide Trazodone AVOID / DO NOT TAKE the following medications the evening prior to and morning of surgery/procedure: -Metformin Betamethasone Dipropionate Losartan Valchlor 0.016 % External Gel STOP taking the following medications the noted number of days prior to surgery/procedure unless otherwise specified by your surgeon: Baxarotene please check with prescriber re: stopping or continuing medication prior to surgery Pentoxifylline Ask prescriber for instructions. Please follow surgeon's instructions regarding use of Aspirin, Coumadin, Plavix, Eliquis, and any other blood thinner including NSAIDs (non-steroidal anti- inflammatory drugs, eg, Advil, Ibuprofen, Motrin, Aleve, Naproxen); if you have any questions regarding your anticoagulation therapy please contact your surgeon's clinic. Please verify any proposed stoppage of your anticoagulation therapy with the agent's prescribing provider. 10 days prior to surgery/procedure Stop all Herbal supplements, Green Tea, Turmeric, Melatonin, CBD, THC, etc. Stop all Vitamins (including Vitamin B12, Benefiber, Ferrous Sulfate) 24 hours prior to surgery/procedure DO NOT consume any alcohol. DO NOT use medical marijuana. DO NOT smoke or use tobacco products of any kind after midnight prior to surgery. *Using any of these products may increase your risks of procedural complications. IF IT IS LESS THAN RECOMMENDED STOPPAGE TIME PLEASE STOP AT TIME OF NOTIFICATION. FASTING RECOMMENDATIONS: To reduce risk, it is important for all elective surgery patients to follow the specific fasting guidelines listed below. If you have received more stringent guidelines, please follow the MOST RESTRICTIVE guidelines that you have been provided. DO NOT EAT after midnight on the night prior to your surgery date. You are allowed to drink clear liquids up to two hours prior to arrival time to the hospital or surgery center. Examples of clear liquids include water, clear fruit juice without pulp, clear carbonated beverages, clear tea, and black coffee. Any drinks given by your surgical service take as directed. THE DAY BEFORE YOUR SURGERY: -Drink plenty of fluid the day before your surgery. Contact your surgeon's office if you develop any of the following within 2 weeks of surgery: A cold Infection Fever Shingles Chicken pox or exposure to chicken pox Open areas such as scrapes, cuts, schulte or other skin conditions Rashes GENERAL INSTRUCTIONS FOR PREPARING FOR SURGERY: BATHING INSTRUCTIONS: Bathe the evening prior to and the morning of surgery/procedure. Cleanse your body using ONLY anti-bacterial soap (eg, Dial, Safeguard) or any specific soap/cleansers and instructions provided by your surgeon (eg, Chlorhexidine). -You should brush your teeth the morning of surgery. Do NOT apply any lotions, powders, sprays, creams, oils, make-up, or deodorants after bathing. No hairspray, or nail icelandic on fingers or toes. If you wear contacts wear your eyeglasses if available otherwise bring your contact supplies with you to remove them prior to your surgery/procedure. If you wear glasses or dentures, please bring cases in which you can store them during your surgery. Please remove all piercings and jewelry and leave them at home. Wear comfortable and loose clothing. -Please leave all valuables at home. -An escort tour bus driver is required if you are being discharged the same day of the surgery. You should have a responsible adult over the age of 18 [address] you home. This person should be present with youin the hospital at the time of discharge and for the first 24 hours after the surgery to support your needs. If you are taking a taxi home, you must have your responsible green party accompany you in the taxi ride home at the time of discharge. OR times subject to change. Please check voicemail messages the day/evening before your surgery forany updates. PRE-OP: You will be taken to the pre-op area where your vital signs (blood pressure, pulse and temperature)will be taken. Any preparations that need to be done will be done there. When it is time for your surgery, you will be taken to the operating room. OUTPATIENT SURGERY PATIENTS: After your surgery you will be taken to the Same Day Surgery Unit when you are awake and will go home from there. You will get instructions about your home care before you leave. Arrange to have someone drive you home from the hospital. You may not drive for 24 hours after anesthesia. You must havean adult stay with you at home for 24 hours after your operation. This is very important. If you are not able to comply with these guidelines, your Short Stay surgery cannot be done. ADMISSION PATIENTS: After your stay in the recovery area, you will be taken to your room. Your family may visit you in your room based on current visitation policy. If a next day discharge is expected, it is important to make arrangements for a tour bus driver to take you home. Please be aware our visitation policies are subject to change Professionals, attendants, caregivers or family members are allowable visitors for patients with intellectual, developmental or cognitive disabilities, communication barriers or behavioral concerns. Because patients' and families' needs vary, they will be taken into account when applying visitation restrictions. ~SEE ANESTHESIA EVENT FOR PRE-OP ANESTHESIA ASSESSMENT~ ~~~~~~~~~~~~~~~~~~~~~~~~~~~~~~~~~~~~~~~~~~~~~~~~~~~~ Patient identified by name/birthdate Optime case procedure confirmed with surgical consent 12/28/23 Laterality confirmed as Left Surgery date at time of Pre-Surgery Center Encounter: 01/27/24 What procedure is patient having? ENDOVENOUS RADIOFREQUENCY ABLATION THERAPY FIRST VEIN Anesthesia Consent pool notified: In an emergency, is patient willing to accept blood products or blood transfusion? Does Blood Bank order need placed? No. Anesthesia evaluation requested per case documentation. No Preop Eval Requested? No PATIENT EDUCATION SCREENING Education Screening: Patient Preoperative bathing instructions were reviewed with patient. Motivation Level: Asks Questions and Eager to Learn Language Barrier: No Physical Barrier: N/A Patient Preferred Learning Methods: Reading and Lecture LEARNING NEED: Printed Patient Education Given: Preop Information: Adult Persons present for education: Patient METHOD: One to One OUTCOME: State / Describe / Explain PATIENT INSTRUCTIONS GIVEN: General Preoperative Instructions Reviewed Medication Instructions Reviewed NPO Instructions Reviewed Verbalizes understanding of education: Yes COVID-19/Coronavirus Screening: Informant: Patient Have you been outside the county(local area)/state in the last month? No / patient denies non-essential travel outside of their county of origin Have you been experiencing any symptoms of viral infection of the upper respiratory system (fever, cough, shortness of breath, myalgia, fatigue) in the last 16 days? no Symptoms started N/a Symptoms include none Symptom severity is N/a Additional details include: N/A In the last month, have you been in contact with someone who was confirmed or suspected to have Coronavirus/ COVID-19? No In the last month, have you been in contact with someone who was experiencing upper respiratory symptoms of viral infection? No Have you been diagnosed with COVID-19/Coronavirus? yes If so, when were you given this diagnosis? 2021 Are you currently experiencing any residual symptoms? When did your symptoms resolve? No, N/a Has patient undergone Infectious Disease consultation for Coronavirus/ COVID-19? No Does patient require Infectious Disease consultation/referral? No Pre-Anesthesia Review of Systems, Health History and Education completed Signature: Savannah CHAVARRIA/JASMIN Encounter Date: 01/10/24 documented in this encounter Plan of Treatment Upcoming Encounters Date Type Department Care Team (Latest Contact Info) Description 01/16/2024 2:40 PM EDT Office Visit Wound Care, [place] [address] [place] [address] Mario Sauceda MD [address] [place] [address] 01/23/2024 2:30 PM EDT Nurse Only Wound Care, [place] [address] [facility] [place] [address] Care, Nurse Wound [address] [place] [facility] [place] [address] 01/27/2024 10:53 AM EDT Hospital Encounter [place] [facility] [place], OPERATING ROOM [facility] [place] [address] [facility] [place] [facility] [place] [phone] Flex Valentin MD [address] [place] [facility] [place] [address] 01/27/2024 10:53 AM EDT Anesthesia Event OR [facility] [place], OPERATING ROOM [facility] [place] [address] [facility] [place] [phone] Quang Wade CRNP [address], [place] [phone] 01/27/2024 10:53 AM EDT - 01/27/2024 12:34 PM EDT Surgery OR [facility] [place], OPERATING ROOM [facility] [place] [address] [facility] [place] [phone] Flex Valentin MD [address], [place] [id number] ENDOVENOUS RADIOFREQUENCY ABLATION THERAPY FIRST VEIN 01/31/2024 1:00 PM EDT Office Visit Vascular Surg [facility], [place] [address] [facility], [place] [phone] Flex Valentin MD [address] [facility], [place] [phone] 01/31/2024 2:30 PM EDT Nurse Only Wound Care, [place] [address] [facility], [place] [phone] Care, Nurse Wound [address] [facility], [place] [phone] 02/06/2024 3:00 PM EDT Office Visit Dermatology [facility] [place] [address] [facility] [place] [address] Dieudonne Braxton MD [address] [facility] [place] [address] 02/07/2024 2:30 PM EDT Nurse Only Wound Care, [place] [address] [place] [address] Care, Nurse Wound [address] [facility] [place] [address] 02/14/2024 2:30 PM EDT Nurse Only Wound Care, [place] [address] [facility] [place] [address] Care, Nurse Wound [address] [facility] [place] [address] 02/21/2024 2:40 PM EST Office Visit Wound Care, [place] [address] [facility] [place] [address] Mario Sauceda MD [address] [place] [address] 02/28/2024 2:30 PM EST Nurse Only Wound Care, [place] [address] [facility] [place] [address] Care, Nurse Wound [address] [facility] [place] [address] 03/06/2024 2:30 PM EST Nurse Only Wound Care, [place] [address] [facility] [place] [address] Care, Nurse Wound [address] [facility] [place] [address] 03/13/2024 2:30 PM EST Nurse Only Wound Care, [place] [address] [facility] [place] [address] Care, Nurse Wound [address] [facility] [place] [address] 03/20/2024 2:30 PM EST Nurse Only Wound Care, [place] [address] [place] [address] Care, Nurse Wound [address] [place] [address] 03/27/2024 2:40 PM EST Office Visit Wound Care, [place] [address] [place] [address] Mario Sauceda MD [address] [place] [address] 05/16/2024 2:00 PM EST Office Visit Gastroenterology, [facility] [address] [facility] [place] [address] Marlene Balderas CRNP [address] [place] [address] 09/13/2024 5:20 PM EDT Office Visit Family Practice [facility] [address] [facility] [place] [address] Raza Lion DO [address] [facility] [place] [address] Scheduled Procedures Name Priority Associated Diagnoses Date/Ti me ENDOVENOUS RADIOFREQUENCY ABLATION THERAPY FIRST VEIN 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) Venous insufficiency Cigar smoker 01/27/2024 10:53 AM EDT COLONOSCOPY FLEXIBLE PROXIMAL DIAGNOSTIC Recall History of colon polyps Health Maintenance Due Date Last Done Comments DISCUSS TOBACCO CESSATION (REFER TO SMARTSET #4032) 1960 COVID-19 Vaccine (#1) 1963 Cologuard 2003 Fecal Occult Blood Test 2003 Sigmoidoscopy 2003 DTap/Tdap Vaccines (2 - Td or Tdap) 10/04/2022 10/04/2012 Pneumococcal Vaccine: 65+ Years (4 of 4 - PPSV23 or PCV20) 2023 03/20/2019, 03/08/2017, 04/18/2001 Influenza Vaccine (FLU shot) (#1) 2023 04/22/2022, 03/02/2021, 03/25/2020, Additional history exists HbA1c 12/26/2023 12/25/2022, 08/17, 05/08/2021, Additional history exists Depression Screening 12/25/2024 12/26/2023 GFR 01/01/2025 01/02/2024, 06/0 11/2023, 08/27/2023, Additional history exists TSH 01/01/2025 01/02/2024, 06/0 11/2023, 08/27/2023, Additional history exists O2 ASSESSMENT COMPLETED IN PAST YEAR FOR COPD 01/09/2025 01/10/2024 Albumin/Creatinine Ratio 12/25/2025 12/25/2022, 04/19 Colonoscopy 08/18/2026 [...] (peripheral) insufficiency Cigar smoker Tobacco use disorder Pre-operative examination- Primary Preoperative examination, unspecified 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) Varicose veins of lower extremities with ulcer and inflammation Venous insufficiency Unspecified venous (peripheral) insufficiency Cigar smoker Tobacco use disorder documented in this encounter Care Teams Frame Assembler Relationship Specialty Start Date End Date Raza Lion DO [address] [place] [id number] PCP - General Family Medicine 09/04/20 documented as of this encounter
--- OUTSIDE RECORDS SUMMARY | 2024-03-08 14:36 | External Medical Summary | Summary of Care ---
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 Patient has followed at [facility] for 2 yearsand came [...] PRESENTING CONDITIONS: Evaluate for deep, superficial, and catering associate reflux. IMPRESSION: There is no evidence of [...] 2:30 PM EDT Nurse Only Wound Care, [place] [address] [place] [facility] [address] Care, Nurse Wound [address] [place] [facility] [address] 01/27/2024 10:53 AM EDT Hospital Encounter OR [facility], OPERATING ROOM [facility] [place] [address] [place] [facility] [address] Flex Valentin MD [address] [place] [facility] [place] [address] 01/27/2024 10:53 AM EDT Anesthesia Event OR [facility] [place], OPERATING ROOM [facility] [place] [address] [facility] [address] Quang Wade CRNP [address] [place] [address] 01/27/2024 10:53 AM EDT - 01/27/2024 12:34 PM EDT Surgery OR [facility] [place], OPERATING ROOM [facility] [place] [address] [place] [facility] [address] Flex Valentin MD [address] [place] [address] ENDOVENOUS RADIOFREQUENCY ABLATION THERAPY FIRST VEIN 01/31/2024 1:00 PM EDT Office Visit Vascular Surg [facility], [place] [address] [facility], [place] [phone] Flex Valentin MD [address] [facility], [place] [phone] 01/31/2024 2:30 PM EDT Nurse Only Wound Care, [place] [address] [place] [facility] [address] Care, Nurse Wound [address] [place] [facility] [place] [address] 02/06/2024 3:00 PM EDT Office [facility] [place] [address] [facility] [place] [address] Dieudonne Braxton MD [address] [facility] [place] [address] 02/07/2024 2:30 PM EDT Nurse Only Wound Care, [place] [address] [place] [facility] [place] [address] Care, Nurse Wound [address] [place] [facility] [place] [facility] [address] 02/14/2024 2:30 PM EDT Nurse Only Wound Care, [place] [address] [place] [facility] [place] [address] Care, Nurse Wound [address] [place] [facility] [place] [address] 02/21/2024 2:40 PM EST Office Visit Wound Care, [place] [address] [place] [facility] [place] [address] Mario Sauceda MD [address] [place] [facility] [place] [address] 02/28/2024 2:30 PM EST Nurse Only Wound Care, [place] [address] [place] [facility] [place] [address] Care, Nurse Wound [address] [place] [facility] [place] [address] 03/06/2024 2:30 PM EST Nurse Only Wound Care, [place] [address] [place] [facility] [place] [address] Care, Nurse Wound [address] [place] [facility] [place] [address] 03/13/2024 2:30 PM EST Nurse Only Wound Care, [place] [address] [place] [facility] [place] [address] Care, Nurse Wound [address] [place] [facility] [address] 03/20/2024 2:30 PM EST Nurse Only Wound Care, [place] [address] [place] [address] Care, Nurse Wound [address] [place] [address] 03/27/2024 2:40 PM EST Office Visit Wound Care, [place] [address] [place] [address] Mario Sauceda MD [address] [place] [address] 05/16/2024 2:00 PM EST Office Visit Gastroenterology, [facility] [address] [facility] [place] [address] Marlene Balderas CRNP [address] [place] [address] 09/13/2024 5:20 PM EDT Office Visit Family Practice [facility] [address] [facility] [place] [address] Raza Lion DO [address] [place] [address] Scheduled Procedures Name Priority Associated Diagnoses Date/Ti me ENDOVENOUS RADIOFREQUENCY ABLATION THERAPY FIRST VEIN 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) Venous insufficiency Cigar smoker 01/27/2024 10:53 AM EDT COLONOSCOPY FLEXIBLE PROXIMAL DIAGNOSTIC Recall History of colon polyps Health Maintenance Due Date Last Done Comments DISCUSS TOBACCO CESSATION (REFER TO SMARTSET #3827) 1960 COVID-19 Vaccine (#1) 1963 Cologuard 2003 [...] disorder documented in this encounter Care Teams Peer Financial Counselor Relationship Specialty Start Date End Date Raza Lion DO [address] [facility] [place] [address] PCP - General Family Medicine 09/04/20 documented as of this encounter
--- OUTSIDE RECORDS SUMMARY | 2024-03-08 14:36 | External Medical Summary | Summary of Care ---
Author Name Unknown Organization [facility] Address [address] [place] [address] Phone [phone] Care Team Providers Care Automotive Starter Repairer Name Role Phone Raza Lion DO Primary Care Provider Reason for Visit * Reason Comments NEW PATIENT * Evaluate & Treat - Unlimited Visits (Within 30 days (routine)) - Authorized Specialty Diagnoses / Procedures Referred By Jacoby huizar Referred To Contact Vascular Surgery / Cardiovascular Surgery Diagnoses Venous stasis ulcer of right ankle with fat layer exposed with varicose veins (HCC) Venous stasis ulcer of left ankle with fat layer exposed with varicose veins (HCC) Venous insufficiency Cutaneous T-cell lymphoma, unspecified body region (HCC) Jett Acevedo PA-C [address] [place] [address] Referral ID Status Reason Start Date Expiration Date Visits Requested Visits Authorized [id number] Authorized Specialty Services Required 12/13/2023 [id number] Encounter Details Date Type Department Care Team (Late st Contact Info) Description 12/28/2023 1:15 PM EDT Office Visit Vascular Surg [facility] [place] [address] [place] [address] Flex Valentin MD [address] [place] [address] 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)*; Venous insufficiency; Cigar smoker Allergies Active Allergy Reactions Criticality Noted Date [...] HOURS NEEDED FOR PAIN 90 Tablet 3 09/08/2023 12/31/19 24 Discontinu ed(Refill) HYDROcodone-Acetami nophen 5-325 MG Oral Tablet Take [...] 02/22/2022 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platinum co ronary artery without angina pectoris 03/02/2021 [...] Tobacco: Former Tobacco Cessation:Ready to Q uit: No; Counseling Given: No Comments:6 cigars has a 1.5 ppd for [...] Sign Reading Time Taken Comments Blood Pressure 118/80 12/28/2023 1:49 PM EDT Pulse 97 12/28/2023 1:48 PM EDT Temperature 36.3 C (97.3 F) 12/28/2023 1:48 PM ED T Respiratory Rate - - Oxygen Saturation - - Inhaled Oxygen Concentration - - Weight 91.1 kg (200 lb 14.4 oz) 12/28/2023 1:48 PM EDT Height 180.3 cm (5' 11") 12/28/2023 1:48 PM EDT Body Mass Index 28.02 12/28/2023 1:48 PM EDT documented in this encounter Progress Notes * Arely Fairbanks CRNP - 12/28/2023 1:58 PM EDT Date of Service: 12/28/2023 1:58 PM Chang Parham is a 63 year old male. Patient being seen in consultation at the request of Raza Lion DO Chief Complaint: non-healing bilateral venous leg ulcers. HPI: Patient is a pleasant, daily cigar smoker. He presents for bilateral non- healing VLUs. The wounds have been present since early 2021. Initially followed by [facility] wound clinic, then [place] [facility] [place] 2[place]. He has chronic stasis skin changes bilateral lower legs. History of heavy topical steroid in the past for eczema. He also has history of bilateral GSV Venaseal which caused allergic reaction that required Atarax to address. VARICOSE VEINS: Patient describes pain, bulging, ulcerations, and achiness in bilateral extremity. Patient reports no history of DVT or leg injury. The patient has worn compression stockings for more than 3 months. Clinical Classification (C): C6 (Active venous ulcer). S (Symptomatic) varicose veins. Etiologic Classification (E): Ep (Primary). Anatomic Classification (A): As (Superficial), Ad (Deep), and Ap (Solutions Manager). Pathophysiologic Classification (P): Pr (Reflux). Venous Clinical Severity Score (VCSS): Pain or other discomfort (presumes venous origin): 3 - Severe, Daily, severe limiting activities orrequiring regular use of analgesics Varicose Veins (must be greater than or equal to 3mm in diameter to qualify in standing position): 1 - Mild, Few, scattered: branch VV's Venous Edema (presumes venous origin): 3 - Severe, Morning edema above ankle and requiring activitychange, elevation Skin Pigmentation (does not include focal pigmentation or pigmentation due to other chronic diseases): 3 - Severe, wider distribution (above lower 1/3) AND recent pigmentation Inflammation (more than just recent pigmentation): 0 - Absent, none Induration (presumes venous origin of secondary skin and subcutaneous changes): 2 - Moderate, Diffuse over lower third of calf Active Ulcer Number: 3 - Severe, more than 2 Active Active Ulcer Duration (longest active): 3 - Greater than 1 year Active Ulcer Size (largest active): 2 - 2 to 6 cm in diameter Use of Compression Therapy: 3 - Severe, elastic stockings plus elevation Score: 21 FAMILY HISTORY: Family history is noncontributory. Current Outpatient Medications Medication Sig Dispense Refill VITAMIN B 12 250 MCG PO LOZG [...] ON AN EMPTY STOMACH 90 Tablet 3 Famotidine 20 MG Oral Tablet (Pepcid) Take 1 Tablet by mouth at bedtime. 90 Tablet 1 metFORMIN HCl ER 750 MG Oral Tablet Extended Release 24 Hour (Glucophage XR) TAKE ONE TABLET BY MOUTH IN THE MORNING 90 Tablet 1 Azithromycin 1 GM Oral Packet Take 1 Packet by mouth in the morning. Emergency dose . Ibuprofen 600 MG Oral Tablet (Motrin) TAKE ONE TABLET BY MOUTH EVERY 6 HOURS NEEDED FOR PAIN 90 Tablet 3 Bexarotene 75 MG Oral Capsule TAKE 4 CAPSULES (300MG) BY MOUTH ONCE DAILY 120 Capsule 5 Atorvastatin Calcium 40 MG Oral Tablet (Lipitor) TAKE ONETABLET BY MOUTH AT BEDTIME 90 Tablet 3 HYDROcodone-Acetaminophen 5-325 MG Oral Tablet Take 1 Tablet by mouth at bedtime as needed for Severe Pain. 21 Tablet 0 Gabapentin 600 MG Oral Tablet (Neurontin) Take 1 Tablet by mouth in the morning and 1 Tablet at noon and 1 Tablet in the evening and 1 Tablet before bedtime. 360 Tablet 3 tiZANidine HCl 4 MG Oral Tablet (Zanaflex) TAKE ONE TABLET BY MOUTH EVERY 8 HOURS NEEDED FOR MUSCLE SPASMS. 30 Tablet 0 amLODIPine Besylate 5 MG Oral Tablet (Norvasc) TAKE ONE TABLET BY MOUTH DAILY 90 Tablet 1 tiZANidine HCl 4 MG Oral Tablet (Zanaflex) Take 1 Tablet by mouth every 8 hours as needed for Muscle spasms. 30 Tablet 5 Betamethasone Dipropionate 0.05 % External Ointment APPLY TOPICALLY TO AFFECTED AREA 4 DAYS PER WEEK ON OPPOSITE DAYS OF THE GEL 30 g 5 Losartan Potassium 100 MG Oral Tablet (Cozaar) TAKE ONE TABLET BY MOUTH DAILY 90 Tablet 3 Ferrous Sulfate 324 MG Oral Tablet Delayed Release Take by mouth. MEDICAL COMPRESSION STOCKINGS MISC knee high compression socks 15-20 mmhg (Patient not taking: Reported on 12/26/2023) 3 Package 3 Silver sulfADIAZINE 1 % External Cream (Silvadene) APPLY TO WOUNDS ON LEGS NIGHTLY NEEDED (Patient not taking: Reported on 12/26/2023) 50 g 1 No current facility-administered medications for this visit. 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 Past Surgical History: Procedure Laterality Date COLONOSCOPY, DIAGNOSTIC (RECTUM) 01/29/2013 normal bx, repeat 10 yrs/COLONOSCOPY FLEXIBLE PROXIMAL DIAGNOSTIC performed by Edy Fry MD at [facility] COLONOSCOPY, DIAGNOSTIC (RECTUM) N/A 12/07/2017 benign adenomatous polyp, diverticulosis, fair prep/COLONOSCOPY FLEXIBLE PROXIMAL DIAGNOSTIC performed by Edy Fry MD at ENDOSCOPY [facility] COLONOSCOPY, DIAGNOSTIC (RECTUM) 08/18/2021 benign adenomatous polyp, diverticulosis, repeat 5 yrs / COLONOSCOPY FLEXIBLE PROXIMAL DIAGNOSTIC performed by Edy Fry MD at ENDOSCOPY [facility] CYSTOSCOPY 07/25/2012 stent placed CYSTOSCOPY 08/29/2012 stent removed EGD, FLEXIBLE, DIAGNOSTIC 09/12/2019 reflux esophagitis, hiatal hernia / ESOPHAGOGASTRODUODENOSCOPY (EGD), FLEXIBLE, TRANSORAL, DIAGNOSTIC performed by Edy Fry MD at ENDOSCOPY [facility] FRAGMENT KIDNEY STONE BY SHOCK WAVE 11/03/2012 [...] ARTHROSCOPY/REMOVE OBJECT Left 12/12/2014 Shoulder Surgery, Arthroscopic Family History Problem Relation Name Age of Onset Diabetes Sister Diabetes Grandmother (Paternal) Heart Disorder Father Social History Socioeconomic History Marital status: Single Spouse name: Not on file Number of children: Not on file Years of education: Not on file Highest education level: Not on file Occupational History Not on file Tobacco Use Smoking status: Every Day Current packs/day: 0.00 Average packs/day: 1.5 packs/day for 25.0 years (37.5 ttl pk-yrs) Types: Cigars, Cigarettes Start date: 06/19/1987 Last attempt to quit: 06/18/2012 Years since quittin.5 Smokeless tobacco: Former Tobacco comments: 6 cigars has a 1.5 ppd for 25 years cigarette smoking history and currently smokes cigars. Declined pamphlet12/28/23 Vaping Use Vaping status: Never Used Substance and Sexual Activity Alcohol use: Yes Comment: weekends Drug use: Not Currently Types: Marijuana Comment: in the 70s during college Sexual activity: Not on file Other Topics Concern Service Not Asked Blood Transfusions Yes Caffeine Concern Not Asked Occupational Exposure Not Asked Hobby Hazards Not Asked Sleep Concern Not Asked Stress Concern Not Asked Weight Concern Not Asked Special Diet Not Asked Back Care Not Asked Exercise Not Asked Bike Helmet Not Asked Seat Belt Not Asked Self-Exams Not Asked Social History Narrative Not on file Social Determinants of Health Financial Resource Strain: Low Risk (12/26/2023) Financial Resource Strain Do you have any trouble paying for your medications, or do you think you might in the future? (Adult - for ages 18 years and over): No Does your family have trouble paying for medicine? (Household - for ages 0-17 years): Not on file Food Insecurity: No Food Insecurity (12/26/2023) Food Insecurity Do you need food for this week? (Adult - for ages 18 years and over): No Are you able to get enough food for your family? (Household - for ages 0-17 years): Not on file Does your family need food this week? (Household - for ages 0-17 years): Not on file Do you always have enough food for your family? (Household - for ages 0-17 years): Not on file Transportation Needs: No Transportation Needs (12/26/2023) Transportation Needs Do you have trouble getting a ride to medical visits or work? (Adult - for ages 18 years and over):Never True Does your family have a hard time getting a ride to doctors visits? (Household - for ages 0-17 years): Not on file Has lack of transportation kept you from medical appointments, meetings, work, or from getting things needed for daily living? Check all that apply. (Adult - for ages 18 years and over): No Do you (or your family) have trouble finding or paying for a ride (transportation)? (Household - for ages 0-17 years): Not on file Social Connections: Socially Integrated (12/26/2023) Social Connections How often do you feel lonely or isolated from those around you? (Adult - for ages 18 years and over): Sometimes Housing Stability: Low Risk (12/26/2023) Housing Stability Do you currently live in a senior living or have no steady place to sleep at night? (Adult - for ages 18 years and over): No Do you think you are at risk of becoming homeless? (Adult - for ages 18 years and over): No Does your family worry about paying for your home or becoming homeless? (Household - for ages 0-17 years): Not on file Are you homeless or worried that you might be in the future? (Adult - for ages 18 years and over): No Are you (or your family) homeless or worried that you might be in the future? (Household - for ages0-17 years): Not on file COMPLETE REVIEW OF SYSTEMS: Cardiovascular: Negative for chest pain, shortness of breath, palpitations, angina or CT Neurological: Negative for stroke, TIA, amaurosis fugax All other systems negative except for those noted above and in the history of present illness (HPI). GENERAL MULTI-SYSTEM PHYSICAL EXAM: VITAL SIGNS: BP 118/80 (BP Site: Right Arm, BP Position: Sitting, BP Cuff Size: Regular) | Pulse 97 | Temp 36.3 C (97.3 F) (Temporal Artery) | Ht 1.803 m (5' 11") | Wt 91.1 kg (200 lb 14.4 oz) | BMI 28.02 kg/m | BSA 2.14 m GENERAL MULTI-SYSTEM PHYSICAL EXAM:GENERAL: Normal grooming habits, no acute distress, and appears stated age. NECK: No masses and Normal Thyroid. RESPIRATORY: respiratory effort normal and breath sounds normal. CARDIOVASCULAR: no heart murmurs, edema present mild: well-controlled while in weekly compression wraps, and bilateral leg ulcerations. GASTROINTESTINAL: no tenderness, protuberant, and abdominal aorta not palpable. LYMPHATIC: cervical lymph nodes normal and inguinial lymph nodes normal. SKIN: no rash, no induration, capillary refill normal, no dependent rubor, and multiple ulcerationsto left lower leg and bilateral medial venous ulcerations over the medial malleolus. Significant skin changes to BLE, likely combination of atropic skin from years of topical steroids and chronic venous stasis changes. PSYCHIATRIC: orientation to time, place and person normal and recent and remote memory normal. EYES: conjunctivae normal, eye lids normal, pupils normal, and irises normal. NEUROLOGIC: Cranial nerves intact, Motor function intact, and Sensory exam intact PULSE SCALE: Dorsalis Pedis Right: 2 Left: 2 Posterior Tibial Right: 2 Left: 2 PULSE SCALE: 4=Aneurysmal; 3=Normal; 2=Diminished; 1=Barely Palpable; 0=Absent DIAGNOSTIC STUDIES: 09/28/23L BLE venous insuff study: RCFV and RSFJ vein with reflux, R ASV with reflux throughout, R perf V above ankle 7cm with reflux, LCFV and RSFJ reflux, L perf 13cm above ankle with reflux throughout. Previous Venaseal to bilateral GSV which remains thrombosed. The above vascular lab images were directly visualized and independently interpreted by me on 12/28/2023 with results as above. LABS: Lab Results Component Value Date/Time CREATININE - [facility] 0.9 09/24/2023 01:27 PM CREATININE - [facility] 0.8 08/27/2023 02:57 PM CREATININE - [facility] 0.8 06/09/2023 12:40 PM CREATININE - [facility] 0.8 04/04/2020 12:29 PM CREATININE - [facility] 1.0 01/18/2020 10:50 AM CREATININE - [facility] 1.2 10/01/2019 10:50 AM CREATININE, RANDOM URINE - [facility] 89 12/25/2022 12:47 PM CREATININE, RANDOM URINE - [facility] 125 05/08/2021 02:53 PM CREATININE-OUTSIDE LAB 0.70 2015 12:00 AM CREATININE-OUTSIDE LAB 0.71 11/26/2014 12:00 AM Lab Results Component Value Date/Time LDL CHOLESTEROL (CALCULATED) - [facility] 125 09/24/2023 01:27 PM LDL CHOLESTEROL (CALCULATED) - [facility] 128 04/04/2020 12:29 PM LDL CHOLESTEROL (DIRECT MEASURE) - [facility] NOT APPLICABLE 01/18/2020 10:50 AM Lab Results Component Value Date/Time HEMOGLOBIN A1C - [facility] 5.9 (H) 12/25/2022 12:24 PM HEMOGLOBIN A1C - [facility] 6.0 (H) 03/28/2019 12:39 PM The above clinical labs were reviewed by me on 12/28/2023. IMPRESSIONS: B medial ankle VLUs as well as several other scattered ulcerations left foot/leg Venous insufficiency (superficial and deep) with history of bilateral GSV venaseals at [facility]. Remote history of eczema with many year history of topical steroid use. Cutaneous T cell lymphoma/mycosis fungoides Hx. COPD. Cigar smoking PLAN: The patient was counseled regarding the pathophysiology and the natural history of varicose veins/venous insufficiency, as well as the interventional and noninterventional treatment options [id number] - 30 mm knee high compression stockings, leg elevation, and a regular walking program. Patient with complex problem. Skin is poor quality, atropic from chronic steroid use, venous stasischanges from chronic venous insufficiency with several year history of non-healing VLUs despite previous Venaseal procedures to address BLE GSV reflux. He does have bilateral tobacco buyer veins above the ankles which may be slowing healing somewhat, however, suspect the bigger issue is his overall poor skin quality/chronic skin changes. Will attempt addressing tobacco buyer reflux with ablation of LEFT leg tobacco buyer vein, time will tellwhether this provides any benefit towards healing. Right leg tobacco buyer vein is not in close proximity to the right leg ulceration. Will repeat RLE insuff study at follow-up visit, but if nothing closer than previously noted, will not have a good RLE option to offer. Continue weekly compression wraps with Dr. Sauceda's team as this most likely provides the highest likelihood of healing for these chronic ulcerations. Plan for left leg perforating vein ablation with Dr. Valentin on 01/27/24. PATs, labs, EKG, pre-op. OK to take medications, including BP medications on am of surgery. Case created, orders signed and held, surgical pamphlets provided to patient/family, consent 01/29 for post-op visits. The patient was seen and examined with Quang Valentin MD. [facility] Section of Vascular and [place] [address] [phone] I have reviewed the advanced practitioner's documentation on the date of service referenced in note, and I agree with, and take responsibility for the plan of care. Chang Parham is a pleasant 63-year-old gentleman who comes to clinic today for assessment of peripheral venous insufficiency with venous leg ulceration. Longstanding history of bilateral lower extremity venous ulcers. He has been seen at Wound Care at [facility] and has a previous history of bilateral venous seal treatment of the greater saphenous veins. On venous duplex he has deep and superficial venous incompetence of it appears that his saphenous veins have been appropriately treated. In both the right and left lower extremity he does have evidence of incompetent perforating veins in the area of the venous ulcers. Plan is to treat the left lower extremity with laser ablation of the perforating branch and will possibly treat the perforating branch in the right lower extremity in the same setting. He has a longstanding history of eczema treated with steroid treatment in the lower legs which has affected the quality of his skin and is also probably slowing healing. He has continued with appropriate compression dressings but despite this care the wounds persist. Flex Valentin MD Vascular Surgeon Department of Vascular Surgery [facility] documented in this encounter Plan of Treatment Upcoming Encounters Date Type Department Care Team (Latest Contact Info) Description 01/10/2024 1:30 PM EDT Pre-Admission Testing Pre Surgery Center, [place] [address] [place] [address] [facility] [address] [place] [address] 01/10/2024 2:30 PM EDT Nurse Only Wound Care, [place] [address] [place] [address] Care, Nurse Wound [address] [place] [address] 01/16/2024 2:40 PM EDT Office Visit Wound Care, [place] [address] [place] [address] Mario Sauceda MD [address] [place] [address] 01/23/2024 2:30 PM EDT Nurse Only Wound Care, [place] [address] [place] [address] Care, Nurse Wound [address] [place] [address] 01/27/2024 10:53 AM EDT Hospital Encounter [place] [facility] [address] [place] [facility] [phone] Flex Valentin MD [address] [place] [address] 01/27/2024 10:53 AM EDT Anesthesia Event [place] [facility] [address] [place] [facility] [place] [facility] [address] Quang Wade CRNP [address] [place] [facility] [place] [facility] [address] 01/27/2024 10:53 AM EDT - 01/27/2024 12:34 PM EDT Surgery [place] [facility] [address] [place] [id number] Flex Valentin MD [address] [place] [address] ENDOVENOUS RADIOFREQUENCY ABLATION THERAPY FIRST VEIN 01/31/2024 1:00 PM EDT Office Visit Vascular Surg [facility], [place] [address] [place] [address] Flex Valentin MD [address] [place] [address] 01/31/2024 2:30 PM EDT Nurse Only Wound Care, [place] [address], [place] [id number] Care, Nurse Wound [address] [place] [address] 02/06/2024 3:00 PM EDT Office Visit Dermatology [facility] [address] [place] [id number] Dieudonne Braxton MD [address] [place] [id number] 02/07/2024 2:30 PM EDT Nurse Only Wound Care, [place] [address] [place] [address] Care, Nurse Wound [address] [place] [facility] [address] 02/14/2024 2:30 PM EDT Nurse Only Wound Care, [place] [address] [place] [address] Care, Nurse Wound [address] [place] [address] 02/21/2024 2:40 PM EST Office Visit Wound Care, [place] [address] [place] [address] Mario Sauceda MD [address] [place] [address] 02/28/2024 2:30 PM EST Nurse Only Wound Care, [place] [address] [place] [address] Care, Nurse Wound [address] [place] [address] 03/06/2024 2:30 PM EST Nurse Only Wound Care, [place] [address] [place] [address] Care, Nurse Wound [address] [place] [facility] [address] 03/13/2024 2:30 PM EST Nurse Only Wound Care, [place] [address] [place] [address] Care, Nurse Wound [address] [place] [facility] [place] [facility] [address] 03/20/2024 2:30 PM EST Nurse Only Wound Care, [place] [address] [place] [address] Care, Nurse Wound [address] [place] [facility] [address] 03/27/2024 2:40 PM EST Office Visit Wound Care, [place] [address] [place] [address] Mario Sauceda MD [address] [place] [address] 05/16/2024 2:00 PM EST Office Visit Gastroenterology, [facility] [address] [place] [address] Marlene Balderas CRNP [address] [place] [address] 09/13/2024 5:20 PM EDT Office Visit Family Practice [facility] [address] [place] [address] Raza Lion DO [address] [place] [address] Scheduled Orders Name Type Priority Associated Diagnoses Orde r Schedule VASC DUPLEX VENOUS INSUFFICIENCY LTD LOWER EXTREMITY Medical Imaging Routine 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) Venous insufficiency Cigar smoker Ordered: 12/28/2023 VASC DUPLEX VENOUS LE UNILAT Medical Imaging Routine 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) Venous insufficiency Cigar smoker Ordered: 12/28/2023 EKG EKG Routine 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) Venous insufficiency Cigar smoker Ordered: 12/28/2023 Scheduled Procedures Name Priority Associated Diagnoses Date/Ti me ENDOVENOUS RADIOFREQUENCY ABLATION THERAPY FIRST VEIN 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) Venous insufficiency Cigar smoker 01/27/2024 10:53 AM EDT COLONOSCOPY FLEXIBLE PROXIMAL DIAGNOSTIC Recall History of colon polyps Health Maintenance Due Date Last Done Comments DISCUSS TOBACCO CESSATION (REFER TO SMARTSET #0699) 1960 COVID-19 Vaccine (#1) 1963 Cologuard 2003 [...] (peripheral) insufficiency Cigar smoker Tobacco use disorder 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)- Primary Varicose veins of lower extremities with ulcer and inflammation 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) Varicose veins of lower extremities with ulcer and inflammation Venous insufficiency Unspecified venous (peripheral) insufficiency Cigar smoker Tobacco use disorder 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) Varicose veins of lower extremities with ulcer and inflammation Venous insufficiency Unspecified venous (peripheral) insufficiency Cigar smoker Tobacco use disorder documented in this encounter Care Teams Automotive Starter Repairer Relationship Specialty Start Date End Date Raza Lion DO [address] [place] [address] PCP - General Family Medicine 09/04/20 documented as of this encounter
--- OUTSIDE RECORDS SUMMARY | 2024-03-08 14:36 | External Medical Summary | Summary of Care ---
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[place] co ronary artery without angina pectoris 03/02/2021 [...] PM EDT Pre-Admission Testing Pre [facility], [place] [address] [place] [address] [facility] [address] [place] [address] 01/10/2024 2:30 PM EDT Nurse Only Wound Care, [place] [address] [place] [address] Care, Nurse Wound [address] [place] [address] 01/16/2024 2:40 PM EDT Office Visit Wound Care, [place] [address] [place] [address] Mario Sauceda MD [address] [place] [address] 01/23/2024 2:30 PM EDT Nurse Only Wound Care, [place] [address], [place] [id number] Care, Nurse Wound [address] [place] [address] 01/27/2024 10:53 AM EDT [place] [facility] [place] [facility] [facility] [address] [place] [address] Flex Valentin MD [address], [place] [id number] 01/27/2024 10:53 AM EDT Anesthesia Event [place] [facility] [facility] [facility] [address] [place] [address] Quang Wade CRNP [address] [place] [address] 01/27/2024 10:53 AM EDT - 01/27/2024 12:34 PM EDT Surgery [place] [facility] [place] [facility] [address] [place] [address] Flex Valentin MD [address] [place] [address] ENDOVENOUS RADIOFREQUENCY ABLATION THERAPY FIRST VEIN 01/31/2024 1:00 PM EDT Office Visit Vascular Surg [facility], [place] [address] [place] [address] Flex Valentin MD [address] [place] [address] 01/31/2024 2:30 PM EDT Nurse Only Wound Care, [place] [address] [place] [address] Care, Nurse Wound [address] [place] [address] 02/06/2024 3:00 PM EDT Office Visit Dermatology [facility] [address] [place] [address] Dieudonne Braxton MD [address] [place] [address] 02/07/2024 2:30 PM EDT Nurse Only Wound Care, [place] [address] [place] [address] Care, Nurse Wound [address] [place] [address] 02/14/2024 2:30 PM EDT Nurse Only Wound Care, [place] [address] [place] [address] Care, Nurse Wound [address] [place] [address] 02/21/2024 2:40 PM EST Office Visit Wound Care, [place] [address] [facility] [place] [address] Mario Sauceda MD [address] [facility] [place] [address] 02/28/2024 2:30 PM EST Nurse Only Wound Care, [place] [address] [facility] [place] [address] Care, Nurse Wound [address] [facility] [place] [address] 03/06/2024 2:30 PM EST Nurse Only Wound Care, [place] [address] [facility] [place] [address] Care, Nurse Wound [address] [facility] [place] [address] 03/13/2024 2:30 PM EST Nurse Only Wound Care, [place] [address] [place] [address] Care, Nurse Wound [address] [facility] [place] [address] 03/20/2024 2:30 PM EST Nurse Only Wound Care, [place] [address] [facility] [place] [address] Care, Nurse Wound [address] [facility] [place] [address] 03/27/2024 2:40 PM EST Office Visit Wound Care, [place] [address] [facility] [place] [address] Mario Sauceda MD [address] [place] [address] 05/16/2024 2:00 PM EST Office Visit Gastroenterology, [facility] [address] [facility] [place] [address] Marlene Balderas CRNP 132 [facility] [place] [address] 09/13/2024 5:20 PM EDT Office Visit Family [facility] [address] [place] [address] Raza Lion, [address] [place] [address] Scheduled Orders Name Type Priority Associated Diagnoses Orde r Schedule MYCODE SUBSEQUENT ADULT Lab Routine MyCode Research Other*[id number] Every 6 Months for 2 Occurrences starting 01/09/2024 until 01/28/2025 Scheduled Procedures Name Priority Associated Diagnoses Date/Ti me ENDOVENOUS RADIOFREQUENCY ABLATION THERAPY FIRST VEIN 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) Venous insufficiency Cigar smoker 01/27/2024 10:53 AM EDT COLONOSCOPY FLEXIBLE PROXIMAL DIAGNOSTIC Recall History of colon polyps Health Maintenance Due Date Last Done Comments DISCUSS TOBACCO CESSATION (REFER TO SMARTSET #3290) 1958 COVID-19 Vaccine (#1) 1963 Cologuard 2003 [...] (peripheral) insufficiency Cigar smoker Tobacco use disorder MyCode Research Other*[id number] 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) Varicose veins of lower extremities with ulcer and inflammation Venous insufficiency Unspecified venous (peripheral) insufficiency Cigar smoker Tobacco use disorder documented in this encounter Care Teams Instructional Leader Relationship Specialty Start Date End Date Raza Lion DO [address] [place] [address] PCP - General Family Medicine 09/04/20 documented as of this encounter
--- OUTSIDE RECORDS SUMMARY | 2024-03-08 14:36 | External Medical Summary | Summary of Care ---
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 Coban 2 wrap with an extra cohesive layer applied for compression to BLE as per order. documented in this encounter Plan of Treatment Upcoming Encounters Date Type Department Care Team (Latest Contact Info) Description 01/16/2024 2:40 PM EDT Office Visit Wound Care, [place] [address] [place] [address] Mario Sauceda MD [address] [place] [address] 01/23/2024 2:30 PM EDT Nurse Only Wound Care, [place] [address] [place] [address] Care, Nurse Wound [address] [place] [address] 01/27/2024 10:53 AM EDT Hospital Encounter [place] [facility] [place] [facility] [facility] [address] [place] [facility] [place] [address] Flex Valentin MD [address] [place] [address] 01/27/2024 10:53 AM EDT Anesthesia Event [place] [facility] [facility] [facility] [address] [place] [address] Quang Wade CRNP [address], [place] [id number] 01/27/2024 10:53 AM EDT - 01/27/2024 12:34 PM EDT Surgery [place] [facility] [place] [facility] [facility] [address] [place] [phone] Flex Valentin MD [address] [place] [address] ENDOVENOUS RADIOFREQUENCY ABLATION THERAPY FIRST VEIN 01/31/2024 1:00 PM EDT Office Visit Vascular Surg [facility], [place] [address] [place] [address] Flex Valentin MD [address] [place] [address] 01/31/2024 2:30 PM EDT Nurse Only Wound Care, [place] [address] [place] [address] Care, Nurse Wound [address], [place] [address] 02/06/2024 3:00 PM EDT Office Visit [facility] 200 [facility] [place], [place] [phone] Dieudonne Braxton MD 200 [place] [address] 02/07/2024 2:30 PM EDT Nurse Only Wound Care, [place] [address] [place] [facility] [address] Care, Nurse Wound [address] [place] [address] 02/14/2024 2:30 PM EDT Nurse Only Wound Care, [place] [address] [place] [facility] [address] Care, Nurse Wound [address] [place] [address] 02/21/2024 2:40 PM EST Office Visit Wound Care, [place] [address] [place] [facility] [place] [address] Mario Sauceda MD [address] [place] [address] 02/28/2024 2:30 PM EST Nurse Only Wound Care, [place] [address] [place] [address] Care, Nurse Wound [address] [place] [address] 03/06/2024 2:30 PM EST Nurse Only Wound Care, [place] [address] [place] [address] Care, Nurse Wound [address] [place] [address] 03/13/2024 2:30 PM EST Nurse Only Wound Care, [place] [address] [place] [address] Care, Nurse Wound [address] [place] [address] 03/20/2024 2:30 PM EST Nurse Only Wound Care, [place] [address] [place] [facility] [address] Care, Nurse Wound [address] [place] [address] 03/27/2024 2:40 PM EST Office Visit Wound Care, [place] [address] [place] [address] Mario Sauceda MD [address] [place] [address] 05/16/2024 2:00 PM EST Office Visit Gastroenterology, [facility] [address] [place] [address] Marlene Balderas CRNP [address] [place] [address] 09/13/2024 5:20 PM EDT Office Visit Family Practice [facility] [address] [place] [facility] [place] [address] Raza Lion DO [address] [place] [address] Scheduled Procedures Name Priority Associated Diagnoses Date/Ti me ENDOVENOUS RADIOFREQUENCY ABLATION THERAPY FIRST VEIN 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) Venous insufficiency Cigar smoker 01/27/2024 10:53 AM EDT COLONOSCOPY FLEXIBLE PROXIMAL DIAGNOSTIC Recall History of colon polyps Health Maintenance Due Date Last Done Comments DISCUSS TOBACCO CESSATION (REFER TO SMARTSET #1952) 1958 COVID-19 Vaccine (#1) 1963 Cologuard 2003 [...] disorder documented in this encounter Care Teams Set Painter Relationship Specialty Start Date End Date Raza Lion DO [address] [place] [address] PCP - General Family Medicine 09/04/20 documented as of this encounter
--- OUTSIDE RECORDS SUMMARY | 2024-03-08 14:36 | External Medical Summary | Summary of Care ---
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 Patient has followed at [facility] for 2 yearsand came here [...] PRESENTING CONDITIONS: Evaluate for deep, superficial, and slumber room attendant reflux. IMPRESSION: There is no evidence of [...] 2:30 PM EDT Nurse Only Wound Care, [place] [address] [place] [address] Care, Nurse Wound [address] [place] [address] 01/27/2024 10:53 AM EDT Hospital Encounter OR C, OPERATING ROOM [facility] [place], [facility]ION [address] [place] [address] Flex Valentin MD [address] [place] [address] 01/27/2024 10:53 AM EDT Anesthesia Event OR [facility] [place] OPERATING ROOM [facility], [facility]ION [address] [place] [address] Quang Wade CRNP [address] [place] [address] 01/27/2024 10:53 AM EDT - 01/27/2024 12:34 PM EDT Surgery OR [facility], OPERATING ROOM [facility], [facility]ION [address] [place] [place] [address] Flex Valentin MD [address] [place] [address] ENDOVENOUS RADIOFREQUENCY ABLATION THERAPY FIRST VEIN 01/31/2024 1:00 PM EDT Office Visit Vascular Surg [facility], [place] [address] [facility], [place] [phone] Flex Valentin MD [address] [facility], [place] [address] 01/31/2024 2:30 PM EDT Nurse Only Wound Care, [place] [address] [place] [facility] [address] Care, Nurse Wound [address] [place] [address] 02/06/2024 3:00 PM EDT Office [facility] [place] 200 [facility] [place] [address] Dieudonne Braxton MD 200 [facility] [place] [address] 02/07/2024 2:30 PM EDT Nurse Only Wound Care, [place] [address] [place] [facility] [address] Care, Nurse Wound [address] [place] [address] 02/14/2024 2:30 PM EDT Nurse Only Wound Care, [place] [address] [place] [address] Care, Nurse Wound [address] [place] [address] 02/21/2024 2:40 PM EST Office Visit Wound Care, [place] [address] [place] [address] Mario Sauceda MD [address] [facility] [place] [address] 02/28/2024 2:30 PM EST Nurse Only Wound Care, [place] [address] [place] [facility] [address] Care, Nurse Wound [address] [place] [address] 03/06/2024 2:30 PM EST Nurse Only Wound Care, [place] [address] [place] [facility] [address] Care, Nurse Wound [address] [place] [address] 03/13/2024 2:30 PM EST Nurse Only Wound Care, [place] [address] [place] [facility] [address] Care, Nurse Wound [address] [place] [address] 03/20/2024 2:30 PM EST Nurse Only Wound Care, [place] [address] [place] [address] Care, Nurse Wound [address] [place] [address] 03/27/2024 2:40 PM EST Office Visit Wound Care, [place] [address] [place] [address] Mario Sauceda MD [address] [place] [address] 05/16/2024 2:00 PM EST Office Visit Gastroenterology, [facility] [address] [facility] [place] [address] Marlene Balderas CRNP [address] [place] [address] 09/13/2024 5:20 PM EDT Office Visit Family Practice [facility] [address] [facility] [place] [address] Raza Lion DO [address] [place] [address] Scheduled Procedures Name Priority Associated Diagnoses Date/Ti me ENDOVENOUS RADIOFREQUENCY ABLATION THERAPY FIRST VEIN 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) Venous insufficiency Cigar smoker 01/27/2024 10:53 AM EDT COLONOSCOPY FLEXIBLE PROXIMAL DIAGNOSTIC Recall History of colon polyps Health Maintenance Due Date Last Done Comments DISCUSS TOBACCO CESSATION (REFER TO SMARTSET #5437) 1958 COVID-19 Vaccine (#1) 1963 Cologuard 2003 [...] disorder documented in this encounter Care Teams Take Away Attendant Relationship Specialty Start Date End Date Raza Lion DO 132 [facility] [place] [address] PCP - General Family Medicine 09/04/20 documented as of this encounter
--- OUTSIDE RECORDS SUMMARY | 2024-03-08 14:37 | External Medical Summary | Summary of Care ---
Author Name Unknown Organization [facility] Address [address] [place] [address] Phone [phone] Care Team Providers Care Fryer Line Helper Name Role Phone Raza Lion Primary Care Provider Reason for Visit * Reason Comments Wound Care Encounter Details Date Type Department Care Team (Late st Contact Info) Description 12/28/2023 2:30 PM EDT Nurse Only Wound Care, [place] [address] [place] [address] Care, Nurse Wound [address] [place] [address] Wound Care Allergies Active Allergy Reactions Criticality Noted Date Comments Erythromycin 07/21/2012 Contraindicated with Targretin (cancer med) documented as of this encounter (statuses as of 12/28/2023) Medications Medication Sig Dispensed Refills Start Date [...] in the morning. Emergency dose . Active Ibuprofen 600 MG Oral Tablet (Motrin) TAKE ONE TABLET BY MOUTH EVERY 6 HOURS NEEDED FOR PAIN 90 Tablet 3 09/08/2023 5 Active Bexarotene 75 MG Oral Capsule TAKE 4 CAPSULES (300MG) BY MOUTH ONCE DAILY 120 Capsule 5 09/27/2023 Active Atorvastatin Calcium 40 MG Oral Tablet (Lipitor) TAKE ONETABLET BY MOUTH AT BEDTIME 90 Tablet 3 11/02/2023 5 Active HYDROcodone-Acetamin ophen 5-325 MG Oral Tablet Take 1 Tablet by mouth at bedtime as needed for Severe Pain. 21 Tablet 11/21/2023 Active Gabapentin 600 MG Oral Tablet (Neurontin)Indicatio [...] Delayed Release Take by mouth. 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[place] co ronary artery without angina pectoris 03/02/2021 [...] as of this encounter (statuses as of 12/28/2023) Resolved Problems Problem Noted Date Diagnosed Date Resolved Date Abdominal discomfort 11/21/2017 018 COPD, severity to be determined 07/23/2016 07/31/2020 Overview: Per COPD GOLD Classification Periapical abscess 05/15/2014 8 Venous stasis ulcer of leg w ithout varicose veins 07/21/2012 07/14/2017 Anemia 07/21/2012 10/07/2017 documented as of this encounter (statuses as of 12/28/2023) Immunizations Name Administration Dates Next Due Hepatitis [...] Nursing Notes * Catarina Gonzalez LPN - 12/28/2023 3:35 PM EDT Puracol, Ag Foam and Foam placed over BLE wound. Coban 2 wrap with an extra cohesive layer applied for compression to BLE as per order. documented in this encounter Plan of Treatment Upcoming Encounters Date Type Department Care Team (Latest Contact Info) Description 01/03/2024 2:30 PM EDT Nurse Only Wound Care, [place] [address] [place] [address] Care, Nurse Wound [address] [place] [address] 01/10/2024 1:30 PM EDT Pre-Admission Testing Pre Surgery Center, [place] [address] [place] [address] [facility] [address] [place] [address] 01/10/2024 2:30 PM EDT Nurse Only Wound Care, [place] [address] [place] [address] Care, Nurse Wound [address] [place] [address] 01/16/2024 2:40 PM EDT Office Visit Wound Care, [place] [address] [place] [address] Mario Sauceda MD [address] [place] [address] 01/24/2024 2:30 PM EDT Nurse Only Wound Care, [place] [address], [place] [address] Care, Nurse Wound [address] [place] [facility] [place] [address] 01/27/2024 10:53 AM EDT Hospital Encounter [place] [facility] [place], OPER[place] ROOM [facility] [place], RA [place] [address] [place] [facility] [address] Flex Valentin MD [address] [place] [facility] [place] [address] 01/27/2024 10:53 AM EDT - 01/27/2024 12:34 PM EDT Surgery [place] [facility] [place]OM [facility] [place], RA [place] [address] [place] [facility] [phone] Flex Valentin MD [address], [place] [id number] ENDOVENOUS RADIOFREQUENCY ABLATION THERAPY FIRST VEIN 01/31/2024 1:00 PM EDT Office Visit Vascular Surg [facility], [place] [address] [place] [address] Flex Valentin MD [address] [place] [address] 01/31/2024 2:30 PM EDT Nurse Only Wound Care, [place] [address] [place] [address] Care, Nurse Wound [address] [place] [facility] [place] [address] 02/06/2024 3:00 PM EDT Office Visit Dermatology [facility] [place] [address] [place], [place] [address] Dieudonne Braxton MD [address] [place] [address] 02/07/2024 2:30 PM EDT Nurse Only Wound Care, [place] [address], [place] [address] Care, Nurse Wound [address] [place] [facility] [place] [address] 02/14/2024 2:30 PM EDT Nurse Only Wound Care, [place] [address] [place] [facility] [place] [address] Care, Nurse Wound [address] [place] [facility] [place] [address] 02/21/2024 2:40 PM EST Office Visit Wound Care, [place] [address] [place] [facility] [address] Mario Sauceda MD [address] [place] [address] 02/28/2024 2:30 PM EST Nurse Only Wound Care, [place] [address] [place] [address] Care, Nurse Wound [address] [place] [facility] [place] [address] 03/06/2024 2:30 PM EST Nurse Only Wound Care, [place] [address] [place] [facility] [place] [address] Care, Nurse Wound [address] [place] [facility] [place] [address] 03/13/2024 2:30 PM EST Nurse Only Wound Care, [place] [address] [place] [facility] [place] [address] Care, Nurse Wound [address] [place] [facility] [place] [address] 03/20/2024 2:30 PM EST Nurse Only Wound Care, [place] [address] [place] [facility] [place] [address] Care, Nurse Wound [address] [place] [facility] [place] [address] 03/27/2024 2:40 PM EST Office Visit Wound Care, [place] [address] [place] [facility] [place] [address] Mario Sauceda MD [address] [place] [address] 05/16/2024 2:00 PM EST Office Visit Gastroenterology, [facility] [address] [place] [address] Marlene Balderas CRNP [address] [place] [address] 09/13/2024 5:20 PM EDT Office Visit Family Practice [facility] [address] [place] [address] Raza Lion DO 132 [facility] [place] [address] Scheduled Procedures Name Priority Associated Diagnoses Date/Ti [...] 12/25/2022, 08/17, 05/08/2021, Additional history exists GFR 09/23/2024 09/24/2023, 08/16, 06/09/2023, Additional history exists TSH 09/23/2024 09/24/2023, 08/16, 06/09/2023, Additional history exists O2 ASSESSMENT COMPLETED IN PAST YEAR FOR COPD 12/09/2024 12/10/2023 Depression Screening 12/25/2024 12/26/2023 Albumin/Creatinine Ratio 12/25/2025 12/25/2022, 04/19 Colonoscopy 08/18/2026 08/18/2021, 05/06/2021, 12/07/2017, Additional history exists Colorectal Cancer Screening [...] disorder documented in this encounter Care Teams Fryer Line Helper Relationship Specialty Start Date End Date Raza Lion DO [address] [place] [address] PCP - General Family Medicine 09/04/20 documented as of this encounter
--- OUTSIDE RECORDS SUMMARY | 2024-03-08 14:37 | External Medical Summary ---
Author Name Unknown Address Unknown Organization K[facility] - [address] [place] [address] Laboratory Report Ordering Provider Test Date Status CAMMIE HURST 01/02/2024 16:46:06 Final Observation Date Value Abnormality Reference (Units ) Status MYCODE SPECIMEN-SST 01/02/2024 16:46:06 Freezing of extracted DNA, whole blood and/or serum. Final Performing Location [facility] - [address] [place] [address]
--- OUTSIDE RECORDS SUMMARY | 2024-03-08 14:37 | External Medical Summary | Summary of Care ---
Author Name Unknown Organization [facility] Address [address] [place] [address] Phone [phone] Care Team Providers Care Central Scheduler Name Role Phone Drea Lion DO Primary Care Provider Reason for Visit * Reason Comments Medication Refill Encounter Details Date Type Department Care Team (Late st Contact Info) Description 12/20/2023 Refill Family [facility] [address] [place] [address] Drea Lion DO [address] [place] [address] HTN, goal below 140/90 Allergies Active Allergy Reactions Criticality Noted Date Comments Erythromycin 07/21/2012 Contraindicated with Targretin (cancer med) documented as of this encounter (statuses as of 12/21/2023) Medications Medication Sig Dispensed Refills Start Date [...] or juice. 850 g 3 06/10/2022 Active Fluorouracil 5 % External Cream (Efudex)Indications :Basal cell carcinoma (BCC), unspecified site Apply to biopsied lesions nightly for 3 weeks 40 g 1 07/13/2022 Active Omeprazole 20 MG Oral Capsule Delayed [...] NEEDED FOR PAIN 90 Tablet 3 09/08/2023 09/08/19 25 Active Bexarotene 75 MG Oral Capsule TAKE 4 CAPSULES (300MG) BY MOUTH ONCE DAILY 120 Capsule 5 09/27/2023 Active Atorvastatin Calcium 40 MG Oral Tablet (Lipitor) TAKE ONETABLET BY MOUTH AT BEDTIME 90 Tablet 3 11/02/2023 11/02/19 25 Active HYDROcodone-Acetami nophen 5-325 MG Oral Tablet Take 1 Tablet by mouth at bedtime as needed for Severe Pain. 21 Tablet 11/21/2023 Active Gabapentin 600 MG Oral Tablet (Neurontin)Indicati [...] MOUTH DAILY 90 Tablet 3 12/21/2023 Active Losartan Potassium 100 MG Oral Tablet (Cozaar)Indications :HTN, goal below 140/90 TAKE ONE TABLET BY MOUTH DAILY 90 Tablet 1 06/14/2023 12/20/19 24 Discontinu ed(Refill) documented as of this encounter (statuses as of 12/21/2023) Active Problems Problem Noted Date Diagnosed Date Venous insufficiency 09/05/2023 Subconjunctival hemorrhage of left eye Tobacco use 10/26/2022 Medical home patient encounter 06/03/2022 Stasis ulcer of lower extremity, left 04/22/2022 Drug-induced polyneuropathy 02/22/2022 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 Alcohol Use Standard Drinks/Week Comments Yes 0 (1 standard drink = 0.6 oz pur e alcohol) weekends PHQ-2 Answer Date Recorded PHQ Adult Total Score 0 07/06/2023 Hunger Vital Sign Answer Date Recorded Within the past 12 months, y ou worried that your food would run out before you got the money to buy more. Never true 07/06/19 24 Within the past 12 months, t he food you bought just didn't last and you didn't have money to get more. Never true 07/06/2023 Childcare Answer Date Recorded Do you feel overwhelmed with taking care of a child, family member or friend? No 07/06/2023 Does your family need help f inding childcare? (Household - for ages 0-17 years) Not on file 07/06/2023 Clothing Answer Date Recorded Have you been unable to get clothing when it was really needed? No 07/06/2023 Is your family able to get c lothes or diapers when needed? (Household - for ages 0-17 years) Not on file 07/06/2023 Personal Safety Answer Date Recorded Do you feel unsafe or have concerns for your saf ety? No 07/06/2023 Do you have concerns for you r family's safety? (Household - for ages 0-17 years) Not on file 07/06/2023 Utilities Answer Date Recorded Do you have trouble paying y our heating, water, or electric bill? No 07/06/2023 Is your family able to pay t he heat, water, or electric bill? (Household - for ages 0-17 years) Not on file 07/06/2023 Does your family have access to good internet? (Household - for ages 0-17 years) Not on file 07/06/2023 Employment Status Answer Date Recorded Are you unemployed or without regular income? No 07/06/2023 Does the household have a re gular source of income? (Household - for ages 0-17 years) Not on file 07/06/2023 Social Connections Answer Date Recorded How often do you feel lonely or isolated from th ose around you? Never 07/06/2023 Financial Resource Strain Answer Date R ecorded Do you have any trouble payi ng for your medications, or do you think you might in the future? No 07/06/2023 Does your family have troubl e paying for medicine? (Household - for ages 0-17 years) Not on file 07/06/2023 Transportation Needs Answer Date Record ed READ ONLY Do you have troubl e getting a ride to medical visits or work? Never True 07/06/2023 Does your family have a hard time getting a ride to doctors visits? (Household - for ages 0-17 years) Not on file 07/06/2023 Has lack of transportation k ept you from medical appointments, meetings, work, or from getting things needed for daily living? Check all that apply. (Adult - for ages 18 years and over) Not on file 07/06/2023 Do you (or your family) have trouble finding or paying for a ride (transportation)? (Household - for ages 0-17 years) Not on file 07/06/2023 Housing Stability Answer Date Recorded Do you currently live in a s helter or have no steady place to sleep at night? No 07/06/2023 READ ONLY Do you think you a re at risk of becoming homeless? No 07/06/2023 Does your family worry about paying for your home or becoming homeless? (Household - for ages 0-17 years) Not on file 0 07/06/2023 Are you homeless or worried that you might be in the future? (Adult - for ages 18 years and over) Not on file Are you (or your family) rebeca eless or worried that you might be in the future? (Household - for ages 0-17 years) Not on file Food Insecurity Answer Date Recorded Do you need food for this week? No 07/06/2023 Are you able to get enough f ood for your family? (Household - for ages 0-17 years) Not on file 07/06/2023 Does your family need food t his week? (Household - for ages 0-17 years) Not on file 07/06/2023 Do you always have enough fo od for your family? (Household - for ages 0-17 years) Not on file 07/06/2023 Sex and Gender Information Value Date Recorded Sex Assigned at Male 05/09/2019 10:43 AM EST Gender Identity Male 05/09/2019 10:43 AM EST Sexual Orientation Straight 05/09/2019 10 :43 AM EST Job Start Date Occupation Industry Not on file Not on file Not on file documented as of this encounter Miscellaneous Notes * Telephone Encounter - Lesli Parks [facility] - 12/21/2023 3:43 PM EDTSigned Prescriptions: Disp Refills Losartan Potassium 100 MG Oral Tablet (Coz*90 Tab*3 Sig: TAKE ONE TABLET BY MOUTH DAILYAuthorizing Provider: DREA LION User: LESLI PARKS- documented in this encounter Plan of Treatment Upcoming Encounters Date Type Department Care Team (Late st Contact Info) Description 12/28/2023 1:15 PM EDT Office Visit Vascular Surg [facility], [address] [address] Flex Valentin MD [facility] [place] [address] 12/28/2023 2:30 PM EDT Nurse Only Wound Care, [address] [address] Care, Nurse Wound [address] [place] [address] 01/03/2024 2:30 PM EDT Nurse Only Wound Care, [address] [address] Care, Nurse Wound [address] [place] [facility] [place] [address] 01/10/2024 2:30 PM EDT Nurse Only Wound Care, [place] [address] [place] [address] Care, Nurse Wound [address] [place] [facility] [address] 01/16/2024 2:40 PM EDT Office Visit Wound Care, [place] [address] [place] [address] Mario Sauceda MD [address] [place] [address] 01/24/2024 2:30 PM EDT Nurse Only Wound Care, [place] [address] [place] [address] Care, Nurse Wound [address] [place] [address] 01/31/2024 2:30 PM EDT Nurse Only Wound Care, [place] [address] [place] [address] Care, Nurse Wound [address] [place] [address] 02/06/2024 3:00 PM EDT Office Visit Dermatology [facility] [address] [place] [address] Dieudonne Braxton MD [address] [place] [address] 02/07/2024 2:30 PM EDT Nurse Only Wound Care, [place] [address] [place], [place] [id number] Care, Nurse Wound [address] [place] [address] 02/14/2024 2:30 PM EDT Nurse Only Wound Care, [place] [address] [place] [address] Care, Nurse Wound [address] [place] [facility] [place] [address] 02/21/2024 2:40 PM EST Office Visit Wound Care, [place] [address] [place] [facility] [address] Mario Sauceda MD [address] [place] [address] 02/28/2024 2:30 PM EST Nurse Only Wound Care, [place] [address] [place] [address] Care, Nurse Wound [address] [place] [facility] [address] 03/06/2024 2:30 PM EST Nurse Only Wound Care, [place] [address] [place] [address] Care, Nurse Wound [address] [place] [address] 03/13/2024 2:30 PM EST Nurse Only Wound Care, [place] [address] [place] [address] Care, Nurse Wound [address] [place] [address] 03/20/2024 2:30 PM EST Nurse Only Wound Care, [place] [address] [place] [address] Care, Nurse Wound [address] [place] [address] 03/27/2024 2:40 PM EST Office Visit Wound Care, [place] [address] [place] [address] Mario Sauceda MD [address] [place] [address] 05/16/2024 2:00 PM EST Office Visit Gastroenterology, [address] [place] [address] Marlene Balderas CRNP [address] [place] [address] 09/13/2024 5:20 PM EDT Office Visit Family Practice [facility] [address] [place] [address] Drea Lion DO [address] [place] [address] Scheduled Procedures Name Priority Associated Diagnoses Date/Ti me COLONOSCOPY FLEXIBLE PROXIMAL DIAGNOSTIC Recall History of colon polyps Health Maintenance Due Date Last Done Comments DISCUSS TOBACCO CESSATION (REFER TO SMARTSET #2023) 1960 COVID-19 Vaccine (#1) 1963 Cologuard 2003 Fecal Occult Blood Test 2003 Sigmoidoscopy 2003 DTap/Tdap Vaccines (2 - Td or Tdap) 10/04/2022 10/04/2012 Pneumococcal Vaccine: 65+ Years (4 of 4 - PPSV23 or PCV20) 2023 03/20/2019, 03/08/2017, 04/18/2001 Influenza Vaccine (FLU shot) (#1) 2023 04/22/2022, 03/02/2021, 03/25/2020, Additional history exists HbA1c 12/26/2023 12/25/2022, 08/17, 05/08/2021, Additional history exists Depression Screening 07/05/2024 07/06/2023 GFR 09/23/2024 09/24/2023, 08/16, 06/09/2023, Additional history exists TSH 09/23/2024 09/24/2023, 08/16, 06/09/2023, Additional history exists O2 ASSESSMENT COMPLETED IN PAST YEAR FOR COPD 12/09/2024 12/10/2023 Albumin/Creatinine Ratio 12/25/2025 12/25/2022, 04/19 Colonoscopy 08/18/2026 [...] as of this encounter Visit Diagnoses Diagnosis HTN, goal below 140/90 Unspecified essential hypertension documented in this encounter Care Teams Central Scheduler Relationship Specialty Start Date End Date Drea Lion DO [address] [place] [address] PCP - General Family Medicine 09/04/20 documented as of this encounter
--- OUTSIDE RECORDS SUMMARY | 2024-03-08 14:37 | External Medical Summary | Summary of Care ---
Author Name Unknown Organization [facility] Address [address] [facility] [place] [address] Phone [phone] Care Team Providers Care Occupational Safety Specialist Name Role Phone LionAnupbelle Mcclendonsyed Primary Care Provider Reason for Visit * Reason Comments Outpatient Testing Encounter Details Date Type Department Care Team (Late st Contact Info) Description 01/02/2024 4:40 PM EDT Laboratory Laboratory, [facility] [address] [place] [phone] [facility] [address] [place] [address] [employer] Other*[id number]; Granuloma, fungoides (HCC); Encounter for long-term (current) use of other medications; Encounter for therapeutic drug monitoring; MEDICATION USE AGREEMENT Allergies Active Allergy Reactions Criticality Noted Date Comments Erythromycin 07/21/2012 Contraindicated with Targretin (cancer med) documented as of this encounter (statuses as of 01/02/2024) Medications Medication Sig Dispensed Refills Start Date [...] PAIN 90 Tablet 3 01/01/2024 5 Active documented as of this encounter (statuses as of 01/02/2024) Active Problems Problem Noted Date Diagnosed Date Varicose veins of lower extr emities with ulcer and inflammation 12/28/2023 Cigar smoker 12/28/2023 Venous insufficiency 09/05/2023 Subconjunctival hemorrhage of left eye 3 Tobacco use 10/26/2022 Medical home patient encounter 06/03/2022 Stasis ulcer of lower extremity, left 04/22/2022 Drug-induced polyneuropathy 02/22/2022 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[place] co ronary artery without angina pectoris 03/02/2021 [...] as of this encounter (statuses as of 01/02/2024) Resolved Problems Problem Noted Date Diagnosed Date Resolved Date Abdominal discomfort 11/21/2017 018 COPD, severity to be determined 07/23/2016 07/31/2020 Overview: Per COPD GOLD Classification Periapical abscess 05/15/2014 8 Venous stasis ulcer of leg w ithout varicose veins 07/21/2012 07/14/2017 Anemia 07/21/2012 10/07/2017 documented as of this encounter (statuses as of 01/02/2024) Immunizations Name Administration Dates Next Due Hepatitis [...] No 12/26/2023 Are you (or your family) rbeeca eless or worried that you might be [...] 2:30 PM EDT Nurse Only Wound Care, [place] [address] [place] [address] Care, Nurse Wound [address] [place] [address] 01/10/2024 1:30 PM EDT Pre-Admission Testing Pre Surgery Center, [place] [address] [place] [address] [facility] [address] [place] [address] 01/10/2024 2:30 PM EDT Nurse Only Wound Care, [place] [address] [place] [address] Care, Nurse Wound [address] [place] [address] 01/16/2024 2:40 PM EDT Office Visit Wound Care, [place] [address] [place] [address] Mario Sauceda MD [address] [place] [address] 01/24/2024 2:30 PM EDT Nurse Only Wound Care, [place] [address] [place] [address] Care, Nurse Wound [address] [place] [address] 01/27/2024 10:53 AM EDT Hospital Encounter [facility], OPERATING ROOM [facility] [address] [facility] [place] [address] Flex Valentin MD [address] [facility] [place] [address] 01/27/2024 10:53 AM EDT Anesthesia Event OR [facility], OPERATING ROOM [facility], [facility] [address] [facility] [place] [address] Quang Wade CRNP [address] [facility] [place] [address] 01/27/2024 10:53 AM EDT - 01/27/2024 12:34 PM EDT Surgery OR [facility], OPERATING ROOM [facility], [facility] [address] [facility] [place] [phone] Flex Valentin MD [address] [place] [address] ENDOVENOUS RADIOFREQUENCY ABLATION THERAPY FIRST VEIN 01/31/2024 1:00 PM EDT Office Visit Vascular Surg [facility], [place] [address] [place] [address] Flex Valentin MD [address] [place] [address] 01/31/2024 2:30 PM EDT Nurse Only Wound Care, [place] [address] [place] [address] Care, Nurse Wound [address] [facility] [place] [address] 02/06/2024 3:00 PM EDT Office Visit Dermatology [facility] [address] [place] [address] Dieudonne Braxton MD [address] [facility], [place] [address] 02/07/2024 2:30 PM EDT Nurse Only Wound Care, [place] [address] [facility] [place] [address] Care, Nurse Wound [address] [facility] [place] [address] 02/14/2024 2:30 PM EDT Nurse Only Wound Care, [place] [address] [facility] [place] [address] Care, Nurse Wound [address] [facility] [place] [address] 02/21/2024 2:40 PM EST Office Visit Wound Care, [place] [address] [place] [address] Mario Sauceda MD [address] [place] [address] 02/28/2024 2:30 PM EST Nurse Only Wound Care, [place] [address] [place] [address] Care, Nurse Wound [address] [place] [address] 03/06/2024 2:30 PM EST Nurse Only Wound Care, [place] [address] [place] [address] Care, Nurse Wound [address] [facility] [place] [address] 03/13/2024 2:30 PM EST Nurse Only Wound Care, [place] [address] [facility] [place] [address] Care, Nurse Wound [address] [facility] [place] [address] 03/20/2024 2:30 PM EST Nurse Only Wound Care, [place] [address] [facility] [place] [address] Care, Nurse Wound [address] [facility] [place] [address] 03/27/2024 2:40 PM EST Office Visit Wound Care, [place] [address] [place] [address] Mario Sauceda MD [address] [place] [address] 05/16/2024 2:00 PM EST Office Visit Gastroenterology, [facility] [address] [place] [address] Marlene Balderas CRNP [address] [place] [address] 09/13/2024 5:20 PM EDT Office Visit Family Practice [facility] [address] [place] [address] Raza Lion DO [address] [place] [address] Pending Results Name Type Priority Associated Diagnoses Date /Time MYCODE INITIAL ADULT Lab Routine [employer] Other*[id number] 01/02/2024 4:46 PM EDT TSH Lab Routine Granuloma, fungoides (HCC) Encounter for long-term (current) use of other medications Encounter for therapeutic drug monitoring 01/02/2024 4:46 PM EDT T4, FREE Lab Routine Granuloma, fungoides (HCC) Encounter for long-term (current) use of other medications Encounter for therapeutic drug monitoring 01/02/2024 4:46 PM EDT COMPREHENSIVE METABOLIC PANEL Lab Routine Granuloma, fungoides (HCC) Encounter for long-term (current) use of other medications Encounter for therapeutic drug monitoring 01/02/2024 4:46 PM EDT LIPID PANEL WITH DIRECT LDL IF TG IS HIGH Lab Routine Granuloma, fungoides (HCC) Encounter for long-term (current) use of other medications Encounter for therapeutic drug monitoring 01/02/2024 4:46 PM EDT CBC Lab Routine Granuloma, fungoides (HCC) Encounter for long-term (current) use of other medications Encounter for therapeutic drug monitoring 01/02/2024 4:46 PM EDT PAIN MANAGEMENT DRUG PANEL, URINE W/ INTERPRETATION Lab Routine MEDICATION USE AGREEMENT 01/02/2024 4:46 PM EDT MYCODE INITIAL ADULT-PINK Lab Routine [employer] Other*[id number] 01/02/2024 4:46 PM EDT MYCODE SST1 Lab Routine [employer] Other*[id number] 01/02/2024 4:46 PM EDT MYCODE SST2 Lab Routine [employer] Other*[id number] 01/02/2024 4:46 PM EDT Scheduled Procedures Name Priority Associated [...] Cigar smoker Tobacco use disorder [employer] Other*[id number] Granuloma, fungoides (HCC) Mycosis fungoides, unspecified site, extranodal and solid organ sites Encounter for long-term (current) use of other medications Encounter for therapeutic drug monitoring MEDICATION USE AGREEMENT 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) Varicose veins of lower extremities with ulcer and inflammation Venous insufficiency Unspecified venous (peripheral) insufficiency Cigar smoker Tobacco use disorder documented in this encounter Care Teams Occupational Safety Specialist Relationship Specialty Start Date End Date Raza Lion DO [address] [place] [address] PCP - General Family Medicine 09/04/20 documented as of this encounter
--- OUTSIDE RECORDS SUMMARY | 2024-03-08 14:37 | External Medical Summary ---
Author Name Unknown Address Unknown Organization K01:[facility]ORY [facility] - [address] [place] [address] Laboratory Report Ordering Provider Test Date Status CAMMIE HURST 01/02/2024 16:46:06 Final Observation Date Value Abnormality Reference (Units ) Status MYCODE SPECIMEN-SST 01/02/2024 16:46:06 Freezing of extracted DNA, whole blood and/or serum. Final Performing Location [facility] - [address] [place] [address]
--- OUTSIDE RECORDS SUMMARY | 2024-03-08 14:37 | External Medical Summary ---
Author Name Unknown Address Unknown Organization K01:LABORATORY [facility] - [address] [facility] [address] Laboratory Report Ordering Provider Test Date Status NATHANAELJennyARMANI 01/02/2024 16:46:06 Final Drugs that require complianc e testing:

Opioids:
Hydrocodone: Quantity 5mg Date/Time of last Dose 12/08/23

Benzodiazepines
None

Cutoff Concentrations:
Drug Level
Amphetamines 500 ng/mL
Benzodiazepines 100 ng/mL
Cannabinoids 50 ng/mL
Cocaine Metabolite 150 ng/mL
Fentanyl 1 ng/mL
Hydrocodone / Hydromorphone 300 ng/mL
Methadone Metabolite 100 ng/mL
Morphine / Codeine 300 ng/mL
Oxycodone / Oxymorphone 100 ng/mL

Screening results are presumptive and can only be used for medical purposes. Confirmatory testing is available upon request. Observation Date Value Abnormality Reference (Units) Status COMPLIANCE INTERPRETATION 01/02/2024 16:46:06 Based on the medication information provided: Final COMPLIANCE INTERPRETATION 01/02/2024 16:46:06 The negative hydrocodone screening result is consistent with hydrocodone last taken on 12/08/2023. Confirmatory testing is available upon request. Final Changed Report: Previously r eported on 01/03/2024 at 1212 EDT. See Results History in EPIC for previous versions of the report. Amphetamines, Urine screen 01/02/2024 16:46:06 Negative Negative Final Benzodiazepines, Urine screen 01/02/2024 16:46:06 Negative Negative Final Cannabinoids, Urine screen 01/02/2024 16:46:06 Negative Negative Final Cocaine Metabolite, Urine screen 01/02/2024 16:46:06 Negativ e Negative Final fentaNYL [Presence] in Urine by Screen method 01/02/2024 16:46:06 Negative Negative Final HYDROcodone [Presence] in Ur ine by Screen method 01/02/2024 16:46:06 Negative Negative Final 8-Viwityndou-9,4-Qekukoff-5, 3-Diphenylp yrrolidine (EDDP) [Presence] in Urine 01/02/2024 16:46:06 Negative Negative Final Opiates, Urine screen 01/02/2024 16:46:06 Negative Negative Final oxyCODONE [Presence] in Urin e by Screen method 01/02/2024 16:46:06 Negative Negative Final FORENSIC VALID INTERPRETATION 01/02/2024 16:46:06 Normal Final Creatinine, Urine 01/02/2024 16:46:06 78 (m g/dL) Final Performing Location LABORATORY [facility] - [address] [facility] [place] [facility] [address]
--- OUTSIDE RECORDS SUMMARY | 2024-03-08 14:37 | External Medical Summary ---
Author Name Unknown Address Unknown Organization K01[facility] [place] [address] [place] [address] [place] [address] Laboratory Report Ordering Provider Test Date Status WON GREENE 01/02/2024 16:46:06 Final Every 4 weeks Observation Date Value Abnormality Reference (Units ) Status WBC, Total 01/02/2024 16:46:06 11.91 Above high normal 4.00-10.80 (K/uL) Final RBC 01/02/2024 16:46:06 4.58 4.50-5.25 (M/uL) Final Hemoglobin 01/02/2024 16:46:06 15.1 14.0-16.8 (g/dL) Final HCT 01/02/2024 16:46:06 46.3 40.0-48.4 (%) Final MCV 01/02/2024 16:46:06 101.1 82.0-99.5 (fL) Final MCH 01/02/2024 16:46:06 33.0 27.0-34.0 (pg) Final MCHC 01/02/2024 16:46:06 32.6 32.0-36.0 (g/dL) Final RDW 01/02/2024 16:46:06 13.0 11.5-15.5 (%) Final Platelets 01/02/2024 16:46:06 266 140-400 (K/uL) Final MPV 01/02/2024 16:46:06 10.3 6.6-11.1 (fL) Final Nucleated erythrocytes/100 leukocytes [Ratio] in Blood by Automated count 01/02/2024 16:46:06 0 <=0 (/100 WBCs) Final Performing Location [facility] [place] [address] [place] [address]
--- OUTSIDE RECORDS SUMMARY | 2024-03-08 14:37 | External Medical Summary | Summary of Care ---
Author Name Unknown Organization [facility] Address [address] [place] [facility] [place] [address] Phone [phone] Care Team Providers Care Instructor Apparel Manufacture Name Role Phone Drea Lion DO Primary Care Provider Reason for Visit * Reason Comments Medication Refill Encounter Details Date Type Department Care Team (Late st Contact Info) Description 12/31/2023 Refill Family [facility] [address] [place] [address] Drea Lion DO [address] [place] [address] Allergies Active Allergy Reactions Criticality Noted Date Comments Erythromycin 07/21/2012 Contraindicated with Targretin (cancer med) documented as of this encounter (statuses as of 01/01/2024) Medications Medication Sig Dispensed Refills Start Date [...] 90 Tablet 3 01/01/2024 01/01/20 25 Active Ibuprofen 600 MG Oral Tablet (Motrin) TAKE ONE TABLET BY MOUTH EVERY 6 HOURS NEEDED FOR PAIN 90 Tablet 3 09/08/2023 12/31/19 24 Discontinu ed(Refill) documented as of this encounter (statuses as of 01/01/2024) Active Problems Problem Noted Date Diagnosed Date Varicose veins of lower extr emities with ulcer and inflammation 12/28/2023 Cigar smoker 12/28/2023 Venous insufficiency 09/05/2023 Subconjunctival hemorrhage of left eye Tobacco use 10/26/2022 Medical home patient encounter 06/03/2022 Stasis ulcer of lower extremity, left 04/22/2022 Drug-induced polyneuropathy 02/22/2022 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[place] ronary artery without angina pectoris 03/02/2021 [...] as of this encounter (statuses as of 01/01/2024) Resolved Problems Problem Noted Date Diagnosed Date Resolved Date Abdominal discomfort 11/21/2017 018 COPD, severity to be determined 07/23/2016 07/31/2020 Overview: Per COPD GOLD Classification Periapical abscess 05/15/2014 8 Venous stasis ulcer of leg w ithout varicose veins 07/21/2012 07/14/2017 Anemia 07/21/2012 10/07/2017 documented as of this encounter (statuses as of 01/01/2024) Immunizations Name Administration Dates Next Due Hepatitis [...] encounter Miscellaneous Notes * Telephone Encounter - Therese Ortega [facility] - 01/01/2024 9:41 AM EDT Signed Prescriptions: Disp Refills Ibuprofen 600 MG Oral Tablet (Motrin) 90 Tab*3 Sig: TAKE ONE TABLET BY MOUTH EVERY 6 HOURS NEEDED FOR PAINAuthorizing Provider: DREA LION User: THERESE ORTEGA documented in this encounter Plan of Treatment Upcoming Encounters Date Type Department Care Team (Latest Contact Info) Description 01/03/2024 2:30 PM EDT Nurse Only Wound Care, [address] [address] Care, Nurse Wound [address] [place] [address] 01/10/2024 1:30 PM EDT Pre-Admission Testing Pre Surgery Center, [address] [place] [address] [address] 01/10/2024 2:30 PM EDT Nurse Only Wound Care, [address] [address] Care, Nurse Wound [address] [place] [address] [place] [address] 01/16/2024 2:40 PM EDT Office Visit Wound Care, [place] [address] [facility] [address] Mario Sauceda MD [address] [place] [address] 01/24/2024 2:30 PM EDT Nurse Only Wound Care, [place] [address] [place] [address] Care, Nurse Wound [address] [facility] [place] [address] 01/27/2024 10:53 AM EDT Hospital Encounter OR [facility], OPERATING ROOM [facility], [facility] [address] [place] [phone] Flex Valentin MD [address], [place] [id number] 01/27/2024 10:53 AM EDT Anesthesia Event OR [facility], OPERATING ROOM [facility], [facility] [address] [facility] [place] [phone] Quang aWde CRNP [address] [place] [address] 01/27/2024 10:53 AM EDT - 01/27/2024 12:34 PM EDT Surgery OR [facility], OPERATING ROOM [facility], [facility] [address] [facility] [phone] Flex Valentin MD [address], [place] [phone] ENDOVENOUS RADIOFREQUENCY ABLATION THERAPY FIRST VEIN 01/31/2024 1:00 PM EDT Office Visit Vascular Surg [facility], [place] [address] [place] [address] Flex Valentin MD [address] [place] [address] 01/31/2024 2:30 PM EDT Nurse Only Wound Care, [place] [address] [place] [address] Care, Nurse Wound [address] [place] [address] 02/06/2024 3:00 PM EDT Office Visit Dermatology [facility] [address] [place] [address] Dieudonne Braxton MD [address] [place] [address] 02/07/2024 2:30 PM EDT Nurse Only Wound Care, [place] [address] [place] [address] Care, Nurse Wound [address] [place] [address] 02/14/2024 2:30 PM EDT Nurse Only Wound Care, [place] [address] [place] [address] Care, Nurse Wound [address] [place] [address] 02/21/2024 2:40 PM EST Office Visit Wound Care, [place] [address] [place] [address] Mario Sauceda MD [address] [place] [address] 02/28/2024 2:30 PM EST Nurse Only Wound Care, [place] [address] [place] [address] Care, Nurse Wound [address] [place] [address] 03/06/2024 2:30 PM EST Nurse Only Wound Care, [place] [address], [place] [phone] Care, Nurse Wound [address] [place] [address] 03/13/2024 2:30 PM EST Nurse Only Wound Care, [place] [address] [place] [address] Care, Nurse Wound [address] [place] [address] 03/20/2024 2:30 PM EST Nurse Only Wound Care, [place] [address] [place] [address] Care, Nurse Wound [address] [place] [address] 03/27/2024 2:40 PM EST Office Visit Wound Care, [place] [address] [place] [address] Mario Sauceda MD [address] [place] [address] 05/16/2024 2:00 PM EST Office Visit Gastroenterology, [facility] [address] [place] [facility] [place] [address] Marlene Balderas CRNP [address] [place] [facility] [place] [address] 09/13/2024 5:20 PM EDT Office Visit Family Practice [facility] [address] [place] [address] Drea Lion DO [address] [place] [address] Scheduled Procedures Name Priority Associated Diagnoses Date/Ti me ENDOVENOUS RADIOFREQUENCY ABLATION THERAPY FIRST VEIN 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) Venous insufficiency Cigar smoker 01/27/2024 10:53 AM EDT COLONOSCOPY FLEXIBLE PROXIMAL DIAGNOSTIC Recall History of colon polyps Health Maintenance Due Date Last Done Comments DISCUSS TOBACCO CESSATION (REFER TO SMARTSET #5834) 1960 COVID-19 Vaccine (#1) 1963 Cologuard 2003 [...] filedocumented as of this encounter Care Teams Instructor Apparel Manufacture Relationship Specialty Start Date End Date Drea Lion DO [address] [place] [address] PCP - General Family Medicine 09/04/20 documented as of this encounter
--- OUTSIDE RECORDS SUMMARY | 2024-03-08 14:37 | External Medical Summary ---
Author Name Unknown Address Unknown Organization K01:[facility] [address] [place] [address] Laboratory Report Ordering Provider Test Date Status [place]ON[place]ON 01/02/2024 16:46:06 Final Every 4 weeks Observation Date Value Abnormality Reference (Units ) Status T4, Free 01/02/2024 16:46:06 1.1 0.9-1.7 (n g/dL) Final Performing Location [facility] [address] [place] [address]
--- OUTSIDE RECORDS SUMMARY | 2024-03-08 14:37 | External Medical Summary | Summary of Care ---
Author Name Unknown Organization [facility] Address [address] [place] [address] Phone [phone] Care Team Providers Care Auto Club Travel Counselor Name Role Phone Raza Lion Primary Care Provider Reason for Visit * Reason Comments Wound Care Encounter Details Date Type Department Care Team (Late st Contact Info) Description 01/03/2024 2:30 PM EDT Nurse Only Wound Care, [place] [address] [place] [address] Care, Nurse Wound [address] [place] [address] Wound Care Allergies Active Allergy Reactions Criticality Noted Date Comments Erythromycin 07/21/2012 Contraindicated with Targretin (cancer med) documented as of this encounter (statuses as of 01/03/2024) Medications Medication Sig Dispensed Refills Start Date [...] as of this encounter (statuses as of 01/03/2024) Active Problems Problem Noted Date Diagnosed Date Varicose veins of lower extr emities with ulcer and inflammation 12/28/2023 Cigar smoker 12/28/2023 Venous insufficiency 09/05/2023 Subconjunctival hemorrhage of left eye 3 Tobacco use 10/26/2022 Medical home patient encounter 06/03/2022 Stasis ulcer of lower extremity, left 04/22/2022 Drug-induced polyneuropathy 02/22/2022 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[place] co ronary artery without angina pectoris 03/02/2021 [...] as of this encounter (statuses as of 01/03/2024) Resolved Problems Problem Noted Date Diagnosed Date Resolved Date Abdominal discomfort 11/21/2017 018 COPD, severity to be determined 07/23/2016 07/31/2020 Overview: Per COPD GOLD Classification Periapical abscess 05/15/2014 8 Venous stasis ulcer of leg w ithout varicose veins 07/21/2012 07/14/2017 Anemia 07/21/2012 10/07/2017 documented as of this encounter (statuses as of 01/03/2024) Immunizations Name Administration Dates Next Due Hepatitis [...] Nursing Notes * China Boland LPN - 01/03/2024 3:42 PM EDT Puracol, Ag Foam and Foam placed over BLE wound. Coban 2 wrap with an extra cohesive layer applied for compression to BLE as per order. documented in this encounter Plan of Treatment Upcoming Encounters Date Type Department Care Team (Latest Contact Info) Description 01/10/2024 1:30 PM EDT Pre-Admission Testing Pre [facility] Center, [place] [address] [place] [address] [facility] [address] [place] [address] 01/10/2024 2:30 PM EDT Nurse Only Wound Care, [place] [address] [place] [address] Care, Nurse Wound [address] [place] [address] 01/16/2024 2:40 PM EDT Office Visit Wound Care, [place] [address] [place] [address] Mario Sauceda MD [address] [place] [address] 01/23/2024 2:30 PM EDT Nurse Only Wound Care, [place] [address] [place] [address] Care, Nurse Wound [address] [place] [address] 01/27/2024 10:53 AM EDT Hospital Encounter [facility], OPERATING ROOM [facility], [facility] [address] [place] [phone] Flex Valentin MD [address] [facility] [place] [address] 01/27/2024 10:53 AM EDT Anesthesia Event OR [facility], OPERATING ROOM [facility] [address] [facility] [place] [address] Quang Wade CRNP [address] [place] [address] 01/27/2024 10:53 AM EDT - 01/27/2024 12:34 PM EDT Surgery OR [facility], OPERATING ROOM [facility], [facility] [address] [place] [phone] Flex Valentin MD [address] [place] [address] ENDOVENOUS RADIOFREQUENCY ABLATION THERAPY FIRST VEIN 01/31/2024 1:00 PM EDT Office Visit Vascular Surg [facility], [place] [address] [place] [address] Flex Valentin MD [address] [place] [address] 01/31/2024 2:30 PM EDT Nurse Only Wound Care, [place] [address] [place] [address] Care, Nurse Wound [address] [facility] [place] [address] 02/06/2024 3:00 PM EDT Office Visit Dermatology [facility] [place] [address] [place], [place] [phone] Dieudonne Braxton MD [address] [facility] [place] [address] 02/07/2024 2:30 PM EDT Nurse Only Wound Care, [place] [address], [place] [address] Care, Nurse Wound [address] [facility] [address] 02/14/2024 2:30 PM EDT Nurse Only Wound Care, [place] [address] [facility] [place] [address] Care, Nurse Wound [address] [facility] [address] 02/21/2024 2:40 PM EST Office Visit Wound Care, [place] [address] [facility] [place] [address] Mario Sauceda MD [address] [facility] [address] 02/28/2024 2:30 PM EST Nurse Only Wound Care, [place] [address] [place] [facility] [address] Care, Nurse Wound [address] [facility] [address] 03/06/2024 2:30 PM EST Nurse Only Wound Care, [place] [address] [facility] [address] Care, Nurse Wound [address] [facility] [address] 03/13/2024 2:30 PM EST Nurse Only Wound Care, [place] [address] [place] [facility] [place] [address] Care, Nurse Wound [address] [facility] [address] 03/20/2024 2:30 PM EST Nurse Only Wound Care, [place] [address] [facility] [address] Care, Nurse Wound [address] [facility] [address] 03/27/2024 2:40 PM EST Office Visit Wound Care, [place] [address] [facility] [place] [address] Mario Sauceda MD [address] [place] [address] 05/16/2024 2:00 PM EST Office Visit Gastroenterology, [facility] [address] [facility] [place] [address] Marlene Balderas CRNP [address] [place] [address] 09/13/2024 5:20 PM EDT Office Visit Family Practice [facility] [address] [place] [address] Raza Lion DO [address] [facility] [place] [address] Scheduled Procedures Name Priority Associated Diagnoses Date/Ti [...] 01/01/2025 01/02/2024, 11/2023, 08/27/2023, Additional history exists Albumin/Creatinine Ratio [...] disorder documented in this encounter Care Teams Auto Club Travel Counselor Relationship Specialty Start Date End Date Raza Lion DO [address] [place] [address] PCP - General Family Medicine 09/04/20 documented as of this encounter
--- OUTSIDE RECORDS SUMMARY | 2024-03-08 14:37 | External Medical Summary ---
Author Name Unknown Address Unknown Organization K01:[facility] - [address] [place] [address] Laboratory Report Ordering Provider Test Date Status CAMMIE HURST 01/02/2024 16:46:06 Final Observation Date Value Abnormality Reference (Units ) Status TrustGoODE SPECIMEN-LAV 01/02/2024 16:46:06 Freezing of extracted DNA, whole blood and/or serum. Final Performing Location [facility] [address] [facility] [address]
--- OUTSIDE RECORDS SUMMARY | 2024-03-08 14:37 | External Medical Summary ---
Author Name Unknown Address Unknown Organization K01:[facility] [address] [facility] [place] [address] Laboratory Report Ordering Provider Test Date Status WON GREENE 01/02/2024 16:46:06 Final Every 4 weeks Observation Date Value Abnormality Reference (Units ) Status Triglyceride 01/02/2024 16:46:06 247 Above high normal <=174 (mg/dL) Final Triglyceride Reference Range s (mg/dL):
<150 Acceptable
150-174 Borderline high
175-499 High
>=500 Very high Cholesterol 01/02/2024 16:46:06 229 Above high normal <200 (mg/dL) Final Total Cholesterol Reference Ranges (mg/dL):
<200 Desirable
200-239 Borderline high
>=240 High HDL 01/02/2024 16:46:06 40 >39 (mg/dL ) Final HDL Cholesterol Reference Ra nges (mg/dL):
>=60 High (Desirable)
<50 Low (Undesirable) For Females
<40 Low (Undesirable) For Males NON-HDL CHOLESTEROL 01/02/2024 16:46:06 189 Above high normal <=159 (mg/dL) Final Non-HDL Cholesterol Referenc e Range (mg/dL):
<100 Target level for high risk ASCVD patient
<130 Optimal for general population
130-159 Near optimal for general population
160-189 Borderline High
190-219 High
>=220 Very High LDL, (calculated) 01/02/2024 16:46:06 140 Above high n ormal <=129 (mg/dL) Final LDL Cholesterol Reference Ra nges (mg/dL):
<70 Target level for high risk ASCVD patient
<100 Optimal for general population
100-129 Near optimal for general population
130-159 Borderline high
160-189 High
>=190 Very high Performing Location LAB[facility] - [address] [facility] [address]
--- OUTSIDE RECORDS SUMMARY | 2024-03-08 14:38 | External Medical Summary | Summary of Care ---
Author Name Unknown Organization [facility] Address [address] [place] [address] Phone [phone] Care Team Providers Care Pattern Worker Name Role Phone Anup Lionr Jake Primary Care Provider Reason for Visit * Reason Onset Date Comments TRIAGE 12/16/2023 Encounter Details Date Type Department Care Team (Late st Contact Info) Description 12/16/2023 [facility]phone [facility] [address] [place], [place] [phone] Services, [facility] [address] [place] [address] TRIAGE Allergies Active Allergy Reactions Criticality Noted Date Comments Erythromycin 07/21/2012 Contraindicated with Targretin (cancer med) documented as of this encounter (statuses as of 12/16/2023) Medications Medication Sig Dispensed Refills Start Date [...] 06/10/2022 Active Fluorouracil 5 % External Cream (Efudex)Indications: Basal cell carcinoma (BCC), unspecified site Apply to [...] DAILY 90 Tablet 3 05/24/2023 5 Active Losartan Potassium 100 MG Oral Tablet (Cozaar)Indications: HTN, goal below 140/90 TAKE ONE TABLET BY MOUTH DAILY 90 Tablet 1 06/14/2023 5 Active Docusate Sodium 100 MG Oral [...] at bedtime. 90 Tablet 1 07/27/2023 Active Betamethasone Dipropionate 0.05 % External OintmentIndications: Dermatitis APPLY TOPICALLY TO AFFECTED AREA 4 DAYS PER WEEK ON OPPOSITE DAYS OF THE GEL 30 g 5 08/05/2023 5 Active Silver sulfADIAZINE 1 % External [...] BEDTIME 90 Tablet 3 11/02/2023 5 Active predniSONE 10 MG Oral Tablet (Deltasone)Indicatio ns:Venous stasis ulcer of left ankle with fat layer exposed with varicose veins (HCC),Venous stasis ulcer of right ankle with fat layer exposed with varicose veins (HCC),Venous insufficiency,Cutane ous T-cell lymphoma, unspecified body region (HCC) Take 6 Tablets by mouth daily for 7 days, THEN 5 Tablets daily for 7 days, THEN 4 Tablets daily for 7 days, THEN 3 Tablets daily for 7 days, THEN 2 Tablets daily for 7 days, THEN 1 Tablet daily for 7 days. 147 Tablet 11/08/2023 4 Active HYDROcodone-Acetamin ophen 5-325 MG Oral Tablet [...] Muscle spasms. 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[place] co ronary artery without angina pectoris 03/02/2021 [...] as of this encounter (statuses as of 12/16/2023) Resolved Problems Problem Noted Date Diagnosed Date Resolved Date Abdominal discomfort 11/21/2017 018 COPD, severity to be determined 07/23/2016 07/31/2020 Overview: Per COPD GOLD Classification Periapical abscess 05/15/2014 8 Venous stasis ulcer of leg w ithout varicose veins 07/21/2012 07/14/2017 Anemia 07/21/2012 10/07/2017 documented as of this encounter (statuses as of 12/16/2023) Immunizations Name Administration Dates Next Due Hepatitis [...] Telephone Encounter - Arely Fairbanks CRNP - 12/16/2023 3:59 PM EDT We would not necessarily need to remove wraps. Already had venous study done so no additional imaging recommended. We can book surgery without seeing wounds are there are pxs in Epic/wound care notes Just match with wound clinic in the event the wraps would have to be removed, but shouldn't need cary. thanks * Telephone Encounter - Navneet Cordova OSA - 12/16/2023 3:42 PM EDT [facility] pt. Ref by wound care Venous stasis ulcer of right ankle with fat layer exposed with varicose veins (H... Venous stasis ulcer of left ankle with fat layer exposed with varicose veins (HC... Venous insufficiency [I87.2] Cutaneous T-cell lymphoma, unspecified body region Pt offered 12/27 prior to wound care [place] [facility] He is concerned that if his wraps on legs must come off, he is in excruciating pain in the interim Please advise so I can contact pt LIZBETH Butler documented in this encounter Plan of Treatment Upcoming Encounters Date Type Department Care Team (Late st Contact Info) Description 12/20/2023 2:30 PM EDT Nurse Only Wound Care, [place] [address] [facility] [place] [address] Care, Nurse Wound [address] [facility] [address] 12/28/2023 2:30 PM EDT Nurse Only Wound Care, [place] [address] [place] [address] Care, Nurse Wound [address] [facility] [address] 01/03/2024 2:30 PM EDT Nurse Only Wound Care, [place] [address] [facility] [address] Care, Nurse Wound [address] [facility] [address] 01/10/2024 2:30 PM EDT Nurse Only Wound Care, [place] [address] [facility] [address] Care, Nurse Wound [address] [facility] [address] 01/16/2024 2:40 PM EDT Office Visit Wound Care, [place] [address] [facility] [address] Mario Sauceda MD [address] [place] [address] 01/24/2024 2:30 PM EDT Nurse Only Wound Care, [place] [address] [facility] [address] Care, Nurse Wound [address] [facility] [address] 01/31/2024 2:30 PM EDT Nurse Only Wound Care, [place] [address] [facility] [address] Care, Nurse Wound [address] [facility] [address] 02/06/2024 3:00 PM EDT [facility] [address] [place] [address] Dieudonne Braxton MD [address] [facility] [place], [place] [address] 02/07/2024 2:30 PM EDT Nurse Only Wound Care, [place] [address] [place] [address] Care, Nurse Wound [address] [place] [address] 02/14/2024 2:30 PM EDT Nurse Only Wound Care, [place] [address] [place] [address] Care, Nurse Wound [address] [place] [address] 02/21/2024 2:40 PM EST Office Visit Wound Care, [place] [address] [place] [address] Mario Sauceda MD [address] [place] [address] 05/16/2024 2:00 PM EST Office Visit Gastroenterology, [facility] [place] [address] Marlene Balderas CRNP [address] [place] [address] 09/13/2024 5:20 PM EDT Office Visit Family Practice [facility] [place] [address] Raza Lion DO [address] [facility] [place] [address] Scheduled Procedures Name Priority Associated Diagnoses Date/Ti me COLONOSCOPY FLEXIBLE PROXIMAL DIAGNOSTIC Recall History of colon polyps Health Maintenance Due Date Last Done Comments DISCUSS TOBACCO CESSATION (REFER TO SMARTSET #8987) 1960 COVID-19 Vaccine (#1) 1963 Cologuard 2003 [...] filedocumented as of this encounter Care Teams Pattern Worker Relationship Specialty Start Date End Date Raza Lion DO [address] [place] [address] PCP - General Family Medicine 09/04/20 documented as of this encounter
--- OUTSIDE RECORDS SUMMARY | 2024-03-08 14:38 | External Medical Summary | Summary of Care ---
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 Ref by wound care Venous stasis ulcer of right ankle with fat layer exposed with varicose veins (H... Venous stasis ulcer of left ankle with fat layer exposed with varicose veins (HC... Venous insufficiency [I87.2] Cutaneous T-cell lymphoma, unspecified body region Pt offered 12/27 prior to wound care at [facility] He is concerned that if his wraps on legs must come off, he is in excruciating pain in the interim Please advise so I can contact pt LIZBETH Butler documented in this encounter Plan of Treatment Upcoming Encounters Date Type Department Care Team (Late st Contact Info) Description 12/20/2023 2:30 PM EDT Nurse Only Wound Care, [place] [address] [place] [facility] [address] Care, Nurse Wound [address] [place] [facility] [address] 12/28/2023 2:30 PM EDT Nurse Only Wound Care, [place] [address] [place] [address] Care, Nurse Wound [address] [place] [facility] [address] 01/03/2024 2:30 PM EDT Nurse Only Wound Care, [place] [address] [place] [facility] [address] Care, Nurse Wound [address] [place] [facility] [address] 01/10/2024 2:30 PM EDT Nurse Only Wound Care, [place] [address] [place] [facility] [address] Care, Nurse Wound [address] [place] [facility] [place] [address] 01/16/2024 2:40 PM EDT Office Visit Wound Care, [place] [address] [place] [facility] [address] Mario Sauceda MD [address] [place] [address] 01/24/2024 2:30 PM EDT Nurse Only Wound Care, [place] [address] [place] [facility] [address] Care, Nurse Wound [address] [place] [facility] [place] [address] 01/31/2024 2:30 PM EDT Nurse Only Wound Care, [place] [address] [place] [facility] [address] Care, Nurse Wound [address] [place] [facility] [place] [address] 02/06/2024 3:00 PM EDT Office [facility] [address] [facility] [place] [address] Dieudonne Braxton MD [address] [facility] [place], [place] [address] 02/07/2024 2:30 PM EDT Nurse Only Wound Care, [place] [address] [place] [address] Care, Nurse Wound [address] [place] [address] 02/14/2024 2:30 PM EDT Nurse Only Wound Care, [place] [address] [place] [address] Care, Nurse Wound [address] [place] [address] 02/21/2024 2:40 PM EST Office Visit Wound Care, [place] [address] [place] [address] Mario Sauceda MD [address] [place] [address] 05/16/2024 2:00 PM EST Office Visit [facility], [facility] [place] [address] Marlene Balderas CRNP [address] [place] [address] 09/13/2024 5:20 PM EDT Office Visit [facility] [place] [address] Raza Lion DO [address] [facility] [place] [address] Scheduled Procedures Name Priority Associated Diagnoses Date/Ti [...] filedocumented as of this encounter Care Teams Hand Tier Relationship Specialty Start Date End Date Raza Lion DO [address] [place] [id number] PCP - General Family Medicine 09/04/20 documented as of this encounter
--- OUTSIDE RECORDS SUMMARY | 2024-03-08 14:38 | External Medical Summary | Summary of Care ---
Author Name Unknown Organization [facility] Address [address] [place] [address] Phone [phone] Care Team Providers Care Special Education Aide Name Role Phone Raza Lion DO Primary [...] body region (HCC) Jett Acevedo PA-C [address] [place] [address] Referral ID Status Reason Start Date Expiration Date Visits Requested Visits Authorized [id number] Authorized Specialty Services Required 12/13/[phone] Question Answer Referral Priority Within 30 days (routine) Where should this appointment be scheduled? [facility] What condition is the patient being seen for? Other - please type comment in box - Venous reflux Comments Non-healing venous ulcers in the setting of deep and superficial BLE reflux despite use of compression therapy. Reason for Visit * Reason Comments Wound Care Encounter Details Date Type Department Care Team (Late st Contact Info) Description 12/13/2023 2:20 PM EDT Office Visit Wound Care, [place] [address], [place] [id number] Mario Sauceda MD [address] [place] [address] Venous stasis ulcer of right ankle with fat layer exposed with varicose veins (HCC)*; Venous stasis ulcer of left ankle with fat layer exposed with varicose veins (HCC); Venous insufficiency; Cutaneous T-cell lymphoma, unspecified body region (HCC) Allergies Active Allergy Reactions Criticality Noted Date Comments Erythromycin 07/21/2012 Contraindicated with Targretin (cancer med) documented as of this encounter (statuses as of 12/13/2023) Medications Medication Sig Dispensed Refills Start Date [...] as of this encounter (statuses as of 12/13/2023) Active Problems Problem Noted Date Diagnosed Date Venous insufficiency 09/05/2023 Subconjunctival hemorrhage of left eye 3 Tobacco use 10/26/2022 Medical home patient encounter 06/03/2022 Stasis ulcer of lower extremity, left 04/22/2022 Drug-induced polyneuropathy 02/22/2022 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[place] co ronary artery without angina pectoris 03/02/2021 [...] as of this encounter (statuses as of 12/13/2023) Resolved Problems Problem Noted Date Diagnosed Date Resolved Date Abdominal discomfort 11/21/2017 018 COPD, severity to be determined 07/23/2016 07/31/2020 Overview: Per COPD GOLD Classification Periapical abscess 05/15/2014 8 Venous stasis ulcer of leg w ithout varicose veins 07/21/2012 07/14/2017 Anemia 07/21/2012 10/07/2017 documented as of this encounter (statuses as of 12/13/2023) Immunizations Name Administration Dates Next Due Hepatitis B, 20+ yrs 02/11/2015,08/09/2014,07/01 Pneumococcal Conjugate Vacc, 13 Valent (Prevnar) 03/20/2019 Pneumococcal Polysaccharide PPV23 (Pneumovax) 03/08/2017,04/18/2001 Seasonal Influenza Virus Vac cine, Unspecified Formulation 03/25/2020,03/20/2019,03/08/2017,10/2015,02/11/2015,01/07/2014,01/24/20 13 Seasonal Influenza, PF, 6 M & above, IM , (FluLaval or Fluzone) 04/22/2022,03/02/2021,03/25/2020,1206/2018,03/08/2017 Seasonal Influenza, Quadriva lent, No Preserve, IM 02/23/2016,02/11/2015 Seasonal Influenza, Split, I IV3, With Preserve, Inj 01/07/2014,01/23/2013 TDAP (age 10 and older)(Boostrix) 10/04/2012 [...] No 07/06/2023 Does the household have a [facility] source of income? (Household - for [...] as of this encounter Progress Notes * Jett Acevedo PA-C - 12/13/2023 3:09 PM EDT Images from the original note were not included. WOUND OUTPATIENT FOLLOW-UP NOTE HPI: Patient presents today for f/u of B ankle VLUs. The wound has been present since early 2021. Patient thinks wound started spontaneously. Patient has followed at [facility] wound clinic for 2 yearsand came here for second opinion. He reports tolerating the weekly compression wraps, but has has persistent pain. Current dressing: See Wound Assessment Dressing change frequency: weekly RLE Compression: Coban 2 LLE Compression: Coban 2 RLE Wt Bearing Offloading: none LLE Wt Bearing Offloading: none RLE Non-Wt Bearing Offloading: none LLE Non-Wt Bearing Offloading: none Offloading Surface for Bed: none Offloading Surface for Chair / Wheelchair: none ROS: Pain: moderate Drainage: mild serosanguinous Swelling: mild Erythema: mild aliya-wound Fever/Chills: no Malaise: no ROS was negative other than stated above. 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 IMPRESSION: There is no evidence of [...] Last attempt to quit: 06/18/2012 Years since quittin.4 Smokeless Tobacco Former Tobacco Comments 6 cigars has a 1.5 ppd for 25 years cigarette smoking history and currently smokes cigars. WOUND ASSESSMENT: Alteration in Skin Integrity Right;Medial Ankle (Active) Clinical Image 12/13/23 1400 Primary Dressing Present (removed today) Allevyn Ag 12/13/23 1400 Secondary Dressing Present (removed today) FOAM 12/13/23 1400 Tertiary Dressing Present (removed today) None 12/13/23 1400 Quaternary Dressing Present (removed today) None 12/13/23 1400 Wound Length (cm) 4.5 cm 12/13/23 1400 Wound Width (cm) 0.7 cm 12/13/23 1400 Wound Depth (cm) 0.1 cm 12/13/23 1400 Undermining (cm) 0 12/13/23 1400 Sinus Tract (cm) 0 12/13/23 1400 Tunneling (cm) 0 12/13/23 1400 Yellow Fibrinous Slough (%) 26-50% 12/13/23 1400 Granulation Tissue (%) 26-50% 12/13/23 1400 Granulation Tissue Color red 12/13/23 1400 Necrotic Tissue (%) none 12/13/23 1400 Necrotic Tissue Color Not Applicable 12/13/23 1400 Deep Supporting Structure Exposed None 12/13/23 1400 Drainage serosanguinous, mild 12/13/23 1400 Odor (after cleansing wound) No 12/13/23 1400 Aliya-Wound (Surrounding Skin) Hemosiderin stained;Intact;Tender;Nonerythematous 12/13/23 1400 Evidence of Infection No 12/13/23 1400 Wound Surface Area (cm^2) 3.15 cm^2 12/13/23 1400 Wound Volume (cm^3) 0.315 cm^3 12/13/23 1400 Alteration in Skin Integrity Left;Medial Ankle (Active) Clinical Image 12/13/23 1400 Primary Dressing Present (removed today) Allevyn Ag 12/13/23 1400 Secondary Dressing Present (removed today) FOAM 12/13/23 1400 Tertiary Dressing Present (removed today) None 12/13/23 1400 Quaternary Dressing Present (removed today) None 12/13/23 1400 Wound Length (cm) 4 cm 12/13/23 1400 Wound Width (cm) 1 cm 12/13/23 1400 Wound Depth (cm) 0.1 cm 12/13/23 1400 Undermining (cm) 0 12/13/23 1400 Sinus Tract (cm) 0 12/13/23 1400 Tunneling (cm) 0 12/13/23 1400 Yellow Fibrinous Slough (%) 26-50% 12/13/23 1400 Granulation Tissue (%) 26-50% 12/13/23 1400 Granulation Tissue Color red 12/13/23 1400 Necrotic Tissue (%) none 12/13/23 1400 Necrotic Tissue Color Not Applicable 12/13/23 1400 Deep Supporting Structure Exposed None 12/13/23 1400 Drainage serosanguinous, mild 12/13/23 1400 Odor (after cleansing wound) No 12/13/23 1400 Aliya-Wound (Surrounding Skin) Hemosiderin stained;Intact;Tender;Nonerythematous 12/13/23 1400 Evidence of Infection No 12/13/23 1400 Wound Surface Area (cm^2) 4 cm^2 12/13/23 1400 Wound Volume (cm^3) 0.4 cm^3 12/13/23 1400 Alteration in Skin Integrity Anterior;Left Foot (Active) Clinical Image 12/13/23 1500 Primary Dressing Present (removed today) Allevyn Ag 12/13/23 1500 Secondary Dressing Present (removed today) None 12/13/23 1500 Tertiary Dressing Present (removed today) None 12/13/23 1500 Quaternary Dressing Present (removed today) None 12/13/23 1500 Wound Length (cm) 1.7 cm 12/13/23 1500 Wound Width (cm) 1.2 cm 12/13/23 1500 Wound Depth (cm) 0.1 cm 12/13/23 1500 Undermining (cm) 0 12/13/23 1500 Sinus Tract (cm) 0 12/13/23 1500 Tunneling (cm) 0 12/13/23 1500 Yellow Fibrinous Slough (%) 1-25% 12/13/23 1500 Granulation Tissue (%) 76-99% 12/13/23 1500 Granulation Tissue Color red 12/13/23 1500 Necrotic Tissue (%) none 12/13/23 1500 Necrotic Tissue Color Not Applicable 12/13/23 1500 Deep Supporting Structure Exposed None 12/13/23 1500 Drainage serous, mild 12/13/23 1500 Odor (after cleansing wound) No 12/13/23 1500 Aliya-Wound (Surrounding Skin) Intact;Nontender;Nonerythematous 12/13/23 1500 Evidence of Infection No 12/13/23 1500 Wound Surface Area (cm^2) 2.04 cm^2 12/13/23 1500 Wound Volume (cm^3) 0.204 cm^3 12/13/23 1500 ASSESSMENT/PLAN: 1. B medial ankle VLUs - Both are significantly larger. 2. Venous insufficiency (superficial and deep; likely no good surgical options). 3. Cutaneous T cell lymphoma/mycosis fungoides Hx. 4. COPD. 5. Smoking Ulcers seemed to not be improving while on prednisone. Finish taper. Puracol/Ag foam/foam/Coban 3 to BLE, changed weekly. Keep wrap dry and in place. Elevate LE for edema control. Vascular referral for surgical options to treat venous reflux. Okay to start taking pentoxifylline again (prescribed by PCP). May need to consider surgical options, Bx and skin substitute (EpiFix) if not improving in the future. I spent a total of 40-54 minutes (exact time 40 mins) on the date of service in preparation, delivery, and documentation of the care provided to Chang Parham excluding any time spent in the performance of separately billed services. Follow-up: 1,2,3,4 wk nurse, 5 wk provider Jett Acevedo PA-C 12/13/2023 3:48 PM I have reviewed the advanced practitioner's documentation on the date of service referenced in note, and I agree with, and take responsibility for the plan of care. Pt with refractory B VLUs. No improvement with maximum compression therapy, prednisone and pentoxifylline. Hopefully Vascular can offer him a venous ablation procedure. Local care/compression per 's note. Mario Sauceda MD 12/13/2023 4:05 PM documented in this encounter Nursing Notes * Sharon Barone LPN - 12/13/2023 3:54 PM EDT Images from the original note were not included. Puracol, Ag Foam and Foam placed over BLE wound. Coban 2 wrap with an extra cohesive layer applied BLE for compression, as per order. documented in this encounter Plan of Treatment Upcoming Encounters Date Type Department Care Team (Late st Contact Info) Description 12/20/2023 2:30 PM EDT Nurse Only Wound Care, [place] [address] [place] [address] Care, Nurse Wound [address] [place] [address] 12/28/2023 2:30 PM EDT Nurse Only Wound Care, [place] [address] [place] [address] Care, Nurse Wound [address] [place] [address] 01/03/2024 2:30 PM EDT Nurse Only Wound Care, [place] [address] [place] [address] Care, Nurse Wound [address] [place] [address] 01/10/2024 2:30 PM EDT Nurse Only Wound Care, [place] [address] [place] [facility] [place] [address] Care, Nurse Wound [address] [place] [facility] [place] [address] 01/16/2024 2:40 PM EDT Office Visit Wound Care, [place] [address] [place] [facility] [place] [address] Mario Sauceda MD [address] [place] [address] 01/24/2024 2:30 PM EDT Nurse Only Wound Care, [place] [address] [place] [address] Care, Nurse Wound [address] [place] [facility] [place] [address] 01/31/2024 2:30 PM EDT Nurse Only Wound Care, [place] [address] [place] [address] Care, Nurse Wound [address] [place] [address] 02/02/2024 11:00 AM EDT Office Visit Dermatology [facility] [address] [place] [address] Dieudonne Braxton MD [address] [place] [address] 02/06/2024 3:00 PM EDT Office Visit Dermatology [facility] [address] [facility] [place] [address] Dieudonne Braxton MD [address] [place] [address] 02/07/2024 2:30 PM EDT Nurse Only Wound Care, [place] [address] [place] [address] Care, Nurse Wound [address] [place] [address] 02/14/2024 2:30 PM EDT Nurse Only Wound Care, [place] [address] [place] [address] Care, Nurse Wound [address] [place] [address] 02/21/2024 2:40 PM EST Office Visit Wound Care, [place] [address] [place] [address] Mario Sauceda MD [address] [place] [address] 05/16/2024 2:00 PM EST Office Visit Gastroenterology, [facility] [address] [place] [address] Marlene Balderas CRNP [address] [place] [address] 09/13/2024 5:20 PM EDT Office Visit Family Practice [facility] [address] [place] [address] Raza iLon DO [address] [place] [address] Scheduled Procedures Name Priority Associated Diagnoses Date/Ti me COLONOSCOPY FLEXIBLE PROXIMAL DIAGNOSTIC Recall History of colon polyps Scheduled Referrals Name Type Priority Associated Diagnoses Orde r Schedule VASCULAR SURGERY REFERRAL OP Referral Within 30 days (routine) Venous stasis ulcer of right ankle with fat layer exposed with varicose veins (HCC) Venous stasis ulcer of left ankle with fat layer exposed with varicose veins (HCC) Venous insufficiency Cutaneous T-cell lymphoma, unspecified body region (HCC) Ordered: 12/13/2023 Health Maintenance Due Date Last Done Comments DISCUSS TOBACCO CESSATION (REFER TO SMARTSET #7468) 1958 COVID-19 Vaccine (#1) 1963 Cologuard 2003 [...] (HCC) documented in this encounter Care Teams Special Education Aide Relationship Specialty Start Date End Date Raza Lion DO [address] [place] [address] PCP - General Family Medicine 09/04/20 documented as of this encounter
--- OUTSIDE RECORDS SUMMARY | 2024-03-08 14:38 | External Medical Summary | Summary of Care ---
Author Name Unknown Organization [facility] Address [address] [place] [address] Phone [phone] Care Team Providers Care Driver Messenger Name Role Phone Raza Lion Primary Care Provider Reason for Visit * Reason Comments Wound Care Encounter Details Date Type Department Care Team (Late st Contact Info) Description 12/20/2023 2:30 PM EDT Nurse Only Wound Care, [place] [address] [place] [address] Care, Nurse Wound [address] [place] [address] Wound Care Allergies Active Allergy Reactions Criticality Noted Date Comments Erythromycin 07/21/2012 Contraindicated with Targretin (cancer med) documented as of this encounter (statuses as of 12/20/2023) Medications Medication Sig Dispensed Refills Start Date [...] GEL 30 g 5 12/20/2023 5 Active documented as of this encounter (statuses as of 12/20/2023) Active Problems Problem Noted Date Diagnosed Date Venous insufficiency 09/05/2023 Subconjunctival hemorrhage of left eye 3 Tobacco use 10/26/2022 Medical home patient encounter 06/03/2022 Stasis ulcer of lower extremity, left 04/22/2022 Drug-induced polyneuropathy 02/22/2022 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[place] co ronary artery without angina pectoris 03/02/2021 [...] as of this encounter (statuses as of 12/20/2023) Resolved Problems Problem Noted Date Diagnosed Date Resolved Date Abdominal discomfort 11/21/2017 018 COPD, severity to be determined 07/23/2016 07/31/2020 Overview: Per COPD GOLD Classification Periapical abscess 05/15/2014 8 Venous stasis ulcer of leg w ithout varicose veins 07/21/2012 07/14/2017 Anemia 07/21/2012 10/07/2017 documented as of this encounter (statuses as of 12/20/2023) Immunizations Name Administration Dates Next Due Hepatitis [...] Nursing Notes * Sharon Barone LPN - 12/20/2023 3:27 PM EDT Puracol, Ag Foam and Foam placed over bilateral ankle wounds. Puracol/Ag foam placed over left footwound. Coban 2 wrap with an extra cohesive layer applied BLE for compression, as per order. documented in this encounter Plan of Treatment Upcoming Encounters Date Type Department Care Team (Late st Contact Info) Description 12/28/2023 1:15 PM EDT Office Visit Vascular Surg [facility] [address] Flex Valentin MD [facility] [place] [address] 12/28/2023 2:30 PM EDT Nurse Only Wound Care, [address] [address] Care, Nurse Wound [address] [place] [address] 01/03/2024 2:30 PM EDT Nurse Only Wound Care, [address] [address] Care, Nurse Wound [address] [place] [address] 01/10/2024 2:30 PM EDT Nurse Only Wound Care, [place] [address] [place] [address] Care, Nurse Wound [address] [place] [address] 01/16/2024 2:40 PM EDT Office Visit Wound Care, [place] [address] [place] [address] Mario Sauceda MD [address] [place] [address] 01/24/2024 2:30 PM EDT Nurse Only Wound Care, [place] [address] [place] [address] Care, Nurse Wound [address] [place] [address] 01/31/2024 2:30 PM EDT Nurse Only Wound Care, [place] [address] [place] [address] Care, Nurse Wound [address] [place] [address] 02/06/2024 3:00 PM EDT Office Visit Dermatology [facility] [address] [place] [address] Dieudonne Braxton MD [address] [place] [address] 02/07/2024 2:30 PM EDT Nurse Only Wound Care, [place] [address] [place] [address] Care, Nurse Wound [address] [place] [address] 02/14/2024 2:30 PM EDT Nurse Only Wound Care, [address] [place] [address] Care, Nurse Wound [address] [place] [facility] [place] [address] 02/21/2024 2:40 PM EST Office Visit Wound Care, [place] [address] [place] [facility] [place] [address] Mario Sauceda MD [address] [place] [address] 02/28/2024 2:30 PM EST Nurse Only Wound Care, [place] [address] [place] [address] Care, Nurse Wound [address] [place] [facility] [place] [address] 03/06/2024 2:30 PM EST Nurse Only Wound Care, [place] [address] [place] [address] Care, Nurse Wound [address] [place] [address] 03/13/2024 2:30 PM EST Nurse Only Wound Care, [place] [address] [place] [address] Care, Nurse Wound [address] [place] [facility] [place] [address] 03/20/2024 2:30 PM EST Nurse Only Wound Care, [place] [address] [place] [address] Care, Nurse Wound [address] [place] [facility] [place] [address] 03/27/2024 2:40 PM EST Office Visit Wound Care, [place] [address] [place] [facility] [place] [address] Mario Sauceda MD [address] [place] [address] 05/16/2024 2:00 PM EST Office Visit Gastroenterology, [address] [place] [address] Marlene Balderas CRNP [address] [place] [address] 09/13/2024 5:20 PM EDT Office Visit Family Practice [facility] [address] [place] [address] Raza Lion, [address] [place] [address] Scheduled Procedures Name Priority Associated Diagnoses Date/Ti me COLONOSCOPY FLEXIBLE PROXIMAL DIAGNOSTIC Recall History of colon polyps Health Maintenance Due Date Last Done Comments DISCUSS TOBACCO CESSATION (REFER TO SMARTSET #2392) 1960 COVID-19 Vaccine (#1) 1963 Cologuard 2003 [...] Venous insufficiency- Primary Unspecified venous (peripheral) insufficiency documented in this encounter Care Teams Driver Messenger Relationship Specialty Start Date End Date Raza Lion DO [address] [place] [address] PCP - General Family Medicine 09/04/20 documented as of this encounter
--- OUTSIDE RECORDS SUMMARY | 2024-03-08 14:38 | External Medical Summary | Summary of Care ---
Author Name Unknown Organization [facility] Address [address] [place] [place] [address] Phone [phone] Care Team Providers Care Cyber Engineer Name Role Phone LionAnupbelle Mcclendonsyed Primary Care Provider Reason for Visit * Reason Comments Physical-Exam Yearly physical Encounter Details Date Type Department Care Team (Latest Contact Info) Description 12/10/2023 1:40 PM EDT Office Visit Family [facility] [address] [place] [address] Juana Patricia CRNP [address] [place] [phone] Venous insufficiency*; MEDICATION USE AGREEMENT; HTN, goal below 140/90; Hyperlipidemia, unspecified hyperlipidemia type; Acquired hypothyroidism; Risk and functional assessment; Prediabetes; Medical home patient encounter; Cutaneous T-cell lymphoma, unspecified body region (HCC); COPD, group A, by GOLD 2017 classification ([facility]) Allergies Active Allergy Reactions Criticality Noted Date Comments Erythromycin 07/21/2012 Contraindicated with Targretin (cancer med) documented as of this encounter (statuses as of 12/10/2023) Medications Medication Sig Dispensed Refills Start Date [...] as of this encounter (statuses as of 12/10/2023) Active Problems Problem Noted Date Diagnosed Date Venous insufficiency 09/05/2023 Subconjunctival hemorrhage of left eye 3 Tobacco use 10/26/2022 Medical home patient encounter 06/03/2022 Stasis ulcer of lower extremity, left 04/22/2022 Drug-induced polyneuropathy 02/22/2022 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galena co ronary artery without angina pectoris 03/02/2021 [...] as of this encounter (statuses as of 12/10/2023) Resolved Problems Problem Noted Date Diagnosed Date Resolved Date Abdominal discomfort 11/21/2017 018 COPD, severity to be determined 07/23/2016 07/31/2020 Overview: Per COPD GOLD Classification Periapical abscess 05/15/2014 8 Venous stasis ulcer of leg w ithout varicose veins 07/21/2012 07/14/2017 Anemia 07/21/2012 10/07/2017 documented as of this encounter (statuses as of 12/10/2023) Immunizations Name Administration Dates Next Due Hepatitis [...] No 07/06/2023 Does the household have a gallup indian [...] on file Are you (or your family) rebeac eless or worried that you might be [...] Sign Reading Time Taken Comments Blood Pressure 124/82 12/10/2023 1:43 PM EDT Pulse 78 12/10/2023 1:43 PM EDT Temperature 36.5 C (97.7 F) 12/10/2023 1:43 PM ED T Respiratory Rate 18 12/10/2023 1:43 PM EDT Oxygen Saturation 96% 12/10/2023 1:43 PM EDT Inhaled Oxygen Concentration - - Weight 89.7 kg (197 lb 12.8 oz) 12/10/2023 1:43 PM EDT Height 180.3 cm (5' 11") 12/10/2023 1:43 PM EDT Body Mass Index 27.59 12/10/2023 1:43 PM EDT documented in this encounter Patient Instructions * Patient Instructions* Nataly Daly LPN - 12/10/2023 1:43 PM EDT Patient Instructions - Fall Prevention (This education is for all patients over 65 regardless of symptoms) Remember to take your current medications as prescribed. In order to prevent falls, you are encouraged to: Exercise Utilize assistive/adaptive devices Avoid multifocal lenses when walking Avoid hazards in home Maintain a regular toileting schedule Any questions please contact our office. Preventing Falls in the Home (This education is for all patients over 65 regardless of symptoms) As you get older, falls are more likely. Thats because your reaction time slows. Your muscles and joints may also get stiffer, making them less flexible. Illness, medications, and vision changes can also affect your balance. A fall could leave you unable to live on your own. To make your home safer, follow these tips: Floors Put nonskid pads under area rugs Remove throw rugs Replace worn floor coverings Tack carpets firmly to each step on carpeted stairs. Put nonskid strips on the edges of uncarpeted stairs Keep floors and stairs free of clutter and cords Arrange furniture so there are clear pathways Clean up any spills right away Bathrooms Install grab bars in the tub or shower Apply nonskid strips or put a nonskid rubber mat in the tub or shower Sit on a bath chair to bathe Use bathmats with nonskid backing Lighting Keep a flashlight in each room Put a nightlight along the pathway between the bedroom and the bathroom Mouna Patient Education Copyright 2008 - 2010 Mouna except where otherwise noted Preventing Falls: Exercises to Improve Balance, Flexibility, Strength, and Staying Power (This education is for all patients over 65 regardless of symptoms) Certain types of exercises may help make you less likely to fall. Try the ones below. Or do other exercises that your healthcare provider suggests. Depending on your health, you may need to start slowly. Dont let that stop you. Even small amounts of exercise can help you. Be sure to talk to yourhealthcare provider before starting any exercise program. Improve Balance Many types of exercise can help improve balance. Stanislav chi and yoga are good examples. Heres another one to try. You can do it anytime and almost anywhere. Stand next to a counter or solid support. Push yourself up onto your tiptoes. Hold for 5 seconds. If you start to lose your balance, hold on to the counter. Rest and repeat 5 times. Work up to holding for 20 to 30 seconds, if you can. Increase Flexibility Being more flexible makes it easier for you to move around safely. Try exercises like the seated hamstring stretch. Sit in a chair and put one foot on a stool. Straighten your leg and reach with both hands down either side of your leg. Reach as far down your leg as you can. Hold for about 20 seconds. Go back to the starting position. Then repeat 5 times. Switch legs. Build Strength Resistance exercises help build strength. You can do them without equipment. Or you can use weights, elastic bands, or special machines. One such exercise is called the biceps curl. You can hold a 1 pound weight or even a can of soup. Do this exercise at least 3 times a week. Strive for everyday. Sit up straight in a chair. Keep your elbow close to your body and your wrist straight. Bend your arm, moving your hand up to your shoulder. Then slowly lower your arm. Repeat 5 times. Switch to the other arm. Build Your Staying Power Aerobic exercises make your heart and lungs stronger so you can keep moving longer. Walking and swimming are two of the best types of exercises you can do. Using a stationary bike is great, too. Find an aerobic exercise that you enjoy. Start slowly and build up. Even 5 minutes is helpful. Aimfor a goal of 30 minutes, at least 3 times a week. You dont have to do 30 minutes in one session. Break it up and walk a little throughout the day. More Helpful Tips Start easy. Slowly work up to doing more. Talk with your healthcare provider about the best exercises for you. Call senior centers or health clubs about exercise programs. If needed, have a family member watch you walk every so often to check your stability. Exercise with a friend. Choose an activity you both enjoy. Try exercises that you can do anytime, anywhere. Here are two examples. Have someone with you when you first try these: Practice walking by placing one foot right in front of the other. Stand up and sit down 10 times. Repeat this throughout the day. Mouna Patient Education Copyright 2009 - 2010 Mouna except where otherwise noted. Preventing Falls: Moving Safely Using a Cane or Walker (This education is for all patients over 65 regardless of symptoms) Keep the cane away from your feet so you dont trip. A walking aid, such as a cane or walker, can help you stay more independent and avoid falls. Remember to keep your walking aid within easy reach when youre in a chair or in bed. And learn how to use it safely so you dont injure yourself. Using a Cane If you have a stronger side, hold the cane on that side. Get your balance. Move the cane and your weaker leg forward. Support your weight on both the cane and your weaker side. Step with your stronger leg. Start again from step 1. If youre using a folding walker, be sure you know how to lock it open. Check that its locked open before each use. Using a Walker Roll the walker (or lift it, if youre using one without wheels) forward about 12 inches. Step forward with your weaker leg first. Use the walker to help keep your balance. Bring your other foot forward to the center of the walker. Start again from step 1. Helpful Tips Check with your healthcare provider about the right walking aid to use. Ask about a walker with a seat attached. Check the tips of your cane or walker to make sure they have nonskid covers. Move slowly from room to room. Dont uriostegui. Sit down to get dressed. Use a angle pack or backpack to keep your hands free. Get help for jobs that mean climbing, even on a stepstool. Mouna Patient Education Copyright 2009 - 2010 Mouna except where otherwise noted. Treating Urinary Incontinence in Men (This education is for all patients over 65 regardless of symptoms) You can't always control the release of urine. You may leak urine. Or you may not be able to hold your urine until you can get to a bathroom. This is called urinary incontinence. The problem can be managed. Talk to your doctor about your treatment options. Taking Medications Prescription medications may help you. They may: Help the sphincter to work better. (This is the muscle that closes to keep urine from leaking out of the bladder.) Help stop the bladder from eliz too often to push urine out. Help the bladder muscles contract with more force. Help relax the sphincter muscle and allow urine to flow more freely. Making Changes to Your Routine Certain changes in your daily routine may help. These include: Avoiding caffeine and alcohol. Using timed voiding. This is following a schedule for drinking fluids and urinating. Doing Kegel exercises daily. These exercises involve tightening the muscles in your sphincter and around your bladder to help strengthen them. Your doctor can explain how to do them. Using a Catheter A catheter is a narrow tube that is inserted through the urethra into the bladder. It drains urine.A condom catheter covers the penis. It channels urine into a collection bag. It is worn most of thetime. Intermittent catheterization means inserting a catheter to drain the bladder, then removing it. This is done on a regular schedule. Having Surgery If other options don't work, surgery may be recommended. If surgery is an option, your healthcare provider can discuss it with you and explain its risks and benefits. Healing After Prostate Surgery Surgery on the prostate gland can cause incontinence. Most often, the incontinence is only for a short time. It clears up when healing is complete. Very rarely, prostate surgery can result in permanent incontinence. documented in this encounter Progress Notes * Juana Patricia CRNP - 12/10/2023 1:46 PM EDT Images from the original note were not included. Weekend Family Medicine Visit History of Present Illness Chang Parham is a very pleasant 63 year old male with PMH listed below presenting with med refill. Here for med refill. Multiple BLE ulers following wound clinic. Using Hydrocodone/acetaminophen given by pcp. 1-2 per day. Cutaneous T cell lymphoma on [place]- managed by [facility] derm. They also manage lipid/tsh. Social History Socioeconomic History Marital status: Single [...] to quit: 06/18/2012 Years since quittin.4 Smokeless tobacco: Former Tobacco comments: 6 cigars has a 1.5 ppd for 25 years cigarette smoking history and currently smokes cigars. Vaping Use Vaping status: Never Used Substance [...] of Health Financial Resource Strain: Low Risk (07/06/2023) Financial Resource Strain Do you have any trouble paying for your medications, or do you think you might in the future? (Adult - for ages 18 years and over): No Does your family have trouble paying for medicine? (Household - for ages 0-17 years): Not on file Food Insecurity: No Food Insecurity (07/06/2023) Food Insecurity Do you need food for [...] on file Transportation Needs: No Transportation Needs (07/06/2023) Transportation Needs Do you have trouble getting [...] - for ages 18 years and over): Not on file Do you (or your family) have trouble finding or paying for a ride (transportation)? (Household - for ages 0-17 years): Not on file Social Connections: Socially Integrated (07/06/2023) Social Connections How often do you feel lonely or isolated from those around you? (Adult - for ages 18 years and over): Never Housing Stability: Low Risk (07/06/2023) Housing Stability Do you currently live in a fdc or have no steady place to sleep [...] - for ages 18 years and over): Not on file Are you (or your family) homeless or worried that you might be in the future? 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 Past Surgical History: Procedure Laterality Date COLONOSCOPY, DIAGNOSTIC (RECTUM) 01/29/2013 normal bx, repeat 10 yrs/COLONOSCOPY FLEXIBLE PROXIMAL DIAGNOSTIC performed by Edy Fry MD at ENDOSCOPY [facility] COLONOSCOPY, DIAGNOSTIC (RECTUM) N/A 12/07/2017 benign adenomatous polyp, diverticulosis, fair prep/COLONOSCOPY FLEXIBLE PROXIMAL DIAGNOSTIC performed by Edy Fry MD at ENDOSCOPY [facility] COLONOSCOPY, DIAGNOSTIC (RECTUM) 08/18/2021 benign adenomatous polyp, diverticulosis, repeat 5 yrs / COLONOSCOPY FLEXIBLE PROXIMAL DIAGNOSTIC performed by Edy Fry MD at ENDOSCOPY [facility] CYSTOSCOPY 07/25/2012 stent placed CYSTOSCOPY 08/29/2012 stent removed EGD, FLEXIBLE, DIAGNOSTIC 09/12/2019 reflux esophagitis, hiatal hernia / ESOPHAGOGASTRODUODENOSCOPY (EGD), FLEXIBLE, TRANSORAL, DIAGNOSTIC performed by Edy Fry MD at ENDOSCOPY [facility] FRAGMENT KIDNEY STONE BY SHOCK WAVE [...] ARTHROSCOPY/REMOVE OBJECT Left 12/12/2014 Shoulder Surgery, Arthroscopic Current Outpatient Medications Medication Sig Dispense Refill amLODIPine Besylate 5 MG Oral Tablet (Norvasc) TAKE ONE TABLET BY MOUTH DAILY 90 Tablet 1 tiZANidine HCl 4 MG Oral Tablet (Zanaflex) Take 1 Tablet by mouth every 8 hours as needed for Muscle spasms. 30 Tablet 5 tiZANidine HCl 4 MG Oral Tablet (Zanaflex) TAKE ONE TABLET BY MOUTH EVERY 8 HOURS NEEDED FOR MUSCLE SPASMS. 30 Tablet 0 Gabapentin 600 MG Oral Tablet (Neurontin) Take 1 Tablet by mouth in the morning and 1 Tablet at noon and 1 Tablet in the evening and 1 Tablet before bedtime. 360 Tablet 3 HYDROcodone-Acetaminophen 5-325 MG Oral Tablet Take 1 Tablet by mouth at bedtime as needed for Severe Pain. 21 Tablet 0 predniSONE 10 MG Oral Tablet (Deltasone) Take 6 Tablets by mouth daily for 7 days, THEN 5 Tablets daily for 7 days, THEN 4 Tablets daily for 7 days, THEN 3 Tablets daily for 7 days, THEN 2 Tablets daily for 7 days, THEN 1 Tablet daily for 7 days. 147 Tablet 0 Atorvastatin Calcium 40 MG Oral Tablet (Lipitor) TAKE ONETABLET BY MOUTH AT BEDTIME 90 Tablet 3 Bexarotene 75 MG Oral Capsule TAKE 4 CAPSULES (300MG) BY MOUTH ONCE DAILY 120 Capsule 5 Ibuprofen 600 MG Oral Tablet (Motrin) TAKE ONE TABLET BY MOUTH EVERY 6 HOURS NEEDED FOR PAIN 90 Tablet 3 Azithromycin 1 GM Oral Packet Take 1 Packet by mouth in the morning. Emergency dose . metFORMIN HCl ER 750 MG Oral Tablet Extended Release 24 Hour (Glucophage XR) TAKE ONE TABLET BY MOUTH IN THE MORNING 90 Tablet 1 Betamethasone Dipropionate 0.05 % External Ointment APPLY TOPICALLY TO AFFECTED AREA 4 DAYS PER WEEK ON OPPOSITE DAYS OF THE GEL 30 g 5 Silver sulfADIAZINE 1 % External Cream (Silvadene) APPLY TO WOUNDS ON LEGS NIGHTLY NEEDED 50 g 1 Famotidine 20 MG Oral Tablet (Pepcid) Take 1 Tablet by mouth at bedtime. 90 Tablet 1 Docusate Sodium 100 MG Oral Capsule (Colace) Take 1 Capsule by mouth in the morning and 1 Capsule before bedtime. 60 Capsule 11 Levothyroxine Sodium 175 MCG Oral Tablet (Levoxyl) TAKE ONE TABLET BY MOUTH DAILY ON AN EMPTY STOMACH 90 Tablet 3 Losartan Potassium 100 MG Oral Tablet (Cozaar) TAKE ONE TABLET BY MOUTH DAILY 90 Tablet 1 hydroCHLOROthiazide 25 MG Oral Tablet (Hydrodiuril) TAKE ONE TABLET BY MOUTH DAILY 90 Tablet 3 Bexarotene 75 MG Oral Capsule TAKE 4 CAPSULES (300MG) BY MOUTH ONCE DAILY 120 Capsule 5 Valchlor 0.016 % External Gel (Mechlorethamine HCl) APPLY A THIN FILM TO THE AFFECTED AREAS OF THE SKIN 3 TIMES PER WEEK 60 g 3 Pentoxifylline ER 400 MG Oral Tablet Extended Release (TRENtal) Take 1 Tablet by mouth in the morning and 1 Tablet at noon and 1 Tablet before bedtime. 270 Tablet 3 Amitriptyline HCl 25 MG Oral Tablet (Elavil) Take 1 Tablet by mouth at bedtime. 90 Tablet 3 traZODone HCl 100 MG Oral Tablet (Desyrel) TAKE 1 TO 3 TABLETS BY MOUTH AT BEDTIME. 270 Tablet 2 Omeprazole 20 MG Oral Capsule Delayed Release (PriLOSEC) Take 1 Capsule by mouth in the morning and1 Capsule in the evening. 180 Capsule 4 Fluorouracil 5 % External Cream (Efudex) Apply to biopsied lesions nightly for 3 weeks 40 g 1 Polyethylene Glycol 3350 17 GM/SCOOP Oral Powder (MiraLax) Take 17 g by mouth as needed for Constipation. Dissolve one heaping tablespoon in 8 ounces of water or juice. 850 g 3 Wheat Dextrin-Calcium (BENEFIBER PLUS CALCIUM) POWD Take 1 Scoop by mouth once. VITAMIN B 12 250 MCG PO LOZG Take 2 Tablets by mouth daily. MEDICAL COMPRESSION STOCKINGS MISC knee high compression socks 15-20 mmhg 3 Package 3 No current facility-administered medications for this visit. Review of patient's allergies indicates: Allergen Reactions Erythromycin Contraindicated with Targretin (cancer med) Most Recent Immunizations Administered Date(s) Administered Hepatitis B, 20+ yrs 02/11/2015 Pneumococcal Conjugate Vacc, 13 Valent (Prevnar) 03/20/2019 Pneumococcal Polysaccharide PPV23 (Pneumovax) 03/08/2017 Seasonal Influenza Virus Vaccine, Unspecified Formulation 03/25/2020 Seasonal Influenza, PF, 6 M & above, IM , (FluLaval or Fluzone) 04/22/2022 Seasonal Influenza, Quadrivalent, No Preserve, IM 02/23/2016 Seasonal Influenza, Split, IIV3, With Preserve, Inj 01/07/2014 TDAP (age 10 and older)(Boostrix) 10/04/2012 Zoster Vaccine Recombinant (Shingrix) 10/31/2019 Review of Systems: Physical Exam BP 124/82 | Pulse 78 | Temp 36.5 C (97.7 F) (Tympanic) | Resp 18 | Ht 1.803 m (5' 11") | Wt 89.7 kg (197 lb 12.8 oz) | SpO2 96% | BMI 27.59 kg/m | BSA 2.12 m Physical Exam Constitutional: Appearance: Normal appearance. HENT: Head: Normocephalic. Cardiovascular: Rate and Rhythm: Normal rate and regular rhythm. Pulmonary: Effort: Pulmonary effort is normal. Breath sounds: Normal breath sounds. Abdominal: General: Bowel sounds are normal. Musculoskeletal: General: Swelling present. Cervical back: Neck supple. Skin: General: Skin is warm. Neurological: Mental Status: He is alert and oriented to person, place, and time. Psychiatric: Mood and Affect: Mood normal. Assessment and Plan 1. Venous insufficiency 2. MEDICATION USE AGREEMENT Med use agreement signed -- scanned Unable to give urine sample today - PAIN MANAGEMENT DRUG PANEL, URINE W/ INTERPRETATION; Future 3. HTN, goal below 140/90 Cont current meds 4. Hyperlipidemia, unspecified hyperlipidemia type 5. Acquired hypothyroidism TSH 0.06 Managed by derm 6. Risk and functional assessment 7. Prediabetes 8. Medical home patient encounter 9. Cutaneous T-cell lymphoma, unspecified body region (HCC) F/u derm 10. COPD, group A, by GOLD 2017 classification (HCC) Wrap-Up I have advised the patient to call our office with any worsening or new symptoms. I spent a total of 30-39 minutes (exact time 30 mins) on the date of service in preparation, delivery, and documentation of the care provided to Chang Parham excluding any time spent in the performance of separately billed services. Juana Patricia, MSN, [facility] documented in this encounter Plan of Treatment Upcoming Encounters Date Type Department Care Team (Late st Contact Info) Description 12/13/2023 2:20 PM EDT Office Visit Wound Care, [address] [address] Mario Sauceda [place] [facility] [place] [address] 12/20/2023 2:30 PM EDT Nurse Only Wound Care, [address] [place] [address] Care, Nurse Wound [address] [facility] [place] [address] 12/27/2023 2:30 PM EDT Nurse Only Wound Care, [place] [address] [place] [address] Care, Nurse Wound [address] [facility] [place] [address] 01/03/2024 2:30 PM EDT Nurse Only Wound Care, [place] [address] [place] [address] Care, Nurse Wound [address] [facility] [place] [address] 01/10/2024 2:30 PM EDT Nurse Only Wound Care, [place] [address] [place] [address] Care, Nurse Wound [address] [place] [address] 01/16/2024 2:40 PM EDT Office Visit Wound Care, [place] [address] [place] [address] Mario Sauceda MD [address] [place] [address] 01/24/2024 2:30 PM EDT Nurse Only Wound Care, [place] [address] [place] [address] Care, Nurse Wound [address] [place] [address] 01/31/2024 2:30 PM EDT Nurse Only Wound Care, [place] [address] [place] [address] Care, Nurse Wound [address] [place] [address] 02/02/2024 11:00 AM EDT Office Visit Dermatology [facility] [address] [facility] [address] Dieudonne Braxton MD [address] [facility] [place], [place] [address] 02/07/2024 2:30 PM EDT Nurse Only Wound Care, [place] [address] [place] [address] Care, Nurse Wound [address] [place] [address] 02/14/2024 2:30 PM EDT Nurse Only Wound Care, [place] [address] [place] [address] Care, Nurse Wound [address] [place] [address] 02/21/2024 2:40 PM EST Office Visit Wound Care, [place] [address] [place] [address] Mario Sauceda MD [address] [place] [address] 05/16/2024 2:00 PM EST [facility] [place] [address] Marlene [facility]deras [facility] [address] 09/13/2024 5:20 PM EDT Office Visit Family Practice [facility] [address] [place] [address] Raza Lion DO [address] [facility] [place] [address] Scheduled Orders Name Type Priority Associated Diagnoses Orde r Schedule PAIN MANAGEMENT DRUG PANEL, URINE W/ INTERPRETATION Lab Routine MEDICATION USE AGREEMENT Expected: 12/10/2023 (Approximate), Expires: 12/09/2024 Scheduled Procedures Name Priority Associated Diagnoses Date/Ti me COLONOSCOPY FLEXIBLE PROXIMAL DIAGNOSTIC Recall History of colon polyps Health Maintenance Due Date Last Done Comments DISCUSS TOBACCO CESSATION (REFER TO SMARTSET #1614) 1958 COVID-19 Vaccine (#1) 1963 Cologuard 2003 Fecal Occult Blood Test 2003 Sigmoidoscopy 2003 DTaP,Tdap,and Td Vaccines (2 - Td or Tdap) 10/04/2022 [...] Venous insufficiency- Primary Unspecified venous (peripheral) insufficiency MEDICATION USE AGREEMENT HTN, goal below 140/90 Unspecified essential hypertension Hyperlipidemia, unspecified hyperlipidemia type Acquired hypothyroidism Unspecified hypothyroidism Risk and functional assessment Screening for unspecified condition Prediabetes Other abnormal glucose Medical home patient encounter Other specified examination Cutaneous T-cell lymphoma, unspecified body region (HCC) COPD, group A, by GOLD 2017 classification (HCC) documented in this encounter Care Teams Cyber Engineer Relationship Specialty Start Date End Date Raza Lion DO [address] [place] [address] PCP - General Family Medicine 09/04/20 documented as of this encounter
--- OUTSIDE RECORDS SUMMARY | 2024-03-08 14:38 | External Medical Summary | Summary of Care ---
Author Name Unknown Organization [facility] Address [address] [facility] [place] [address] Phone [phone] Care Team Providers Care Locomotive Boilermaker Name Role Phone Drea Lion Primary Care Provider Reason for Visit * Reason Comments Medication Refill Encounter Details Date Type Department Care Team (Late st Contact Info) Description 12/19/2023 Refill Family Practice [facility] [address] [place] [address] Javi Mason MD [address] [place] [address] Dermatitis Allergies Active Allergy Reactions Criticality Noted Date [...] 90 Tablet 3 05/24/2023 05/23/19 25 Active Losartan Potassium 100 MG Oral Tablet (Cozaar)Indications :HTN, goal below 140/90 TAKE ONE TABLET BY MOUTH DAILY 90 Tablet 1 06/14/2023 06/13/19 25 Active Docusate Sodium 100 MG Oral [...] 90 Tablet 3 11/02/2023 11/02/19 25 Active predniSONE 10 MG Oral Tablet (Deltasone)Indicati ons:Venous stasis ulcer of left ankle with fat [...] daily for 7 days. 147 Tablet 11/08/2023 12/20/19 24 Active HYDROcodone-Acetami nophen 5-325 MG Oral Tablet [...] 30 g 5 12/20/2023 12/20/19 25 Active Betamethasone Dipropionate 0.05 % External OintmentIndications :Dermatitis APPLY TOPICALLY TO AFFECTED AREA 4 DAYS PER WEEK ON OPPOSITE DAYS OF THE GEL 30 g 5 08/05/2023 12/19/19 24 Discontinu ed(Refill) documented as of this encounter (statuses as of 12/20/2023) Active Problems Problem Noted Date Diagnosed Date Venous insufficiency 09/05/2023 Subconjunctival hemorrhage of left eye 3 Tobacco use 10/26/2022 Medical home patient encounter 06/03/2022 Stasis ulcer of lower extremity, left 04/22/2022 Drug-induced polyneuropathy 02/22/2022 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[place] ronary artery without angina pectoris 03/02/2021 [...] & above, IM , (FluLaval or Fluzone) 04/22/2022,03/02/2021,03/25/2020,12/06/2018,03/08/2017 Seasonal Influenza, Quadriva lent, No Preserve, IM [...] Telephone Encounter - Drea Lion DO - 12/20/2023 12:45 PM EDT Signed Prescriptions: Disp Refills Betamethasone Dipropionate 0.05 % External*30 g 5 Sig: APPLY TOPICALLY TO AFFECTED AREA 4 DAYS PER WEEK ON OPPOSITE DAYS OF THE GEL Authorizing Provider: DREA LION * Telephone Encounter - Lety Schmitt LPN - 12/20/2023 12:14 PM EDTPending Prescriptions: Disp Refills Betamethasone Dipropionate 0.05 % External*30 g 5 Sig: APPLY TOPICALLY TO AFFECTED AREA 4 DAYS PER WEEK ON OPPOSITE DAYS OF THE GEL * Telephone Encounter - Renay Cunningham - 12/19/2023 5:43 PM EDTPending Prescriptions: Disp Refills Betamethasone Dipropionate 0.05 % External*30 g 5 Sig: APPLY TOPICALLY TO AFFECTED AREA 4 DAYS PER WEEK ON OPPOSITE DAYS OF THE GEL documented in this encounter Plan of Treatment Upcoming Encounters Date Type Department Care Team (Late st Contact Info) Description 12/20/2023 2:30 PM EDT Nurse Only Wound Care, [place] [id number] Care, Nurse Wound [address] [place] [address] 12/28/2023 1:15 PM EDT Office Visit Vascular Surg [facility], [address] [address] Flex Valentin MD [address] [place] [address] 12/28/2023 2:30 PM EDT Nurse Only Wound Care, [address] [address] Care, Nurse Wound [address] [place] [address] 01/03/2024 2:30 PM EDT Nurse Only Wound Care, [place] [address] [place] [address] Care, Nurse Wound [address] [place] [facility] [place] [address] 01/10/2024 2:30 PM EDT Nurse Only Wound Care, [place] [address] [place] [address] Care, Nurse Wound [address] [place] [facility] [place] [address] 01/16/2024 2:40 PM EDT Office Visit Wound Care, [place] [address] [place] [address] Mario Sauceda MD [address] [place] [address] 01/24/2024 2:30 PM EDT Nurse Only Wound Care, [place] [address] [place] [address] Care, Nurse Wound [address] [place] [address] 01/31/2024 2:30 PM EDT Nurse Only Wound Care, [place] [address] [place] [address] Care, Nurse Wound [address] [place] [address] 02/06/2024 3:00 PM EDT Office Visit Dermatology [facility] [address] [place] [address] Dieudonne Braxton MD [address] [place] [address] 02/07/2024 2:30 PM EDT Nurse Only Wound Care, [place] [address] [place] [address] Care, Nurse Wound [address] [place] [address] 02/14/2024 2:30 PM EDT Nurse Only Wound Care, [place] [address] [place] [address] Care, Nurse Wound [address] [place] [address] 02/21/2024 2:40 PM EST Office Visit Wound Care, [place] [address] [place] [address] Mario Sauceda MD [address] [place] [address] 05/16/2024 2:00 PM EST Office Visit Gastroenterology, [facility] [address] [facility] [place] [address] Marlene Balderas CRNP [address] [place] [address] 09/13/2024 5:20 PM EDT Office Visit Family Practice [facility] [address] [facility] [place] [address] Drea Lion DO [address] [facility] [address] Scheduled Procedures Name Priority Associated Diagnoses Date/Ti [...] as of this encounter Visit Diagnoses Diagnosis Dermatitis Contact dermatitis and other eczema, due to unspecified cause documented in this encounter Care Teams Locomotive Boilermaker Relationship Specialty Start Date End Date Drea Lion DO [address] [address] PCP - General Family Medicine 09/04/20 documented as of this encounter
--- OUTSIDE RECORDS SUMMARY | 2024-03-08 14:39 | External Medical Summary | Summary of Care ---
Author Name Unknown Organization [facility] Address [address] [facility] [address] Phone [phone] Care Team Providers Care Brick Paver Name Role Phone Drea Lion DO Primary Care Provider Reason for Visit * Reason Comments Medication Refill Encounter Details Date Type Department Care Team (Late st Contact Info) Description 11/21/2023 Refill Family [facility] [address] [place] [address] Drea Lion DO [address] [place] [address] Chronic right-sided low back pain with right-sided sciatica Allergies Active Allergy Reactions Criticality Noted Date Comments Erythromycin 07/21/2012 Contraindicated with Targretin (cancer med) documented as of this encounter (statuses as of 11/22/2023) Medications Medication Sig Dispensed Refills Start Date [...] 3 weeks 40 g 1 07/13/2022 Active amLODIPine Besylate 5 MG Oral Tablet (Norvasc)Indication s:HTN, goal below 140/90 TAKE ONE TABLET BY MOUTH DAILY 90 Tablet 3 12/09/2022 12/12/19 Active Omeprazole 20 MG Oral Capsule Delayed Release (PriLOSEC) Take 1 Capsule by mouth in the morning and 1 Capsule in the evening. 180 Capsule 4 01/25/2023 Active traZODone HCl 100 MG Oral Tablet (Desyrel)Indication s:Insomnia, unspecified type TAKE 1 TO 3 TABLETS BY MOUTH AT BEDTIME. 270 Tablet 2 02/08/2023 02/08/20 Active Amitriptyline HCl 25 MG Oral Tablet [...] 07/27/2023 Active Betamethasone Dipropionate 0.05 % External OintmentIndications :Dermatitis APPLY TOPICALLY TO AFFECTED AREA 4 DAYS PER WEEK ON OPPOSITE DAYS OF THE GEL 30 g 5 08/05/2023 08/05/19 25 Active Silver sulfADIAZINE 1 % External [...] 90 Tablet 3 09/08/2023 09/08/19 25 Active Gabapentin 600 MG Oral Tablet (Neurontin)Indicati ons:Chronic right-sided low back pain with right-sided sciatica Take 1 Tablet by mouth in the morning and 1 Tablet at noon and 1 Tablet before bedtime. 270 Tablet 09/08/2023 Active Bexarotene 75 MG Oral Capsule TAKE [...] for Severe Pain. 21 Tablet 11/21/2023 Active tiZANidine HCl 4 MG Oral Tablet (Zanaflex)Indicatio ns:Chronic right-sided low back pain with right-sided sciatica TAKE ONE TABLET BY MOUTH EVERY 8 HOURS NEEDED FOR MUSCLE SPASMS. 30 Tablet 11/22/2023 Active tiZANidine HCl 4 MG Oral Tablet (Zanaflex)Indicatio ns:Chronic right-sided low back pain with right-sided sciatica TAKE ONE TABLET BY MOUTH EVERY 8 HOURS NEEDED FOR MUSCLE SPASMS. 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[place] ronary artery without angina pectoris 03/02/2021 [...] as of this encounter (statuses as of 11/22/2023) Resolved Problems Problem Noted Date Diagnosed Date Resolved Date Abdominal discomfort 11/21/2017 018 COPD, severity to be determined 07/23/2016 07/31/2020 Overview: Per COPD GOLD Classification Periapical abscess 05/15/2014 8 Venous stasis ulcer of leg w ithout varicose veins 07/21/2012 07/14/2017 Anemia 07/21/2012 10/07/2017 documented as of this encounter (statuses as of 11/22/2023) Immunizations Name Administration Dates Next Due Hepatitis [...] Telephone Encounter - Drea Lion DO - 11/22/2023 10:54 AM EDT Signed Prescriptions: Disp Refills tiZANidine HCl 4 MG Oral Tablet (Zanaflex) 30 Tab*0 Sig: TAKE ONE TABLET BY MOUTH EVERY 8 HOURS NEEDED FOR MUSCLE SPASMS. Authorizing Provider: DREA LION * Telephone Encounter - Salvador Tse [facility] - 11/22/2023 8:51 AM EDT Pending Prescriptions: Disp Refills tiZANidine HCl 4 MG Oral Tablet (Zanaflex) 30 Tab*0 Sig: TAKE ONE TABLET BY MOUTH EVERY 8 HOURS NEEDED FOR MUSCLE SPASMS. * Telephone Encounter - Salvador Tse RPh - 11/22/2023 8:50 AM EDT Pending Prescriptions: Disp Refills tiZANidine HCl 4 MG Oral Tablet (Zanaflex) 30 Tab*0 Sig: TAKE ONE TABLET BY MOUTH EVERY 8 HOURS NEEDED FOR MUSCLE SPASMS. 10/26/2022 (in office), 07/16/2019 (telemedicine) 12/10/2023 If no future appointments scheduled, and last appointment is greater than a year ago, please schedule patient for a follow-up appointment Last date the medication was ordered: 10/25/23 Pharmacy: [facility] Is this request for a controlled substance?No Urine Drug Screen:No results found. However, due to the size of the patient record, not all encounters were searched. Please check Results Review for a complete set of results. Patient Phone Numbers Labs: Lab Results Component Value Date/Time CREAT 0.9 09/24/2023 01:27 PM CREAT 0.8 04/04/2020 12:29 PM POTASSIUM 4.2 09/24/2023 01:27 PM POTASSIUM 4.8 04/04/2020 12:29 PM TSH 0.06 (L) 09/24/2023 01:27 PM TSH 0.03 (L) 04/04/2020 12:29 PM LDLCALC 125 09/24/2023 01:27 PM LDLCALC 128 04/04/2020 12:29 PM LDLDIRECT NOT APPLICABLE 01/18/2020 10:50 AM ALT 13 09/24/2023 01:27 PM ALT 15 04/04/2020 12:29 PM HGBA1C 5.9 (H) 12/25/2022 12:24 PM HGBA1C 6.0 (H) 03/28/2019 12:39 PM documented in this encounter Plan of Treatment Upcoming Encounters Date Type Department Care Team (Late st Contact Info) Description 11/22/2023 2:30 PM EDT Office Visit Wound Care, [place] [address] [place] [facility] [address] Care, Nurse Wound [address] [place] [address] 11/29/2023 2:30 PM EDT Office Visit Wound Care, [place] [address] [place] [address] Care, Nurse Wound [address] [place] [address] 12/06/2023 2:30 PM EDT Office Visit Wound Care, [place] [address] [place] [address] Care, Nurse Wound [address] [place] [address] 12/10/2023 1:40 PM EDT Office Visit [facility] [address] [place] [address] Juana Patricia CRNP [address] [place] [address] 12/13/2023 2:20 PM EDT Office Visit Wound Care, [place] [address] [place] [address] Mario Sauceda MD [address] [place] [address] 12/20/2023 2:30 PM EDT Office Visit Wound Care, [place] [address] [place] [address] Care, Nurse Wound [address] [place] [facility] [address] 12/27/2023 2:30 PM EDT Office Visit Wound Care, [place] [address] [place] [address] Care, Nurse Wound [address] [place] [facility] [address] 01/03/2024 2:30 PM EDT Office Visit Wound Care, [place] [address] [place] [address] Care, Nurse Wound [address] [place] [address] 01/10/2024 2:30 PM EDT Office Visit Wound Care, [place] [address] [place] [address] Care, Nurse Wound [address] [place] [address] 01/12/2024 12:45 PM EDT Office Visit Dermatology [facility] [address] [place] [address] Tamiko Nieves MD [address] [place] [address] 01/16/2024 2:40 PM EDT Office Visit Wound Care, [place] [address] [place] [address] Mario Sauceda MD [address] [place] [address] 09/13/2024 5:20 PM EDT Office Visit Family Practice [facility] [address] [place] [address] Drea Lion DO [address] [facility] [address] Scheduled Procedures Name Priority Associated Diagnoses Date/Ti me COLONOSCOPY FLEXIBLE PROXIMAL DIAGNOSTIC Recall History of colon polyps Health Maintenance Due Date Last Done Comments DISCUSS TOBACCO CESSATION (REFER TO SMARTSET #9948) 1958 COVID-19 Vaccine (#1) 1963 Cologuard 2003 [...] ASSESSMENT COMPLETED IN PAST YEAR FOR COPD 04/23/2024 04/23/2023 Depression Screening 07/05/2024 07/06/2023 GFR 09/23/2024 09/24/2023, 08/16, 06/09/2023, Additional history exists TSH 09/23/2024 09/24/2023, 08/16, 06/09/2023, Additional history exists Albumin/Creatinine Ratio 12/25/2025 12/25/2022, [...] right-sided low back pain with right-sided sciatica documented in this encounter Care Teams Brick Paver Relationship Specialty Start Date End Date Drea Lion DO [address] [place] [address] PCP - General Family Medicine 09/04/20 documented as of this encounter
--- OUTSIDE RECORDS SUMMARY | 2024-03-08 14:39 | External Medical Summary | Summary of Care ---
Author Name Unknown Organization [facility] Address [address] [place] [address] Phone [phone] Care Team Providers Care Director Sales And Trade Marketing Name Role Phone Raza Lion Primary Care Provider Reason for Visit * Reason Comments Wound Care Encounter Details Date Type Department Care Team (Late st Contact Info) Description 12/06/2023 2:30 PM EDT Nurse Only Wound Care, [place] [address] [place] [address] Care, Nurse Wound [address] [place] [address] Wound Care Allergies Active Allergy Reactions Criticality Noted Date Comments Erythromycin 07/21/2012 Contraindicated with Targretin (cancer med) documented as of this encounter (statuses as of 12/06/2023) Medications Medication Sig Dispensed Refills Start Date [...] as of this encounter (statuses as of 12/06/2023) Active Problems Problem Noted Date Diagnosed Date Venous insufficiency 09/05/2023 Subconjunctival hemorrhage of left eye 3 Tobacco use 10/26/2022 Medical home patient encounter 06/03/2022 Stasis ulcer of lower extremity, left 04/22/2022 Drug-induced polyneuropathy 02/22/2022 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[place] ronary artery without angina pectoris 03/02/2021 [...] as of this encounter (statuses as of 12/06/2023) Resolved Problems Problem Noted Date Diagnosed Date Resolved Date Abdominal discomfort 11/21/2017 018 COPD, severity to be determined 07/23/2016 07/31/2020 Overview: Per COPD GOLD Classification Periapical abscess 05/15/2014 8 Venous stasis ulcer of leg w ithout varicose veins 07/21/2012 07/14/2017 Anemia 07/21/2012 10/07/2017 documented as of this encounter (statuses as of 12/06/2023) Immunizations Name Administration Dates Next Due Hepatitis [...] Notes * Robert Lopez MED ASSIST - 12/06/2023 3:39 PM EDT Patient has new wound on Dorsal foot from shoes rubbing. He again was advised to get bigger shoes. Puracol Ag was not available today. Ag and reg foam placed over BLE wound.Coban 2 wrap applied for compression to BLE as per order. documented in this encounter Plan of Treatment Upcoming Encounters Date Type Department Care Team (Late st Contact Info) Description 12/10/2023 1:40 PM EDT Office Visit [facility] [address] [facility] [address] Juana Patricia CR[facility] [address] 12/13/2023 2:20 PM EDT Office Visit Wound Care, [place] [address] [place] [address] Mario Sauceda MD [address] [place] [address] 12/20/2023 2:30 PM EDT Nurse Only Wound Care, [place] [address] [place] [facility] [place] [address] Care, Nurse Wound [address] [place] [facility] [place] [address] 12/27/2023 2:30 PM EDT Nurse Only Wound Care, [place] [address] [place] [facility] [place] [address] Care, Nurse Wound [address] [place] [facility] [place] [address] 01/03/2024 2:30 PM EDT Nurse Only Wound Care, [place] [address] [place] [facility] [place] [address] Care, Nurse Wound [address] [place] [facility] [place] [address] 01/10/2024 2:30 PM EDT Nurse Only Wound Care, [place] [address] [place] [address] Care, Nurse Wound [address] [place] [address] 01/12/2024 12:45 PM EDT Office Visit Dermatology [facility] [address] [place] [address] Tamiko Nieves MD [address] [place] [address] 01/16/2024 2:40 PM EDT Office Visit Wound Care, [place] [address] [place] [address] Mario Sauceda MD [address] [place] [address] 01/24/2024 2:30 PM EDT Nurse Only Wound Care, [place] [address] [place] [address] Care, Nurse Wound [address] [place] [facility] [place] [address] 01/31/2024 2:30 PM EDT Nurse Only Wound Care, [place] [address] [place] [address] Care, Nurse Wound [address] [place] [address] 02/07/2024 2:30 PM EDT Nurse Only Wound Care, [place] [address] [place] [address] Care, Nurse Wound [address] [place] [address] 02/14/2024 2:30 PM EDT Nurse Only Wound Care, [place] [address] [place] [address] Care, Nurse Wound [address] [place] [address] 02/21/2024 2:40 PM EST Office Visit Wound Care, [place] [address] [place] [address] Mario Sauceda MD [address] [place] [address] 09/13/2024 5:20 PM EDT Office Visit Family Practice [facility] [address] [place] [address] Raza Lion DO [address] [place] [address] Scheduled Procedures Name Priority Associated Diagnoses Date/Ti me COLONOSCOPY FLEXIBLE PROXIMAL DIAGNOSTIC Recall History of colon polyps Health Maintenance Due Date Last Done Comments DISCUSS TOBACCO CESSATION (REFER TO SMARTSET #4002) 1960 COVID-19 Vaccine (#1) 1963 Cologuard 2003 [...] insufficiency documented in this encounter Care Teams Director Sales And Trade Marketing Relationship Specialty Start Date End Date Raza Lion DO [address] [place] [address] PCP - General Family Medicine 09/04/20 documented as of this encounter
--- OUTSIDE RECORDS SUMMARY | 2024-03-08 14:39 | External Medical Summary | Summary of Care ---
Author Name Unknown Organization [facility] Address [address] [place] [address] Phone [phone] Care Team Providers Care Retail Greeting Card Merchandiser Name Role Phone LionAnupbelle Mcclendonsyed Primary Care Provider Reason for Visit * Reason Comments Wound Care Encounter Details Date Type Department Care Team (Late st Contact Info) Description 11/22/2023 2:30 PM EDT Office Visit Wound Care, [place] [address] [place] [address] Care, Nurse Wound [address] [place] [address] Venous insufficiency* Allergies Active Allergy Reactions Criticality Noted Date Comments Erythromycin 07/21/2012 Contraindicated with Targretin (cancer med) documented as of this encounter (statuses as of 11/23/2023) Medications Medication Sig Dispensed Refills Start Date [...] BY MOUTH DAILY 90 Tablet 3 12/09/2022 4 Active Omeprazole 20 MG Oral Capsule Delayed [...] FOR MUSCLE SPASMS. 30 Tablet 11/22/2023 Active Gabapentin 600 MG Oral Tablet (Neurontin)Indicatio ns:Chronic right-sided low back pain with right-sided sciatica Take 1 Tablet by mouth in the morning and 1 Tablet at noon and 1 Tablet in the evening and 1 Tablet before bedtime. 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[place] ronary artery without angina pectoris 03/02/2021 [...] as of this encounter (statuses as of 11/23/2023) Resolved Problems Problem Noted Date Diagnosed Date Resolved Date Abdominal discomfort 11/21/2017 018 COPD, severity to be determined 07/23/2016 07/31/2020 Overview: Per COPD GOLD Classification Periapical abscess 05/15/2014 8 Venous stasis ulcer of leg w ithout varicose veins 07/21/2012 07/14/2017 Anemia 07/21/2012 10/07/2017 documented as of this encounter (statuses as of 11/23/2023) Immunizations Name Administration Dates Next Due Hepatitis [...] as of this encounter Progress Notes * Robert Lopez MED ASSIST - 11/23/2023 8:33 AM EDT Puracol ,Ag and reg foam placed over BLE wound.Coban 2 wrap applied for compression to BLE as per order. documented in this encounter Nursing Notes * Robert Lopez MED ASSIST - 11/22/2023 3:38 PM EDT Puracol ,Ag and reg foam placed over BLE wound.Coban 2 wrap applied for compression to BLE as per order. documented in this encounter Plan of Treatment Upcoming Encounters Date Type Department Care Team (Late st Contact Info) Description 11/29/2023 2:30 PM EDT Office Visit Wound Care, [place] [address] [place] [address] Care, Nurse Wound [address] [place] [address] 12/06/2023 2:30 PM EDT Office Visit Wound Care, [place] [address] [place] [address] Care, Nurse Wound [address] [place] [address] 12/10/2023 1:40 PM EDT Office Visit Family Practice [facility] [address] [place] [address] Juana Patricia SISTER SUPERIOR [address] [place] [address] 12/13/2023 2:20 PM EDT Office Visit Wound Care, [place] [address] [place] [address] Mario Sauceda MD [address] [place] [address] 12/20/2023 2:30 PM EDT Office Visit Wound Care, [place] [address] [place] [address] Care, Nurse Wound [address] [place] [address] 12/27/2023 2:30 PM EDT Office Visit Wound Care, [place] [address] [place] [address] Care, Nurse Wound [address] [place] [address] 01/03/2024 2:30 PM EDT Office Visit Wound Care, [place] [address] [place] [address] Care, Nurse Wound [address] [place] [address] 01/10/2024 2:30 PM EDT Office Visit Wound Care, [place] [address] [place] [address] Care, Nurse Wound [address] [place] [address] 01/12/2024 12:45 PM EDT Office Visit Dermatology [facility] [place] [address] [facility] [place], [place] [address] Tamiko Nieves MD 200 [facility] [place], [place] [address] 01/16/2024 2:40 PM EDT Office Visit Wound Care, [place] [address] [place] [address] Mario Sauceda MD [address] [place] [address] 01/24/2024 2:30 PM EDT Office Visit Wound Care, [place] [address] [place] [address] Care, Nurse Wound [address] [place] [address] 01/31/2024 2:30 PM EDT Office Visit Wound Care, [place] [address] [place] [address] Care, Nurse Wound [address] [place] [address] 02/07/2024 2:30 PM EDT Office Visit Wound Care, [place] [address] [place] [address] Care, Nurse Wound [address] [place] [address] 02/14/2024 2:30 PM EDT Office Visit Wound Care, [place] [address] [place] [address] Care, Nurse Wound [address] [place] [address] 02/21/2024 2:40 PM EST Office Visit Wound Care, [place] [address] [place] [address] Mario Sauceda MD [address] [place] [address] 09/13/2024 5:20 PM EDT Office Visit Family Practice [facility] 132 [facility] [place] [address] Raza Lion DO [address] [place] [address] Scheduled Procedures Name Priority Associated Diagnoses Date/Ti me COLONOSCOPY FLEXIBLE PROXIMAL DIAGNOSTIC Recall History of colon polyps Health Maintenance Due Date Last Done Comments DISCUSS TOBACCO CESSATION (REFER TO SMARTSET #7374) 1960 COVID-19 Vaccine (#1) 1963 Cologuard 2003 [...] insufficiency documented in this encounter Care Teams Retail Greeting Card Merchandiser Relationship Specialty Start Date End Date Raza Lion DO [address] [place] [address] PCP - General Family Medicine 09/04/20 documented as of this encounter
--- OUTSIDE RECORDS SUMMARY | 2024-03-08 14:39 | External Medical Summary | Summary of Care ---
Author Name Unknown Organization [facility] [address] [facility] [address] Phone [phone] Care Team Providers Care Billing Analyst Name Role Phone Drea Lion DO Primary Care Provider Reason for Visit * Reason Comments Medication Refill Encounter Details Date Type Department Care Team (Late st Contact Info) Description 11/25/2023 Refill Family [facility] [address] [place] [address] Drea Lion DO [address] [place] [address] Chronic right-sided low back pain with right-sided sciatica Allergies Active Allergy Reactions Criticality Noted Date Comments Erythromycin 07/21/2012 Contraindicated with Targretin (cancer med) documented as of this encounter (statuses as of 11/28/2023) Medications Medication Sig Dispensed Refills Start Date [...] FOR MUSCLE SPASMS. 30 Tablet 11/28/2023 Active tiZANidine HCl 4 MG Oral Tablet (Zanaflex)Indicatio ns:Chronic right-sided low back pain with right-sided sciatica TAKE ONE TABLET BY MOUTH EVERY 8 HOURS NEEDED FOR MUSCLE SPASMS. 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[place] ronary artery without angina pectoris 03/02/2021 [...] as of this encounter (statuses as of 11/28/2023) Resolved Problems Problem Noted Date Diagnosed Date Resolved Date Abdominal discomfort 11/21/2017 018 COPD, severity to be determined 07/23/2016 07/31/2020 Overview: Per COPD GOLD Classification Periapical abscess 05/15/2014 8 Venous stasis ulcer of leg w ithout varicose veins 07/21/2012 07/14/2017 Anemia 07/21/2012 10/07/2017 documented as of this encounter (statuses as of 11/28/2023) Immunizations Name Administration Dates Next Due Hepatitis [...] Telephone Encounter - Drea Lion DO - 11/28/2023 3:25 PM EDT Signed Prescriptions: Disp Refills tiZANidine HCl 4 MG Oral Tablet (Zanaflex) 30 Tab*0 Sig: TAKE ONE TABLET BY MOUTH EVERY 8 HOURS NEEDED FOR MUSCLE SPASMS. Authorizing Provider: DREA LION * Telephone Encounter - Brooke العراقي LPN - 11/28/2023 1:27 PM EDTPending Prescriptions: Disp Refills tiZANidine HCl 4 MG Oral Tablet (Zanaflex) 30 Tab*0 Sig: TAKE ONE TABLET BY MOUTH EVERY 8 HOURS NEEDED FOR MUSCLE SPASMS. * Telephone Encounter - Brooke العراقي LPN - 11/28/2023 1:25 PM EDT Did you pend patient's preferred pharmacy and medication before forwarding?yes Pharmacy: [facility] Pending Prescriptions: Disp Refills tiZANidine HCl 4 MG Oral Tablet (Zanaflex)30 Tab*0 Sig: TAKE ONE TABLET BY MOUTH EVERY 8 HOURS NEEDED FOR MUSCLE SPASMS. Last Visit: 10/26/2022 (in office), 07/16/2019 (telemedicine) Next Visit: 12/10/2023 If no future appointments scheduled, and last appointment is greater than a year ago, please schedule patient for a follow-up appointment Last date the medication was ordered: 11/22/23 Is this request for a controlled substance?No [...] * Telephone Encounter - Renay Cunningham - 11/25/2023 9:21 PM EDTPending Prescriptions: Disp Refills tiZANidine HCl 4 MG Oral Tablet (Zanaflex) 30 Tab*0 Sig: TAKE ONE TABLET BY MOUTH EVERY 8 HOURS NEEDED FOR MUSCLE SPASMS. documented in this encounter Plan of Treatment Upcoming Encounters Date Type Department Care Team (Late st Contact Info) Description 11/29/2023 2:30 PM EDT Office Visit Wound Care, [place] [address] [place] [address] Care, Nurse Wound [address] [place] [address] 12/06/2023 2:30 PM EDT Office Visit Wound Care, [place] [address] [place] [address] Care, Nurse Wound [address] [place] [address] 12/10/2023 1:40 PM EDT Office Visit Family Practice [facility] [address] [place] [address] Juana Patricia CRNP 132 [place] [address] 12/13/2023 2:20 PM EDT Office Visit Wound Care, [place] [address] [place] [address] Mario Sauceda MD [address] [place] [address] 12/20/2023 2:30 PM EDT Office Visit Wound Care, [place] [address] [place] [facility] [place] [address] Care, Nurse Wound [address] [place] [facility] [place] [address] 12/27/2023 2:30 PM EDT Office Visit Wound Care, [place] [address] [place] [facility] [place] [address] Care, Nurse Wound [address] [place] [facility] [place] [address] 01/03/2024 2:30 PM EDT Office Visit Wound Care, [place] [address] [place] [facility] [place] [address] Care, Nurse Wound [address] [place] [address] 01/10/2024 2:30 PM EDT Office Visit Wound Care, [place] [address] [place] [address] Care, Nurse Wound [address] [place] [address] 01/12/2024 12:45 PM EDT Office Visit Dermatology [facility] [address] [place] [address] Tamiko Nieves MD [address] [place] [address] 01/16/2024 2:40 PM EDT Office Visit Wound Care, [place] [address] [place] [address] Mario Sauceda MD [address] [place] [address] 01/24/2024 2:30 PM EDT Office Visit Wound Care, [place] [address] [place] [address] Care, Nurse Wound [address] [place] [address] 01/31/2024 2:30 PM EDT Office Visit Wound Care, [place] [address] [place] [address] Care, Nurse Wound [address] [place] [address] 02/07/2024 2:30 PM EDT Office Visit Wound Care, [place] [address] [place] [address] Care, Nurse Wound [address] [place] [address] 02/14/2024 2:30 PM EDT Office Visit Wound Care, [place] [address] [place] [address] Care, Nurse Wound [address] [place] [address] 02/21/2024 2:40 PM EST Office Visit Wound Care, [place] [address] [place] [address] Mario Sauceda MD [address] [place] [address] 09/13/2024 5:20 PM EDT Office Visit Family Practice [facility] [address] [place] [address] Drea Lion DO [address] [place] [address] Scheduled Procedures Name Priority Associated Diagnoses Date/Ti me COLONOSCOPY FLEXIBLE PROXIMAL DIAGNOSTIC Recall History of colon polyps Health Maintenance Due Date Last Done Comments DISCUSS TOBACCO CESSATION (REFER TO SMARTSET #2620) 1960 COVID-19 Vaccine (#1) 1963 Cologuard 2003 [...] sciatica documented in this encounter Care Teams Billing Analyst Relationship Specialty Start Date End Date Drea Lion DO [address] [place] [address] PCP - General Family Medicine 5/20/21 documented as of this encounter
--- OUTSIDE RECORDS SUMMARY | 2024-03-08 14:39 | External Medical Summary | Summary of Care ---
Author Name Unknown Organization [facility] Address [address] [place] [facility] [place] [place] [address] Phone [phone] Care Team Providers Care Senior Analyst Developer Name Role Phone Drea Lion DO Primary Care Provider Reason for Visit * Reason Comments Medication Refill Encounter Details Date Type Department Care Team (Late st Contact Info) Description 11/28/2023 Refill Family Practice [facility] [address] [place] [address] Drea Lion DO [address] [place] [address] HTN, goal below 140/90 Allergies Active Allergy Reactions Criticality Noted Date Comments Erythromycin 07/21/2012 Contraindicated with Targretin (cancer med) documented as of this encounter (statuses as of 11/29/2023) Medications Medication Sig Dispensed Refills Start Date [...] 90 Tablet 1 11/29/2023 11/29/19 25 Active amLODIPine Besylate 5 MG Oral Tablet (Norvasc)Indication s:HTN, goal below 140/90 TAKE ONE TABLET BY MOUTH DAILY 90 Tablet 3 12/09/2022 11/28/19 24 Discontinu ed(Refill) documented as of this encounter (statuses as of 11/29/2023) Active Problems Problem Noted Date Diagnosed Date [...] as of this encounter (statuses as of 11/29/2023) Resolved Problems Problem Noted Date Diagnosed Date Resolved Date Abdominal discomfort 11/21/2017 018 COPD, severity to be determined 07/23/2016 07/31/2020 Overview: Per COPD GOLD Classification Periapical abscess 05/15/2014 8 Venous stasis ulcer of leg w ithout varicose veins 07/21/2012 07/14/2017 Anemia 07/21/2012 10/07/2017 documented as of this encounter (statuses as of 11/29/2023) Immunizations Name Administration Dates Next Due Hepatitis [...] encounter Miscellaneous Notes * Telephone Encounter - Samantha Reyes RPh - 11/29/2023 1:57 PM EDTSigned Prescriptions: Disp Refills amLODIPine Besylate 5 MG Oral Tablet (Norv*90 Tab*1 Sig: TAKE ONE TABLET BY MOUTH DAILYAuthorizing Provider: DREA LION User: SAMANTHA REYES------- documented in this encounter Plan of Treatment Upcoming Encounters Date Type Department Care Team (Late st Contact Info) Description 11/29/2023 2:30 PM EDT [facility] [address] [place] [address] Care, Nurse Wound [facility] [place] [address] 12/06/2023 2:30 PM EDT [facility] [address] [place] [facility] [place] [address] Care, Nurse Wound [address] [place] [address] 12/10/2023 1:40 PM EDT Office Visit Family [facility] [address] [place] [address] Harshad RafaelAURA barnhart [address] [place] [address] 12/13/2023 2:20 PM EDT Office Visit Wound Care, [place] [address] [place] [address] Mario Sauceda MD [address] [place] [address] 12/20/2023 2:30 PM EDT Office Visit Wound Care, [place] [address] [place] [address] Care, Nurse Wound [address] [place] [address] 12/27/2023 2:30 PM EDT Office Visit Wound Care, [place] [address] [place] [address] Care, Nurse Wound [address] [place] [address] 01/03/2024 2:30 PM EDT Office Visit Wound Care, [place] [address] [place] [address] Care, Nurse Wound [address] [place] [address] 01/10/2024 2:30 PM EDT Office Visit Wound Care, [place] [address] [place] [address] Care, Nurse Wound [address] [place] [address] 01/12/2024 12:45 PM EDT Office Visit Dermatology [facility] 200 [place] [address] Tamiko Nieves MD 200 [place] [address] 01/16/2024 2:40 PM EDT Office Visit Wound Care, [place] [address] [place] [facility] [place] [address] Mario Sauceda MD [address] [place] [facility] [place] [address] 01/24/2024 2:30 PM EDT Office Visit Wound Care, [place] [address] [facility] [place] [address] Care, Nurse Wound [address] [place] [facility] [place] [address] 01/31/2024 2:30 PM EDT Office Visit Wound Care, [place] [address] [place] [facility] [place] [address] Care, Nurse Wound [address] [facility] [place] [address] 02/07/2024 2:30 PM EDT Office Visit Wound Care, [place] [address] [facility] [place] [address] Care, Nurse Wound [address] [facility] [place] [address] 02/14/2024 2:30 PM EDT Office Visit Wound Care, [place] [address] [place] [facility] [place] [address] Care, Nurse Wound [address] [facility] [place] [address] 02/21/2024 2:40 PM EST Office Visit Wound Care, [place] [address] [place] [facility] [place] [address] Mario Sauceda MD [address] [place] [address] 09/13/2024 5:20 PM EDT Office Visit [facility] [address] [place] [address] Drea Lion, [address] [place] [address] Scheduled Procedures Name Priority Associated Diagnoses Date/Ti me COLONOSCOPY FLEXIBLE PROXIMAL DIAGNOSTIC Recall History of colon polyps Health Maintenance Due Date Last Done Comments DISCUSS TOBACCO CESSATION (REFER TO SMARTSET #1988) 1960 COVID-19 Vaccine (#1) 1963 Cologuard 2003 [...] hypertension documented in this encounter Care Teams Senior Analyst Developer Relationship Specialty Start Date End Date Drea Lion DO [address] [place] [address] PCP - General Family Medicine 09/04/20 documented as of this encounter
--- OUTSIDE RECORDS SUMMARY | 2024-03-08 14:39 | External Medical Summary | Summary of Care ---
Author Name Unknown Organization [facility] Address [address] [place] [address] Phone [phone] Care Team Providers Care Rad Tech Name Role Phone LionAnupbelle Mcclendonsyed Primary Care Provider Reason for Visit * Reason Comments Wound Care Encounter Details Date Type Department Care Team (Late st Contact Info) Description 11/29/2023 2:30 PM EDT Office Visit Wound Care, [place] [address] [place] [address] Care, Nurse Wound [address] [place] [address] Venous insufficiency* Allergies Active Allergy Reactions Criticality [...] DAILY 90 Tablet 1 11/29/2023 5 Active documented as of this encounter (statuses as of 11/29/2023) Active Problems Problem Noted Date Diagnosed Date Venous insufficiency 09/05/2023 Subconjunctival hemorrhage of left eye 3 Tobacco use 10/26/2022 Medical home patient encounter 06/03/2022 Stasis ulcer of lower extremity, left 04/22/2022 Drug-induced polyneuropathy 02/22/2022 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 documented in this encounter Nursing Notes * Catarina Gonzalez LPN - 11/29/2023 2:43 PM EDT Puracol, Ag Foam and Foam placed over BLE wound. Coban 2 wrap applied for compression to BLE as perorder. documented in this encounter Plan of Treatment Upcoming Encounters Date Type Department Care Team (Late st Contact Info) Description 12/06/2023 2:30 PM EDT Office Visit Wound Care, [place] [address] [place] [address] Care, Nurse Wound [address] [place] [address] 12/10/2023 1:40 PM EDT Office Visit Family Practice [facility] 132 [facility] [place] [address] Juana Patricia CRNP 132 [facility] [place] [address] 12/13/2023 2:20 PM EDT Office Visit Wound Care, [place] [address] [place] [address] Mario Sauceda MD [address] [place] [address] 12/20/2023 2:30 PM EDT Office Visit Wound Care, [place] [address] [place] [address] Care, Nurse Wound [address] [place] [address] 12/27/2023 2:30 PM EDT Office Visit Wound Care, [place] [address] [place] [address] Care, Nurse Wound [address] [place] [address] 01/03/2024 2:30 PM EDT Office Visit Wound Care, [place] [address] [place] [address] Care, Nurse Wound [address] [place] [address] 01/10/2024 2:30 PM EDT Office Visit Wound Care, [place] [address] [place] [address] Care, Nurse Wound [address] [place] [address] 01/12/2024 12:45 PM EDT Office Visit Dermatology [facility] 200 [facility] [place] [address] Tamiko Nieves MD [address] [place] [address] 01/16/2024 2:40 PM EDT Office Visit Wound Care, [place] [address] [place] [address] Mario Sauceda MD [address] [place] [address] 01/24/2024 2:30 PM EDT Office Visit Wound Care, [place] [address] [place] [address] Care, Nurse Wound [address] [place] [address] 01/31/2024 2:30 PM EDT Office Visit Wound Care, [place] [address] [place] [address] Care, Nurse Wound [address] [place] [address] 02/07/2024 2:30 PM EDT Office Visit Wound Care, [place] [address] [place] [address] Care, Nurse Wound [address] [place] [address] 02/14/2024 2:30 PM EDT Office Visit Wound Care, [place] [address] [place] [address] Care, Nurse Wound [address] [place] [address] 02/21/2024 2:40 PM EST Office Visit Wound Care, [place] [address] [place] [address] Mario Sauceda MD [address] [place] [address] 09/13/2024 5:20 PM EDT Office Visit Family Practice [facility] [address] Raza Lion DO 132 [facility] [place] [address] Scheduled Procedures Name Priority Associated Diagnoses Date/Ti [...] insufficiency documented in this encounter Care Teams Rad Tech Relationship Specialty Start Date End Date Raza Lion DO [address] [place] [address] PCP - General Family Medicine 09/04/20 documented as of this encounter
--- OUTSIDE RECORDS SUMMARY | 2024-03-08 14:40 | External Medical Summary | Summary of Care ---
Author Name Unknown Organization [facility] Address [address] [place] [facility] [place] [address] Phone [phone] Care Team Providers Care Cook Seafood Name Role Phone Drea Lion DO Primary Care Provider Reason for Visit * Reason Comments Medication Refill Encounter Details Date Type Department Care Team (Late st Contact Info) Description 11/15/2023 Telephone Family [facility] [address] [place] [address] Drea Lion DO [address] [place] [address] Medication Refill Allergies Active Allergy Reactions Criticality Noted Date Comments Erythromycin 07/21/2012 Contraindicated with Targretin (cancer med) documented as of this encounter (statuses as of 11/21/2023) Medications Medication Sig Dispensed Refills Start Date [...] ONCE DAILY 120 Capsule 5 09/27/2023 Active tiZANidine HCl 4 MG Oral Tablet (Zanaflex)Indicatio ns:Chronic right-sided low back pain with right-sided sciatica TAKE ONE TABLET BY MOUTH EVERY 8 HOURS NEEDED FOR MUSCLE SPASMS. 30 Tablet 10/25/2023 Active Atorvastatin Calcium 40 MG Oral Tablet [...] for Severe Pain. 21 Tablet 11/21/2023 Active HYDROcodone-Acetami nophen 5-325 MG Oral Tablet Take 1 Tablet by mouth at bedtime as needed for Severe Pain. 21 Tablet 10/18/2023 11/15/19 24 Discontinu ed(Refill) documented as of this encounter (statuses as of 11/21/2023) Active Problems Problem Noted Date Diagnosed Date [...] as of this encounter (statuses as of 11/21/2023) Resolved Problems Problem Noted Date Diagnosed Date Resolved Date Abdominal discomfort 11/21/2017 018 COPD, severity to be determined 07/23/2016 07/31/2020 Overview: Per COPD GOLD Classification Periapical abscess 05/15/2014 8 Venous stasis ulcer of leg w ithout varicose veins 07/21/2012 07/14/2017 Anemia 07/21/2012 10/07/2017 documented as of this encounter (statuses as of 11/21/2023) Immunizations Name Administration Dates Next Due Hepatitis [...] Telephone Encounter - Drea Lion DO - 11/21/2023 9:25 AM EDT Signed Prescriptions: Disp Refills HYDROcodone-Acetaminophen 5-325 MG Oral Ta*21 Tab*0 Sig: Take 1 Tablet by mouth at bedtime as needed for Severe Pain. Authorizing Provider: DREA LION * Telephone Encounter - Heather Garza OSA - 11/17/2023 1:58 PM EDT Pt. Has called in did advise he needs to schedule a office visit soonest appointment is December 09pt. Would like to know if he can get in sooner or can he do a video visit please advise pt. With a call back needs pain medication is in a lot of pain. * Telephone Encounter - Yanique Zapata LPN - 11/17/2023 7:01 AM EDTPending Prescriptions: Disp Refills HYDROcodone-Acetaminophen 5-325 MG Oral Ta*21 Tab*0 Sig: Take 1 Tablet by mouth at bedtime as needed for Severe Pain. * Telephone Encounter - Monica Aquino LPN - 11/16/2023 4:04 PM EDTPending Prescriptions: Disp Refills HYDROcodone-Acetaminophen 5-325 MG Oral Ta*21 Tab*0 Sig: Take 1 Tablet by mouth at bedtime as needed for Severe Pain. * Telephone Encounter - Monica Aquino LPN - 11/16/2023 3:57 PM EDT Did you pend patient's preferred pharmacy and medication before forwarding?yes Pharmacy: [facility] Pending Prescriptions: Disp Refills HYDROcodone-Acetaminophen 5-325 MG Oral T*21 Tab*0 Sig: Take 1 Tablet by mouth at bedtime as needed for Severe Pain. Last Visit: 10/26/2022 (in office), 07/16/2019 (telemedicine) Next Visit: 09/13/2024 If no future appointments scheduled, and last appointment is greater than a year ago, please schedule patient for a follow-up appointment Last date the medication was ordered: 10/18/2023 Is this request for a controlled substance?Yes, What was the last refill date 10/18/2023 w/ quantity 21 and dosage 5-325 mg and Urine Drug Screen Not completed Urine Drug Screen:No results found. However, due [...] 03/28/2019 12:39 PM * Telephone Encounter - Henny Melendez OSA - 11/16/2023 2:24 PM EDT Patient calling requesting a refill on prescription, please call patient and advise. documented in this encounter Plan of Treatment Upcoming Encounters Date Type Department Care Team (Late st Contact Info) Description 11/22/2023 2:30 PM EDT Nurse Only Wound Care, [place] [address] [place] [address] Care, Nurse Wound [address] [place] [address] 11/29/2023 2:30 PM EDT Nurse Only Wound Care, [place] [address] [place] [address] Care, Nurse Wound [address] [place] [address] 12/06/2023 2:30 PM EDT Nurse Only Wound Care, [place] [address] [facility] [place] [address] Care, Nurse Wound [address] [facility] [place] [address] 12/10/2023 1:40 PM EDT Office Visit [facility] [address] [place] [address] Juana Patricia CRNP [address] [place] [address] 12/13/2023 2:20 PM EDT Office Visit Wound Care, [place] [address] [facility] [place] [address] Mario Sauceda MD [address] [place] [address] 12/20/2023 2:30 PM EDT Nurse Only Wound Care, [place] [address] [facility] [place] [place] [address] Care, Nurse Wound [address] [place] [address] 12/27/2023 2:30 PM EDT Nurse Only Wound Care, [place] [address] [facility] [place] [address] Care, Nurse Wound [address] [facility] [place] [address] 01/03/2024 2:30 PM EDT Nurse Only Wound Care, [place] [address] [facility] [place] [place] [address] Care, Nurse Wound [address] [facility] [place] [address] 01/10/2024 2:30 PM EDT Nurse Only Wound Care, [place] [address] [facility] [place] [address] Care, Nurse Wound [address] [facility], [place] [address] 01/12/2024 12:45 PM EDT Office Visit Dermatology [facility] 200 [facility] [place] [address] Tamiko Nieves MD 200 [facility] [place] [address] 01/16/2024 2:40 PM EDT Office Visit Wound Care, [place] [address] [place] [address] Mario Sauceda MD [address] [place] [address] 09/13/2024 5:20 PM EDT Office Visit Family Practice [facility] [address] [place] [address] Drea Lion DO [address] [facility] [address] Scheduled Procedures Name Priority Associated Diagnoses Date/Ti me COLONOSCOPY FLEXIBLE PROXIMAL DIAGNOSTIC Recall History of colon polyps Health Maintenance Due Date Last Done Comments DISCUSS TOBACCO CESSATION (REFER TO SMARTSET #0897) 1960 COVID-19 Vaccine (#1) 1963 Cologuard 2003 [...] filedocumented as of this encounter Care Teams Cook Seafood Relationship Specialty Start Date End Date Drea Lion DO [address] [place] [address] PCP - General Family Medicine 09/04/20 documented as of this encounter
--- OUTSIDE RECORDS SUMMARY | 2024-03-08 14:40 | External Medical Summary | Summary of Care ---
Author Name Unknown Organization [facility] Address [address] [place] [address] Phone [phone] Care Team Providers Care Marketing Rotation Associate Name Role Phone LionAnupbelle Mcclendonsyed Primary Care Provider Reason for Visit * Reason Comments Wound Care B/L leg wraps Encounter Details Date Type Department Care Team (Late st Contact Info) Description 11/11/2023 9:30 AM EDT Nurse Only Wound Care, [place] [address] [place] [address] Care, Nurse Wound [address] [place] [address] Wound Care (B/L leg wraps) Allergies Active Allergy Reactions Criticality Noted Date Comments Erythromycin 07/21/2012 Contraindicated with Targretin (cancer med) documented as of this encounter (statuses as of 11/11/2023) Medications Medication Sig Dispensed Refills Start Date [...] AN EMPTY STOMACH 90 Tablet 3 07/05/2023 Active Famotidine 20 MG Oral Tablet (Pepcid) [...] PAIN 90 Tablet 3 09/08/2023 5 Active Gabapentin 600 MG Oral Tablet (Neurontin)Indicatio ns:Chronic right-sided low back pain with right-sided sciatica Take 1 Tablet by mouth in the morning and 1 Tablet at noon and 1 Tablet before bedtime. 270 Tablet 5 09/08/2023 Active Bexarotene 75 MG Oral Capsule TAKE 4 CAPSULES (300MG) BY MOUTH ONCE DAILY 120 Capsule 5 09/27/2023 Active HYDROcodone-Acetamin ophen 5-325 MG Oral Tablet Take 1 Tablet by mouth at bedtime as needed for Severe Pain. 21 Tablet 10/18/2023 Active tiZANidine HCl 4 MG Oral Tablet [...] 7 days. 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[place] co ronary artery without angina pectoris 03/02/2021 [...] as of this encounter (statuses as of 11/11/2023) Resolved Problems Problem Noted Date Diagnosed Date Resolved Date Abdominal discomfort 11/21/2017 018 COPD, severity to be determined 07/23/2016 07/31/2020 Overview: Per COPD GOLD Classification Periapical abscess 05/15/2014 8 Venous stasis ulcer of leg w ithout varicose veins 07/21/2012 07/14/2017 Anemia 07/21/2012 10/07/2017 documented as of this encounter (statuses as of 11/11/2023) Immunizations Name Administration Dates Next Due Hepatitis [...] as of this encounter Nursing Notes * Alba Roberts TECH - 11/11/2023 11:59 AM EDT B/L Acticoat 7, ag and reg foam over wounds, coban 2 as per order. Patient did not do well with the profore wraps. Dr advised to go back to coban 2. Acticoat 7 was applied to to the purocol ag being temporarily unavailable. Thank you, Alba Roberts [facility] documented in this encounter Plan of Treatment Upcoming Encounters Date Type Department Care Team (Late st Contact Info) Description 11/15/2023 2:30 PM EDT Nurse Only Wound Care, [place] [address] [place] [address] Care, Nurse Wound [address] [place] [address] 11/22/2023 2:30 PM EDT Nurse Only Wound Care, [place] [address] [place] [address] Care, Nurse Wound [address] [place] [address] 11/29/2023 2:30 PM EDT Nurse Only Wound Care, [place] [address] [place] [address] Care, Nurse Wound [address] [place] [address] 12/06/2023 2:30 PM EDT Nurse Only Wound Care, [place] [address] [place] [address] Care, Nurse Wound [address] [place] [facility] [place] [address] 12/13/2023 2:20 PM EDT Office Visit Wound Care, [place] [address] [place] [facility] [place] [address] Mario Sauceda MD [address] [place] [place] [address] 12/20/2023 2:30 PM EDT Nurse Only Wound Care, [place] [address] [place] [facility] [place] [place] [address] Care, Nurse Wound [address] [place] [facility] [place] [place] [address] 12/27/2023 2:30 PM EDT Nurse Only Wound Care, [place] [address] [place] [place] [address] Care, Nurse Wound [address] [place] [place] [address] 01/03/2024 2:30 PM EDT Nurse Only Wound Care, [place] [address] [place] [facility] [place] [address] Care, Nurse Wound [address] [place] [facility] [place] [address] 01/10/2024 2:30 PM EDT Nurse Only Wound Care, [place] [address] [place] [facility] [place] [address] Care, Nurse Wound [address] [place] [facility] [place] [address] 01/12/2024 12:45 PM EDT [facility] [address] [place] [address] Tamiko Nieves MD [address] [place] [address] 01/16/2024 2:40 PM EDT Office Visit Wound Care, [place] [address] [place] [address] Mario Sauceda MD [address] [place] [address] 09/13/2024 5:20 PM EDT Office Visit Family Practice [facility] [address] [facility] [place] [address] Raza Lion DO [address] [facility] [place] [address] Scheduled Procedures Name Priority Associated Diagnoses Date/Ti me COLONOSCOPY FLEXIBLE PROXIMAL DIAGNOSTIC Recall History of colon polyps Health Maintenance Due Date Last Done Comments DISCUSS TOBACCO CESSATION (REFER TO SMARTSET #8200) 1960 COVID-19 Vaccine (#1) 1963 Cologuard 2003 Fecal Occult Blood Test 2003 Sigmoidoscopy 2003 DTaP,Tdap,and Td Vaccines (2 - Td or Tdap) 10/04/2022 10/04/2012 Pneumococcal Vaccine: 65+ Years (4 of 4 - PPSV23 or PCV20) 2023 03/20/2019, 03/08/2017, 04/18/2001 *COPD SEVERITY VERIFIED BY PFT 10/30/2023 *CXR OR CT FOR COPD EVER 10/30/2023 Influenza Vaccine (FLU shot) (#1) 2023 04/22/2022, [...] Hepatitis B Vaccine Completed 02/11/2015, 08/09/2014, 07/01/2014 *BASELINE EKG FOR HTN Completed 04/23/2019, 013 AAA Screening Completed 07/05/2019, 01/17, 08/26/2015 Zoster [...] Visit Diagnoses Diagnosis Venous stasis ulcer of left ankle with fat layer exposed with varicose veins (HCC)- Primary Venous stasis ulcer of right ankle with fat layer exposed with varicose veins (HCC) documented in this encounter Care Teams Marketing Rotation Associate Relationship Specialty Start Date End Date Raza Lion DO [address] [place] [address] [place] [address] PCP - General Family Medicine 09/04/20 documented as of this encounter
--- OUTSIDE RECORDS SUMMARY | 2024-03-08 14:40 | External Medical Summary | Summary of Care ---
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 Pending Prescriptions: Disp Refills HYDROcodone-Acetaminophen 5-325 [...] 2:30 PM EDT Nurse Only Wound Care, [place] [address] [place] [address] Care, Nurse Wound [address] [place] [address] 11/29/2023 2:30 PM EDT Nurse Only Wound Care, [place] [address] [place] [address] Care, Nurse Wound [address] [place] [address] 12/06/2023 2:30 PM EDT Nurse Only Wound Care, [place] [address] [place] [address] Care, Nurse Wound [address] [place] [facility] [place] [address] 12/10/2023 1:40 PM EDT Office Visit [facility] [address] [place] [address] Juana Patricia CRNP [address] [place] [address] 12/13/2023 2:20 PM EDT Office Visit Wound Care, [place] [address] [place] [facility] [place] [address] Mario Sauceda MD [address] [place] [address] 12/20/2023 2:30 PM EDT Nurse Only Wound Care, [place] [address] [facility] [place] [address] Care, Nurse Wound [address] [place] [address] 12/27/2023 2:30 PM EDT Nurse Only Wound Care, [place] [address] [place] [facility] [place] [address] Care, Nurse Wound [address] [place] [address] 01/03/2024 2:30 PM EDT Nurse Only Wound Care, [place] [address] [facility] [place] [address] Care, Nurse Wound [address] [place] [facility] [address] 01/10/2024 2:30 PM EDT Nurse Only Wound Care, [place] [address] [place] [facility] [address] Care, Nurse Wound [address] [facility], [place] [id number] 01/12/2024 12:45 PM EDT Office Visit [facility]ermat[facility] [address] [facility] [place] [address] Tamiko Nieves MD [address] [facility] [place] [address] 01/16/2024 2:40 PM EDT Office Visit Wound Care, [place] [address] [place] [address] Mario Sauceda MD [address] [place] [address] 09/13/2024 5:20 PM EDT Office Visit Family Practice [facility] [address] [place] [address] Drea Lion DO [address] [place] [address] Scheduled Procedures Name Priority Associated Diagnoses Date/Ti me COLONOSCOPY FLEXIBLE PROXIMAL DIAGNOSTIC Recall History of colon polyps Health Maintenance Due Date Last Done Comments DISCUSS TOBACCO CESSATION (REFER TO SMARTSET #9397) 1960 COVID-19 Vaccine (#1) 1963 Cologuard 2003 [...] filedocumented as of this encounter Care Teams Supervisor Scrap Preparation Relationship Specialty Start Date End Date Drea Lion DO [address] [place] [address] PCP - General Family Medicine 09/04/20 documented as of this encounter
--- OUTSIDE RECORDS SUMMARY | 2024-03-08 14:40 | External Medical Summary | Summary of Care ---
Author Name Unknown Organization [facility] Address [address] [place] [facility] [place] [address] Phone [phone] Care Team Providers Care Edi Analyst Name Role Phone Raza Lion DO Primary Care Provider Reason for Visit * Reason Onset Date Comments Health Maintenance 11/15/2023 Encounter Details Date Type Department Care Team (Late st Contact Info) Description 11/15/2023 Telephone Family Practice [facility] [address] [place] [address] Raza Lion DO [address] [place] [address] Health Maintenance Allergies Active Allergy Reactions Criticality Noted Date Comments Erythromycin 07/21/2012 Contraindicated with Targretin (cancer med) documented as of this encounter (statuses as of 11/15/2023) Medications Medication Sig Dispensed Refills Start Date [...] as of this encounter (statuses as of 11/15/2023) Active Problems Problem Noted Date Diagnosed Date Venous insufficiency 09/05/2023 Subconjunctival hemorrhage of left eye 3 Tobacco use 10/26/2022 Medical home patient encounter 06/03/2022 Stasis ulcer of lower extremity, left 04/22/2022 Drug-induced polyneuropathy 02/22/2022 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[place] co ronary artery without angina pectoris 03/02/2021 [...] as of this encounter (statuses as of 11/15/2023) Resolved Problems Problem Noted Date Diagnosed Date Resolved Date Abdominal discomfort 11/21/2017 018 COPD, severity to be determined 07/23/2016 07/31/2020 Overview: Per COPD GOLD Classification Periapical abscess 05/15/2014 8 Venous stasis ulcer of leg w ithout varicose veins 07/21/2012 07/14/2017 Anemia 07/21/2012 10/07/2017 documented as of this encounter (statuses as of 11/15/2023) Immunizations Name Administration Dates Next Due Hepatitis [...] encounter Miscellaneous Notes * Telephone Encounter - Ira Morejon OSA - 11/15/2023 3:07 PM EDT Reason for patient's call: returned called Caller was transferred to [facility] at the nurse line. * Telephone Encounter - Lu Harris LPN - 11/15/2023 9:13 AM EDT Care Gaps Comprehensive Care Outreach Last Office/Telemedicine Visit: 10/26/2022 (in office), 07/16/2019 (telemedicine) Next Office Visit: 09/13/2024 Hemoglobin AIC Results: Lab Results Component Value Date/Time HEMOGLOBIN A1C - [facility] 5.9 (H) 12/25/2022 12:24 PM HEMOGLOBIN A1C - [facility] 5.6 09/10/2021 01:44 PM HEMOGLOBIN A1C - [facility] 6.2 (H) 05/08/2021 02:53 PM HEMOGLOBIN A1C - [facility] 6.0 (H) 03/28/2019 12:39 PM HEMOGLOBIN A1C - [facility] 5.9 03/23/2014 11:21 AM BP Readings from Last 1 Encounters: 04/23/23 136/80 Reviewed Health Maintenance below: Health Maintenance Topic Date Due DISCUSS TOBACCO CESSATION (REFER TO SMARTSET #3680) Never done COVID-19 Vaccine (1) Never done DTaP,Tdap,and Td Vaccines (2 - Td or Tdap) 10/04/2022 Pneumococcal Vaccine: 65+ Years (4 of 4 - PPSV23 or PCV20) 2023 *COPD SEVERITY VERIFIED BY PFT Never done *CXR OR CT FOR COPD EVER Never done Influenza Vaccine (FLU shot) (1) 12/18/2023 HbA1c 12/26/2023 Ghp recapture He has appt next year He has a message in today seen sooner? Appt with [facility] Care Gap Outreach Action Taken: Outreach not indicated documented in this encounter Plan of Treatment Upcoming Encounters Date Type Department Care Team (Late st Contact Info) Description 11/22/2023 2:30 PM EDT Nurse Only Wound Care, [place] [address] [place] [address] Care, Nurse Wound [address] [place] [address] 11/29/2023 2:30 PM EDT Nurse Only Wound Care, [place] [address] [place] [address] Care, Nurse Wound [address] [place] [address] 12/06/2023 2:30 PM EDT Nurse Only Wound Care, [place] [address] [place] [address] Care, Nurse Wound [address] [place] [address] 12/13/2023 2:20 PM EDT Office Visit Wound Care, [place] [address] [place] [address] Mario Sauceda MD [address] [place] [address] 12/20/2023 2:30 PM EDT Nurse Only Wound Care, [place] [address] [place] [address] Care, Nurse Wound [address] [place] [address] 12/27/2023 2:30 PM EDT Nurse Only Wound Care, [place] [address] [place] [address] Care, Nurse Wound [address] [place] [address] 01/03/2024 2:30 PM EDT Nurse Only Wound Care, [place] [address] [place] [address] Care, Nurse Wound [address] [place] [address] 01/10/2024 2:30 PM EDT Nurse Only Wound Care, [place] [address] [place] [address] Care, Nurse Wound [address] [place] [address] 01/12/2024 12:45 PM EDT Office Visit Dermatology [facility] [address] [facility] [place] [address] Tamiko Nieves MD [address] [place] [address] 01/16/2024 2:40 PM EDT Office Visit Wound Care, [place] [address] [place] [address] Mario Sauceda MD [address] [place] [address] 09/13/2024 5:20 PM EDT Office Visit Family Practice [facility] [address] [place] [address] Raza Lion DO [address] [place] [address] Scheduled Procedures Name Priority Associated Diagnoses Date/Ti [...] history exists Colorectal Cancer Screening 08/18/2026 Hepatitis C Screening Completed 03/12/2013 Hepatitis B Vaccine Completed 02/11/2015, 08/09/2014, 07/01/2014 HIV Screening Completed 07/13/2018 *BASELINE EKG FOR HTN Completed 04/23/2019, 013 [...] filedocumented as of this encounter Care Teams Edi Analyst Relationship Specialty Start Date End Date Raza Lion DO [address] [place] [address] PCP - General Family Medicine 09/04/20 documented as of this encounter
--- OUTSIDE RECORDS SUMMARY | 2024-03-08 14:40 | External Medical Summary | Summary of Care ---
Author Name Unknown Organization [facility] Address [address] [place] [place] [address] Phone [phone] Care Team Providers Care Chief Compressor Station Engineer Name Role Phone Raza Lion DO Primary Care Provider Reason for Visit * Reason Onset Date Comments Health Maintenance 11/15/2023 Encounter Details Date Type Department Care Team (Late st Contact Info) Description 11/15/2023 Telephone Family Practice [facility] [address] [place] [address] Raza Lion DO [address] [place] [address] Health Maintenance Allergies Active Allergy Reactions Criticality [...] 02/22/2022 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 Appt with [facility] [place] today Care Gap Outreach Action Taken: Outreach not indicated documented in this encounter Plan of Treatment Upcoming Encounters Date Type Department Care Team (Late st Contact Info) Description 11/15/2023 2:30 PM EDT Nurse Only Wound Care, [place] [address] [place] [address] Care, Nurse Wound [address] [place] [address] 11/22/2023 2:30 PM EDT Nurse Only Wound Care, [place] [address] [place] [address] Care, Nurse Wound [address] [place] [address] 11/29/2023 2:30 PM EDT Nurse Only Wound Care, [place] [address] [place] [address] Care, Nurse Wound [address] [place] [address] 12/06/2023 2:30 PM EDT Nurse Only Wound Care, [place] [address] [place] [address] Care, Nurse Wound [address] [place] [address] 12/13/2023 2:20 PM EDT Office Visit Wound Care, [place] [address] [place] [address] Mario Sauceda MD [address] [place] [address] 12/20/2023 2:30 PM EDT Nurse Only Wound Care, [place] [address] [place] [address] Care, Nurse Wound [address] [place] [address] 12/27/2023 2:30 PM EDT Nurse Only Wound Care, [place] [address] [place] [address] Care, Nurse Wound [address] [place] [address] 01/03/2024 2:30 PM EDT Nurse Only Wound Care, [place] [address] [place] [address] Care, Nurse Wound [address], [place] [address] 01/10/2024 2:30 PM EDT Nurse Only Wound Care, [place] [address] [place], [place] [address] Care, Nurse Wound [address] [place] [address] 01/12/2024 12:45 PM EDT Office Visit Dermatology [facility] [address] [facility] [place] [address] Tamiko Nieves MD [address] [place] [address] 01/16/2024 2:40 PM EDT Office Visit Wound Care, [place] [address] [place] [address] Mario Sauceda MD [address] [place] [address] 09/13/2024 5:20 PM EDT Office Visit Family Practice [facility] [address] [place] [address] Raza Lion DO [facility] [address] Scheduled Procedures Name Priority Associated Diagnoses Date/Ti [...] filedocumented as of this encounter Care Teams Chief Compressor Station Engineer Relationship Specialty Start Date End Date Raza Lion DO [address] [place] [address] PCP - General Family Medicine 09/04/20 documented as of this encounter
--- OUTSIDE RECORDS SUMMARY | 2024-03-08 14:40 | External Medical Summary | Summary of Care ---
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[place] co ronary artery without angina pectoris 03/02/2021 [...] 2:30 PM EDT Nurse Only Wound Care, [place] [address] [place] [address] Care, Nurse Wound [address] [place] [address] 11/22/2023 2:30 PM EDT Nurse Only Wound Care, [place] [address] [place] [address] Care, Nurse Wound [address] [place] [address] 11/29/2023 2:30 PM EDT Nurse Only Wound Care, [place] [address] [place] [address] Care, Nurse Wound [address] [place] [address] 12/06/2023 2:30 PM EDT Nurse Only Wound Care, [place] [address] [place] [address] Care, Nurse Wound [address] [place] [address] 12/13/2023 2:20 PM EDT Office Visit Wound Care, [place] [address] [place] [address] Mario Sauceda MD [address] [place] [address] 12/20/2023 2:30 PM EDT Nurse Only Wound Care, [place] [address] [place] [address] Care, Nurse Wound [address] [place] [address] 12/27/2023 2:30 PM EDT Nurse Only Wound Care, [place] [address] [place] [address] Care, Nurse Wound [address] [place] [facility] [place] [address] 01/03/2024 2:30 PM EDT Nurse Only Wound Care, [place] [address] [place] [address] Care, Nurse Wound [address] [place] [facility] [place] [address] 01/10/2024 2:30 PM EDT Nurse Only Wound Care, [place] [address] [place], [place] [address] Care, Nurse Wound [address] [place] [address] 01/12/2024 12:45 PM EDT Office Visit Dermatology [facility] [address] [place] [address] Tamiko Nieves MD [address] [place] [address] 01/16/2024 2:40 PM EDT Office Visit Wound Care, [place] [address] [place] [address] Mario Sauceda MD [address] [place] [address] 09/13/2024 5:20 PM EDT Office Visit Family Practice [facility] [address] [place] [address] Raza Lion DO [address] [place] [address] Scheduled Procedures Name Priority Associated Diagnoses Date/Ti [...] filedocumented as of this encounter Care Teams Packing Machine Feeder Relationship Specialty Start Date End Date Raza Lion DO [address] [place] [address] PCP - General Family Medicine 09/04/20 documented as of this encounter
--- OUTSIDE RECORDS SUMMARY | 2024-03-08 14:40 | External Medical Summary | Summary of Care ---
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[place] co ronary artery without angina pectoris 03/02/2021 [...] preferred pharmacy and medication before forwarding?yes Pharmacy: [facility] Pending Prescriptions: Disp Refills [...] 2:30 PM EDT Nurse Only Wound Care, [place] [address] [place] [address] Care, Nurse Wound [address] [place] [address] 11/29/2023 2:30 PM EDT Nurse Only Wound Care, [place] [address] [place] [address] Care, Nurse Wound [address] [place] [address] 12/06/2023 2:30 PM EDT Nurse Only Wound Care, [place] [address] [facility] [place] [address] Care, Nurse Wound [address] [facility] [place] [address] 12/10/2023 1:40 PM EDT Office Visit [facility] [address] [place] [address] Juana Patricia CRNP [address] [place] [address] 12/13/2023 2:20 PM EDT Office Visit Wound Care, [place] [address] [facility] [place] [address] Mario Sauceda MD [address] [place] [address] 12/20/2023 2:30 PM EDT Nurse Only Wound Care, [place] [address] [facility] [place] [address] Care, Nurse Wound [address] [facility] [place] [address] 12/27/2023 2:30 PM EDT Nurse Only Wound Care, [place] [address] [facility] [place] [address] Care, Nurse Wound [address] [facility] [place] [address] 01/03/2024 2:30 PM EDT Nurse Only Wound Care, [place] [address] [facility] [place] [address] Care, Nurse Wound [address] [facility] [place] [address] 01/10/2024 2:30 PM EDT Nurse Only Wound Care, [place] [address] [facility] [place] [address] Care, Nurse Wound [address] [facility], [place] [id number] 01/12/2024 12:45 PM EDT Office Visit Dermatology [facility] [address] [facility] [place] [address] Tamiko Nieves MD [address] [facility] [place] [address] 01/16/2024 2:40 PM EDT Office Visit Wound Care, [place] [address] [place] [address] Mario Sauceda MD [address] [place] [address] 09/13/2024 5:20 PM EDT Office Visit Family Practice [facility] [address] [place] [address] Drea Lion DO [address] [facility] [place] [address] Scheduled Procedures Name Priority Associated Diagnoses Date/Ti me COLONOSCOPY FLEXIBLE PROXIMAL DIAGNOSTIC Recall History of colon polyps Health Maintenance Due Date Last Done Comments DISCUSS TOBACCO CESSATION (REFER TO SMARTSET #2782) 1958 COVID-19 Vaccine (#1) 1963 Cologuard 2003 [...] filedocumented as of this encounter Care Teams Estimator And Drafter Supervisor Relationship Specialty Start Date End Date Drea Lion DO [address] [place] [address] PCP - General Family Medicine 09/04/20 documented as of this encounter
--- OUTSIDE RECORDS SUMMARY | 2024-03-08 14:40 | External Medical Summary | Summary of Care ---
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 Coban 2 wrap applied for compression to BLE as perorder. documented in this encounter Plan of Treatment Upcoming Encounters Date Type Department Care Team (Late st Contact Info) Description 11/22/2023 2:30 PM EDT Nurse Only Wound Care, [place] [address] [place] [address] Care, Nurse Wound [address] [place] [address] 11/29/2023 2:30 PM EDT Nurse Only Wound Care, [place] [address] [place] [address] Care, Nurse Wound [address] [place] [address] 12/06/2023 2:30 PM EDT Nurse Only Wound Care, [place] [address] [place] [address] Care, Nurse Wound [address] [place] [address] 12/13/2023 2:20 PM EDT Office Visit Wound Care, [place] [address] [facility] [place] [address] Mario Sauceda MD [address] [place] [address] 12/20/2023 2:30 PM EDT Nurse Only Wound Care, [place] [address] [place] [address] Care, Nurse Wound [address] [place] [facility] [address] 12/27/2023 2:30 PM EDT Nurse Only Wound Care, [place] [address] [place] [address] Care, Nurse Wound [address] [place] [facility] [place] [address] 01/03/2024 2:30 PM EDT Nurse Only Wound Care, [place] [address] [place] [address] Care, Nurse Wound [address] [place] [address] 01/10/2024 2:30 PM EDT Nurse Only Wound Care, [place] [address] [place] [address] Care, Nurse Wound [address] [place] [address] 01/12/2024 12:45 PM EDT Office Visit Dermatology [facility] [address] [place] [address] Tamiko Nieves MD [address] [place] [address] 01/16/2024 2:40 PM EDT Office Visit Wound Care, [place] [address] [place] [address] Mario Sauceda MD [address] [place] [address] 09/13/2024 5:20 PM EDT Office Visit [facility] [address] Raza Lion, DO [address] [place] [address] Scheduled Procedures Name Priority Associated Diagnoses Date/Ti me COLONOSCOPY FLEXIBLE PROXIMAL DIAGNOSTIC Recall History of colon polyps Health Maintenance Due Date Last Done Comments DISCUSS TOBACCO CESSATION (REFER TO SMARTSET #1935) 1958 COVID-19 Vaccine (#1) 1963 Cologuard 2003 [...] insufficiency documented in this encounter Care Teams Pill Packer Relationship Specialty Start Date End Date Raza Lion DO [address] [place] [address] PCP - General Family Medicine 09/04/20 documented as of this encounter
--- OUTSIDE RECORDS SUMMARY | 2024-03-08 14:40 | External Medical Summary | Summary of Care ---
Author Name Unknown Organization [facility] Address [address] [place] [address] Phone [phone] Care Team Providers Care Air Vice Marshal Name Role Phone LionAnupr Jake Primary Care Provider Reason for Visit * Reason Comments Wound Care Encounter Details Date Type Department Care Team (Late st Contact Info) Description 11/08/2023 2:40 PM EDT Office Visit Wound Care, [place] [address] [place] [address] Mario Sauceda MD [address] [place] [address] Venous stasis ulcer of left ankle with fat layer exposed with varicose veins (HCC)*; Venous stasis ulcer of right ankle with fat layer exposed with varicose veins (HCC); Venous insufficiency; Cutaneous T-cell lymphoma, unspecified body region (HCC) Allergies Active Allergy Reactions Criticality Noted Date Comments Erythromycin 07/21/2012 Contraindicated with Targretin (cancer med) documented as of this encounter (statuses as of 11/08/2023) Medications Medication Sig Dispensed Refills Start Date [...] MOUTH DAILY 90 Tablet 3 05/24/2023 05/23/19 Active Losartan Potassium 100 MG Oral Tablet [...] OPPOSITE DAYS OF THE GEL 30 g 08/05/2023 08/05/19 25 Active Silver sulfADIAZINE 1 [...] ONCE DAILY 120 Capsule 5 09/27/2023 Active HYDROcodone-Acetami nophen 5-325 MG Oral Tablet [...] days. 147 Tablet 11/08/2023 12/20/19 24 Active predniSONE 10 MG Oral Tablet (Deltasone)Indicati ons:Venous stasis ulcer of left ankle with fat layer exposed with varicose veins (HCC),Venous stasis ulcer of right ankle with fat layer exposed with varicose veins (HCC) Take 5 Tablets by mouth in the morning. 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 pectoris 03/02/2021 [...] as of this encounter (statuses as of 11/08/2023) Resolved Problems Problem Noted Date Diagnosed Date Resolved Date Abdominal discomfort 11/21/2017 018 COPD, severity to be determined 07/23/2016 07/31/2020 Overview: Per COPD GOLD Classification Periapical abscess 05/15/2014 8 Venous stasis ulcer of leg w ithout varicose veins 07/21/2012 07/14/2017 Anemia 07/21/2012 10/07/2017 documented as of this encounter (statuses as of 11/08/2023) Immunizations Name Administration Dates Next Due Hepatitis B, 20+ yrs 02/11/2015,08/09/2014,07/01 Pneumococcal Conjugate Vacc, 13 Valent (Prevnar) 03/20/2019 Pneumococcal Polysaccharide PPV23 (Pneumovax) 03/08/2017,04/18/2001 Seasonal Influenza Virus Vac cine, Unspecified Formulation 03/25/2020,03/20/2019,03/08/2017,11/10/2015,02/11/2015,01/07/2014,01/24/20 13 Seasonal Influenza, PF, 6 M & [...] Progress Notes * Mario Sauceda MD - 11/08/2023 2:47 PM EDT Images from the original note were not included. WOUND OUTPATIENT FOLLOW-UP NOTE HPI: Patient presents today for f/u of B ankle VLUs. The wound has been present since early 2021. Patient thinks wound started spontaneously. Patient has followed at [facility] wound clinic for 2 yearsand came here for second opinion. He reports tolerating the weekly compression wraps, but has has increased pain since being off prednisone. Current dressing: See Wound Assessment Dressing change frequency: weekly RLE Compression: Coban 2 LLE Compression: Coban 2 RLE Wt Bearing Offloading: none LLE Wt Bearing Offloading: none RLE Non-Wt Bearing Offloading: none LLE Non-Wt Bearing Offloading: none Offloading Surface for Bed: none Offloading Surface for Chair / Wheelchair: none ROS: Pain: mild Drainage: mild serous Swelling: mild Erythema: no Fever/Chills: no Malaise: no ROS was negative other than stated above. 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 IMPRESSION: There is no evidence of [...] Last attempt to quit: 06/18/2012 Years since quittin.3 Smokeless Tobacco Former Tobacco Comments 6 cigars has a 1.5 ppd for 25 years cigarette smoking history and currently smokes cigars. WOUND ASSESSMENT: Alteration in Skin Integrity Right;Medial Ankle (Active) Clinical Image 11/08/23 1400 Primary Dressing Present (removed today) Other - Acticoat 7 11/08/23 1400 Secondary Dressing Present (removed today) FOAM 11/08/23 1400 Tertiary Dressing Present (removed today) FOAM 11/08/23 1400 Quaternary Dressing Present (removed today) None 11/08/23 1400 Wound Length (cm) 4.1 cm 11/08/23 1400 Wound Width (cm) 0.8 cm 11/08/23 1400 Wound Depth (cm) 0.1 cm 11/08/23 1400 Undermining (cm) 0 11/08/23 1400 Sinus Tract (cm) 0 11/08/23 1400 Tunneling (cm) 0 11/08/23 1400 Yellow Fibrinous Slough (%) 26-50% 11/08/23 1400 Granulation Tissue (%) 26-50% 11/08/23 1400 Granulation Tissue Color red 11/08/23 1400 Necrotic Tissue (%) none 11/08/23 1400 Necrotic Tissue Color Not Applicable 11/08/23 1400 Deep Supporting Structure Exposed None 11/08/23 1400 Drainage serous, mild 11/08/23 1400 Odor (after cleansing wound) No 11/08/23 1400 Aliya-Wound (Surrounding Skin) Intact;Nonerythematous;Nontender;Hemosiderin stained 11/08/23 1400 Evidence of Infection No 11/08/23 1400 Wound Surface Area (cm^2) 3.28 cm^2 11/08/23 1400 Wound Volume (cm^3) 0.328 cm^3 11/08/23 1400 Alteration in Skin Integrity Left;Medial Ankle (Active) Clinical Image 11/08/23 1400 Primary Dressing Present (removed today) Other - Acticoat 7 11/08/23 1400 Secondary Dressing Present (removed today) FOAM 11/08/23 1400 Tertiary Dressing Present (removed today) FOAM 11/08/23 1400 Quaternary Dressing Present (removed today) None 11/08/23 1400 Wound Length (cm) 3.5 cm 11/08/23 1400 Wound Width (cm) 1 cm 11/08/23 1400 Wound Depth (cm) 0.1 cm 11/08/23 1400 Undermining (cm) 0 11/08/23 1400 Sinus Tract (cm) 0 11/08/23 1400 Tunneling (cm) 0 11/08/23 1400 Yellow Fibrinous Slough (%) 26-50% 11/08/23 1400 Granulation Tissue (%) 26-50% 11/08/23 1400 Granulation Tissue Color red 11/08/23 1400 Necrotic Tissue (%) none 11/08/23 1400 Necrotic Tissue Color Not Applicable 11/08/23 1400 Deep Supporting Structure Exposed None 11/08/23 1400 Drainage serous, mild 11/08/23 1400 Odor (after cleansing wound) No 11/08/23 1400 Aliya-Wound (Surrounding Skin) Intact;Nonerythematous;Nontender;Hemosiderin stained 11/08/23 1400 Evidence of Infection No 11/08/23 1400 Wound Surface Area (cm^2) 3.5 cm^2 11/08/23 1400 Wound Volume (cm^3) 0.35 cm^3 11/08/23 1400 ASSESSMENT/PLAN: 1. B medial ankle VLUs - R is stable, L is significantly larger. 2. Venous insufficiency (superficial and deep; likely no good surgical options). 3. Cutaneous T cell lymphoma/mycosis fungoides Hx. 4. COPD. 5. Smoking Ulcers seemed to do better while pt on prednisone. Start extended taper today. May need to considersurgical options, Bx and skin substitute (EpiFix) if not improving. Puracol/Ag foam/foam/Profore to BLE, changed weekly. Keep wrap dry and in place. Elevate LE for edema control. Plan: Prednisone 10 mg or tabs Sig:Take 6 tablets by mouth daily for 7 days, then 5 tablets daily for 7 days, then 4 tablets daily for 7 days, then 3 tablets daily for 7 days, then 2 tablets daily for 7 days, then 1 tablet daily for 7 days. I spent a total of 40-54 minutes (exact time 40 mins) on the date of service in preparation, delivery, and documentation of the care provided to Chang Parham excluding any time spent in the performance of separately billed services. Follow-up: 1,2,3,4 wk nurse, 5 wk provider Mario Sauceda MD 11/08/2023 3:11 PM documented in this encounter Nursing Notes * Robert Lopez MED ASSIST - 11/08/2023 3:21 PM EDT Puracol Ag ,Foam X2 placed over BLE wound.Profore wrap applied for compression to BLE as per order. documented in this encounter Plan of Treatment Upcoming Encounters Date Type Department Care Team (Late st Contact Info) Description 11/15/2023 2:30 PM EDT Nurse Only Wound Care, [place] [address] [place] [address] Care, Nurse Wound [address] [place] [address] 11/22/2023 2:30 PM EDT Nurse Only Wound Care, [place] [address] [place] [facility] [place] [address] Care, Nurse Wound [address] [place] [facility] [place] [address] 11/29/2023 2:30 PM EDT Nurse Only Wound Care, [place] [address] [place] [facility] [place] [facility] [address] Care, Nurse Wound [address] [place] [facility] [place] [address] 12/06/2023 2:30 PM EDT Nurse Only Wound Care, [place] [address] [place] [facility] [place] [facility] [address] Care, Nurse Wound [address] [place] [facility] [place] [address] 12/13/2023 2:20 PM EDT Office Visit Wound Care, [place] [address] [place] [facility] [address] Mario Sauceda MD [address] [place] [address] 12/20/2023 2:30 PM EDT Nurse Only Wound Care, [place] [address] [place] [facility] [place] [address] Care, Nurse Wound [address] [place] [facility] [place] [address] 12/27/2023 2:30 PM EDT Nurse Only Wound Care, [place] [address] [place] [address] Care, Nurse Wound [address] [place] [facility] [place] [address] 01/03/2024 2:30 PM EDT Nurse Only Wound Care, [place] [address] [place] [address] Care, Nurse Wound [address] [place] [facility] [place] [address] 01/10/2024 2:30 PM EDT Nurse Only Wound Care, [place] [address] [place] [address] Care, Nurse Wound [address] [place] [facility] [place] [address] 01/12/2024 12:45 PM EDT Office Visit Dermatology [facility] [address] [facility] [place] [address] Tamiko Nieves MD [address] [place] [address] 01/16/2024 2:40 PM EDT Office Visit Wound Care, [place] [address] [place] [address] Mario Sauceda MD [address] [place] [address] 09/13/2024 5:20 PM EDT Office Visit Family Practice [facility] [address] [place] [address] Raza Lion, [address] [place] [address] Scheduled Procedures Name Priority Associated Diagnoses Date/Ti me COLONOSCOPY FLEXIBLE PROXIMAL DIAGNOSTIC Recall History of colon polyps Health Maintenance Due Date Last Done Comments DISCUSS TOBACCO CESSATION (REFER TO SMARTSET #6967) 1958 COVID-19 Vaccine (#1) 1963 Cologuard 2003 [...] (HCC) documented in this encounter Care Teams Air Vice Marshal Relationship Specialty Start Date End Date Raza Lion DO [address] [place] [address] [place] [address] PCP - General Family Medicine 09/04/20 documented as of this encounter
--- OUTSIDE RECORDS SUMMARY | 2024-03-08 14:41 | External Medical Summary | Summary of Care ---
Author Name Unknown Organization [facility] Address [address] [facility] [place] [address] Phone [phone] Care Team Providers Care Coal Hiker Name Role Phone Drea Lion DO Primary Care Provider Reason for Visit * Reason Comments Medication Refill Encounter Details Date Type Department Care Team (Late st Contact Info) Description 10/31/2023 Refill Family Practice [facility] [address] [place] [address] Drea Lion DO [address] [place] [address] Allergies Active Allergy Reactions Criticality Noted Date Comments Erythromycin 07/21/2012 Contraindicated with Targretin (cancer med) documented as of this encounter (statuses as of 11/02/2023) Medications Medication Sig Dispensed Refills Start Date [...] in the morning. Emergency dose . Active predniSONE 10 MG Oral Tablet (Deltasone)Indicati ons:Venous stasis ulcer of left ankle with fat layer exposed with varicose veins (HCC),Venous stasis ulcer of right ankle with fat layer exposed with varicose veins (HCC) Take 5 Tablets by mouth in the morning. 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[place] co ronary artery without angina pectoris 03/02/2021 [...] as of this encounter (statuses as of 11/02/2023) Resolved Problems Problem Noted Date Diagnosed Date Resolved Date Abdominal discomfort 11/21/2017 018 COPD, severity to be determined 07/23/2016 07/31/2020 Overview: Per COPD GOLD Classification Periapical abscess 05/15/2014 8 Venous stasis ulcer of leg w ithout varicose veins 07/21/2012 07/14/2017 Anemia 07/21/2012 10/07/2017 documented as of this encounter (statuses as of 11/02/2023) Immunizations Name Administration Dates Next Due Hepatitis [...] Telephone Encounter - Drea Lion DO - 11/02/2023 9:21 AM EDT Signed Prescriptions: Disp Refills Atorvastatin Calcium 40 MG Oral Tablet (Li*90 Tab*3 Sig: TAKE ONETABLET BY MOUTH AT BEDTIME Authorizing Provider: DREA LION * Telephone Encounter - Clyde Jay PHARM Tech - 11/01/2023 1:08 PM EDT Pending Prescriptions: Disp Refills Atorvastatin Calcium 40 MG Oral Tablet (Li*90 Tab*1 Sig: TAKE ONETABLET BY MOUTH AT BEDTIME * Telephone Encounter - Clyde Jay folder inspector - 11/01/2023 1:08 PM EDT Received message from [facility] regarding patient needing an appointment. Call Placed, Pt was agreeable to set up office visit. Patient scheduled for 09/13/2024. ThanksClyde gis coordinator Grounds And Nursery Specialist [facility] 11/01/2023,1:08 PM * Telephone Encounter - Margaret Resendez [facility] - 11/01/2023 12:17 PM EDT Pending Prescriptions: Disp Refills Atorvastatin Calcium 40 MG Oral Tablet (Li*90 Tab*1 Sig: TAKE ONETABLET BY MOUTH AT BEDTIME * Telephone Encounter - Margaret Resendez [facility] - 11/01/2023 12:17 PM EDT Please contact patient so that an appointment can be scheduled with his PRIMARY CARE provider before this refill can be authorized. After contacting patient, please forward request to Drea Lion DO. Last Visit: 10/26/2022 (in office), 07/16/2019 (telemedicine) Next Visit: Visit date not found Pending Prescriptions: Disp Refills Atorvastatin Calcium 40 MG Oral Tablet (Li*90 Tab*1 Sig: TAKE ONETABLET BY MOUTH AT BEDTIME If no future appointments scheduled, and last appointment is greater than a year ago, please schedule patient for a follow-up appointment Last date the medication was ordered: Is this request for a controlled substance?No Patient Phone Numbers Labs: Lab Results Component [...] PM HGBA1C 6.0 (H) 03/28/2019 12:39 PM Margaret Herzog PharmD Clinical Pharmacist [facility] ([facility]) (formerly Telepharm[facility]) [phone] 11/01/2023,12:17 PM documented in this encounter Plan of Treatment Upcoming Encounters Date Type Department Care Team (Late st Contact Info) Description 11/07/2023 2:45 PM EDT Imaging Radiology [address] [address] 11/08/2023 2:40 PM EDT Office Visit Wound Care, [place] [address] [place], [place] [id number] Mario Sauceda MD [address] [place] [address] 11/15/2023 2:30 PM EDT Nurse Only Wound Care, [place] [address] [place] [address] Care, Nurse Wound [address] [place] [address] 11/22/2023 2:30 PM EDT Nurse Only Wound Care, [place] [address] [place] [address] Care, Nurse Wound [address] [place], [place] [address] 11/29/2023 2:30 PM EDT Nurse Only Wound Care, [place] [address] [place] [address] Care, Nurse Wound [address] [place], [place] [id number] 12/06/2023 2:30 PM EDT Nurse Only Wound Care, [place] [address] [facility] [place] [address] Care, Nurse Wound [address] [place] [facility] [place] [address] 12/13/2023 2:20 PM EDT Office Visit Wound Care, [place] [address] [facility] [place] [address] Mario Sauceda MD [address] [place] [address] 12/20/2023 2:30 PM EDT Nurse Only Wound Care, [place] [address] [place] [facility] [place] [address] Care, Nurse Wound [address] [place] [facility] [place] [address] 12/27/2023 2:30 PM EDT Nurse Only Wound Care, [place] [address] [place] [facility] [place] [address] Care, Nurse Wound [address] [place] [facility] [place] [address] 01/03/2024 2:30 PM EDT Nurse Only Wound Care, [place] [address] [place] [address] Care, Nurse Wound [address] [place] [facility] [place] [address] 01/10/2024 2:30 PM EDT Nurse Only Wound Care, [place] [address] [place] [address] Care, Nurse Wound [address] [facility] [place] [address] 01/12/2024 12:45 PM EDT Office [facility] [address] [facility] [place] [id number] Tamiko Nieves MD [address] [facility] [place] [address] 01/16/2024 2:40 PM EDT Office Visit Wound Care, [place] [address] [place] [address] Mario Sauceda MD [address] [place] [address] 09/13/2024 5:20 PM EDT Office Visit [facility] [address] [place] [address] Drea Lion DO [address] [place] [address] Scheduled Procedures Name Priority Associated Diagnoses Date/Ti me COLONOSCOPY FLEXIBLE PROXIMAL DIAGNOSTIC Recall History of colon polyps Health Maintenance Due Date Last Done Comments DISCUSS TOBACCO CESSATION (REFER TO SMARTSET #2728) 1960 COVID-19 Vaccine (#1) 1963 Cologuard 2003 [...] filedocumented as of this encounter Care Teams Coal Hiker Relationship Specialty Start Date End Date Drea Lion DO [address] [place] [address] PCP - General Family Medicine 09/04/20 documented as of this encounter
--- OUTSIDE RECORDS SUMMARY | 2024-03-08 14:41 | External Medical Summary | Summary of Care ---
Author Name Unknown Organization [facility] Address [address] [facility] [address] Phone [phone] Care Team Providers Care Packaging Design Engineer Name Role Phone Drea Lion DO Primary Care Provider Reason for Visit * Reason Comments Medication Refill Encounter Details Date Type Department Care Team (Late st Contact Info) Description 10/24/2023 Refill Family [facility] [address] [place] [address] Drea Lion DO [address] [place] [address] Chronic right-sided low back pain with right-sided sciatica Allergies Active Allergy Reactions Criticality Noted Date Comments Erythromycin 07/21/2012 Contraindicated with Targretin (cancer med) documented as of this encounter (statuses as of 10/25/2023) Medications Medication Sig Dispensed Refills Start Date [...] MOUTH DAILY 90 Tablet 3 12/09/2022 12/12/19 24 Active Omeprazole 20 MG Oral Capsule Delayed [...] PER WEEK 60 g 3 04/26/2023 Active Atorvastatin Calcium 40 MG Oral Tablet (Lipitor) TAKE ONETABLET BY MOUTH AT BEDTIME 90 Tablet 1 05/17/2023 05/16/19 25 Active hydroCHLOROthiazide 25 MG Oral Tablet (Hydrodiuril)Indica [...] FOR MUSCLE SPASMS. 30 Tablet 10/25/2023 Active tiZANidine HCl 4 MG Oral Tablet (Zanaflex)Indicatio ns:Chronic right-sided low back pain with right-sided sciatica TAKE ONE TABLET BY MOUTH EVERY 8 HOURS NEEDED FOR MUSCLE SPASMS. 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[place] co ronary artery without angina pectoris 03/02/2021 [...] as of this encounter (statuses as of 10/25/2023) Resolved Problems Problem Noted Date Diagnosed Date Resolved Date Abdominal discomfort 11/21/2017 018 COPD, severity to be determined 07/23/2016 07/31/2020 Overview: Per COPD GOLD Classification Periapical abscess 05/15/2014 8 Venous stasis ulcer of leg w ithout varicose veins 07/21/2012 07/14/2017 Anemia 07/21/2012 10/07/2017 documented as of this encounter (statuses as of 10/25/2023) Immunizations Name Administration Dates Next Due Hepatitis [...] Telephone Encounter - Drea Lion DO - 10/25/2023 4:14 PM EDT Signed Prescriptions: Disp Refills tiZANidine HCl 4 MG Oral Tablet (Zanaflex) 30 Tab*0 Sig: TAKE ONE TABLET BY MOUTH EVERY 8 HOURS NEEDED FOR MUSCLE SPASMS. Authorizing Provider: DREA LION * Telephone Encounter - Jesenia Harkins, packing and stamping machine operator - 10/25/2023 3:46 PM EDTPending Prescriptions: Disp Refills tiZANidine HCl 4 MG Oral Tablet (Zanaflex) 30 Tab*0 Sig: TAKE ONE TABLET BY MOUTH EVERY 8 HOURS NEEDED FOR MUSCLE SPASMS. * Telephone Encounter - Jesenia Harkins PHARM Tech - 10/25/2023 3:45 PM EDT Received message from [facility] regarding patient needing an appointment. Call Placed, Left message on voicemail to call back and schedule appointment. Thank you, Jesenia Harkins Tape Rules Printing Machine Operator [employer] [facility] 10/25/2023, 3:45 PM * Telephone Encounter - Deedee Francois [facility] - 10/25/2023 3:42 PM EDT Pending Prescriptions: Disp Refills tiZANidine HCl 4 MG Oral Tablet (Zanaflex) 30 Tab*0 Sig: TAKE ONE TABLET BY MOUTH EVERY 8 HOURS NEEDED FOR MUSCLE SPASMS. * Telephone Encounter - Deedee Francois [facility] - 10/25/2023 3:42 PM EDT Please contact patient so that an appointment can be scheduled with his PRIMARY CARE provider before this refill can be authorized. After contacting patient, please forward request to Drea Lion DO. Last Visit: 10/26/2022 (in office), 07/16/2019 (telemedicine) Next Visit: Visit date not found Thank you, Deedee Francois, ShylaD Clinical Pharmacist [facility] ([facility]) 10/25/23 3:42 PM [phone] documented in this encounter Plan of Treatment Upcoming Encounters Date Type Department Care Team (Late st Contact Info) Description 11/01/2023 2:30 PM EDT Nurse Only Wound Care, [address] [address] Care, Nurse Wound [address] [facility] [place] [place] [address] 11/07/2023 3:00 PM EDT Imaging Radiology [address], [address] [place] [address] 11/08/2023 2:40 PM EDT Office Visit Wound Care, [place] [address] [place] [facility] [address] Mario Sauceda MD [address] [facility] [place] [place] [address] 11/15/2023 2:30 PM EDT Nurse Only Wound Care, [place] [address] [facility] [place] [place] [address] Care, Nurse Wound [address] [place] [facility] [place] [address] 11/22/2023 2:30 PM EDT Nurse Only Wound Care, [place] [address] [facility] [place] [place] [address] Care, Nurse Wound [address] [facility] [place] [place] [address] 11/29/2023 2:30 PM EDT Nurse Only Wound Care, [place] [address] [facility] [place] [place] [address] Care, Nurse Wound [address] [facility] [place] [place] [address] 12/06/2023 2:30 PM EDT Nurse Only Wound Care, [place] [address] [facility] [place] [place] [address] Care, Nurse Wound [address] [facility] [place] [place] [address] 12/13/2023 2:20 PM EDT Office Visit Wound Care, [place] [address] [place] [facility] [address] Mario Sauceda MD [address] [place] [address] 01/12/2024 12:45 PM EDT Office Visit Dermatology [facility] [place] [address] Tamiko Nieves MD [address] [facility] [place] [address] Scheduled Procedures Name Priority Associated Diagnoses Date/Ti me COLONOSCOPY FLEXIBLE PROXIMAL DIAGNOSTIC Recall History of colon polyps Health Maintenance Due Date Last Done Comments DISCUSS TOBACCO CESSATION (REFER TO SMARTSET #7537) 1958 COVID-19 Vaccine (#1) 1963 Cologuard 2003 [...] sciatica documented in this encounter Care Teams Packaging Design Engineer Relationship Specialty Start Date End Date Drea Lion DO [address] [place] [address] PCP - General Family Medicine 09/04/20 documented as of this encounter
--- OUTSIDE RECORDS SUMMARY | 2024-03-08 14:41 | External Medical Summary | Summary of Care ---
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 Patient has followed at [facility] for 2 yearsand came here [...] PRESENTING CONDITIONS: Evaluate for deep, superficial, and big data engineer reflux. IMPRESSION: There is no evidence of [...] 2:30 PM EDT Nurse Only Wound Care, [place] [address] [place] [address] Care, Nurse Wound [address] [place] [address] 11/22/2023 2:30 PM EDT Nurse Only Wound Care, [place] [address] [place] [facility] [place] [address] Care, Nurse Wound [address] [place] [facility] [place] [address] 11/29/2023 2:30 PM EDT Nurse Only Wound Care, [place] [address] [place] [facility] [place] [address] Care, Nurse Wound [address] [place] [facility] [place] [address] 12/06/2023 2:30 PM EDT Nurse Only Wound Care, [place] [address] [place] [facility] [place] [address] Care, Nurse Wound [address] [place] [facility] [place] [address] 12/13/2023 2:20 PM EDT Office Visit Wound Care, [place] [address] [place] [facility] [place] [address] Mario Sauceda MD [address] [place] [address] 12/20/2023 2:30 PM EDT Nurse Only Wound Care, [place] [address] [place] [facility] [place] [address] Care, Nurse Wound [address] [place] [facility] [place] [address] 12/27/2023 2:30 PM EDT Nurse Only Wound Care, [place] [address] [place] [address] Care, Nurse Wound [address] [place] [facility] [place] [address] 01/03/2024 2:30 PM EDT Nurse Only Wound Care, [place] [address] [place] [address] Care, Nurse Wound [address] [place] [facility] [place] [address] 01/10/2024 2:30 PM EDT Nurse Only Wound Care, [place] [address] [place] [address] Care, Nurse Wound [address] [place] [facility] [place] [address] 01/12/2024 12:45 PM EDT Office Visit Dermatology [facility] 200 [facility] [place] [address] Tamiko Nieves MD 200 [place] [address] 01/16/2024 2:40 PM EDT Office Visit Wound Care, [place] [address] [place] [address] Mario Sauceda MD [address] [place] [address] 09/13/2024 5:20 PM EDT Office Visit Family Practice [facility] [address] [place] [address] Raza Lion, [address] [place] [address] Scheduled Procedures Name Priority Associated Diagnoses Date/Ti me COLONOSCOPY FLEXIBLE PROXIMAL DIAGNOSTIC Recall History of colon polyps Health Maintenance Due Date Last Done Comments DISCUSS TOBACCO CESSATION (REFER TO SMARTSET #3649) 1958 COVID-19 Vaccine (#1) 1963 Cologuard 2003 [...] (HCC) documented in this encounter Care Teams Produce Specialist Relationship Specialty Start Date End Date Raza Lion DO [address] [place] [address] [place] [address] PCP - General Family Medicine 09/04/20 documented as of this encounter
--- OUTSIDE RECORDS SUMMARY | 2024-03-08 14:41 | External Medical Summary | Summary of Care ---
Author Name Unknown Organization [facility] Address [address] [place] [address] Phone [phone] Care Team Providers Care Gutter Installer Name Role Phone Raza Lion Primary Care Provider Reason for Visit * Reason Comments Wound Care Encounter Details Date Type Department Care Team (Late st Contact Info) Description 09/05/2023 1:30 PM EDT Nurse Only Wound Care, [place] [address] [place] [address] Care, Nurse Wound [address] [place] [address] Wound Care Allergies Active Allergy Reactions Criticality Noted Date Comments Erythromycin 07/21/2012 Contraindicated with Targretin (cancer med) documented as of this encounter (statuses as of 10/25/2023) Medications Medication Sig Dispensed Refills Start Date End Date Status MEDICAL COMPRESSION STOCKINGS MISCIndications:Ve nous stasis ulcer [...] or juice. 850 g 3 3 Active Fluorouracil 5 % External Cream (Efudex)Indication s:Basal cell carcinoma (BCC), unspecified site Apply to biopsied lesions nightly for 3 weeks 40 g 1 3 Active amLODIPine Besylate 5 MG Oral Tablet (Norvasc)Indicatio ns:HTN, goal below 140/90 TAKE ONE TABLET BY MOUTH DAILY 90 Tablet 3 3 024 Active Omeprazole 20 MG Oral Capsule Delayed Release (PriLOSEC) Take 1 Capsule by mouth in the morning and 1 Capsule in the evening. 180 Capsule 4 3 Active traZODone HCl 100 MG Oral Tablet (Desyrel)Indicatio ns:Insomnia, unspecified type TAKE 1 TO 3 TABLETS BY MOUTH AT BEDTIME. 270 Tablet 2 3 024 Active Amitriptyline HCl 25 MG Oral Tablet [...] PER WEEK 60 g 3 4 Active Atorvastatin Calcium 40 MG Oral Tablet (Lipitor) TAKE ONETABLET BY MOUTH AT BEDTIME 90 Tablet 1 4 025 Active hydroCHLOROthiazid e 25 MG Oral Tablet (Hydrodiuril)Indic ations:HTN, goal below 140/90 TAKE ONE TABLET BY MOUTH DAILY 90 Tablet 3 4 025 Active Losartan Potassium 100 MG Oral Tablet (Cozaar)Indication s:HTN, goal below 140/90 TAKE ONE TABLET BY MOUTH DAILY 90 Tablet 1 4 025 Active Docusate Sodium 100 MG Oral Capsule (Colace)Indication s:Chronic idiopathic constipation Take 1 Capsule by mouth in the morning and 1 Capsule before bedtime. 60 Capsule 11 4 Active Levothyroxine Sodium 175 MCG Oral Tablet (Levoxyl)Indicatio ns:Acquired hypothyroidism TAKE ONE TABLET BY MOUTH DAILY ON AN EMPTY STOMACH 90 Tablet 3 4 025 Active Famotidine 20 MG Oral Tablet (Pepcid) Take 1 Tablet by mouth at bedtime. 90 Tablet 1 4 Active Betamethasone Dipropionate 0.05 % External OintmentIndication s:Dermatitis APPLY TOPICALLY TO AFFECTED AREA 4 DAYS PER WEEK ON OPPOSITE DAYS OF THE GEL 30 g 5 4 025 Active Silver sulfADIAZINE 1 % External Cream (Silvadene)Indicat ions:Skin erosion APPLY TO WOUNDS ON LEGS NIGHTLY NEEDED 50 g 1 4 025 Active metFORMIN HCl ER 750 MG Oral Tablet Extended Release 24 Hour (Glucophage XR)Indications:Pre diabetes TAKE ONE TABLET BY MOUTH IN THE MORNING 90 Tablet 1 4 025 Active tiZANidine HCl 4 MG Oral Tablet (Zanaflex)Indicati ons:Chronic right-sided low back pain with right-sided sciatica TAKE ONE TABLET BY MOUTH EVERY 8 HOURS NEEDED FOR MUSCLE SPASMS. 30 Tablet 1 4 Active Azithromycin 1 GM Oral Packet Take 1 Packet by mouth in the morning. Emergency dose . Active predniSONE 10 MG Oral Tablet (Deltasone)Indicat ions:Venous stasis ulcer of left ankle with fat layer exposed with varicose veins (HCC),Venous stasis ulcer of right ankle with fat layer exposed with varicose veins (HCC) Take 5 Tablets by mouth in the morning. 35 Tablet 4 Active Ibuprofen 600 MG Oral Tablet (Motrin) TAKE ONE TABLET BY MOUTH EVERY 6 HOURS NEEDED FOR PAIN 90 Tablet 3 4 024 Discontinued(Re fill) Gabapentin 300 MG Oral Capsule (Neurontin)Indicat ions:Chronic right-sided low back pain with right-sided sciatica Take 1 Capsule by mouth in the morning and 1 Capsule at noon and 1 Capsule before bedtime. 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 Coban 2 wrap applied for compression to BLE as per order. documented in this encounter Plan of Treatment Upcoming Encounters Date Type Department Care Team (Late st Contact Info) Description 11/01/2023 2:30 PM EDT Nurse Only Wound Care, [place] [address] [place] [address] Care, Nurse Wound [address] [place] [address] 11/07/2023 3:00 PM EDT Imaging Radiology [address] [address] 11/08/2023 2:40 PM EDT Office Visit Wound Care, [place] [address] [place] [address] Mario Sauceda MD [address] [place] [address] 11/15/2023 2:30 PM EDT Nurse Only Wound Care, [place] [address] [place] [address] Care, Nurse Wound [address] [place] [address] 11/22/2023 2:30 PM EDT Nurse Only Wound Care, [place] [address] [place] [address] Care, Nurse Wound [address] [place] [address] 11/29/2023 2:30 PM EDT Nurse Only Wound Care, [place] [address] [place] [address] Care, Nurse Wound [address] [place] [address] 12/06/2023 2:30 PM EDT Nurse Only Wound Care, [place] [address] [place] [address] Care, Nurse Wound [address] [place] [address] 12/13/2023 2:20 PM EDT Office Visit Wound Care, [place] [address] [place] [address] Mario Sauceda MD [address] [place] [address] 01/12/2024 12:45 PM EDT Office Visit Dermatology [facility] [address] [place] [address] Tamiko Nieves MD [address] [place] [address] Scheduled Procedures Name Priority Associated Diagnoses Date/Ti me COLONOSCOPY FLEXIBLE PROXIMAL DIAGNOSTIC Recall History of colon polyps Health Maintenance Due Date Last Done Comments DISCUSS TOBACCO CESSATION (REFER TO SMARTSET #9333) 1960 COVID-19 Vaccine (#1) 1963 Cologuard 2003 [...] venous (peripheral) insufficiency Venous stasis ulcer of left ankle with fat layer exposed with varicose veins (HCC) Venous stasis ulcer of right ankle with fat layer exposed with varicose veins (HCC) Cutaneous T-cell lymphoma, unspecified body region (HCC) documented in this encounter Care Teams Gutter Installer Relationship Specialty Start Date End Date Raza Lion DO [address] [place] [address] PCP - General Family Medicine 09/04/20 documented as of this encounter
--- OUTSIDE RECORDS SUMMARY | 2024-03-08 14:41 | External Medical Summary | Summary of Care ---
Author Name Unknown Organization [facility] Address [address] [facility] [address] Phone [phone] Care Team Providers Care Weatherization Specialist Name Role Phone Ayad Raza Shersyed Primary Care Provider Reason for Visit * Reason Onset Date Comments Referral 10/21/2023 [facility] d/c (smokin g cessation) Encounter Details Date Type Department Care Team (Late st Contact Info) Description 10/21/2023 Telephone [facility]acy Services, Carrie Mcmahon [address] [place] [address] [place] [address] [facility] [place] [address] [facility] [place] [address] Referral ([facility] d/c (smoking cessation)) Allergies Active Allergy Reactions Criticality Noted Date Comments Erythromycin 07/21/2012 Contraindicated with Targretin (cancer med) documented as of this encounter (statuses as of 10/21/2023) Medications Medication Sig Dispensed Refills Start Date [...] MOUTH AT BEDTIME 90 Tablet 1 05/17/2023 5 Active hydroCHLOROthiazide 25 MG Oral Tablet (Hydrodiuril)Indicat [...] MORNING 90 Tablet 1 08/20/2023 5 Active tiZANidine HCl 4 MG Oral Tablet (Zanaflex)Indication s:Chronic right-sided low back pain with right-sided sciatica TAKE ONE TABLET BY MOUTH EVERY 8 HOURS NEEDED FOR MUSCLE SPASMS. 30 Tablet 1 08/29/2023 Active Azithromycin 1 GM Oral Packet Take 1 Packet by mouth in the morning. Emergency dose . Active predniSONE 10 MG Oral Tablet (Deltasone)Indicatio [...] for Severe Pain. 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[place] co ronary artery without angina pectoris 03/02/2021 [...] as of this encounter (statuses as of 10/21/2023) Resolved Problems Problem Noted Date Diagnosed Date Resolved Date Abdominal discomfort 11/21/2017 018 COPD, severity to be determined 07/23/2016 07/31/2020 Overview: Per COPD GOLD Classification Periapical abscess 05/15/2014 8 Venous stasis ulcer of leg w ithout varicose veins 07/21/2012 07/14/2017 Anemia 07/21/2012 10/07/2017 documented as of this encounter (statuses as of 10/21/2023) Immunizations Name Administration Dates Next Due Hepatitis [...] Miscellaneous Notes * Telephone Encounter - Latoya Lion PHARM Tech - 10/21/2023 10:57 AM EDT Chang has not contacted the clinic to schedule/reschedule an appointment for smoking cessation management per referral from PCP despite multiple attempts to do so by our team. Patient is discharged from [facility] services at this time. Thank you, Latoya Lion Volunteer Coordinator [facility] ([facility]) 10/21/2023,10:57 AM documented in this encounter Plan of Treatment Upcoming Encounters Date Type Department Care Team (Late st Contact Info) Description 10/25/2023 2:30 PM EDT Nurse Only Wound Care, [place] [address] [place] [address] Care, Nurse Wound [address] [place] [address] 11/01/2023 2:30 PM EDT Nurse Only Wound Care, [place] [address] [place] [address] Care, Nurse Wound [address] [place] [address] 11/07/2023 3:00 PM EDT Imaging Radiology [facility] [facility], [address] [address] 11/08/2023 2:40 PM EDT Office Visit Wound Care, [place] [address] [place] [address] Mario Sauceda MD [address] [place] [address] 11/15/2023 2:30 PM EDT Nurse Only Wound Care, [place] [address] [place] [address] Care, Nurse Wound [address] [place] [address] 11/22/2023 2:30 PM EDT Nurse Only Wound Care, [place] [address] [place] [address] Care, Nurse Wound [address] [place] [address] 11/29/2023 2:30 PM EDT Nurse Only Wound Care, [place] [address] [place] [address] Care, Nurse Wound [address] [place] [address] 12/06/2023 2:30 PM EDT Nurse Only Wound Care, [place] [address] [place] [address] Care, Nurse Wound [address] [place] [address] 12/13/2023 2:20 PM EDT Office Visit Wound Care, [place] [address] [place] [address] Mario Sauceda MD [address] [place] [address] 01/12/2024 12:45 PM EDT Office Visit Dermatology [facility] [address] [facility] [place], [place] [address] Tamiko Nieves MD [address] [place] [address] Scheduled Procedures Name Priority Associated Diagnoses Date/Ti [...] filedocumented as of this encounter Care Teams Weatherization Specialist Relationship Specialty Start Date End Date Raza Lion DO [address] [place] [address] PCP - General Family Medicine 09/04/20 documented as of this encounter
--- OUTSIDE RECORDS SUMMARY | 2024-03-08 14:41 | External Medical Summary | Summary of Care ---
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 Coban 2 wrap applied for compression to BLE as per order. documented in this encounter Plan of Treatment Upcoming Encounters Date Type Department Care Team (Late st Contact Info) Description 11/01/2023 2:30 PM EDT Nurse Only Wound Care, [place] [address] [place] [address] Care, Nurse Wound [address] [place] [address] 11/07/2023 3:00 PM EDT Imaging Radiology [address] [address] 11/08/2023 2:40 PM EDT Office Visit Wound Care, [place] [address] [place] [address] Mario Sauceda MD [address] [place] [address] 11/15/2023 2:30 PM EDT Nurse Only Wound Care, [place] [address] [place] [address] Care, Nurse Wound [address] [place] [address] 11/22/2023 2:30 PM EDT Nurse Only Wound Care, [place] [address] [place] [address] Care, Nurse Wound [address] [place] [address] 11/29/2023 2:30 PM EDT Nurse Only Wound Care, [place] [address] [place] [address] Care, Nurse Wound [address] [place] [address] 12/06/2023 2:30 PM EDT Nurse Only Wound Care, [place] [address] [place] [address] Care, Nurse Wound [address] [place] [address] 12/13/2023 2:20 PM EDT Office Visit Wound Care, [place] [address] [place] [address] Mario Sauceda MD [address] [place] [address] 01/12/2024 12:45 PM EDT Office Visit Dermatology [facility] [address] [place] [address] Tamiko Nieves MD [address] [place] [address] Scheduled Procedures Name Priority Associated Diagnoses Date/Ti me COLONOSCOPY FLEXIBLE PROXIMAL DIAGNOSTIC Recall History of colon polyps Health Maintenance Due Date Last Done Comments DISCUSS TOBACCO CESSATION (REFER TO SMARTSET #3902) 1960 COVID-19 Vaccine (#1) 1963 Cologuard 2003 [...] insufficiency documented in this encounter Care Teams Parts Chaser Relationship Specialty Start Date End Date Raza Lion DO [address] [place] [address] PCP - General Family Medicine 09/04/20 documented as of this encounter
--- OUTSIDE RECORDS SUMMARY | 2024-03-08 14:41 | External Medical Summary | Summary of Care ---
Author Name Unknown Organization [facility] Address [address] [place] [address] Phone [phone] Care Team Providers Care Box Lining Machine Operator Name Role Phone Raza Lion Primary Care Provider Reason for Visit * Reason Comments Wound Care Encounter Details Date Type Department Care Team (Late st Contact Info) Description 11/01/2023 2:30 PM EDT Nurse Only Wound Care, [place] [address] [place] [address] Care, Nurse Wound [address] [place] [address] Wound Care Allergies Active Allergy Reactions Criticality Noted Date Comments Erythromycin 07/21/2012 Contraindicated with Targretin (cancer med) documented as of this encounter (statuses as of 11/01/2023) Medications Medication Sig Dispensed Refills Start Date [...] NIGHTLY NEEDED 50 g 1 08/05/2023 Active metFORMIN HCl ER 750 MG Oral [...] FOR MUSCLE SPASMS. 30 Tablet 10/25/2023 Active documented as of this encounter (statuses as of 11/01/2023) Active Problems Problem Noted Date Diagnosed Date [...] as of this encounter (statuses as of 11/01/2023) Resolved Problems Problem Noted Date Diagnosed Date Resolved Date Abdominal discomfort 11/21/2017 018 COPD, severity to be determined 07/23/2016 07/31/2020 Overview: Per COPD GOLD Classification Periapical abscess 05/15/2014 8 Venous stasis ulcer of leg w ithout varicose veins 07/21/2012 07/14/2017 Anemia 07/21/2012 10/07/2017 documented as of this encounter (statuses as of 11/01/2023) Immunizations Name Administration Dates Next Due Hepatitis [...] Notes * Robert Lopez MED ASSIST - 11/01/2023 3:35 PM EDT Acticoat 7 and foam X2 placed over BLE wound. Coban 2 wrap applied for compression to BLE as per order. documented in this encounter Plan of Treatment Upcoming Encounters Date Type Department Care Team (Late st Contact Info) Description 11/07/2023 3:00 PM EDT Imaging Radiology [address], [address] [address] 11/08/2023 2:40 PM EDT Office Visit Wound Care, [place] [address] [place] [address] Mario Sauceda MD [address] [place] [address] 11/15/2023 2:30 PM EDT Nurse Only Wound Care, [place] [address] [place] [address] Care, Nurse Wound [address] [place] [address] 11/22/2023 2:30 PM EDT Nurse Only Wound Care, [place] [address] [place] [address] Care, Nurse Wound [address] [place] [address] 11/29/2023 2:30 PM EDT Nurse Only Wound Care, [place] [address] [place] [address] Care, Nurse Wound [address] [place] [address] 12/06/2023 2:30 PM EDT Nurse Only Wound Care, [place] [address] [place] [facility] [place] [address] Care, Nurse Wound [address] [place] [facility] [place] [address] 12/13/2023 2:20 PM EDT Office Visit Wound Care, [place] [address] [place] [facility] [place] [address] Mario Sauceda MD [address] [place] [address] 12/20/2023 2:30 PM EDT Nurse Only Wound Care, [place] [address] [place] [facility] [place] [address] Care, Nurse Wound [address] [place] [facility] [place] [address] 12/27/2023 2:30 PM EDT Nurse Only Wound Care, [place] [address] [place] [address] Care, Nurse Wound [address] [place] [facility] [place] [address] 01/03/2024 2:30 PM EDT Nurse Only Wound Care, [place] [address] [place] [facility] [place] [address] Care, Nurse Wound [address] [place] [facility] [place] [address] 01/10/2024 2:30 PM EDT Nurse Only Wound Care, [place] [address] [place] [address] Care, Nurse Wound [address] [place] [facility] [place] [address] 01/12/2024 12:45 PM EDT Office Visit Dermatology [facility] [place] [address] [facility] [place] [id number] Tamiko Nieves MD [address] [facility] [place] [id number] 01/16/2024 2:40 PM EDT Office Visit Wound Care, [place] [address] [place] [address] Mario Sauceda MD [address] [place] [address] 09/13/2024 5:20 PM EDT Office Visit Family [facility] [address] [facility] [place] [address] Raza Lion DO [address] [facility] [place] [id number] Scheduled Procedures Name Priority Associated Diagnoses Date/Ti me COLONOSCOPY FLEXIBLE PROXIMAL DIAGNOSTIC Recall History of colon polyps Health Maintenance Due Date Last Done Comments DISCUSS TOBACCO CESSATION (REFER TO SMARTSET #4978) 1960 COVID-19 Vaccine (#1) 1963 Cologuard 2003 [...] insufficiency documented in this encounter Care Teams Box Lining Machine Operator Relationship Specialty Start Date End Date Raza Lion DO [address] [place] [address] PCP - General Family Medicine 09/04/20 documented as of this encounter
--- OUTSIDE RECORDS SUMMARY | 2024-03-08 14:42 | External Medical Summary | Summary of Care ---
Author Name Unknown Organization [facility] Address [address] [place] [address] Phone [phone] Care Team Providers Care Education Consultant Name Role Phone LionAnupbelle Mcclendonsyed Primary Care Provider Encounter Details Date Type Department Care Team (Latest Contact Info) Description 09/28/2023 1:00 PM EDT - 09/28/2023 11:59 PM EDT Hospital Encounter Vascular Lab [facility] [address] [place], [place] [id number] Arrived Discharge Disposition: Home - Self Care Allergies Active Allergy Reactions Criticality Noted Date Comments Erythromycin 07/21/2012 Contraindicated with Targretin (cancer med) documented as of this encounter (statuses as of 09/29/2023) Medications Medication Sig Dispensed Refills Start Date [...] STOMACH 90 Tablet 3 07/05/2023 5 Active HYDROcodone-Acetamin ophen 5-325 MG Oral Tablet Take 1 Tablet by mouth at bedtime as needed for severe Pain 21 Tablet 07/25/2023 Active Famotidine 20 MG Oral Tablet (Pepcid) [...] ONCE DAILY 120 Capsule 5 09/27/2023 Active documented as of this encounter (statuses as of 09/29/2023) Active Problems Problem Noted Date Diagnosed Date Venous insufficiency 09/05/2023 Subconjunctival hemorrhage of left eye 3 Tobacco use 10/26/2022 Medical home patient encounter 06/03/2022 Stasis ulcer of lower extremity, left 04/22/2022 Drug-induced polyneuropathy 02/22/2022 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[place] co ronary artery without angina pectoris 03/02/2021 [...] as of this encounter (statuses as of 09/29/2023) Resolved Problems Problem Noted Date Diagnosed Date Resolved Date Abdominal discomfort 11/21/2017 018 COPD, severity to be determined 07/23/2016 07/31/2020 Overview: Per COPD GOLD Classification Periapical abscess 05/15/2014 8 Venous stasis ulcer of leg w ithout varicose veins 07/21/2012 07/14/2017 Anemia 07/21/2012 10/07/2017 documented as of this encounter (statuses as of 09/29/2023) Immunizations Name Administration Dates Next Due Hepatitis [...] money to get more. Never true 07/06/2023 Sex and Gender Information Value Date [...] Care Team (Late st Contact Info) Description 10/03/2023 1:20 PM EDT Office Visit Wound Care, [place] [address] [place] [address] Mario Sauceda MD [address] [place] [address] 10/11/2023 2:30 PM EDT Nurse Only Wound Care, [place] [address] [place] [address] Care, Nurse Wound [address] [place] [address] 10/14/2023 2:30 PM EDT Office Visit Dermatology [facility] [place] [address] [place] [address] Dieudonne Braxton MD [address] [place], [place] [id number] 10/18/2023 2:30 PM EDT Nurse Only Wound Care, [place] [address] [place] [address] Care, Nurse Wound [address] [place] [address] 10/25/2023 2:30 PM EDT Nurse Only Wound Care, [place] [address] [place] [address] Care, Nurse Wound [address] [place] [address] 11/01/2023 2:30 PM EDT Nurse Only Wound Care, [place] [address] [place] [address] Care, Nurse Wound [address] [place] [address] 11/07/2023 3:00 PM EDT Imaging Radiology [facility], [place] [address] [place] [address] 11/08/2023 2:40 PM EDT Office Visit Wound Care, [place] [address] [place] [address] Mario Sauceda MD [address] [place] [address] 01/12/2024 12:45 PM EDT Office Visit Dermatology [facility] [address] [place] [address] Tamiko Nieves MD [address] [place] [address] Scheduled Procedures Name Priority Associated Diagnoses Date/Ti me COLONOSCOPY FLEXIBLE PROXIMAL DIAGNOSTIC Recall History of colon polyps Health Maintenance Due Date Last Done Comments DISCUSS TOBACCO CESSATION (REFER TO SMARTSET #5410) 1960 COVID-19 Vaccine (#1) 1963 Cologuard 2003 Fecal Occult Blood Test 2003 Sigmoidoscopy 2003 DTaP,Tdap,and Td Vaccines (2 - Td or Tdap) 10/04/2022 10/04/2012 Pneumococcal Vaccine: 65+ Years (4 of 4 - PPSV23 or PCV20) 2023 03/20/2019, 03/08/2017, 04/18/2001 Influenza Vaccine (FLU shot) (Season Ended) 2023 04/22/2022, 03/02/2021, 03/25/2020, Additional history exists [...] exists Colorectal Cancer Screening 08/18/2026 Hepatitis B Completed 02/11/2015, 07/18, 07/01/2014 AAA Screening Completed 07/05/2019, 02/11/2016 Zoster Vaccines Completed 10/31/2019, 05/09/2019 RETIRED - COLONOSCOPY-EVERY 5 YRS AGES 18-100 Discontinued 08/18/2021, 08/18/2021, 12/07/2017, Additional history exists Alpha-1 Antitrypsin Completed 09/10/2021 GARDASIL-HPV IMMUNIZATION SERIES Aged Out No longer eligible based on patient's age to complete this topic MENINGOCOCCAL (MENACTRA/MENVEO) Aged Out No longer eligible based on patient's age to complete this topic documented as of this encounter Medical Devices Not on filedocumented as of this encounter Procedures Procedure Name Priority Date/Time Associated Diagnosis Comments VASC DUPLEX VENOUS INSUFFICIENCY COMPLETE BILAT LE Routine 09/28/2023 2:59 PM EDT Venous insufficiency Venous stasis ulcer of left ankle with fat layer exposed with varicose veins (HCC) Venous stasis ulcer of right ankle with fat layer exposed with varicose veins (HCC) documented in this encounter Results * VASC DUPLEX VENOUS INSUFFICIENCY COMPLETE BILAT LE (09/28/2023 2:59 PM EDT) Anatomical Region Laterality Modality Lower Extremity, Vascular Ultras ound Impressions 09/28/2023 4:17 PM EDT : There is no evidence of deep vein [...] reflux time of greater than 350 milliseconds Narrative 09/28/2023 4:17 PM EDT VASCULAR LAB RESULTS DATE OF EXAM: 09/28/23 PRESENTING CONDITIONS: Evaluate for deep, superficial, and physician vice president reflux. Immediately before proceeding with the vascular lab procedure reported below, the identity of the patient, the correct exam and the correct procedural site were verified. Dozier scale, color flow and spectral doppler were performed for this examination. PHYSICIAN REPORT: Lower Extremity Venous Duplex Insufficiency Examination was performed with the patient standing. Duplex examination of the right lower extremity was performed. The common femoral vein, sapheno-femoral junction, femoral vein in the thigh and popliteal vein exhibit spontaneous, respirophasic and augmentable venous flow. All veins are compressible and free of echogenic densities. The right deep veins demonstrate reflux time equal to or greater than 1 second. The right great saphenous vein is patent in in very proximal thigh. The right great saphenous vein demonstrates reflux in saphenofemoral junction time of greater than 500 milliseconds with a maximum diameter of 7.3 mm. The right great saphenous vein is echogenic with no flow detected from proximal thigh to distal calf (Hx. of ablation). The varicose veins in postero-medial proximal-mid thigh taking off right great saphenous vein demonstrates reflux time of greater than 500 milliseconds with a maximum diameter of 6.0 mm. The right anterior accessory saphenous vein demonstrates reflux time of greater than 500 milliseconds with a maximum diameter of 4.8 mm. The right small saphenous vein is patent with normal compressibility. The right small saphenous vein demonstrates reflux time of greater than 500 milliseconds with a maximum diameter of 2.4 mm. Duplex examination of the left lower extremity was performed. The common femoral vein, sapheno-femoral junction, femoral vein in the thigh and popliteal vein exhibit spontaneous, respirophasic and augmentable venous flow. All veins are compressible and free of echogenic densities. The left deep veins demonstrate reflux time equal to or greater than 1 second. The left great saphenous vein is patent with normal compressibility in proximal thigh and middle to distal calf. The left great saphenous vein is echogenic with no flow detected from proximal thigh to mid calf (Hx. of ablation). The patent segments of the left great saphenous vein demonstrates reflux greater than 500 milliseconds with a maximum diameter of 5.7 mm. The left anterior accessory saphenous vein demonstrates no reflux with a maximum diameter of 2.8 mm. The left small saphenous vein is patent with normal compressibility. The left small saphenous vein demonstrates no reflux with a maximum diameter of 3.1 mm. Jett Acevedo PA-C RAD VASCULAR documented in this encounter Visit Diagnoses Diagnosis Venous insufficiency Unspecified venous (peripheral) insufficiency Venous stasis ulcer of left ankle with fat layer exposed with varicose veins (HCC) Venous stasis ulcer of right ankle with fat layer exposed with varicose veins (HCC) documented in this encounter Care Teams Education Consultant Relationship Specialty Start Date End Date Raza Lion DO [address] [address] [place] [address] PCP - General Family Medicine 09/04/20 documented as of this encounter
--- OUTSIDE RECORDS SUMMARY | 2024-03-08 14:42 | External Medical Summary ---
Author Name Unknown Address Unknown Organization [id number] [address] [place] [address] Laboratory Report Ordering Provider Test Date Status WON GREENE 09/24/2023 13:27:33 Final Every 4 weeks Observation Date Value Abnormality Reference (Units ) Status BUN 09/24/2023 13:27:33 27 Above high normal 6-20 (mg/dL) Final Creatinine 09/24/2023 13:27:33 0.9 0.6-1.2 (mg/dL) Final Glomerular filtration rate/1.73 sq M.predicted [Volume Rate/Area] in Serum, Plasma or Blood by Creatinine-based formula (CKD-EPI) 09/24/2023 13:27:33 >90 >=60 (mL/min) Final eGFR is calculated based on the CKD-EPI 2020 equation Sodium 09/24/2023 13:27:33 135 135-146 (m mol/L) Final Potassium 09/24/2023 13:27:33 4.2 3.5-5.1 (m mol/L) Final Cl 09/24/2023 13:27:33 96 Below low normal 98- 107 (mmol/L) Final CO2 09/24/2023 13:27:33 26 22-32 (mmo l/L) Final Anion gap 09/24/2023 13:27:33 13 7-15 (mmol /L) Final Glucose 09/24/2023 13:27:33 117 70-120 (mg /dL) Final Albumin 09/24/2023 13:27:33 4.3 3.8-5.0 (g /dL) Final AST (Aspartate aminotransferase) 09/24/2023 13:27:33 18 10-50 (U/L) Fin al Alk Phos 09/24/2023 13:27:33 100 35-130 (U/ L) Final Bilirubin, Total 09/24/2023 13:27:33 0.2 <=1 .2 (mg/dL) Final Calcium 09/24/2023 13:27:33 9.7 8.4-10.2 ( mg/dL) Final Protein 09/24/2023 13:27:33 7.0 6.0-8.3 (g /dL) Final ALT (Alanine aminotransferase) 09/24/2023 13:27:33 13 10-50 (U/L) Yunior rivera Performing Location [facility] [address] [facility] [address]
--- OUTSIDE RECORDS SUMMARY | 2024-03-08 14:42 | External Medical Summary | Summary of Care ---
Author Name Unknown Organization [facility] Address [address] [place] [address] Phone [phone] Care Team Providers Care Food Inspector Name Role Phone Raza Lion Primary Care Provider Reason for Visit * Reason Comments Wound Care Encounter Details Date Type Department Care Team (Late st Contact Info) Description 10/11/2023 2:30 PM EDT Nurse Only Wound Care, [place] [address] [place] [address] Care, Nurse Wound [address] [place] [address] Wound Care Allergies Active Allergy Reactions Criticality Noted Date Comments Erythromycin 07/21/2012 Contraindicated with Targretin (cancer med) documented as of this encounter (statuses as of 10/11/2023) Medications Medication Sig Dispensed Refills Start Date [...] as of this encounter (statuses as of 10/11/2023) Active Problems Problem Noted Date Diagnosed Date Venous insufficiency 09/05/2023 Subconjunctival hemorrhage of left eye 3 Tobacco use 10/26/2022 Medical home patient encounter 06/03/2022 Stasis ulcer of lower extremity, left 04/22/2022 Drug-induced polyneuropathy 02/22/2022 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[place] co ronary artery without angina pectoris [...] as of this encounter (statuses as of 10/11/2023) Resolved Problems Problem Noted Date Diagnosed Date Resolved Date Abdominal discomfort 11/21/2017 018 COPD, severity to be determined 07/23/2016 07/31/2020 Overview: Per COPD GOLD Classification Periapical abscess 05/15/2014 8 Venous stasis ulcer of leg w ithout varicose veins 07/21/2012 07/14/2017 Anemia 07/21/2012 10/07/2017 documented as of this encounter (statuses as of 10/11/2023) Immunizations Name Administration Dates Next Due Hepatitis [...] Nursing Notes * Sharon Barone LPN - 10/11/2023 3:10 PM EDT Acticoat 7 and reg foam placed over BLE wounds. Coban 2 wrap applied for compression to BLE as per order. documented in this encounter Plan of Treatment Upcoming Encounters Date Type Department Care Team (Late st Contact Info) Description 10/14/2023 2:30 PM EDT Office Visit Dermatology [facility] [address] [facility] [place] [address] Dieudonne Braxton MD [address] [facility] [place] [address] 10/18/2023 2:30 PM EDT Nurse Only Wound Care, [place] [address] [place] [address] Care, Nurse Wound [address] [place] [address] 10/25/2023 2:30 PM EDT Nurse Only Wound Care, [place] [address] [place] [address] Care, Nurse Wound [address] [place] [address] 11/01/2023 2:30 PM EDT Nurse Only Wound Care, [place] [address] [place] [address] Care, Nurse Wound [address] [place] [address] 11/07/2023 3:00 PM EDT Imaging Radiology [facility] [address] [facility], [address] [place] [address] 11/08/2023 2:40 PM EDT Office Visit Wound Care, [place] [address] [place] [facility] [place] [address] Mario Sauceda MD [address] [place] [address] 11/15/2023 2:30 PM EDT Nurse Only Wound Care, [place] [address] [place] [address] Care, Nurse Wound [address] [place] [facility] [place] [address] 11/22/2023 2:30 PM EDT Nurse Only Wound Care, [place] [address] [place] [address] Care, Nurse Wound [address] [place] [facility] [place] [address] 11/29/2023 2:30 PM EDT Nurse Only Wound Care, [place] [address] [place] [address] Care, Nurse Wound [address] [place] [facility] [place] [address] 12/06/2023 2:30 PM EDT Nurse Only Wound Care, [place] [address] [place] [address] Care, Nurse Wound [address] [place] [facility] [place] [address] 12/13/2023 2:20 PM EDT Office Visit Wound Care, [place] [address] [place] [address] Mario Sauceda MD [address] [place] [address] 01/12/2024 12:45 PM EDT Office Visit Dermatology [facility] [address] [facility] [place] [address] Tamiko Nieves MD [address] [facility] [place], [place] [id number] Scheduled Procedures Name Priority Associated Diagnoses Date/Ti me COLONOSCOPY FLEXIBLE PROXIMAL DIAGNOSTIC Recall History of colon polyps Health Maintenance Due Date Last Done Comments DISCUSS TOBACCO CESSATION (REFER TO SMARTSET #7618) 1960 COVID-19 Vaccine (#1) 1963 Cologuard 2003 [...] 02/11/2015, 07/18, 07/01/2014 AAA Screening Completed 07/05/2019, 01/17, 08/26/2015 [...] insufficiency documented in this encounter Care Teams Food Inspector Relationship Specialty Start Date End Date Raza Lion DO [address] [place] [address] PCP - General Family Medicine 09/04/20 documented as of this encounter
--- OUTSIDE RECORDS SUMMARY | 2024-03-08 14:42 | External Medical Summary ---
Author Name Unknown Address Unknown Organization [facility] [address] [place] [address] Laboratory Report Ordering Provider Test Date Status WON GREENE 09/24/2023 13:27:33 Final Every 4 weeks Observation Date Value Abnormality Reference (Units ) Status T4, Free 09/24/2023 13:27:33 1.3 0.9-1.7 (n g/dL) Final Performing Location [facility] - [address] [place] [address]
--- OUTSIDE RECORDS SUMMARY | 2024-03-08 14:42 | External Medical Summary | Summary of Care ---
Author Name Unknown Organization [facility] [address] [facility] [address] Phone [phone] Care Team Providers Care Bank Compliance Officer Name Role Phone Raza Lion Primary Care Provider Reason for Visit * Reason Comments Follow Up Skin check- pt has a lesion on his scalp he would like evaluated, pt had MOHS in this area Encounter Details Date Type Department Care Team (Late st Contact Info) Description 10/14/2023 2:30 PM EDT Office Visit Dermatology [facility] [place] [address] [place] [address] Dieudonne Braxton MD [address] [facility] [address] History of melanoma*; Skin neoplasm; Actinic skin damage; Seborrheic keratoses; History of nonmelanoma skin cancer; Mycosis fungoides, unspecified body region (HCC); Scar Allergies Active Allergy Reactions Criticality Noted Date Comments Erythromycin 07/21/2012 Contraindicated with Targretin (cancer med) documented as of this encounter (statuses as of 10/20/2023) Medications Medication Sig Dispensed Refills Start Date [...] AT BEDTIME 90 Tablet 1 05/17/2023 05/16/19 Active hydroCHLOROthiazide 25 MG Oral Tablet (Hydrodiuril)Indica [...] 90 Tablet 1 08/20/2023 08/20/19 25 Active tiZANidine HCl 4 MG Oral [...] needed for severe Pain 21 Tablet 07/25/2023 10/18/19 24 Discontinu ed(Refill) documented as of this encounter (statuses as of 10/20/2023) Active Problems Problem Noted Date Diagnosed Date Venous insufficiency 09/05/2023 Subconjunctival hemorrhage of left eye 3 Tobacco use 10/26/2022 Medical home patient encounter 06/03/2022 Stasis ulcer of lower extremity, left 04/22/2022 Drug-induced polyneuropathy 02/22/2022 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 03/02/2021 [...] as of this encounter (statuses as of 10/20/2023) Resolved Problems Problem Noted Date Diagnosed Date Resolved Date Abdominal discomfort 11/21/2017 018 COPD, severity to be determined 07/23/2016 07/31/2020 Overview: Per COPD GOLD Classification Periapical abscess 05/15/2014 8 Venous stasis ulcer of leg w ithout varicose veins 07/21/2012 07/14/2017 Anemia 07/21/2012 10/07/2017 documented as of this encounter (statuses as of 10/20/2023) Immunizations Name Administration Dates Next Due Hepatitis [...] Progress Notes * Dieudonne Braxton MD - 10/14/2023 2:51 PM EDT Chang Parham [id number] Chief Complaint: Chief Complaint Patient presents with Follow Up Skin check- pt has a lesion on his scalp he would like evaluated, pt had MOHS in this area Chang Parham is a 63 year old male with history of malignant melanoma as well as history of nonmelanoma skin cancer and MF. He is seen today to be monitored for recurrence at previously treated sites and to be evaluated for the development of new lesions. Area of concern on vertex scalp at location of prior SCC. Continues to follow with [facility] for CTCL (Dr. Harrison). I do not see any recent notes from them, had been scheduled to see [facility] in August, but I do not see that this happened Now seeing [facility] wound care for wounds on lower legs (previously followed with [facility]). Covered/wrapped Melanoma History: Location: R posterior thigh Year: [...] sites with no evidence of disease recurrence. Primary site of melanoma was wrapped and not evaluated today Multiple pink plaques and nodules on trunk and extremities A. Vertex scalp - 1cm eroded pink plaque - history of SCC at this location, history of MF ASSESSMENT and PLAN: 1. History of [...] new lesions appear or current lesions change. 3. MF, follows with [facility] hemeon - Continue bexarotene with labs, valchlor alternating with betamethasone ointment topically as previously prescribed per [facility] - Will reach out to see when patient is next scheduled with them. He has impressive nodules on backbut they are stable compared to images over last year 4. Skin neoplasm(s) - Shave biopsy of the following lesion(s) A. Vertex scalp - 1cm eroded pink plaque - history of SCC at this location, history of MF Procedure - Tangential biopsy of skin Biopsy by shave was recommended for the lesion(s) noted above to establish and confirm diagnosis. The procedure, risks, benefits, alternatives and expected outcomes were discussed with the patient and consent was obtained. Time out called. Patient identified, procedure verified, site(s) identified and verified. Patient and staff present in agreement. Area prepped with alcohol and anesthetized using 0.5% lidocaine with epinephrine at 1:200,000 concentration. Biopsy of lesion(s) performed. 20% AlCl and bandaging applied. Specimen(s) sent to pathology. Patient instructed in routine post-op care. Follow up high priority melanoma clinic 6 months. However, the patient should seek an early evaluation by a medical provider if any suspicious lesions develop. Dieudonne Braxton MD CC: Ref: SELF[[id number]] NO STREET ADDRESS AVAILABLE None (office) None (fax) documented in this encounter Nursing Notes * Maci Cho LPN - 10/14/2023 2:48 PM EDT Patient identified by name and date of . Do you have any concerns about pain management for today's visit? No Living Will or Advance Directive for Health Care as noted on problem list. [facility] is a way you can talk to your provider online through e-mail. Would you like to sign up? I can activate it for you? ALREADY ACTIVE Chief Complaint Patient presents with Follow Up Skin check- pt has a lesion on his scalp he would like evaluated, pt had MOHS in this area documented in this encounter Miscellaneous Notes * Result Encounter Note - Dieudonne Braxton MD - 10/19/2023 9:15 AM EDT A. Skin, Vertex scalp, shave: Reactive changes and subepidermal split (see comment) Comment: Hematoxylin and eosin stained sections reveal a portion of tissue without epidermis. The dermis shows fibrin deposition, erythrocyte extravasation, fibrosis, and inflammatory infiltrate. Scattered large cells are noted in the dermis. Immunohistochemical stains were performed to better bibi cterize the specimen (all controls appropriate). An immunostain to SOX-10 fails to highlight a significant dermal melanocytic proliferation. Staining with p63 fails to identify a proliferation suspicious for squamous dysplasia. CD163 labels many histiocytes in the specimen including cells suspectedto represent the large cells noted on hematoxylin and eosin stained sections. A subepidermal split is also noted in portions of the specimen. While this split is likely artifactual; an immunobullous condition, while not favored, was considered. Repeat sampling with specimen for direct immunofluorescence studies is recommended if an immunobullous condition is suspected clinically. Clinical correlation is required. MyG sent, wound care documented in this encounter Plan of Treatment Upcoming Encounters Date Type Department Care Team (Late st Contact Info) Description 10/25/2023 2:30 PM EDT Nurse Only Wound Care, [place] [address] [place] [address] Care, Nurse Wound [address] [place] [address] 11/01/2023 2:30 PM EDT Nurse Only Wound Care, [address] [address] Care, Nurse Wound [address] [place] [address] 11/07/2023 3:00 PM EDT Imaging Radiology [address] [address] 11/08/2023 2:40 PM EDT Office Visit Wound Care, [address] [address] Mario Sauceda [place] [address] 11/15/2023 2:30 PM EDT Nurse Only Wound Care, [address] [address] Care, Nurse Wound [address] [place] [address] 11/22/2023 2:30 PM EDT Nurse Only Wound Care, [place] [address] [place] [address] Care, Nurse Wound [address] [place] [address] 11/29/2023 2:30 PM EDT Nurse Only Wound Care, [address] [id number] Care, Nurse Wound [address] [place] [address] 12/06/2023 2:30 PM EDT Nurse Only Wound Care, [place] [address] [place] [address] Care, Nurse Wound [address] [place] [address] 12/13/2023 2:20 PM EDT Office Visit Wound Care, [place] [address] [place] [address] Mario Sauceda MD [address] [place] [address] 01/12/2024 12:45 PM EDT [facility] [address] [facility] [place] [address] Tamiko Nieves MD [address] [place] [address] Scheduled Procedures Name Priority Associated Diagnoses Date/Ti me COLONOSCOPY FLEXIBLE PROXIMAL DIAGNOSTIC Recall History of colon polyps Health Maintenance Due Date Last Done Comments DISCUSS TOBACCO CESSATION (REFER TO SMARTSET #9171) 1960 COVID-19 Vaccine (#1) 1963 Cologuard 2003 [...] Procedure Name Priority Date/Time Associated Diagnosis Comments SURGICAL PATHOLOGY Routine 10/14/2023 3: 00 PM EDT Skin neoplasm documented in this encounter Results * SURGICAL PATHOLOGY (10/14/2023 3:00 PM EDT) Final Diagnosis A. Skin, Vertex scalp, shave: Reactive changes and subepidermal split (see comment) Comment: Hematoxylin and eosin stained sections reveal a portion of tissue without epidermis. The dermis shows fibrin deposition, erythrocyte extravasation, fibrosis, and inflammatory infiltrate. Scattered large cells are noted in the dermis. Immunohistochemical stains were performed to better characterize the specimen (all controls appropriate). An immunostain to SOX-10 fails to highlight a significant dermal melanocytic proliferation. Staining with p63 fails to identify a proliferation suspicious for squamous dysplasia. CD163 labels many histiocytes in the specimen including cells suspected to represent the large cells noted on hematoxylin and eosin stained sections. A subepidermal split is also noted in portions of the specimen. While this split is likely artifactual; an immunobullous condition, while not favored, was considered. Repeat sampling with specimen for direct immunofluorescence studies is recommended if an immunobullous condition is suspected clinically. Clinical correlation is required. 10/18/2023 4:52 PM EDT [facility] Clinical History See Order Comments 10/18/2023 4:52 PM EDT [facility] Order Comments A. Vertex scalp - 1cm eroded pink plaque - history of SCC at this location, history of MF 10/18/2023 4:52 PM EDT [facility] Gross Description A. Skin. Received in formalin with a container labeled with "Chang Parham", "[id number]", "1960" and " vertex scalp". Received is a 1.2 x 1.0 cm skin shave. The skin surface is russ-white shiny and remarkable for a somewhat centrally located red russ area measuring 0.9 x 0.7 cm , extending to the nearest margin. The underlying tissue is inked. The specimen is trisected and submitted in cassette A1. Gross By: 10/18/2023 4:52 PM EDT [facility] Sign Out Location Pathologist sign out performed at [facility] ([facility] [address] [place] [id number]. 10/18/2023 4:52 PM EDT [facility] Photographic images and diagrams represent contrersa findings in this case; they are not intended to replace a complete review of the final diagnostic report. The following statement applies to Flow Cytometry, Histology, In situ Hybridization Assays and Molecular Genetics. This test was developed and performed at [facility] and its performance characteristics determined by [facility]. It has not been cleared or approved by the U.S. Food and Drug Administration. The FDA has determined that such clearance or approval is not necessary. This test is used for clinical purposes. It should not be regarded as investigational or for research. Special stains, including histochemical stains, and studies using immunologic and TRUNG methodology (where applicable) are performed with appropriate positive and negative control reactions. 10/18/2023 4:52 PM EDT LABORATORY [facility] Tissue Skin structure / Unknown 10/14/2023 3:00 PM EDT 10/14/2023 3:00 PM EDT Comment:A. Vertex scalp - 1c m eroded pink plaque - history of SCC at this location, history of MF Dieudonne Braxton MD LAB PATHOLOGY ORDERABLES [facility] [address] [place] [address] documented in this encounter Visit Diagnoses Diagnosis History of melanoma- Primary Personal history of malignant melanoma of skin Skin neoplasm Neoplasm of unspecified nature of bone, soft tissue, and skin Actinic skin damage Other dermatitis due to solar radiation Seborrheic keratoses History of nonmelanoma skin cancer Personal history of other malignant neoplasm of skin Mycosis fungoides, unspecified body region (HCC) Scar Scar condition and fibrosis of skin documented in this encounter Care Teams Bank Compliance Officer Relationship Specialty Start Date End Date Raza Lion DO [address] [facility] [place] [address] PCP - General Family Medicine 09/04/20 documented as of this encounter
--- OUTSIDE RECORDS SUMMARY | 2024-03-08 14:42 | External Medical Summary | Summary of Care ---
Author Name Unknown Organization [facility] Address [address] [place] [address] Phone [phone] Care Team Providers Care Squadron Worker Name Role Phone Raza Lion Primary Care Provider Reason for Visit * Reason Comments Wound Care Encounter Details Date Type Department Care Team (Late st Contact Info) Description 10/18/2023 2:30 PM EDT Nurse Only Wound Care, [place] [address] [place] [address] Care, Nurse Wound [address] [place] [address] Wound Care Allergies Active Allergy Reactions Criticality Noted Date Comments Erythromycin 07/21/2012 Contraindicated with Targretin (cancer med) documented as of this encounter (statuses as of 10/18/2023) Medications Medication Sig Dispensed Refills Start Date [...] as of this encounter (statuses as of 10/18/2023) Active Problems Problem Noted Date Diagnosed Date [...] as of this encounter (statuses as of 10/18/2023) Resolved Problems Problem Noted Date Diagnosed Date Resolved Date Abdominal discomfort 11/21/2017 018 COPD, severity to be determined 07/23/2016 07/31/2020 Overview: Per COPD GOLD Classification Periapical abscess 05/15/2014 8 Venous stasis ulcer of leg w ithout varicose veins 07/21/2012 07/14/2017 Anemia 07/21/2012 10/07/2017 documented as of this encounter (statuses as of 10/18/2023) Immunizations Name Administration Dates Next Due Hepatitis [...] Nursing Notes * Catarina Gonzalez LPN - 10/18/2023 2:55 PM EDT Acticoat 7, WCL and reg foam placed over BLE wounds. Coban 2 wrap applied for compression to BLE asper order. documented in this encounter Plan of Treatment Upcoming Encounters Date Type Department Care Team (Late st Contact Info) Description 10/25/2023 2:30 PM EDT Nurse Only Wound Care, [place] [address] [place] [address] Care, Nurse Wound [address] [place] [address] 11/01/2023 2:30 PM EDT Nurse Only Wound Care, [place] [address] [place] [address] Care, Nurse Wound [address] [place] [address] 11/07/2023 3:00 PM EDT Imaging Radiology [facility] [address] [facility], [address] [address] 11/08/2023 2:40 PM EDT Office Visit Wound Care, [place] [address] [place] [address] Mario Sauceda MD [address] [place] [address] 11/15/2023 2:30 PM EDT Nurse Only Wound Care, [place] [address] [place] [address] Care, Nurse Wound [address] [place] [address] 11/22/2023 2:30 PM EDT Nurse Only Wound Care, [place] [address] [place] [address] Care, Nurse Wound [address] [place] [address] 11/29/2023 2:30 PM EDT Nurse Only Wound Care, [place] [address] [place] [address] Care, Nurse Wound [address] [place] [address] 12/06/2023 2:30 PM EDT Nurse Only Wound Care, [place] [address] [place] [address] Care, Nurse Wound [address] [place] [address] 12/13/2023 2:20 PM EDT Office Visit Wound Care, [place] [address] [place] [address] Mario Sauceda MD [address] [place] [address] 01/12/2024 12:45 PM EDT Office Visit Dermatology [facility] [address] [place] [address] Tamiko Nieves MD [address] [place], [place] [id number] Scheduled Procedures Name Priority Associated Diagnoses Date/Ti me COLONOSCOPY FLEXIBLE PROXIMAL DIAGNOSTIC Recall History of colon polyps Health Maintenance Due Date Last Done Comments DISCUSS TOBACCO CESSATION (REFER TO SMARTSET #2971) 1960 COVID-19 Vaccine (#1) 1963 Cologuard 2003 [...] insufficiency documented in this encounter Care Teams Squadron Worker Relationship Specialty Start Date End Date Raza Lion DO [address] [place] [address] PCP - General Family Medicine 09/04/20 documented as of this encounter
--- OUTSIDE RECORDS SUMMARY | 2024-03-08 14:42 | External Medical Summary | Summary of Care ---
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[place] co ronary artery without angina pectoris 03/02/2021 [...] Upcoming Encounters Date Type Department Care Team (Taylor figueroa Contact Info) Description 10/11/2023 2:30 PM EDT Nurse Only Wound Care, [place] [address] [place] [address] Care, Nurse Wound [address] [place] [facility] [place] [address] 10/14/2023 2:30 PM EDT Office Visit Dermatology [facility] [address] [facility] [place] [address] Dieudonne Braxton MD [address] [facility] [place] [address] 10/18/2023 2:30 PM EDT Nurse Only Wound Care, [place] [address] [place] [facility] [place] [address] Care, Nurse Wound [address] [place] [facility] [place] [address] 10/25/2023 2:30 PM EDT Nurse Only Wound Care, [place] [address] [place] [address] Care, Nurse Wound [address] [place] [facility] [place] [address] 11/01/2023 2:30 PM EDT Nurse Only Wound Care, [place] [address] [place] [address] Care, Nurse Wound [address] [place] [facility] [place] [address] 11/07/2023 3:00 PM EDT Imaging Radiology [facility] [address] [facility] [place] [address] [place] [address] 11/08/2023 2:40 PM EDT Office Visit Wound Care, [place] [address] [place] [facility] [place] [address] Mario Sauceda MD [address] [place] [address] 11/15/2023 2:30 PM EDT Nurse Only Wound Care, [place] [address] [place] [address] Care, Nurse Wound [address] [place] [address] 11/22/2023 2:30 PM EDT Nurse Only Wound Care, [place] [address] [place] [address] Care, Nurse Wound [address] [place] [address] 11/29/2023 2:30 PM EDT Nurse Only Wound Care, [place] [address] [place] [address] Care, Nurse Wound [address] [place] [address] 12/06/2023 2:30 PM EDT Nurse Only Wound Care, [place] [address] [place] [address] Care, Nurse Wound [address] [place] [address] 12/13/2023 2:20 PM EDT Office Visit Wound Care, [place] [address] [place] [address] Mario Sauceda MD [address] [place] [address] 01/12/2024 12:45 PM EDT Office Visit Dermatology [facility] [address] [facility] [place] [address] Tamiko Nieves MD [address] [facility] [place] [address] Scheduled Procedures Name Priority Associated Diagnoses Date/Ti me COLONOSCOPY FLEXIBLE PROXIMAL DIAGNOSTIC Recall History of colon polyps Health Maintenance Due Date Last Done Comments DISCUSS TOBACCO CESSATION (REFER TO SMARTSET #4591) 1960 COVID-19 Vaccine (#1) 1963 Cologuard 2003 [...] filedocumented as of this encounter Care Teams Social Media Community Manager Relationship Specialty Start Date End Date Raza Lion DO [address] [place] [address] PCP - General Family Medicine 09/04/20 documented as of this encounter
--- OUTSIDE RECORDS SUMMARY | 2024-03-08 14:42 | External Medical Summary ---
Author Name Unknown Address Unknown Organization K01:[facility] - [address] [place] [address] Laboratory Report Ordering Provider Test Date Status KITTY NEWTON 09/24/2023 13:27:33 Final Observation Date Value Abnormality Reference (Units ) Status Magnesium 09/24/2023 13:27:33 2.0 1.5-2.6 (m g/dL) Final Performing Location [facility] - [address] [place] [address]
--- OUTSIDE RECORDS SUMMARY | 2024-03-08 14:42 | External Medical Summary | Summary of Care ---
Author Name Unknown Organization [facility] Address [address] [place] [address] Phone [phone] Care Team Providers Care Sack Sorter Name Role Phone LionAnupr Jake Primary Care Provider Reason for Visit * Reason Comments Wound Care Encounter Details Date Type Department Care Team (Late st Contact Info) Description 10/03/2023 1:20 PM EDT Office Visit Wound Care, [place] [address] [place] [address] Mario Sauceda MD [address] [place] [address] Venous stasis ulcer of left ankle with fat layer exposed with varicose veins (HCC)*; Venous stasis ulcer of right ankle with fat layer exposed with varicose veins (HCC); Venous insufficiency; Cutaneous T-cell lymphoma, unspecified body region (HCC) Allergies Active Allergy Reactions Criticality Noted Date Comments Erythromycin 07/21/2012 Contraindicated with Targretin (cancer med) documented as of this encounter (statuses as of 10/03/2023) Medications Medication Sig Dispensed Refills Start Date [...] as of this encounter (statuses as of 10/03/2023) Active Problems Problem Noted Date Diagnosed Date Venous insufficiency 09/05/2023 Subconjunctival hemorrhage of left eye Tobacco use 10/26/2022 Medical home patient encounter 06/03/2022 Stasis ulcer of lower extremity, left 04/22/2022 Drug-induced polyneuropathy 02/22/2022 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[place] co ronary artery without angina pectoris 03/02/2021 [...] as of this encounter (statuses as of 10/03/2023) Resolved Problems Problem Noted Date Diagnosed Date Resolved Date Abdominal discomfort 11/21/2017 018 COPD, severity to be determined 07/23/2016 07/31/2020 Overview: Per COPD GOLD Classification Periapical abscess 05/15/2014 8 Venous stasis ulcer of leg w ithout varicose veins 07/21/2012 07/14/2017 Anemia 07/21/2012 10/07/2017 documented as of this encounter (statuses as of 10/03/2023) Immunizations Name Administration Dates Next Due Hepatitis [...] Progress Notes * Mario Sauceda MD - 10/03/2023 1:31 PM EDT Images from the original note were not included. WOUND OUTPATIENT FOLLOW-UP NOTE HPI: Patient presents today for f/u of B ankle VLUs. The wound has been present since early 2021. Patient thinks wound started spontaneously. Patient has followed at [facility] wound clinic for 2 yearsand came here for second opinion. He reports tolerating the weekly compression wraps. He completed a short course of PO prednisone. Current dressing: See Wound Assessment Dressing change frequency: weekly RLE Compression: Coban 2 LLE Compression: Coban 2 RLE Wt Bearing Offloading: none LLE Wt Bearing Offloading: none RLE Non-Wt Bearing Offloading: none LLE Non-Wt Bearing Offloading: none Offloading Surface for Bed: none Offloading Surface for Chair / Wheelchair: none ROS: Pain: no Drainage: mild serous Swelling: no Erythema: no Fever/Chills: no Malaise: no ROS was negative other than stated above. VASCULAR LAB RESULTS DATE OF EXAM: 09/28/23 PRESENTING CONDITIONS: Evaluate for deep, superficial, and circular knife cutter machine reflux. IMPRESSION: There is no evidence of [...] Last attempt to quit: 06/18/2012 Years since quittin.2 Smokeless Tobacco Former Tobacco Comments 6 cigars has a 1.5 ppd for 25 years cigarette smoking history and currently smokes cigars. WOUND ASSESSMENT: Alteration in Skin Integrity Right;Medial Ankle (Active) Clinical Image 10/03/23 1300 Primary Dressing Present (removed today) Allevyn Ag 10/03/23 1300 Secondary Dressing Present (removed today) FOAM 10/03/23 1300 Tertiary Dressing Present (removed today) None 10/03/23 1300 Quaternary Dressing Present (removed today) None 10/03/23 1300 Wound Length (cm) 4.1 cm 10/03/23 1300 Wound Width (cm) 0.8 cm 10/03/23 1300 Wound Depth (cm) 0.1 cm 10/03/23 1300 Undermining (cm) 0 10/03/23 1300 Sinus Tract (cm) 0 10/03/23 1300 Tunneling (cm) 0 10/03/23 1300 Yellow Fibrinous Slough (%) 26-50% 10/03/23 1300 Granulation Tissue (%) 26-50% 10/03/23 1300 Granulation Tissue Color red 10/03/23 1300 Necrotic Tissue (%) none 10/03/23 1300 Necrotic Tissue Color Not Applicable 10/03/23 1300 Deep Supporting Structure Exposed None 10/03/23 1300 Drainage serous, mild 10/03/23 1300 Odor (after cleansing wound) No 10/03/23 1300 Aliya-Wound (Surrounding Skin) Intact;Nonerythematous;Nontender;Hemosiderin stained 10/03/23 1300 Evidence of Infection No 10/03/23 1300 Wound Surface Area (cm^2) 3.28 cm^2 10/03/23 1300 Wound Volume (cm^3) 0.328 cm^3 10/03/23 1300 Alteration in Skin Integrity Left;Medial Ankle (Active) Clinical Image 10/03/23 1300 Primary Dressing Present (removed today) Allevyn Ag 10/03/23 1300 Secondary Dressing Present (removed today) None 10/03/23 1300 Tertiary Dressing Present (removed today) None 10/03/23 1300 Quaternary Dressing Present (removed today) None 10/03/23 1300 Wound Length (cm) 0.9 cm 10/03/23 1300 Wound Width (cm) 0.3 cm 10/03/23 1300 Wound Depth (cm) 0.1 cm 10/03/23 1300 Undermining (cm) 0 10/03/23 1300 Sinus Tract (cm) 0 10/03/23 1300 Tunneling (cm) 0 10/03/23 1300 Yellow Fibrinous Slough (%) 26-50% 10/03/23 1300 Granulation Tissue (%) 26-50% 10/03/23 1300 Granulation Tissue Color red 10/03/23 1300 Necrotic Tissue (%) none 10/03/23 1300 Necrotic Tissue Color Not Applicable 10/03/23 1300 Deep Supporting Structure Exposed None 10/03/23 1300 Drainage none 10/03/23 1300 Odor (after cleansing wound) No 10/03/23 1300 Aliya-Wound (Surrounding Skin) Intact;Nonerythematous;Nontender 10/03/23 1300 Evidence of Infection No 10/03/23 1300 Wound Surface Area (cm^2) 0.27 cm^2 10/03/23 1300 Wound Volume (cm^3) 0.027 cm^3 10/03/23 1300 ASSESSMENT/PLAN: 1. B medial ankle VLUs - R is larger, L is improved. 2. Venous insufficiency (superficial and deep; likely no good surgical options). 3. Cutaneous T cell lymphoma/mycosis fungoides Hx. 4. COPD. 5. Smoking Acticoat 7/foam/foam/Coban 2 to BLE, changed weekly. Keep wrap dry and in place. Elevate LE for edema control. I spent a total of 30-39 minutes (exact time 35 mins) on the date of service in preparation, delivery, and documentation of the care provided to Chang Parham excluding any time spent in the performance of separately billed services. Follow-up: 1,2,3,4 wk nurse, 5 wk provider Mario Sauceda MD 10/03/2023 1:31 PM documented in this encounter Nursing Notes * Catarina Gonzalez LPN - 10/03/2023 2:47 PM EDT Acticoat 7 andreg foam x2 placed over RLE wound. Acticoat 7 and foam placed over LLE wound.Coban 2 wrap applied for compression to BLE as per order. documented in this encounter Plan of Treatment Upcoming Encounters Date Type Department Care Team (Late st Contact Info) Description 10/11/2023 2:30 PM EDT Nurse Only Wound Care, [place] [address] [facility] [place] [address] Care, Nurse Wound [address] [place] [facility] [place] [address] 10/14/2023 2:30 PM EDT Office Visit Dermatology [facility] 200 [facility] [place] [address] Dieudonne Braxton MD 200 [facility] [place] [address] 10/18/2023 2:30 PM EDT Nurse Only Wound Care, [place] [address] [facility] [place] [address] Care, Nurse Wound [address] [facility] [place] [address] 10/25/2023 2:30 PM EDT Nurse Only Wound Care, [place] [address] [facility] [place] [address] Care, Nurse Wound [address] [facility] [place] [address] 11/01/2023 2:30 PM EDT Nurse Only Wound Care, [place] [address] [facility] [place] [address] Care, Nurse Wound [address] [facility] [place] [address] 11/07/2023 3:00 PM EDT Imaging Radiology [address], [place] 132 [facility] [place] [address] 11/08/2023 2:40 PM EDT Office Visit Wound Care, [place] [address] [facility] [place] [address] Mario Sauceda MD [address] [place] [address] 11/15/2023 2:30 PM EDT Nurse Only Wound Care, [place] [address] [place] [address] Care, Nurse Wound [address] [facility] [place] [address] 11/22/2023 2:30 PM EDT Nurse Only Wound Care, [place] [address] [place] [address] Care, Nurse Wound [address] [facility] [place] [address] 11/29/2023 2:30 PM EDT Nurse Only Wound Care, [place] [address] [place] [address] Care, Nurse Wound [address] [place] [address] 12/06/2023 2:30 PM EDT Nurse Only Wound Care, [place] [address] [place] [address] Care, Nurse Wound [address] [place] [address] 12/13/2023 2:20 PM EDT Office Visit Wound Care, [place] [address] [place] [address] Mario Sauceda MD [address] [place] [address] 01/12/2024 12:45 PM EDT Office Visit Dermatology [facility] 200 [facility] [place], [place] [id number] Tamiko Nieves MD 200 [facility] [place] [address] Scheduled Procedures Name Priority Associated Diagnoses Date/Ti me COLONOSCOPY FLEXIBLE PROXIMAL DIAGNOSTIC Recall History of colon polyps Health Maintenance Due Date Last Done Comments DISCUSS TOBACCO CESSATION (REFER TO SMARTSET #1152) 1958 COVID-19 Vaccine (#1) 1963 Cologuard 2003 [...] Cancer Screening 08/18/2026 Hepatitis B Completed 02/11/2015, 2 07/2014, 07/01/2014 AAA Screening Completed 07/05/2019, 02/11/2016 Zoster [...] (HCC) documented in this encounter Care Teams Sack Sorter Relationship Specialty Start Date End Date Raza Lion DO 132 [facility] [place] [address] PCP - General Family Medicine 09/04/20 documented as of this encounter
--- OUTSIDE RECORDS SUMMARY | 2024-03-08 14:42 | External Medical Summary | Summary of Care ---
Author Name Unknown Organization [facility] Address [address] [place] [address] Phone [phone] Care Team Providers Care Rn X Ray Name Role Phone LionAnupr Jake Primary Care Provider Encounter Details Date Type Department Care Team (Latest Contact Info) Description 09/30/2023 Medication Management [facility] [address] [place] [address] Anabella Guo, [facility] [address] [place] [address] Referred for medication therapy management* Allergies Active Allergy Reactions Criticality Noted Date Comments Erythromycin 07/21/2012 Contraindicated with Targretin (cancer med) documented as of this encounter (statuses as of 09/30/2023) Medications Medication Sig Dispensed Refills Start Date [...] as of this encounter (statuses as of 09/30/2023) Active Problems Problem Noted Date Diagnosed Date Venous insufficiency 09/05/2023 Subconjunctival hemorrhage of left eye 3 Tobacco use 10/26/2022 Medical home patient encounter 06/03/2022 Stasis ulcer of lower extremity, left 04/22/2022 Drug-induced polyneuropathy 02/22/2022 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[place] co ronary artery without angina pectoris 03/02/2021 [...] as of this encounter (statuses as of 09/30/2023) Resolved Problems Problem Noted Date Diagnosed Date Resolved Date Abdominal discomfort 11/21/2017 018 COPD, severity to be determined 07/23/2016 07/31/2020 Overview: Per COPD GOLD Classification Periapical abscess 05/15/2014 8 Venous stasis ulcer of leg w ithout varicose veins 07/21/2012 07/14/2017 Anemia 07/21/2012 10/07/2017 documented as of this encounter (statuses as of 09/30/2023) Immunizations Name Administration Dates Next Due Hepatitis [...] as of this encounter Progress Notes * Maame Cruz PHARM Tech - 09/30/2023 6:24 PM EDT Chang Parham is a 63 year old male. TMR Interventions TMR Patient Education - Safe Medication Use (Opioid Therapy): HYDROCO/APAP TAB 5-325MG Incomplete Encounter MTPs No medication therapy recommendations to display Complete Encounter MTPs Referred for medication therapy management Current Medication: HYDROcodone-Acetaminophen 5-325 MG Oral Tablet Rationale: Patient Education - Needs Education - Safety Recommendation: Provide Education Status: Patient Agreed Note: TMR for safe use of opioid therapy Assessment & Plan Indication, effectiveness, safety and convenience of his medications were reviewed today. The patient's medical conditions were assessed, evaluated, and deemed meeting goals of drug therapy, with thefollowing exceptions. TRAVIS Painter 09/30/2023, 6:24 PM documented in this encounter Plan of Treatment Upcoming Encounters Date Type Department Care Team (Late st Contact Info) Description 10/03/2023 1:20 PM EDT Office Visit Wound Care, [address] [address] Mario Sauceda MD [address] [facility] [place] [address] 10/11/2023 2:30 PM EDT Nurse Only Wound Care, [place] [address] [place] [facility] [place] [address] Care, Nurse Wound [address] [place] [facility] [place] [address] 10/14/2023 2:30 PM EDT Office Visit Dermatology [facility] 200 [facility] [place] [address] Dieudonne Braxton MD 200 [facility] [place] [address] 10/18/2023 2:30 PM EDT Nurse Only Wound Care, [place] [address] [place] [address] Care, Nurse Wound [address] [facility] [place] [place] [address] 10/25/2023 2:30 PM EDT Nurse Only Wound Care, [place] [address] [place] [facility] [place] [address] Care, Nurse Wound [address] [facility] [place] [place] [address] 11/01/2023 2:30 PM EDT Nurse Only Wound Care, [place] [address] [place] [address] Care, Nurse Wound [address] [place] [facility] [place] [address] 11/07/2023 3:00 PM EDT Imaging Radiology [address] [place] [address] 11/08/2023 2:40 PM EDT Office Visit Wound Care, [place] [address] [place] [address] Mario Sauceda MD [address] [place] [address] 01/12/2024 12:45 PM EDT Office Visit Dermatology [facility] [address] [facility] [place] [address] Tamiko Nieves MD [address] [facility] [place] [address] Scheduled Procedures Name Priority Associated Diagnoses Date/Ti me COLONOSCOPY FLEXIBLE PROXIMAL DIAGNOSTIC Recall History of colon polyps Health Maintenance Due Date Last Done Comments DISCUSS TOBACCO CESSATION (REFER TO SMARTSET #5299) 1960 COVID-19 Vaccine (#1) 1963 Cologuard 2003 [...] as of this encounter Visit Diagnoses Diagnosis Referred for medication therapy management- Primary Encounter for long-term (current) use of other medications documented in this encounter Care Teams Rn X Ray Relationship Specialty Start Date End Date Raza Lion DO [address] [place] [address] PCP - General Family Medicine 09/04/20 documented as of this encounter
--- OUTSIDE RECORDS SUMMARY | 2024-03-08 14:42 | External Medical Summary | Summary of Care ---
Author Name Unknown Organization [facility] Address [address] [facility] [place] [address] Phone [phone] Care Team Providers Care Granite Setter Name Role Phone AyadAnupbelle Mcclendonsyed Primary Care Provider Encounter Details Date Type Department Care Team (Late st Contact Info) Description 09/21/2023 Telephone Access Center, [place] [address] [facility] *DO NOT REMOVE THIS DEPARTMENT* [place] [address] ADDRESS AVAILABLE Allergies Active Allergy Reactions Criticality Noted Date Comments Erythromycin 07/21/2012 Contraindicated with Targretin (cancer med) documented as of this encounter (statuses as of 09/27/2023) Medications Medication Sig Dispensed Refills Start Date [...] before bedtime. 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[place] co ronary artery without angina pectoris 03/02/2021 [...] as of this encounter (statuses as of 09/27/2023) Resolved Problems Problem Noted Date Diagnosed Date Resolved Date Abdominal discomfort 11/21/2017 018 COPD, severity to be determined 07/23/2016 07/31/2020 Overview: Per COPD GOLD Classification Periapical abscess 05/15/2014 8 Venous stasis ulcer of leg w ithout varicose veins 07/21/2012 07/14/2017 Anemia 07/21/2012 10/07/2017 documented as of this encounter (statuses as of 09/27/2023) Immunizations Name Administration Dates Next Due Hepatitis [...] encounter Miscellaneous Notes * Telephone Encounter - Nicole Oconnor OSA - 09/21/2023 4:27 PM EDT Pt missed his appt today and was wondering if he can get in tomorrow or Tuesday in the afternoon please give him a call Thank you documented in this encounter Plan of Treatment Upcoming Encounters Date Type Department Care Team (Late st Contact Info) Description 09/28/2023 1:00 PM EDT Appointment Vascular Lab [address] [address] 09/28/2023 3:00 PM EDT Nurse Only Wound Care, [address] [address] Care, Nurse Wound [address] [place] [address] 10/03/2023 1:20 PM EDT Office Visit Wound Care, [address] [address] Mario Sauceda MD [address] [place] [address] 10/11/2023 2:30 PM EDT Nurse Only Wound Care, [address] [address] Care, Nurse Wound [address] [facility] [place] [address] 10/14/2023 2:30 PM EDT Office Visit Dermatology [facility] [address] [place] [address] Dieudonne Braxton MD [address] [place] [address] 10/18/2023 2:30 PM EDT Nurse Only Wound Care, [place] [address] [facility] [place] [address] Care, Nurse Wound [address] [facility] [place] [address] 10/25/2023 2:30 PM EDT Nurse Only Wound Care, [place] [address] [facility] [place] [address] Care, Nurse Wound [address] [facility] [place] [address] 11/01/2023 2:30 PM EDT Nurse Only Wound Care, [place] [address] [facility] [place] [address] Care, Nurse Wound [address] [facility] [place] [address] 11/07/2023 3:00 PM EDT Imaging Radiology [facility] 1st [facility], [address] [address] 11/08/2023 2:40 PM EDT Office Visit Wound Care, [place] [address] [facility] [place] [address] Mario Sauceda MD [address] [place] [address] 01/12/2024 12:45 PM EDT Office Visit Dermatology [facility] [address] [place] [address] Tamiko Nieves MD [address] [place] [address] Scheduled Procedures Name Priority Associated Diagnoses Date/Ti me COLONOSCOPY FLEXIBLE PROXIMAL DIAGNOSTIC Recall History of colon polyps Health Maintenance Due Date Last Done Comments DISCUSS TOBACCO CESSATION (REFER TO SMARTSET #1476) 1960 COVID-19 Vaccine (#1) 1963 Cologuard 2003 [...] filedocumented as of this encounter Care Teams Granite Setter Relationship Specialty Start Date End Date Raza Lion DO [address] [place] [address] PCP - General Family Medicine 09/04/20 documented as of this encounter
--- OUTSIDE RECORDS SUMMARY | 2024-03-08 14:42 | External Medical Summary ---
Author Name Unknown Address Unknown Organization [id number]:LABORATORY [facility] - [address] [place] [address] Laboratory Report Ordering Provider Test Date Status WON GREENE 09/24/2023 13:27:33 Final Every 4 weeks Observation Date Value Abnormality Reference (Units ) Status Triglyceride 09/24/2023 13:27:33 240 Above high normal <=174 (mg/dL) Final Triglyceride Reference Range s (mg/dL):
<150 Acceptable
150-174 Borderline high
175-499 High
>=500 Very high Cholesterol 09/24/2023 13:27:33 220 Above high normal <200 (mg/dL) Final Total Cholesterol Reference Ranges (mg/dL):
<200 Desirable
200-239 Borderline high
>=240 High HDL 09/24/2023 13:27:33 47 >39 (mg/dL ) Final HDL Cholesterol Reference Ra nges (mg/dL):
>=60 High (Desirable)
<50 Low (Undesirable) For Females
<40 Low (Undesirable) For Males NON-HDL CHOLESTEROL 09/24/2023 13:27:33 173 Above high normal <=159 (mg/dL) Final Non-HDL Cholesterol Referenc e Range (mg/dL):
<100 Target level for high risk ASCVD patient
<130 Optimal for general population
130-159 Near optimal for general population
160-189 Borderline High
190-219 High
>=220 Very High LDL, (calculated) 09/24/2023 13:27:33 125 <= 129 (mg/dL) Final LDL Cholesterol Reference Ra nges (mg/dL):
<70 Target level for high risk ASCVD patient
<100 Optimal for general population
100-129 Near optimal for general population
130-159 Borderline high
160-189 High
>=190 Very high Performing Location LABORATORY [facility] - [address] [facility] [address]
--- OUTSIDE RECORDS SUMMARY | 2024-03-08 14:42 | External Medical Summary | Summary of Care ---
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 Patient has followed at [facility] wound clinic for 2 yearsand came here [...] PRESENTING CONDITIONS: Evaluate for deep, superficial, and demo coordinator reflux. IMPRESSION: There is no evidence of [...] 10/03/2023 1:31 PM documented in this encounter Plan of Treatment Upcoming Encounters Date Type Department Care Team (Late st Contact Info) Description 10/11/2023 2:30 PM EDT Nurse Only Wound Care, [address] [place] [address] Care, Nurse Wound [address] [facility] [place] [place] [address] 10/14/2023 2:30 PM EDT Office Visit Dermatology [facility] 200 [facility] [address] Dieudonne Braxton MD 200 [facility] [place], [place] [id number] 10/18/2023 2:30 PM EDT Nurse Only Wound Care, [place] [address] [place] [address] Care, Nurse Wound [address] [facility] [place] [address] 10/25/2023 2:30 PM EDT Nurse Only Wound Care, [place] [address] [place] [address] Care, Nurse Wound [address] [place] [address] 11/01/2023 2:30 PM EDT Nurse Only Wound Care, [place] [address] [place] [address] Care, Nurse Wound [address] [place] [address] 11/07/2023 3:00 PM EDT Imaging Radiology [facility] 1st [facility] [place] [address] [place] [address] 11/08/2023 2:40 PM EDT Office Visit Wound Care, [place] [address] [place] [address] Mario Sauceda MD [address] [place] [address] 11/15/2023 2:30 PM EDT Nurse Only Wound Care, [place] [address] [place] [address] Care, Nurse Wound [address] [place] [address] 11/22/2023 2:30 PM EDT Nurse Only Wound Care, [place] [address] [place] [address] Care, Nurse Wound [address] [place] [address] 11/29/2023 2:30 PM EDT Nurse Only Wound Care, [place] [address] [place] [address] Care, Nurse Wound [address] [place] [address] 12/06/2023 2:30 PM EDT Nurse Only Wound Care, [place] [address] [place] [address] Care, Nurse Wound [address] [place] [address] 12/13/2023 2:20 PM EDT Office Visit Wound Care, [place] [address] [place] [address] Mario Sauceda MD [address] [place] [address] 01/12/2024 12:45 PM EDT Office Visit Dermatology [facility] 200 [facility] [address] Tamiko Nieves MD 200 [place], [place] [id number] Scheduled Procedures Name Priority Associated Diagnoses Date/Ti me COLONOSCOPY FLEXIBLE PROXIMAL DIAGNOSTIC Recall History of colon polyps Health Maintenance Due Date Last Done Comments DISCUSS TOBACCO CESSATION (REFER TO SMARTSET #7714) 1960 COVID-19 Vaccine (#1) 1963 Cologuard 2003 [...] (HCC) documented in this encounter Care Teams Province Archivist Relationship Specialty Start Date End Date Raza Lion DO [address] [place] [address] PCP - General Family Medicine 09/04/20 documented as of this encounter
--- OUTSIDE RECORDS SUMMARY | 2024-03-08 14:43 | External Medical Summary | Summary of Care ---
Author Name Unknown Organization [facility] Address [address] [place] [address] Phone [phone] Care Team Providers Care Pollution Control Technician Name Role Phone Raza Lion Primary Care Provider Reason for Visit * Reason Comments Wound Care Encounter Details Date Type Department Care Team (Late st Contact Info) Description 09/15/2023 2:30 PM EDT Nurse Only Wound Care, [place] [address] [place] [address] Care, Nurse Wound [address] [place] [address] Wound Care Allergies Active Allergy Reactions Criticality Noted Date Comments Erythromycin 07/21/2012 Contraindicated with Targretin (cancer med) documented as of this encounter (statuses as of 09/15/2023) Medications Medication Sig Dispensed Refills Start Date [...] as of this encounter (statuses as of 09/15/2023) Active Problems Problem Noted Date Diagnosed Date Venous insufficiency 09/05/2023 Subconjunctival hemorrhage of left eye 3 Tobacco use 10/26/2022 Medical home patient encounter 06/03/2022 Stasis ulcer of lower extremity, left 04/22/2022 Drug-induced polyneuropathy 02/22/2022 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 03/02/2021 [...] as of this encounter (statuses as of 09/15/2023) Resolved Problems Problem Noted Date Diagnosed Date Resolved Date Abdominal discomfort 11/21/2017 018 COPD, severity to be determined 07/23/2016 07/31/2020 Overview: Per COPD GOLD Classification Periapical abscess 05/15/2014 8 Venous stasis ulcer of leg w ithout varicose veins 07/21/2012 07/14/2017 Anemia 07/21/2012 10/07/2017 documented as of this encounter (statuses as of 09/15/2023) Immunizations Name Administration Dates Next Due Hepatitis [...] Progress Notes * Jett Acevedo PA-C - 09/15/2023 3:28 PM EDT Ptient seen today during nurse visit for wrap change. Answer questions he had about his condition and his treatment plan. Wounds improving. Discussed with patient that we would still like him to get the venous insufficiency study so we have more information. Re-ordered venous insufficiency study (Vascular lab could not use existing order). Jett Acevedo PA-C 09/15/2023 3:29 PM documented in this encounter Nursing Notes * China Boland LPN - 09/15/2023 3:02 PM EDT Ag foam placed over wounds to BLE. Coban 2 wrap applied for compression to BLE as per order. documented in this encounter Miscellaneous Notes * Addendum Note - Jett Acevedo PA-C - 09/15/2023 3:31 PM EDTAddended by: JETT ACEVEDO on: 09/15/2023 03:31 PM Modules accepted: Orders documented in this encounter Plan of Treatment Upcoming Encounters Date Type Department Care Team (Late st Contact Info) Description 09/21/2023 1:30 PM EDT Nurse Only Wound Care, [place] [address] [place] [address] Care, Nurse Wound [address] [place] [address] 09/28/2023 3:00 PM EDT Nurse Only Wound Care, [place] [address] [place] [address] Care, Nurse Wound [address] [place], [place] [id number] 10/03/2023 1:20 PM EDT Office Visit Wound Care, [place] [address] [place] [address] Mario Sauceda MD [address] [place] [address] 10/14/2023 2:30 PM EDT Office Visit Dermatology [facility] [address] [place] [address] Dieudonne Braxton MD 200 [facility] [place] [address] 11/07/2023 3:00 PM EDT Imaging Radiology [address] [address] 01/12/2024 12:45 PM EDT Office Visit Dermatology [facility] [address] [place] [address] Tamiko Nieves MD 200 [facility] [place] [address] Scheduled Orders Name Type Priority Associated Diagnoses Orde r Schedule VASC DUPLEX VENOUS INSUFFICIENCY COMPLETE BILAT LE Medical Imaging Routine Venous insufficiency Venous stasis ulcer of left ankle with fat layer exposed with varicose veins (HCC) Venous stasis ulcer of right ankle with fat layer exposed with varicose veins (HCC) Expected: 09/22/2023 (Approximate), Expires: 12/16/2023 Scheduled Procedures Name Priority Associated Diagnoses Date/Ti me COLONOSCOPY FLEXIBLE PROXIMAL DIAGNOSTIC Recall History of colon polyps Health Maintenance Due Date Last Done Comments DISCUSS TOBACCO CESSATION (REFER TO SMARTSET #1142) 1958 COVID-19 Vaccine (#1) 1963 Cologuard 2003 [...] 04/23/2024 04/23/2023 Depression Screening 07/05/2024 07/06/2023 GFR 08/26/2024 08/27/2023, 05/20, 04/22/2023, Additional history exists TSH 08/26/2024 08/27/2023, 05/20, 04/22/2023, Additional history exists Albumin/Creatinine Ratio 12/25/2025 12/25/2022, [...] (HCC) documented in this encounter Care Teams Pollution Control Technician Relationship Specialty Start Date End Date Raza Lion DO [address] [facility] [place] [address] PCP - General Family Medicine 09/04/20 documented as of this encounter
--- OUTSIDE RECORDS SUMMARY | 2024-03-08 14:43 | External Medical Summary ---
Author Name Unknown Address Unknown Organization K01:LABORATORY [facility] - [address] [place] [address] Laboratory Report Ordering Provider Test Date Status WON GREENE 09/24/2023 13:27:33 Final Every 4 weeks Observation Date Value Abnormality Reference (Units ) Status TSH 09/24/2023 13:27:33 0.06 Below low normal 0.2 7-4.20 (uIU/mL) Final Performing Location LABORATORY [facility] - [address] [place] [address]
--- OUTSIDE RECORDS SUMMARY | 2024-03-08 14:43 | External Medical Summary | Summary of Care ---
Author Name Unknown Organization [facility] Address [address] [place] [address] Phone [phone] Care Team Providers Care Project Director Name Role Phone Raza Lion Primary Care Provider Reason for Visit * Reason Comments Wound Care Encounter Details Date Type Department Care Team (Late st Contact Info) Description 09/22/2023 11:30 AM EDT Nurse Only Wound Care, [place] [address] [place] [address] Care, Nurse Wound [address] [place] [address] Wound Care Allergies Active Allergy Reactions Criticality Noted Date Comments Erythromycin 07/21/2012 Contraindicated with Targretin (cancer med) documented as of this encounter (statuses as of 09/22/2023) Medications Medication Sig Dispensed Refills Start Date [...] as of this encounter (statuses as of 09/22/2023) Active Problems Problem Noted Date Diagnosed Date Venous insufficiency 09/05/2023 Subconjunctival hemorrhage of left eye 3 Tobacco use 10/26/2022 Medical home patient encounter 06/03/2022 Stasis ulcer of lower extremity, left 04/22/2022 Drug-induced polyneuropathy 02/22/2022 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 03/02/2021 [...] as of this encounter (statuses as of 09/22/2023) Resolved Problems Problem Noted Date Diagnosed Date Resolved Date Abdominal discomfort 11/21/2017 018 COPD, severity to be determined 07/23/2016 07/31/2020 Overview: Per COPD GOLD Classification Periapical abscess 05/15/2014 8 Venous stasis ulcer of leg w ithout varicose veins 07/21/2012 07/14/2017 Anemia 07/21/2012 10/07/2017 documented as of this encounter (statuses as of 09/22/2023) Immunizations Name Administration Dates Next Due Hepatitis [...] Notes * Robert Lopez MED ASSIST - 09/22/2023 1:42 PM EDT WCL,Ag and reg foam placed over RLE wound.Ag foam placed over LLE wound.Coban 2 wrap applied for compression to BLE as per order. documented in this encounter Plan of Treatment Upcoming Encounters Date Type Department Care Team (Late st Contact Info) Description 09/28/2023 1:00 PM EDT Appointment Vascular Lab [facility], [address] [address] 09/28/2023 3:00 PM EDT Nurse Only Wound Care, [address] [address] Care, Nurse Wound [address] [place] [address] 10/03/2023 1:20 PM EDT Office Visit Wound Care, [address] [address] Mario Sauceda MD [facility] [place] [address] 10/11/2023 2:30 PM EDT Nurse Only Wound Care, [place] [address] [place] [address] Care, Nurse Wound [address] [place] [address] 10/14/2023 2:30 PM EDT Office Visit Dermatology [facility] [address] [place] [address] Dieudonne Braxton MD [address] [place] [address] 10/18/2023 2:30 PM EDT Nurse Only Wound Care, [place] [address] [place] [address] Care, Nurse Wound [address] [place] [address] 10/25/2023 2:30 PM EDT Nurse Only Wound Care, [place] [address] [place] [address] Care, Nurse Wound [address] [place] [address] 11/01/2023 2:30 PM EDT Nurse Only Wound Care, [place] [address] [place] [address] Care, Nurse Wound [address] [place] [address] 11/07/2023 3:00 PM EDT Imaging Radiology [facility] 1st [facility], [address] [address] 11/08/2023 2:40 PM EDT Office Visit Wound Care, [place] [address] [place] [address] Mario Sauceda MD [address] [place] [address] 01/12/2024 12:45 PM EDT Office Visit Dermatology [facility] [address] [place] [address] Tamiko Nieves MD [address] [place], [place] [address] Scheduled Procedures Name Priority Associated Diagnoses Date/Ti me COLONOSCOPY FLEXIBLE PROXIMAL DIAGNOSTIC Recall History of colon polyps Health Maintenance Due Date Last Done Comments DISCUSS TOBACCO CESSATION (REFER TO SMARTSET #1678) 1960 COVID-19 Vaccine (#1) 1963 Cologuard 2003 [...] Cancer Screening 08/18/2026 Hepatitis B Completed 02/11/2015, 042 07/2014, 07/01/2014 AAA Screening Completed 07/05/2019, 02/11/2016 [...] insufficiency documented in this encounter Care Teams Project Director Relationship Specialty Start Date End Date Raza Lion DO [address] [place] [address] PCP - General Family Medicine 09/04/20 documented as of this encounter
--- OUTSIDE RECORDS SUMMARY | 2024-03-08 14:43 | External Medical Summary | Summary of Care ---
Author Name Unknown Organization [facility] Address [address] [place] [place] [address] Phone [phone] Care Team Providers Care Community Development Technician Name Role Phone LionAnupbelle Mcclendonsyed Primary Care Provider Encounter Details Date Type Department Care Team (Late st Contact Info) Description 09/19/2023 Population Health External Data Unspecified Department Allergies Active Allergy Reactions Criticality Noted Date Comments Erythromycin 07/21/2012 Contraindicated with Targretin (cancer med) documented as of this encounter (statuses as of 09/19/2023) Medications Medication Sig Dispensed Refills Start Date [...] as of this encounter (statuses as of 09/19/2023) Active Problems Problem Noted Date Diagnosed Date Venous insufficiency 09/05/2023 Subconjunctival hemorrhage of left eye 3 Tobacco use 10/26/2022 Medical home patient encounter 06/03/2022 Stasis ulcer of lower extremity, left 04/22/2022 Drug-induced polyneuropathy 02/22/2022 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[place] co ronary artery without angina pectoris 03/02/2021 [...] as of this encounter (statuses as of 09/19/2023) Resolved Problems Problem Noted Date Diagnosed Date Resolved Date Abdominal discomfort 11/21/2017 018 COPD, severity to be determined 07/23/2016 07/31/2020 Overview: Per COPD GOLD Classification Periapical abscess 05/15/2014 8 Venous stasis ulcer of leg w ithout varicose veins 07/21/2012 07/14/2017 Anemia 07/21/2012 10/07/2017 documented as of this encounter (statuses as of 09/19/2023) Immunizations Name Administration Dates Next Due Hepatitis [...] 1:30 PM EDT Nurse Only Wound Care, [address] [address] Care, Nurse Wound [address] [place], [place] [phone] 09/28/2023 1:00 PM EDT Appointment Vascular Lab [facility], [address] [address] 09/28/2023 3:00 PM EDT Nurse Only Wound Care, [address] [address] Care, Nurse Wound [address] [place] [address] 10/03/2023 1:20 PM EDT Office Visit Wound Care, [address] [address] Mario Sauceda MD [address] [place] [address] 10/14/2023 2:30 PM EDT Office Visit Dermatology [facility] [address] [place] [address] Dieudonne Braxton MD [address] [place] [address] 11/07/2023 3:00 PM EDT Imaging Radiology [address] [place] [address] 01/12/2024 12:45 PM EDT Office Visit Dermatology [facility] [place] 200 [facility] [place] [address] Tamiko Nieves MD 200 [facility] [address] Scheduled Procedures Name Priority Associated Diagnoses Date/Ti me COLONOSCOPY FLEXIBLE PROXIMAL DIAGNOSTIC Recall History of colon polyps Health Maintenance Due Date Last Done Comments DISCUSS TOBACCO CESSATION (REFER TO SMARTSET #6676) 1960 COVID-19 Vaccine (#1) 1963 Cologuard 2003 [...] filedocumented as of this encounter Care Teams Community Development Technician Relationship Specialty Start Date End Date Raza Lion DO [address] [place] [address] PCP - General Family Medicine 09/04/20 documented as of this encounter
--- OUTSIDE RECORDS SUMMARY | 2024-03-08 14:43 | External Medical Summary | Summary of Care ---
Author Name Unknown Organization [facility] Address [address] [facility] [place] [address] Phone [phone] Care Team Providers Care Banquet Steward Name Role Phone AyadAnupbelle Mcclendonsyed Primary Care Provider Encounter Details Date Type Department Care Team (Late st Contact Info) Description 09/21/2023 Telephone Access Center, [place] [address] [facility] *DO NOT REMOVE THIS DEPARTMENT* [place] [address] ADDRESS AVAILABLE Allergies Active Allergy Reactions Criticality Noted Date Comments Erythromycin 07/21/2012 Contraindicated with Targretin (cancer med) documented as of this encounter (statuses as of 09/21/2023) Medications Medication Sig Dispensed Refills Start Date [...] as of this encounter (statuses as of 09/21/2023) Active Problems Problem Noted Date Diagnosed Date Venous insufficiency 09/05/2023 Subconjunctival hemorrhage of left eye 3 Tobacco use 10/26/2022 Medical home patient encounter 06/03/2022 Stasis ulcer of lower extremity, left 04/22/2022 Drug-induced polyneuropathy 02/22/2022 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[place] co ronary artery without angina pectoris 03/02/2021 [...] as of this encounter (statuses as of 09/21/2023) Resolved Problems Problem Noted Date Diagnosed Date Resolved Date Abdominal discomfort 11/21/2017 018 COPD, severity to be determined 07/23/2016 07/31/2020 Overview: Per COPD GOLD Classification Periapical abscess 05/15/2014 8 Venous stasis ulcer of leg w ithout varicose veins 07/21/2012 07/14/2017 Anemia 07/21/2012 10/07/2017 documented as of this encounter (statuses as of 09/21/2023) Immunizations Name Administration Dates Next Due Hepatitis [...] Encounter - Nicole Oconnor OSA - 09/21/2023 1:34 PM EDT Pt missed his appt today and was wondering if he can get in tomorrow or Tuesday in the afternoon please give him a call Thank you documented in this encounter Plan of Treatment Upcoming Encounters Date Type Department Care Team (Late st Contact Info) Description 09/28/2023 1:00 PM EDT Appointment Vascular Lab [address] [address] 09/28/2023 3:00 PM EDT Nurse Only Wound Care, [address] [address] Care, Nurse Wound [address] [place] [address] 10/03/2023 1:20 PM EDT Office Visit Wound Care, [address] [address] Mario Sauceda MD [address] [place] [address] 10/14/2023 2:30 PM EDT Office [facility] [place] [facility] [address] Dieudonne Braxton MD 200 [facility] [place] [address] 11/07/2023 3:00 PM EDT Imaging Radiology [address], [place] 132 [facility] [place] [address] 01/12/2024 12:45 PM EDT Office Visit Dermatology [facility] 200 [facility] [place] [address] Tamiko Nieves MD 200 [facility] [place] [address] Scheduled Procedures Name Priority Associated Diagnoses Date/Ti me COLONOSCOPY FLEXIBLE PROXIMAL DIAGNOSTIC Recall History of colon polyps Health Maintenance Due Date Last Done Comments DISCUSS TOBACCO CESSATION (REFER TO SMARTSET #4588) 1960 COVID-19 Vaccine (#1) 1963 Cologuard 2003 [...] filedocumented as of this encounter Care Teams Banquet Steward Relationship Specialty Start Date End Date Raza Lion DO [address] [place] [address] PCP - General Family Medicine 09/04/20 documented as of this encounter
--- OUTSIDE RECORDS SUMMARY | 2024-03-08 14:43 | External Medical Summary | Summary of Care ---
Author Name Unknown Organization [facility] Address [address] [place] [facility] [place] [address] Phone [phone] Care Team Providers Care Bombsight Specialist Name Role Phone LionAnupbelle Mcclendonsyed Primary Care Provider Reason for Visit * Reason Onset Date Comments Appointment 09/13/2023 Encounter Details Date Type Department Care Team (Late st Contact Info) Description 09/13/2023 Telephone Access Center, [address] *DO NOT REMOVE THIS DEPARTMENT* [place] [address] Services, Scheduling [address] [place] [address] Appointment Allergies Active Allergy Reactions Criticality Noted Date Comments Erythromycin 07/21/2012 Contraindicated with Targretin (cancer med) documented as of this encounter (statuses as of 09/14/2023) Medications Medication Sig Dispensed Refills Start Date [...] as of this encounter (statuses as of 09/14/2023) Active Problems Problem Noted Date Diagnosed Date Venous insufficiency 09/05/2023 Subconjunctival hemorrhage of left eye 3 Tobacco use 10/26/2022 Medical home patient encounter 06/03/2022 Stasis ulcer of lower extremity, left 04/22/2022 Drug-induced polyneuropathy 02/22/2022 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[place] co ronary artery without angina pectoris 03/02/2021 [...] as of this encounter (statuses as of 09/14/2023) Resolved Problems Problem Noted Date Diagnosed Date Resolved Date Abdominal discomfort 11/21/2017 018 COPD, severity to be determined 07/23/2016 07/31/2020 Overview: Per COPD GOLD Classification Periapical abscess 05/15/2014 8 Venous stasis ulcer of leg w ithout varicose veins 07/21/2012 07/14/2017 Anemia 07/21/2012 10/07/2017 documented as of this encounter (statuses as of 09/14/2023) Immunizations Name Administration Dates Next Due Hepatitis [...] encounter Miscellaneous Notes * Telephone Encounter - China Boland LPN - 09/14/2023 9:19 AM EDT Patient scheduled for nurse visit tomorrow at 2:30pm. Left voicemail for patient with appointment information. * Telephone Encounter - Pearl Luque OSA - 09/13/2023 2:08 PM EDT Pt missed his wound care appt today with the nurse he needs to r/s documented in this encounter Plan of Treatment Upcoming Encounters Date Type Department Care Team (Late st Contact Info) Description 09/15/2023 2:30 PM EDT Nurse Only Wound Care, [place] [address] [place] [address] Care, Nurse Wound [address] [place] [address] 09/21/2023 1:30 PM EDT Nurse Only Wound Care, [place] [address] [place] [address] Care, Nurse Wound [address] [place] [address] 09/28/2023 1:30 PM EDT Nurse Only Wound Care, [place] [address] [place] [address] Care, Nurse Wound [address] [place] [address] 10/03/2023 1:20 PM EDT Office Visit Wound Care, [place] [address] [place] [address] Mario Sauceda MD [address] [place] [address] 10/14/2023 2:30 PM EDT Office Visit Dermatology [facility] 200 [facility] [place] [address] Dieudonne Braxton MD [address] [place] [address] 11/07/2023 3:00 PM EDT Imaging Radiology [facility] 1st [facility] [address] [place] [address] 01/12/2024 12:45 PM EDT Office Visit Dermatology [facility] 200 [facility] [place] [address] Tamiko Nieves MD 200 [facility] [place] [address] Scheduled Procedures Name Priority Associated Diagnoses Date/Ti me COLONOSCOPY FLEXIBLE PROXIMAL DIAGNOSTIC Recall History of colon polyps Health Maintenance Due Date Last Done Comments DISCUSS TOBACCO CESSATION (REFER TO SMARTSET #6270) 1960 COVID-19 Vaccine (#1) 1963 Cologuard 2003 [...] filedocumented as of this encounter Care Teams Bombsight Specialist Relationship Specialty Start Date End Date Raza Lion DO [address] [place] [address] PCP - General Family Medicine 09/04/20 documented as of this encounter
--- OUTSIDE RECORDS SUMMARY | 2024-03-08 14:43 | External Medical Summary | Summary of Care ---
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 pectoris [...] 09/28/2023 1:00 PM EDT Appointment Vascular Lab [facility] Medicine, [address] [address] 09/28/2023 3:00 PM EDT Nurse Only Wound Care, [address] [address] Care, Nurse Wound [address] [place] [address] 10/03/2023 1:20 PM EDT Office Visit Wound Care, [address] [address] Mario Sauceda MD [address] [place] [address] 10/14/2023 2:30 PM EDT Office Visit Dermatology [facility] [address] [place] [address] Dieudonne Braxton MD 200 [facility] [place] [place] [address] 11/07/2023 3:00 PM EDT Imaging Radiology [address] [place] [address] 01/12/2024 12:45 PM EDT Office Visit Dermatology [facility] [address] [place] [address] Tamiko Nieves MD 200 [facility] [place] [place] [address] Scheduled Orders Name Type Priority Associated Diagnoses [...] Comments DISCUSS TOBACCO CESSATION (REFER TO SMARTSET #8279) 1960 COVID-19 Vaccine (#1) 1963 Cologuard 2003 [...] Cancer Screening 08/18/2026 Hepatitis B Completed 02/11/2015, 04/2 07/2014, 07/01/2014 AAA Screening Completed 07/05/2019, 02/11/2016 [...] (HCC) documented in this encounter Care Teams Supervisor Histology Relationship Specialty Start Date End Date Raza Lion DO 132 [facility] [place] [address] PCP - General Family Medicine 09/04/20 documented as of this encounter
--- OUTSIDE RECORDS SUMMARY | 2024-03-08 14:43 | External Medical Summary | Summary of Care ---
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 pectoris 03/02/2021 [...] 09/28/2023 1:00 PM EDT Appointment Vascular Lab [facility], [address] [address] 09/28/2023 3:00 PM EDT Nurse Only Wound Care, [address] [address] Care, Nurse Wound [address] [place] [address] 10/03/2023 1:20 PM EDT Office Visit Wound Care, [address] [place] [address] Mario Sauceda MD [address] [place] [address] 10/14/2023 2:30 PM EDT Office Visit Dermatology [facility] [address] [place] [address] Dieudonne Braxton MD [address] [place] [address] 11/07/2023 3:00 PM EDT Imaging Radiology [facility] 1st [facility], [place] [address] [place] [address] 01/12/2024 12:45 PM EDT Office Visit Dermatology [facility] [address] [place] [address] Tamiko Nieves MD [address] [place] [address] Scheduled Procedures Name Priority Associated Diagnoses Date/Ti me COLONOSCOPY FLEXIBLE PROXIMAL DIAGNOSTIC Recall History of colon polyps Health Maintenance Due Date Last Done Comments DISCUSS TOBACCO CESSATION (REFER TO SMARTSET #3222) 1960 COVID-19 Vaccine (#1) 1963 Cologuard 2003 [...] filedocumented as of this encounter Care Teams Spray Gun Striper Relationship Specialty Start Date End Date Raza Lion DO [address] [place] [address] PCP - General Family Medicine 09/04/20 documented as of this encounter
--- OUTSIDE RECORDS SUMMARY | 2024-03-08 14:43 | External Medical Summary | Summary of Care ---
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 03/02/2021 [...] 1:30 PM EDT Nurse Only Wound Care, [place] [address] [place] [address] Care, Nurse Wound [address] [place] [address] 09/28/2023 3:00 PM EDT Nurse Only Wound Care, [place] [address] [place] [address] Care, Nurse Wound [address] [place] [address] 10/03/2023 1:20 PM EDT Office Visit Wound Care, [place] [address] [place] [address] Mario Sauceda MD [address] [place] [address] 10/14/2023 2:30 PM EDT Office Visit Dermatology [facility] [address] [place] [address] Dieudonne Braxton MD [address] [place] [address] 11/07/2023 3:00 PM EDT Imaging Radiology [facility] 1st [facility], [place] [address] [facility] [place] [address] 01/12/2024 12:45 PM EDT Office Visit Dermatology [facility] [place] [address] [facility] [place] [address] Tamiko Nieves MD [address] [place] [address] Scheduled Procedures Name Priority Associated Diagnoses Date/Ti [...] insufficiency documented in this encounter Care Teams Phd Intern Relationship Specialty Start Date End Date Raza Lion DO [address] [facility] [place] [address] PCP - General Family Medicine 09/04/20 documented as of this encounter
--- NOTE | 2024-03-09 05:53 | Electrocardiogram Report ---
Test Reason : Blood Pressure : */* mmHG Vent. Rate : 75 BPM Atrial Rate : 75 BPM P-R Int : 172 ms QRS Dur : 110 ms QT Int : 370 ms P-R-T Axes : 145 -28 -18 degrees QTcB Int : 413 ms Unusual P axis, possible ectopic atrial rhythm Low voltage QRS Incomplete right bundle branch block Cannot rule out Anterior infarct , age undetermined Abnormal ECG When compared with ECG of 18-Jul-2020 15:05, P wave morphology has changed Confirmed by Greg Michael ([id number]) on 03/09/2024 5:53:31 AM Referred By: REFERRED SELF Confirmed By: Greg Michael
--- NOTE | 2024-03-09 05:54 | Electrocardiogram Report ---
Test Reason : Blood Pressure : */* mmHG Vent. Rate : 86 BPM Atrial Rate : 86 BPM P-R Int : 162 ms QRS Dur : 102 ms QT Int : 368 ms P-R-T Axes : 53 -17 35 degrees QTcB Int : 440 ms Normal sinus rhythm Incomplete right bundle branch block Borderline ECG When compared with ECG of 07-Mar-2024 19:11, Sinus rhythm has replaced Ectopic atrial rhythm Nonspecific T wave abnormality, improved in Inferior leads Confirmed by Greg Michael ([id number]) on 03/09/2024 5:53:47 AM Referred By: REFERRED SELF Confirmed By: Greg Michael
== END 2024-03-08 16:50 | disposition home or self-care (01) | DRG 854 ==
LOC: ED 12:55 → SUATTDRO 15:52 → EDINP 15:52 → 2W 18:30